=== PATIENT | female | born 1955 | race Caucasian/White ===

== ENCOUNTER 2021-01-22 11:44 | Inpatient (IN) | payer MEDICARE, OTHER ==
[~2021-01-22] VITALS: Ht 167.6 cm; Wt 91.4 kg
[2021-01-22] MEDS ORDERED: LEVO25TA4 PO (12:49)
[2021-01-22] MEDS ORDERED: VENL37.5 PO (12:49)
[2021-01-22] MEDS ORDERED: HYDR25SU18 RC (12:49)
[2021-01-22] MEDS ORDERED: RIVA1PAT22 TD (12:49)
[2021-01-22] MEDS ORDERED: ATOR20TA58 PO (12:49)
[2021-01-22] MEDS ORDERED: AMLO-186 PO (12:49)
[2021-01-22] MEDS ORDERED: MECL-75 PO (12:49)
[2021-01-22] MEDS ORDERED: LIDO700A21 TP (12:49)
[2021-01-22] MEDS ORDERED: DEMECLOCYCLINE HCL PO (12:49)
[2021-01-22] MEDS ORDERED: MESA1.2T PO (12:49)
[2021-01-22] MEDS ORDERED: INSU100V13 SQ (12:49)
[2021-01-22] MEDS ORDERED: QUET50TA5 PO (13:10)
[2021-01-22] MEDS ORDERED: CYAN500T17 PO (13:10)
[2021-01-22] MEDS ORDERED: LIRA0.6P2 SQ (13:10)
[2021-01-22] MEDS ORDERED: RISP2TAB78 PO (13:10)
[2021-01-22] MEDS ORDERED: METO25TA4 PO (13:10)
[2021-01-22] MEDS ORDERED: ZIPR40CA2 PO ×2 (13:10)
[2021-01-22] MEDS ORDERED: LACT1CAP8 PO (13:10)
[2021-01-22] MEDS ORDERED: VALP500V2 PO (13:10)
[2021-01-22] MEDS ORDERED: CHOL10004 PO (13:10)
[2021-01-22] MEDS ORDERED: PSYL3.4P PO (13:10)
[2021-01-22] MEDS ORDERED: ACET500T68 PO (13:10)
[2021-01-22] MEDS ORDERED: INSU100I17 SQ (13:10)
--- NOTE | 2021-01-22 13:30 | NUR ---
Admission Note with Justification for Admission to [facility] Patient admitted to [facility] for protective oversight for emergency stabilization of acute psychiatric crisis. Pt admitted from: [facility] on Mode of arrival: Secure Transport Accompanied By: Secure Transport Precipitating behaviors that initiated intake and admission: delusional- thinks she has kidney failure/heart failure/pneumonia, demanding to go to the hospital, manic, labile mood, yelling, crying, angry, agitated, refusing meds & blood sugar checks, threatening to use pocket knife on staff, believes she owns the alf Description of failure of out patient attempts at stabilization in previous setting list behavior and medication trials: effexor, exelon, seroquel, redirection, labs, DrSánchez appointments, UA Behaviors and assessment findings upon admission: Pt is pleasant, but hyperverbal. She is A&Ox4. Skin is intact. She has 3+ pitting edema in her feet. 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 Box lunch ordered from the kitchen and pt provided with ice water in her room. Will continue to monitor. Plan: Admit for protective oversight for adjustment and stabilization of medications, behaviors and mood. Intense treatment regimen including groups, medication adjustments, therapy, consistent regimen for ADL's, self care, and sleep hygiene. Daily monitoring by Inpatient staff, Psychiatry, and Medical Physician.
[2021-01-22] MEDS ORDERED: METHYL SALICYLATE/MENTHOL TOPICAL OINTMENT 57GM TUBE. TP PRN (14:00)
[2021-01-22] MEDS ORDERED: MAG HYDROX/AL HYDROX/SIMETH 30 ML ORAL.SUSP PO PRN (14:00)
[2021-01-22] MEDS ORDERED: MAGNESIUM HYDROXIDE 2,400 MG/30 ML ORAL.SUSP. PO PRN (14:00)
[2021-01-22] MEDS ORDERED: ACETAMINOPHEN 325 MG TABLET PO PRN (14:00)
[2021-01-22] MEDS ORDERED: VALP250S3 PO (14:08)
[2021-01-22 15:34] VITALS: BP 115/73
[2021-01-22 15:34] LABS: BASO % 0 % (0-3); EOS # 0.1 x10^3/uL (0.0-0.7); EOS % 2 % (0-3); HEMATOCRIT 35.8 % (36.0-47.0); HEMOGLOBIN 11.9 g/dL (12.0-15.5); LYMPH # 1.8 x10^3/uL (1.0-4.8); LYMPH % 34 % (24-48); MEAN CORPUSCULAR HEMOGLOBIN 29 pg (25-35); MEAN CORPUSCULAR HGB CONC 33 g/dL (31-37); MEAN CORPUSCULAR VOLUME 88 fL (79-100); MONO # 0.5 x10^3/uL (0.0-1.1); MONO % 9 % (0-9); NEUT # 2.9 x10^3uL (1.8-7.7); NEUT % 54 % (31-73); PLATELET COUNT 164 x10^3/uL (140-400); RED BLOOD COUNT 4.08 x10^6/uL (3.50-5.40); WHITE BLOOD COUNT 5.4 x10^3/uL (4.0-11.0)
[2021-01-22 15:53] LABS: ALBUMIN 2.7 g/dL (3.4-5.0); ALBUMIN/GLOBULIN RATIO 0.7 (1.0-1.7); CALCIUM 8.7 mg/dL (8.5-10.1); CREATININE 1.3 mg/dL (0.6-1.0); MAGNESIUM 1.8 mg/dL (1.8-2.4); POTASSIUM 3.9 mmol/L (3.5-5.1); TOTAL BILIRUBIN 0.4 mg/dL (0.2-1.0); TOTAL PROTEIN 6.6 g/dL (6.4-8.2)
[2021-01-22 16:08] LABS: VAL ACID 66 mcg/mL (50-100)
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
[2021-01-22] MEDS: VALPROIC ACID 250 MG CAPSULE. PO SCH ×2 (17:39→21:27)
[2021-01-22 18:51] LABS: BILIRUBIN,URINE NEG (NEG); CLARITY,URINE CLEAR; COLOR,URINE YELLOW; GLUCOSE,URINE 100 mg/dL (NEG); NITRITE,URINE NEG (NEG); UROBILINOGEN,URINE 0.2 mg/dL (0.2 mg/dL)
[2021-01-22 18:53] LABS: RBC,URINE 0 /HPF (0-2); WBC,URINE RARE /HPF (0-4)
[2021-01-22 18:54] LABS: BACTERIA,URINE FEW /HPF (0-FEW); SQUAMOUS EPITHELIAL CELL,UR OCC /LPF
[2021-01-22] MEDS ORDERED: HYDROCORTISONE ACETATE 25 MG SUPP.RECT RC PRN (20:00)
[2021-01-22] MEDS ORDERED: ZIPRASIDONE 40 MG CAPSULE. PO SCH (21:00)
[2021-01-22] MEDS: ATORVASTATIN CALCIUM 20 MG TABLET PO SCH (21:00)
[2021-01-22] MEDS ORDERED: DEMECLOCYCLINE HCL 150 MG TABLET. PO SCH (21:00)
[2021-01-22] MEDS: DEMECLOCYCLINE HCL 150 MG TABLET. PO SCH (21:00)
[2021-01-22] MEDS: PSYLLIUM SEED (WITH SUGAR) PACKET. PO SCH (21:26)
[2021-01-22] MEDS: METOPROLOL TART IMMED RELEASE 25 MG TABLET. PO SCH (21:27)
[2021-01-22] MEDS: ZIPRASIDONE 40 MG CAPSULE. PO SCH (21:27)
[2021-01-22] MEDS: ACETAMINOPHEN 500 MG TABLET PO SCH (21:27)
[2021-01-22] MEDS: MECLIZINE 12.5 MG TABLET. PO SCH (21:27)
[2021-01-22] MEDS: risperiDONE 2 MG TABLET. PO SCH (21:27)
[2021-01-22] MEDS: QUEtiapine 50 MG TABLET. PO SCH (21:28)
--- NOTE | 2021-01-22 22:03 | NUR ---
Radha has been social and active on the unit [facility]. Meds were taken whole without difficulty. She has been delusional and hyperverbal. 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 She said she was sent here because people are trying to kill her and many other such things were said in nonstop speech. She was cooperative with exam and staff [facility].
--- NOTE | 2021-01-22 22:07 | PDOC ---
Exam Note: Benedict Note: Please also refer to the separate dictated note~for this date of service dictated separately.~Patient seen individually. Discussed the patient with Nursing staff reviewed the chart.~Reviewed interim history and current functioning. Reviewed vital signs,~Labs/ Radiology~and current medications noted below. Continue current treatment with the changes noted in the dictated addendum note Assessment: Vital Signs/I&O: Vital Signs Date Time Temp Pulse Resp B/P (MAP) Pulse Ox O2 Delivery O2 Flow Rate FiO2 01/22/21 21:27 95 115/73 01/22/21 15:34 97.3 18 95 Labs: Laboratory Tests Test 01/22/21 15:14 01/22/21 18:35 01/22/21 19:28 White Blood Count 5.4 x10^3/uL (4.0-11.0) Red Blood Count 4.08 x10^6/uL (3.50-5.40) Hemoglobin 11.9 g/dL (12.0-15.5) L Hematocrit 35.8 % (36.0-47.0) L Mean Corpuscular Volume 88 fL (79-100) Mean Corpuscular Hemoglobin 29 pg (25-35) Mean Corpuscular Hemoglobin Concent 33 g/dL (31-37) Red Cell Distribution Width 14.0 % (11.5-14.5) Platelet Count 164 x10^3/uL (140-400) Neutrophils (%) (Auto) 54 % (31-73) Lymphocytes (%) (Auto) 34 % (24-48) Monocytes (%) (Auto) 9 % (0-9) Eosinophils (%) (Auto) 2 % (0-3) Basophils (%) (Auto) 0 % (0-3) Neutrophils # (Auto) 2.9 x10^3uL (1.8-7.7) Lymphocytes # (Auto) 1.8 x10^3/uL (1.0-4.8) Monocytes # (Auto) 0.5 x10^3/uL (0.0-1.1) Eosinophils # (Auto) 0.1 x10^3/uL (0.0-0.7) Basophils # (Auto) 0.0 x10^3/uL (0.0-0.2) D-Dimer (Moon) 0.80 mg/L (0.00-0.50) H Sodium Level 138 mmol/L (136-145) Potassium Level 3.9 mmol/L (3.5-5.1) Chloride Level 100 mmol/L (98-107) Carbon Dioxide Level 29 mmol/L (21-32) Anion Gap 9 (6-14) Blood Urea Nitrogen 10 mg/dL (7-20) Creatinine 1.3 mg/dL (0.6-1.0) H Estimated GFR (Cockcroft-Gault) 41.0 BUN/Creatinine Ratio 8 (6-20) Glucose Level 196 mg/dL (70-99) H Calcium Level 8.7 mg/dL (8.5-10.1) Magnesium Level 1.8 mg/dL (1.8-2.4) Total Bilirubin 0.4 mg/dL (0.2-1.0) Aspartate Amino Transferase (AST) 53 U/L (15-37) H Alanine Aminotransferase (ALT) 35 U/L (14-59) Alkaline Phosphatase 161 U/L (46-116) H Total Protein 6.6 g/dL (6.4-8.2) Albumin 2.7 g/dL (3.4-5.0) L Albumin/Globulin Ratio 0.7 (1.0-1.7) L Valproic Acid Level 66 mcg/mL (50-100) Valproic Acid Last Dose Date 01/21/21 Valproic Acid Last Dose Time 1800 Urine Collection Type U cath Urine Color Yellow Urine Clarity Clear Urine pH 5.5 Urine Specific [place] 1.015 Urine Protein Neg (NEG-TRACE) Urine Glucose (UA) 100 mg/dL (NEG) Urine Ketones (Stick) Neg mg/dL (NEG) Urine Blood Neg (NEG) Urine Nitrite Neg (NEG) Urine Bilirubin Neg (NEG) Urine Urobilinogen Dipstick 0.2 mg/dL (0.2 mg/dL) Urine Leukocyte Esterase Trace (NEG) Urine RBC 0 /HPF (0-2) Urine WBC Rare /HPF (0-4) Urine Squamous Epithelial Cells Occ /LPF Urine Bacteria Few /HPF (0-FEW) Glucose (Fingerstick) 231 mg/dL (70-99) H Current Medications: Meds: Current Medications Medications (Trade) Dose Ordered Sig/Latesha Route PRN Reason Start Time Stop Time Status Last Admin Dose Admin Valproic Acid (Depakene) 500 mg QID PO 01/22/21 17:00 01/22/21 21:27 Acetaminophen (Tylenol) 500 mg QID PO 01/22/21 21:00 01/22/21 21:27 Metoprolol Tartrate (Lopressor) 25 mg BID PO 01/22/21 21:00 01/22/21 21:27 Quetiapine Fumarate (SEROquel) 50 mg TID PO 01/22/21 21:00 01/22/21 21:28 Risperidone (RisperDAL) 2 mg TID PO 01/22/21 21:00 01/22/21 21:27 Ziprasidone (Geodon) 40 mg BID PO 01/22/21 21:00 01/22/21 21:27 Meclizine HCl (Antivert) 25 mg BID PO 01/22/21 21:00 01/22/21 21:27 Psyllium Hydrophilic Mucilloid (Metamucil) 1 pkt BID PO 01/22/21 21:00 01/22/21 21:26 I have reviewed the current psychotropics carefully including drug interactions. Risk benefit ratio favors no change other than as noted in my dictated progress note. Diagnosis: Problems: (1) Schizoaffective disorder, bipolar type INOCENCIO PELAEZ MD Jan 22, 2021 22:07
[2021-01-23 03:07] LABS: HEMOGLOBIN A1C 8.9 % (4.8-5.6)
[2021-01-23] MEDS: LEVOTHYROXINE 25 MCG TABLET. PO SCH (05:30)
[2021-01-23 05:58] VITALS: BP 117/73
[2021-01-23 06:09] LABS: THYROXINE 7.4 ug/dL (4.5-12.0)
[2021-01-23] MEDS: ZIPRASIDONE 40 MG CAPSULE. PO SCH ×2 (08:28→21:12)
[2021-01-23] MEDS: DEMECLOCYCLINE HCL 150 MG TABLET. PO SCH ×3 (08:28→21:12)
[2021-01-23] MEDS: MECLIZINE 12.5 MG TABLET. PO SCH ×2 (08:28→21:13)
[2021-01-23] MEDS: METOPROLOL TART IMMED RELEASE 25 MG TABLET. PO SCH ×2 (08:28→21:15)
[2021-01-23] MEDS: VALPROIC ACID 250 MG CAPSULE. PO SCH ×4 (08:28→21:13)
[2021-01-23] MEDS: amLODIPine BESYLATE 5 MG TABLET PO SCH (08:29)
[2021-01-23] MEDS: ACETAMINOPHEN 500 MG TABLET PO SCH ×2 (08:29→13:00)
[2021-01-23] MEDS: LACTOBACILLUS RHAMNOSUS GG 1 CAPSULE. PO SCH ×2 (08:30→21:11)
[2021-01-23] MEDS: PSYLLIUM SEED (WITH SUGAR) PACKET. PO SCH ×2 (08:30→21:11)
[2021-01-23] MEDS: CHOLECALCIFEROL (VITAMIN D3) 1,000 UNIT TABLET PO SCH (08:30)
[2021-01-23] MEDS: QUEtiapine 50 MG TABLET. PO SCH ×3 (08:30→21:13)
[2021-01-23] MEDS: risperiDONE 2 MG TABLET. PO SCH ×3 (08:30→21:12)
[2021-01-23] MEDS: CYANOCOBALAMIN (VITAMIN B-12) 1,000 MCG TABLET. PO SCH (08:30)
[2021-01-23] MEDS: RIVASTIGMINE 4.6MG PATCH. TD SCH (08:35)
[2021-01-23] MEDS: LIDOCAINE (700MG/PATCH) PATCH. TP SCH (08:35)
[2021-01-23] MEDS: INSULIN LISPRO 300 UNITS/3 ML VIAL. SQ SCH ×3 (08:36→17:33)
[2021-01-23] MEDS: NON FORMULARY ITEM (Liraglutide (Victoza 3-Pak) 1.8 MG) SQ SCH (09:00)
[2021-01-23] MEDS ORDERED: VENLAFAXINE XR 37.5 MG CAP.ER.24H. PO SCH (09:00)
[2021-01-23] MEDS: INSULIN GLARGINE SYRINGE. SQ SCH (09:00)
[2021-01-23] MEDS: MESALAMINE 1.2 GM TABLET.DR PO SCH (10:58)
[2021-01-23] MEDS ORDERED: ACETAMINOPHEN/CODEINE 300/30MG TABLET PO PRN (11:45)
--- NOTE | 2021-01-23 12:03 | NUR ---
WEEKLY ACTIVITY THERAPY NOTE Date of Admission: 01/22/21 Date of AT Assessment: TBD Precipitating behaviors that initiated intake and admission:delusional- thinks she has kidney failure/heart failure/pneumonia, demanding to go to the hospital, manic, labile mood, yelling, crying, angry, agitated, refusing meds & blood sugar checks, threatening to use pocket knife on staff, believes she owns the intermediate Goal aimed: TBD Initial Goal: TBD Weekly progress towards goal: NA Group participation level: NA Weekly highlights: arrived on [facility] Behaviors observed: Plan: meet/assess pt Beneficial adaptations:
[2021-01-23] MEDS ORDERED: ACETAMINOPHEN 500 MG TABLET PO PRN (13:15)
[2021-01-23 14:47] LABS: THYROID STIM HORMONE (TSH) 1.948 uIU/mL (0.358-3.740)
--- NOTE | 2021-01-23 14:54 | RAD ---
EXAM: CT head without contrast INDICATION: Establish baseline COMPARISON: None TECHNIQUE: Axial CT imaging through the head without intravenous contrast. One or more of the following individualized dose reduction techniques were utilized for this examinat ion: 1. Automated exposure control 2. Adjustment of the mA and/or kV according to patient size 3. Use of iterative reconstruction technique. FINDINGS: The ventricles and sulci are moderately enlarged. There is a mild periventricular white matter hypoat tenuation.. Barrera-white matter differentiation is maintained. There is no intracranial hemorrhage, ac [place] infarct, or mass lesion. Basal cisterns are clear. The skull and scalp are intact. Small amount o f fluid in the right maxillary sinus and normal mucosal thickening in the left maxillary sinuses and ethmoid air cells. Mastoid air cells are clear. Globes and orbits are intact. IMPRESSION: 1. No acute intracranial abnormality. 2. Moderate volume loss. 3. Mild white matter disease, likely related to chronic microvascular ischemia. 4. Mild right maxillary sinus disease. Electronically signed by: Theresa Kerns MD (01/23/2021 2:52 PM) [id number]
[2021-01-23 15:44] VITALS: BP 144/77
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
--- NOTE | 2021-01-23 18:01 | NUR ---
Patient has been social and active on the unit today. Meds were taken whole without difficulty. She has been delusional and hyperverbal. 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 Patient did seem to calm down towards the end of the shift being not quite so hyperverbal. Patient has eaten well and is independently walking after PT/OT evaluation and recommendation to not use the wheelchair. Patient does own the wheelchair that is here so it is to be kept in the patients room when not in use.
--- NOTE | 2021-01-23 20:28 | CONS ---
DATE OF CONSULTATION: 01/23/2021 ATTENDING PHYSICIAN: Dr. Pelaez. We are asked to see this patient for medical consultation. HISTORY OF PRESENT ILLNESS: The patient is a 65-year-old female who currently resides at [facility] in [place], [place], . ____ is her daughter. She is bipolar. She has schizoaffective disorder. She is delusional, very manic, labile mood, yelling, crying and agitated, be very grandiose. She is admitted for further treatment and evaluation. They have tried her on Effexor, Geodon, Seroquel, and risperidone. PAST MEDICAL HISTORY: Significant for diverticulitis, degenerative arthritis, type 2 diabetes, generalized anxiety, chronic kidney disease, hypertension, hyperlipidemia, hypothyroidism, posttraumatic stress disorder and cognitive impairment. ALLERGIES: SHE HAS SEVERAL ALLERGIES INCLUDING PENICILLIN, LITHIUM, AND OLANZAPINE, EXACT REACTION IS UNCLEAR. CURRENT MEDICATIONS: Reviewed, prior to coming here she was on Tylenol, amlodipine, Lipitor, B12, Anusol, regular insulin and Levemir, lactobacillus, Synthroid, Lidoderm patch along with olanzapine, metoprolol, mesalamine, meclizine, Victoza, risperidone, Exelon patch, Depakote, Effexor, vitamin D and Geodon 40 mg b.i.d. SOCIAL HISTORY: She is a nonsmoker, nondrinker. FAMILY HISTORY: Unobtainable. REVIEW OF SYSTEMS: Significant for grandiose ideation. She has a significant stories to tell. She is quite hyperverbal. She is not agitated. All other systems reviewed and turned to be negative. PHYSICAL EXAMINATION: GENERAL: When I saw her, this is a pleasant, middle-aged female. INITIAL VITAL SIGNS: Showed a blood pressure 117/73, pulse is 77 and regular. She was afebrile, oxygen saturation 97% on room air. HEENT: Head is without trauma. Pupils are reactive. Sclerae is nonicteric. Oropharynx clear. NECK: Supple, no bruits identified. LUNGS: Otherwise clear. CARDIOVASCULAR: Showed regular heart tones. No gallop. ABDOMEN: Soft. EXTREMITIES: Without edema. NEUROLOGIC: Focally intact. SKIN: Warm and dry. LABORATORY DATA: Hemoglobin 11.9 g/dL, white count 5400. Chemistry panel: Creatinine is 1.3 mg/dL. Electrolytes within normal range. Nonfasting blood sugar 196. ASSESSMENT: 1. This 65-year-old female has significant bipolar disorder with hypomania. 2. Type 2 diabetes. 3. Essential hypertension. 4. Degenerative arthritis. 5. Hypothyroidism, on replacement. RECOMMENDATIONS: 1. The patient is stable from a medical standpoint. 2. Home medications were reviewed, she will be continued. 3. She requested p.r.n. Tylenol. 4. I will order this as needed basis. Thank you again for asking us to see the patient for medical consultation. We should gladly follow along during her inpatient course. BROOKLYN/JOHANA DR: BROOKLYN/alice TID: [id number] CC: INOCENCIO PELAEZ MD
[2021-01-23] MEDS: cloZAPine 25 MG TABLET PO SCH (21:12)
[2021-01-23] MEDS: ATORVASTATIN CALCIUM 20 MG TABLET PO SCH (21:12)
--- NOTE | 2021-01-23 21:57 | PDOC ---
Exam Note: Benedict Note: Please also refer to the separate dictated note~for this date of service dictated separately.~Patient seen individually. Discussed the patient with Nursing staff reviewed the chart.~Reviewed interim history and current functioning. Reviewed vital signs,~Labs/ Radiology~and current medications noted below. Continue current treatment with the changes noted in the dictated addendum note Assessment: Vital Signs/I&O: Vital Signs Date Time Temp Pulse Resp B/P (MAP) Pulse Ox O2 Delivery O2 Flow Rate FiO2 01/23/21 21:15 81 144/77 01/23/21 15:44 98.1 20 100 01/23/21 12:53 Room Air I & O 01/22/21 01/22/21 01/23/21 15:00 23:00 07:00 Intake Total 600 ml Balance 600 ml Labs: Laboratory Tests Test 01/23/21 07:40 01/23/21 11:00 01/23/21 12:00 01/23/21 16:26 Glucose (Fingerstick) 201 mg/dL (70-99) H 239 mg/dL (70-99) H 184 mg/dL (70-99) H 169 mg/dL (70-99) H Test 01/23/21 19:43 Glucose (Fingerstick) 175 mg/dL (70-99) H Current Medications: Meds: Laboratory Tests Test 01/23/21 07:40 01/23/21 11:00 01/23/21 12:00 01/23/21 16:26 Glucose (Fingerstick) 201 mg/dL 239 mg/dL 184 mg/dL 169 mg/dL Test 01/23/21 19:43 Glucose (Fingerstick) 175 mg/dL Current Medications Medications (Trade) Dose Ordered Sig/Latesha Route PRN Reason Start Time Stop Time Status Last Admin Dose Admin Acetaminophen (Tylenol) 650 mg PRN Q6HRS PRN PO MILD PAIN / TEMP > 100.3'F 01/22/21 14:00 Cancel Multi-Ingredient Ointment (Analgesic [place]) 1 keri PRN QID PRN TP MUSCLE PAIN 01/22/21 14:00 Al Hydroxide/Mg Hydroxide (Mylanta Plus Xs) 15 ml PRN AFTMEALHC PRN PO DYSPEPSIA 01/22/21 14:00 Magnesium Hydroxide (Milk Of Magnesia) 2,400 mg PRN QHS PRN PO CONSTIPATION 01/22/21 14:00 Valproic Acid (Depakene) 500 mg QID PO 01/22/21 17:00 01/23/21 21:13 Acetaminophen (Tylenol) 500 mg QID PO 01/22/21 21:00 01/23/21 13:04 DC 01/23/21 08:29 Amlodipine Besylate (Norvasc) 5 mg DAILY PO 01/23/21 09:00 01/23/21 08:29 Atorvastatin Calcium (Lipitor) 20 mg QHS PO 01/22/21 21:00 01/23/21 21:12 Vitamin D (Vitamin D3) 1,000 unit DAILY PO 01/23/21 09:00 01/23/21 08:30 Hydrocortisone Acetate (Anucort-Hc) 25 mg PRN Q8HRS PRN RC hemorrhoids 01/22/21 20:00 Levothyroxine Sodium (Synthroid) 25 mcg DAILY06 PO 01/23/21 06:00 01/23/21 05:30 Lidocaine (Lidoderm) 1 patch DAILY TP 01/23/21 09:00 01/23/21 08:35 Mesalamine (Lialda) 1.2 gm DAILY PO 01/23/21 09:00 01/23/21 10:58 Metoprolol Tartrate (Lopressor) 25 mg BID PO 01/22/21 21:00 01/23/21 21:15 Quetiapine Fumarate (SEROquel) 50 mg TID PO 01/22/21 21:00 01/23/21 21:13 Risperidone (RisperDAL) 2 mg TID PO 01/22/21 21:00 01/23/21 21:12 Rivastigmine (Exelon) 1 patch DAILY TD 01/23/21 09:00 01/23/21 08:35 Venlafaxine HCl (Effexor Xr) 37.5 mg DAILY PO 01/23/21 09:00 01/23/21 13:11 DC 01/23/21 08:29 Ziprasidone (Geodon) 40 mg BID PO 01/22/21 21:00 01/23/21 21:12 Ziprasidone (Geodon) 80 mg QHS PO 01/22/21 21:00 01/22/21 20:17 DC Cyanocobalamin (Vitamin B-12) 1,000 mcg DAILY PO 01/23/21 09:00 01/23/21 08:30 Insulin Human Lispro (HumaLOG) 40 units TIDWMEALS SQ 01/23/21 08:00 01/23/21 17:33 Insulin Glargine (Lantus Syringe) 30 unit DAILY SQ 01/23/21 09:00 01/23/21 09:00 Lactobacillus Rhamnosus (Culturelle) 1 cap BID PO 01/23/21 09:00 01/23/21 21:11 Non-Formulary Medication (Liraglutide (Victoza 3-Jas)) 1.8 mg DAILY SQ 01/23/21 09:00 UNV Meclizine HCl (Antivert) 25 mg BID PO 01/22/21 21:00 01/23/21 21:13 Psyllium Hydrophilic Mucilloid (Metamucil) 1 pkt BID PO 01/22/21 21:00 01/23/21 21:11 Demeclocycline HCl (Declomycin) 150 mg TID PO 01/22/21 21:00 01/22/21 20:45 DC Olanzapine (ZyPREXA ZYDIS) 5 mg PRN Q2HR PRN PO PSYCHOSIS 01/22/21 20:30 Demeclocycline HCl (Declomycin) 300 mg TID PO 01/22/21 21:00 01/23/21 21:12 Acetaminophen/ Codeine Phosphate (Tylenol #3) 1 tab PRN QID PRN PO MODERATE PAIN 4-6 01/23/21 11:45 01/23/21 12:23 Acetaminophen (Tylenol) 500 mg PRN Q6HRS PRN PO MILD PAIN / TEMP > 100.3'F 01/23/21 13:15 Clozapine (Clozaril) 25 mg HS PO 01/23/21 21:00 01/23/21 21:12 Current Medications Medications (Trade) Dose Ordered Sig/Latesha Route PRN Reason Start Time Stop Time Status Last Admin Dose Admin Amlodipine Besylate (Norvasc) 5 mg DAILY PO 01/23/21 09:00 01/23/21 08:29 Vitamin D (Vitamin D3) 1,000 unit DAILY PO 01/23/21 09:00 01/23/21 08:30 Levothyroxine Sodium (Synthroid) 25 mcg DAILY06 PO 01/23/21 06:00 01/23/21 05:30 Lidocaine (Lidoderm) 1 patch DAILY TP 01/23/21 09:00 01/23/21 08:35 Mesalamine (Lialda) 1.2 gm DAILY PO 01/23/21 09:00 01/23/21 10:58 Rivastigmine (Exelon) 1 patch DAILY TD 01/23/21 09:00 01/23/21 08:35 Venlafaxine HCl (Effexor Xr) 37.5 mg DAILY PO 01/23/21 09:00 01/23/21 13:11 DC 01/23/21 08:29 Cyanocobalamin (Vitamin B-12) 1,000 mcg DAILY PO 01/23/21 09:00 01/23/21 08:30 Insulin Human Lispro (HumaLOG) 40 units TIDWMEALS SQ 01/23/21 08:00 01/23/21 17:33 Insulin Glargine (Lantus Syringe) 30 unit DAILY SQ 01/23/21 09:00 01/23/21 09:00 Lactobacillus Rhamnosus (Culturelle) 1 cap BID PO 01/23/21 09:00 01/23/21 21:11 Acetaminophen/ Codeine Phosphate (Tylenol #3) 1 tab PRN QID PRN PO MODERATE PAIN 4-6 01/23/21 11:45 01/23/21 12:23 Clozapine (Clozaril) 25 mg HS PO 01/23/21 21:00 01/23/21 21:12 I have reviewed the current psychotropics carefully including drug interactions. Risk benefit ratio favors no change other than as noted in my dictated progress note. Diagnosis: Problems: (1) Schizoaffective disorder, bipolar type INOCENCIO PELAEZ MD Jan 23, 2021 21:56
--- NOTE | 2021-01-23 23:16 | HP ---
ADMIT DATE: 01/22/2021 PSYCHIATRIC ADMISSION HISTORY AND EVALUATION This is a late entry, date of service 01/22/2021, covers elements not covered in my initial note of 01/22/2021. I met with the patient in the evening of 01/22/2021 and previously discussed with Lilibeth Pal, search coordinator and nursing staff, reviewed information from [facility] and from the patient's court appointed guardian. IDENTIFYING DATA: The patient is a 65-year-old female referred to us from [facility] by Dr. Parveen Kemp, her primary care physician on account of an acute exacerbation of her schizoaffective disorder, bipolar type, mixed with psychotic features. Reportedly, patient has been grandiose, delusional, think she has kidney failure, angry, agitated, refusing medications and blood sugar checks. Threatening to use a pocket knife on staff. She believes she owns the [facility]. 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 The patient's behaviors are unmanageable at the facility. She has failed prior inpatient psychiatric stay at [facility] in November of this year. She has been cheeking the medications which further complicates her presentation and is referred and admitted for inpatient psychiatric stabilization. CHIEF COMPLAINT: "I can do anything. 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 You can bring your family for my parties and everyone else. I need to rest." The patient remains hyperverbal, extremely grandiose, paranoid, psychotic, constantly talking fairly loud, abrasive, intrusive, marked mood lability and agitation. She has failed outpatient psychiatric interventions resulting in this referral. PAST PSYCHIATRIC HISTORY: As above and she used to be treated at the [facility] in [place] and continued with other providers after [facility] has moved to [place], [place]. PAST MEDICAL HISTORY: Positive for hypothyroidism, hyponatremia, hyperlipidemia, hypertension, type 2 diabetes mellitus, chronic kidney disease stage III, CHF, diverticulitis, PTSD, mild cognitive impairment, chronic obstructive pyelonephritis. Accu-Cheks before meals and at bedtime. ALLERGIES: LITHIUM, ZYPREXA and PENICILLIN. CODE STATUS: Full code. DIET: Regular. MEDICATIONS: She often tries to cheek HER medications. Ambulates ad rodolfo. Current psychotropics: Effexor XR 37.5 mg a day, Exelon patch 4.6 mg a day, Risperdal 2 mg t.i.d., Seroquel 50 mg t.i.d., Depakene 500 mg 4 times a day, Geodon 40 mg b.i.d. and 80 mg at bedtime. FAMILY HISTORY: Noncontributory. SOCIAL HISTORY: No history of alcohol, drug abuse, physical, sexual or elder abuse. She is not known to be a perpetrator. Reaction to hospitalization, the patient accepting of this. ASSETS: Supportive guardian, living at the nursing facility. REVIEW OF SYSTEMS: No CV, , pulmonary, eye, ENT system symptoms on review. MENTAL STATUS EXAMINATION: The patient is oriented to herself, situation. Speech coherent, rapid, loud at times. Abstraction fair. Computation impaired. Language function intact. Attention span short. Mood and affect remains extremely labile, grandiose, manic. LABORATORY DATA: Reviewed. IMPRESSION: Schizoaffective disorder, bipolar type, manic with psychotic features; anxiety disorder, unspecified; impulse control disorder, unspecified; rest as above. PLAN: Admit to geropsychiatry unit at [facility]. I will see the patient daily individually. Her medical followup with Dr. Carl/Dr. Lee. Continue current psychotropics. Check valproic acid level, adjust to reach therapeutic level. Consider simplifying the 3 atypical antipsychotics. Consider Clozaril, may consider stopping Effexor since this could be exacerbating her rogelio. ESTIMATED LENGTH OF STAY: 10-12 days. DISPOSITION PLANS: [facility] when stable. KRISTEN/EKT DR: KRISTEN/alice TID: [id number]
[2021-01-24] MEDS: LEVOTHYROXINE 25 MCG TABLET. PO SCH (05:36)
[2021-01-24 05:55] VITALS: BP 127/86
--- NOTE | 2021-01-24 07:09 | PDOC ---
Exam Note: Benedict Note: This note is a late entry for 01/23/2021 covers elements not covered in my initial note. Subjective: The patient was reviewed in the morning of 01/23/2021 for a treatment team meeting with Lilibeth Holman, Gloria Rosario and Sherri (social worker psychiatric), Farrah, activity therapy and Miguelina CARRERA, discussed and reviewed the chart. The patient slept 5-3/4 hours previous night. Per nursing report, the patient remains extremely grandiose, psychotic, believes she is an [employer] agent, an [employer] physician, psychiatrist and every other specialty. We are awaiting records from [facility]. 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 We will obtain CT head if not done recently. Reportedly she has had 13 hospitalizations starting in her early 20s, most of them at [facility] and she has been at [facility] and [facility]. We will also try and obtain other psychiatric history of psychotropic medications used and if she has never been on Clozaril, we will initiate that 25 mg h.s. We will have to check her weekly CBC and absolute neutrophil count. Review of Systems: She complains of tiredness. Ambulation impaired in wheelchair. No CV, , pulmonary, eye, ENT system symptoms on review. Mental Status Exam: The patient is reasonably oriented, extremely grandiose, hyperverbal again believes she is a physician, a teacher, physicist amongst other things. Abstraction fair. Computation impaired. Language function intact. Attention span short. Mood and affect remains grandiose. Laboratory Data: Reviewed. Impression: Schizoaffective disorder, bipolar type mixed with psychotic features. Anxiety disorder unspecified. Impulse control disorder unspecified. Plan: In addition to above, if she has never been on Clozaril, then we will do a pharmacy consult and if no drug-drug interactions with the Clozaril, we will start her on 25 mg h.s. Check weekly CBC, absolute neutrophil count and rest unchanged from initial note. Assessment: Vital Signs/I&O: Vital Signs Date Time Temp Pulse Resp B/P (MAP) Pulse Ox O2 Delivery O2 Flow Rate FiO2 01/24/21 05:55 97.1 90 16 127/86 (100) 96 Room Air I & O 01/23/21 01/23/21 01/24/21 15:00 23:00 07:00 Intake Total 1200 ml 360 ml 240 ml Balance 1200 ml 360 ml 240 ml Labs: Laboratory Tests Test 01/23/21 07:40 01/23/21 11:00 01/23/21 12:00 01/23/21 16:26 Glucose (Fingerstick) 201 mg/dL (70-99) H 239 mg/dL (70-99) H 184 mg/dL (70-99) H 169 mg/dL (70-99) H Test 01/23/21 19:43 Glucose (Fingerstick) 175 mg/dL (70-99) H Current Medications: Meds: Current Medications Medications (Trade) Dose Ordered Sig/Latesha Route PRN Reason Start Time Stop Time Status Last Admin Dose Admin Amlodipine Besylate (Norvasc) 5 mg DAILY PO 01/23/21 09:00 01/23/21 08:29 Vitamin D (Vitamin D3) 1,000 unit DAILY PO 01/23/21 09:00 01/23/21 08:30 Lidocaine (Lidoderm) 1 patch DAILY TP 01/23/21 09:00 01/23/21 08:35 Mesalamine (Lialda) 1.2 gm DAILY PO 01/23/21 09:00 01/23/21 10:58 Rivastigmine (Exelon) 1 patch DAILY TD 01/23/21 09:00 01/23/21 08:35 Venlafaxine HCl (Effexor Xr) 37.5 mg DAILY PO 01/23/21 09:00 01/23/21 13:11 DC 01/23/21 08:29 Cyanocobalamin (Vitamin B-12) 1,000 mcg DAILY PO 01/23/21 09:00 01/23/21 08:30 Insulin Human Lispro (HumaLOG) 40 units TIDWMEALS SQ 01/23/21 08:00 01/23/21 17:33 Insulin Glargine (Lantus Syringe) 30 unit DAILY SQ 01/23/21 09:00 01/23/21 09:00 Lactobacillus Rhamnosus (Culturelle) 1 cap BID PO 01/23/21 09:00 01/23/21 21:11 Acetaminophen/ Codeine Phosphate (Tylenol #3) 1 tab PRN QID PRN PO MODERATE PAIN 4-6 01/23/21 11:45 01/23/21 12:23 Clozapine (Clozaril) 25 mg HS PO 01/23/21 21:00 01/23/21 21:12 I have reviewed the current psychotropics carefully including drug interactions. Risk benefit ratio favors no change other than as noted in my dictated progress note. Diagnosis: Problems: (1) Bipolar disorder, current episode manic severe with psychotic features (2) Anxiety disorder, unspecified (3) Impulse control disorder, unspecified (4) Schizoaffective disorder, bipolar type INOCENCIO PELAEZ MD Jan 24, 2021 07:09
[2021-01-24] MEDS: INSULIN LISPRO 300 UNITS/3 ML VIAL. SQ SCH ×3 (08:00→17:59)
[2021-01-24] MEDS: MESALAMINE 1.2 GM TABLET.DR PO SCH (08:52)
[2021-01-24] MEDS: RIVASTIGMINE 4.6MG PATCH. TD SCH (08:53)
[2021-01-24] MEDS: METOPROLOL TART IMMED RELEASE 25 MG TABLET. PO SCH ×2 (08:53→20:13)
[2021-01-24] MEDS: CYANOCOBALAMIN (VITAMIN B-12) 1,000 MCG TABLET. PO SCH (08:53)
[2021-01-24] MEDS: PSYLLIUM SEED (WITH SUGAR) PACKET. PO SCH ×2 (08:53→20:11)
[2021-01-24] MEDS: VALPROIC ACID 250 MG CAPSULE. PO SCH ×4 (08:53→20:14)
[2021-01-24] MEDS: DEMECLOCYCLINE HCL 150 MG TABLET. PO SCH ×3 (08:53→20:13)
[2021-01-24] MEDS: CHOLECALCIFEROL (VITAMIN D3) 1,000 UNIT TABLET PO SCH (08:53)
[2021-01-24] MEDS: amLODIPine BESYLATE 5 MG TABLET PO SCH (08:53)
[2021-01-24] MEDS: ZIPRASIDONE 40 MG CAPSULE. PO SCH ×2 (08:53→20:15)
[2021-01-24] MEDS: risperiDONE 2 MG TABLET. PO SCH ×3 (08:54→20:16)
[2021-01-24] MEDS: MECLIZINE 12.5 MG TABLET. PO SCH ×2 (08:54→20:15)
[2021-01-24] MEDS: QUEtiapine 50 MG TABLET. PO SCH ×3 (08:54→20:15)
[2021-01-24] MEDS: LACTOBACILLUS RHAMNOSUS GG 1 CAPSULE. PO SCH ×2 (08:57→20:12)
[2021-01-24] MEDS: LIDOCAINE (700MG/PATCH) PATCH. TP SCH (08:59)
[2021-01-24] MEDS: NON FORMULARY ITEM (Liraglutide (Victoza 3-Pak) 1.8 MG) SQ SCH (08:59)
[2021-01-24] MEDS: INSULIN GLARGINE SYRINGE. SQ SCH (09:00)
--- NOTE | 2021-01-24 12:15 | NUR ---
ACTIVITY THERAPY ASSESSMENT completed based on notes, observation and interview. Pt was sitting in the dining room eating her lunch. Pt was compliant and calm during time of assessment. AT explained to groups offered on [facility] and pt expressed her interests. AT then asked pt what she likes to do, pt said she likes "basketball, football, baseball, pool, shuffleboard, singing, dancing, exercise, reading and watching TV. Pt is aware and oriented but delusional. AT asked pt what brought her here and she said "they are trying to kill me." Pt was referring to her facility and expressed her dislikes about her placement. AT asked pt about her family and she was able to recall most facts and detail about them. Pt said that she had four children and per notes it says that she has three. 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 AT redirected pt and asked if she feels stressed at this point in time. Pt said that she was not stressed but when she gets back to her facility she will be stressed. Pt said that "right now I'm as calm as a cucumber." AT then asked pt what she does to cope with stress and she that she bites her fingernails and knuckles. Pt said that she was so mad at her facility that she left a salo on her hand after she bit it. AT discussed that while she was here we could find new coping skills and pt agreed. AT asked pt if she would be interested in a magazine and she took a couple magazines from AT. Pt thanked AT and was pleasant. Per notes pt is delusional but compliant and pleasant. Initial goal aimed to increase stress management and relaxation skills. Pt will participate in at least five individual or group Activity Therapy sessions per week. Addendum: 02/06/21 at 1245 by HUMBERTO POE ACT Goal changed 02/06: Pt will participate in at least three individual or group Activity Therapy sessions before discharge.
[2021-01-24 15:31] VITALS: BP 124/79
--- NOTE | 2021-01-24 17:07 | NUR ---
Pt very grandiose as well as euphoric. 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 Patient am lispro was held due to she was sleeping in for breakfast and only ate a snack once she woke up which was not much. Patient ate well for lunch and dinner patient in the dining room with others for lunch and dinner hyperverbal with others, med compliant and cooperative with cares will offer her expertise to what ever the situation is to assist staff in doing their jobs. No aggressive behaviors from patient at this moment will continue to monitor patient.
[2021-01-24] MEDS: ATORVASTATIN CALCIUM 20 MG TABLET PO SCH (20:14)
[2021-01-24] MEDS: cloZAPine 25 MG TABLET PO SCH (20:15)
--- NOTE | 2021-01-24 22:03 | PDOC ---
Exam Note: Benedict Note: Please also refer to the separate dictated note~for this date of service dictated separately.~Patient seen individually. Discussed the patient with Nursing staff reviewed the chart.~Reviewed interim history and current functioning. Reviewed vital signs,~Labs/ Radiology~and current medications noted below. Continue current treatment with the changes noted in the dictated addendum note Assessment: Vital Signs/I&O: Vital Signs Date Time Temp Pulse Resp B/P (MAP) Pulse Ox O2 Delivery O2 Flow Rate FiO2 01/24/21 20:13 78 124/79 01/24/21 15:31 97.9 20 96 Room Air I & O 01/23/21 01/23/21 01/24/21 15:00 23:00 07:00 Intake Total 1200 ml 360 ml 240 ml Balance 1200 ml 360 ml 240 ml Labs: Laboratory Tests Test 01/24/21 11:40 01/24/21 17:13 01/24/21 19:17 Glucose (Fingerstick) 203 mg/dL (70-99) H 234 mg/dL (70-99) H 319 mg/dL (70-99) H Current Medications: Meds: Laboratory Tests Test 01/24/21 11:40 01/24/21 17:13 01/24/21 19:17 Glucose (Fingerstick) 203 mg/dL 234 mg/dL 319 mg/dL Current Medications Medications (Trade) Dose Ordered Sig/Latesha Route PRN Reason Start Time Stop Time Status Last Admin Dose Admin Acetaminophen (Tylenol) 650 mg PRN Q6HRS PRN PO MILD PAIN / TEMP > 100.3'F 01/22/21 14:00 Cancel Multi-Ingredient Ointment (Analgesic [place]) 1 keri PRN QID PRN TP MUSCLE PAIN 01/22/21 14:00 Al Hydroxide/Mg Hydroxide (Mylanta Plus Xs) 15 ml PRN AFTMEALHC PRN PO DYSPEPSIA 01/22/21 14:00 Magnesium Hydroxide (Milk Of Magnesia) 2,400 mg PRN QHS PRN PO CONSTIPATION 01/22/21 14:00 Valproic Acid (Depakene) 500 mg QID PO 01/22/21 17:00 01/24/21 20:14 Acetaminophen (Tylenol) 500 mg QID PO 01/22/21 21:00 01/23/21 13:04 DC 01/23/21 08:29 Amlodipine Besylate (Norvasc) 5 mg DAILY PO 01/23/21 09:00 01/24/21 08:53 Atorvastatin Calcium (Lipitor) 20 mg QHS PO 01/22/21 21:00 01/24/21 20:14 Vitamin D (Vitamin D3) 1,000 unit DAILY PO 01/23/21 09:00 01/24/21 08:53 Hydrocortisone Acetate (Anucort-Hc) 25 mg PRN Q8HRS PRN RC hemorrhoids 01/22/21 20:00 Levothyroxine Sodium (Synthroid) 25 mcg DAILY06 PO 01/23/21 06:00 01/24/21 05:36 Lidocaine (Lidoderm) 1 patch DAILY TP 01/23/21 09:00 01/24/21 08:59 Mesalamine (Lialda) 1.2 gm DAILY PO 01/23/21 09:00 01/24/21 08:52 Metoprolol Tartrate (Lopressor) 25 mg BID PO 01/22/21 21:00 01/24/21 20:13 Quetiapine Fumarate (SEROquel) 50 mg TID PO 01/22/21 21:00 01/24/21 20:15 Risperidone (RisperDAL) 2 mg TID PO 01/22/21 21:00 01/24/21 20:16 Rivastigmine (Exelon) 1 patch DAILY TD 01/23/21 09:00 01/24/21 08:53 Venlafaxine HCl (Effexor Xr) 37.5 mg DAILY PO 01/23/21 09:00 01/23/21 13:11 DC 01/23/21 08:29 Ziprasidone (Geodon) 40 mg BID PO 01/22/21 21:00 01/24/21 20:15 Ziprasidone (Geodon) 80 mg QHS PO 01/22/21 21:00 01/22/21 20:17 DC Cyanocobalamin (Vitamin B-12) 1,000 mcg DAILY PO 01/23/21 09:00 01/24/21 08:53 Insulin Human Lispro (HumaLOG) 40 units TIDWMEALS SQ 01/23/21 08:00 01/24/21 17:59 Insulin Glargine (Lantus Syringe) 30 unit DAILY SQ 01/23/21 09:00 01/24/21 09:00 Lactobacillus Rhamnosus (Culturelle) 1 cap BID PO 01/23/21 09:00 01/24/21 20:12 Non-Formulary Medication (Liraglutide (Victoza 3-Jas)) 1.8 mg DAILY SQ 01/23/21 09:00 UNV Meclizine HCl (Antivert) 25 mg BID PO 01/22/21 21:00 01/24/21 20:15 Psyllium Hydrophilic Mucilloid (Metamucil) 1 pkt BID PO 01/22/21 21:00 01/24/21 20:11 Demeclocycline HCl (Declomycin) 150 mg TID PO 01/22/21 21:00 01/22/21 20:45 DC Olanzapine (ZyPREXA ZYDIS) 5 mg PRN Q2HR PRN PO PSYCHOSIS 01/22/21 20:30 Demeclocycline HCl (Declomycin) 300 mg TID PO 01/22/21 21:00 01/24/21 20:13 Acetaminophen/ Codeine Phosphate (Tylenol #3) 1 tab PRN QID PRN PO MODERATE PAIN 4-6 01/23/21 11:45 01/23/21 12:23 Acetaminophen (Tylenol) 500 mg PRN Q6HRS PRN PO MILD PAIN / TEMP > 100.3'F 01/23/21 13:15 Clozapine (Clozaril) 25 mg HS PO 01/23/21 21:00 01/24/21 20:15 I have reviewed the current psychotropics carefully including drug interactions. Risk benefit ratio favors no change other than as noted in my dictated progress note. Diagnosis: Problems: (1) Schizoaffective disorder, bipolar type (2) Impulse control disorder, unspecified (3) Anxiety disorder, unspecified (4) Bipolar disorder, current episode manic severe with psychotic features INOCENCIO PELAEZ MD Jan 24, 2021 22:03
--- NOTE | 2021-01-24 23:19 | NUR ---
Patient is located in the day room on assumption of care, watching a movie with her peers. Social and interacting appropriately with peers and staff. She is compliant with assessments and medications taken whole. She is delusional, hyperverbal. States "Did you know I received a $400k reward from the [employer] for solving a murder? Thank God, because I didn't want to have to move in with my family and be a burden." Also stated "I had to go to [place] to get leg surgery, they have the best orthopedic surgeon there. I had to have muscles from my calf attached to my thigh." No agitation. Patient denies any pain or discomfort. She appears to be sleeping comfortably at present time.
[2021-01-25] MEDS: LEVOTHYROXINE 25 MCG TABLET. PO SCH (05:57)
[2021-01-25 06:10] VITALS: BP 125/76
--- NOTE | 2021-01-25 06:34 | EKG ---
[address] [address] Test Date: 2021-01-22 Test Time: 22:28:01 Pat Name: DEDRA SLADE Department: Room: [address] [place] [address] Gender: F Manhole Stripper: : [id number] Requested By: INOCENCIO PELAEZ Order Number: [id number] Reading MD: Measurements Intervals [place] Rate: P: TN: QRS: QRSD: T: QT: QTc: Interpretive Statements
--- NOTE | 2021-01-25 07:03 | PDOC ---
Exam Note: Benedict Note: This note is a late entry for 01/24/2021 covers elements not covered in my initial note. Subjective: The patient was seen individually in the evening of 01/24/2021 with Daniel CARRERA, discussed and reviewed the chart. The patient slept 8-1/2 hours previous night. I met with her in her room. She remains grandiose, hyperverbal but otherwise pleasant, interactive as I met with her. Review of Systems: Positive for some tiredness. No CV, , pulmonary, eye, ENT system symptoms on review. Mental Status Exam: The patient is reasonably oriented. Speech coherent, rapid at times. Abstraction fair. Computation impaired. Language function intact. Mood and affect remains grandiose. Laboratory Data: Reviewed. Impression: Schizoaffective disorder, bipolar type mixed with psychotic features. Anxiety disorder unspecified. Impulse control disorder unspecified. Plan: Continue Clozaril 25 mg h.s. Monitor CBC, absolute neutrophil count we ekly. Rest unchanged for now. Assessment: Vital Signs/I&O: Vital Signs Date Time Temp Pulse Resp B/P (MAP) Pulse Ox O2 Delivery O2 Flow Rate FiO2 01/25/21 06:10 97.6 84 18 125/76 (92) 99 Room Air I & O 01/24/21 01/24/21 01/25/21 15:00 23:00 07:00 Intake Total 480 ml 1080 ml Balance 480 ml 1080 ml Labs: Laboratory Tests Test 01/24/21 11:40 01/24/21 17:13 01/24/21 19:17 Glucose (Fingerstick) 203 mg/dL (70-99) H 234 mg/dL (70-99) H 319 mg/dL (70-99) H Current Medications: Meds: Laboratory Tests Test 01/24/21 11:40 01/24/21 17:13 01/24/21 19:17 Glucose (Fingerstick) 203 mg/dL 234 mg/dL 319 mg/dL Current Medications Medications (Trade) Dose Ordered Sig/Latesha Route PRN Reason Start Time Stop Time Status Last Admin Dose Admin Acetaminophen (Tylenol) 650 mg PRN Q6HRS PRN PO MILD PAIN / TEMP > 100.3'F 01/22/21 14:00 Cancel Multi-Ingredient Ointment (Analgesic [place]) 1 keri PRN QID PRN TP MUSCLE PAIN 01/22/21 14:00 Al Hydroxide/Mg Hydroxide (Mylanta Plus Xs) 15 ml PRN AFTMEALHC PRN PO DYSPEPSIA 01/22/21 14:00 Magnesium Hydroxide (Milk Of Magnesia) 2,400 mg PRN QHS PRN PO CONSTIPATION 01/22/21 14:00 Valproic Acid (Depakene) 500 mg QID PO 01/22/21 17:00 01/24/21 20:14 Acetaminophen (Tylenol) 500 mg QID PO 01/22/21 21:00 01/23/21 13:04 DC 01/23/21 08:29 Amlodipine Besylate (Norvasc) 5 mg DAILY PO 01/23/21 09:00 01/24/21 08:53 Atorvastatin Calcium (Lipitor) 20 mg QHS PO 01/22/21 21:00 01/24/21 20:14 Vitamin D (Vitamin D3) 1,000 unit DAILY PO 01/23/21 09:00 01/24/21 08:53 Hydrocortisone Acetate (Anucort-Hc) 25 mg PRN Q8HRS PRN RC hemorrhoids 01/22/21 20:00 Levothyroxine Sodium (Synthroid) 25 mcg DAILY06 PO 01/23/21 06:00 01/25/21 05:57 Lidocaine (Lidoderm) 1 patch DAILY TP 01/23/21 09:00 01/24/21 08:59 Mesalamine (Lialda) 1.2 gm DAILY PO 01/23/21 09:00 01/24/21 08:52 Metoprolol Tartrate (Lopressor) 25 mg BID PO 01/22/21 21:00 01/24/21 20:13 Quetiapine Fumarate (SEROquel) 50 mg TID PO 01/22/21 21:00 01/24/21 20:15 Risperidone (RisperDAL) 2 mg TID PO 01/22/21 21:00 01/24/21 20:16 Rivastigmine (Exelon) 1 patch DAILY TD 01/23/21 09:00 01/24/21 08:53 Venlafaxine HCl (Effexor Xr) 37.5 mg DAILY PO 01/23/21 09:00 01/23/21 13:11 DC 01/23/21 08:29 Ziprasidone (Geodon) 40 mg BID PO 01/22/21 21:00 01/24/21 20:15 Ziprasidone (Geodon) 80 mg QHS PO 01/22/21 21:00 01/22/21 20:17 DC Cyanocobalamin (Vitamin B-12) 1,000 mcg DAILY PO 01/23/21 09:00 01/24/21 08:53 Insulin Human Lispro (HumaLOG) 40 units TIDWMEALS SQ 01/23/21 08:00 01/24/21 17:59 Insulin Glargine (Lantus Syringe) 30 unit DAILY SQ 01/23/21 09:00 01/24/21 09:00 Lactobacillus Rhamnosus (Culturelle) 1 cap BID PO 01/23/21 09:00 01/24/21 20:12 Non-Formulary Medication (Liraglutide (Victoza 3-Jas)) 1.8 mg DAILY SQ 01/23/21 09:00 UNV Meclizine HCl (Antivert) 25 mg BID PO 01/22/21 21:00 01/24/21 20:15 Psyllium Hydrophilic Mucilloid (Metamucil) 1 pkt BID PO 01/22/21 21:00 01/24/21 20:11 Demeclocycline HCl (Declomycin) 150 mg TID PO 01/22/21 21:00 01/22/21 20:45 DC Olanzapine (ZyPREXA ZYDIS) 5 mg PRN Q2HR PRN PO PSYCHOSIS 01/22/21 20:30 Demeclocycline HCl (Declomycin) 300 mg TID PO 01/22/21 21:00 01/24/21 20:13 Acetaminophen/ Codeine Phosphate (Tylenol #3) 1 tab PRN QID PRN PO MODERATE PAIN 4-6 01/23/21 11:45 01/23/21 12:23 Acetaminophen (Tylenol) 500 mg PRN Q6HRS PRN PO MILD PAIN / TEMP > 100.3'F 01/23/21 13:15 Clozapine (Clozaril) 25 mg HS PO 01/23/21 21:00 01/24/21 20:15 I have reviewed the current psychotropics carefully including drug interactions. Risk benefit ratio favors no change other than as noted in my dictated progress note. Diagnosis: Problems: (1) Schizoaffective disorder, bipolar type (2) Impulse control disorder, unspecified (3) Anxiety disorder, unspecified (4) Bipolar disorder, current episode manic severe with psychotic features INOCENCIO PELAEZ MD Jan 25, 2021 07:03
[2021-01-25] MEDS: INSULIN LISPRO 300 UNITS/3 ML VIAL. SQ SCH ×3 (08:00→17:01)
[2021-01-25] MEDS: PSYLLIUM SEED (WITH SUGAR) PACKET. PO SCH ×2 (08:29→20:32)
[2021-01-25] MEDS: MESALAMINE 1.2 GM TABLET.DR PO SCH (08:29)
[2021-01-25] MEDS: LACTOBACILLUS RHAMNOSUS GG 1 CAPSULE. PO SCH ×2 (08:29→20:32)
[2021-01-25] MEDS: DEMECLOCYCLINE HCL 150 MG TABLET. PO SCH ×3 (08:29→20:33)
[2021-01-25] MEDS: VALPROIC ACID 250 MG CAPSULE. PO SCH ×4 (08:30→20:35)
[2021-01-25] MEDS: CYANOCOBALAMIN (VITAMIN B-12) 1,000 MCG TABLET. PO SCH (08:30)
[2021-01-25] MEDS: ZIPRASIDONE 40 MG CAPSULE. PO SCH ×2 (08:30→20:35)
[2021-01-25] MEDS: QUEtiapine 50 MG TABLET. PO SCH ×3 (08:31→20:35)
[2021-01-25] MEDS: LIDOCAINE (700MG/PATCH) PATCH. TP SCH (08:31)
[2021-01-25] MEDS: NON FORMULARY ITEM (Liraglutide (Victoza 3-Pak) 1.8 MG) SQ SCH (08:31)
[2021-01-25] MEDS: MECLIZINE 12.5 MG TABLET. PO SCH ×2 (08:31→20:34)
[2021-01-25] MEDS: CHOLECALCIFEROL (VITAMIN D3) 1,000 UNIT TABLET PO SCH (08:31)
[2021-01-25] MEDS: RIVASTIGMINE 4.6MG PATCH. TD SCH (08:31)
[2021-01-25] MEDS: amLODIPine BESYLATE 5 MG TABLET PO SCH (08:32)
[2021-01-25] MEDS: risperiDONE 2 MG TABLET. PO SCH ×3 (08:32→20:34)
[2021-01-25] MEDS: METOPROLOL TART IMMED RELEASE 25 MG TABLET. PO SCH ×2 (08:32→20:35)
[2021-01-25] MEDS: INSULIN GLARGINE SYRINGE. SQ SCH (09:00)
[2021-01-25 15:24] VITALS: BP 146/84
--- NOTE | 2021-01-25 18:37 | NUR ---
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 Patient has good appetite in the dining room for all meals despite 40 unit of lispro with meals and 30 units of lantus every morning patient blood sugar manages to climb above 200 steadily. Patient is asymptomatic of hyperglycemia her vitals are wnl of baseline and stable no new orders from Dr Lee or Dr Land patient denies pain or discomfort will continue to monitor patient. Addendum: 01/25/21 at 1840 by FLORESITA TELLEZ RN Patient is med compliant and cooperative with cares, very resistive when being redirected when speaking about grandiose and delusional things.
[2021-01-25] MEDS: cloZAPine 25 MG TABLET PO SCH (20:33)
[2021-01-25] MEDS: ATORVASTATIN CALCIUM 20 MG TABLET PO SCH (20:34)
--- NOTE | 2021-01-25 21:27 | NUR ---
Patient is located in her room on assumption of care, awake in bed. She is compliant with assessments and medications taken whole. She is delusional, grandiose, hyperverbal. 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 No agitation. Patient denies any pain or discomfort. She appears to be sleeping comfortably at present time.
--- NOTE | 2021-01-25 22:02 | PDOC ---
Exam Note: Benedict Note: Please also refer to the separate dictated note~for this date of service dictated separately.~Patient seen individually. Discussed the patient with Nursing staff reviewed the chart.~Reviewed interim history and current functioning. Reviewed vital signs,~Labs/ Radiology~and current medications noted below. Continue current treatment with the changes noted in the dictated addendum note Assessment: Vital Signs/I&O: Vital Signs Date Time Temp Pulse Resp B/P (MAP) Pulse Ox O2 Delivery O2 Flow Rate FiO2 01/25/21 20:35 91 146/84 01/25/21 15:24 97.0 20 98 01/25/21 06:10 Room Air I & O 01/24/21 01/24/21 01/25/21 15:00 23:00 07:00 Intake Total 480 ml 1080 ml Balance 480 ml 1080 ml Labs: Laboratory Tests Test 01/25/21 07:27 01/25/21 11:10 01/25/21 16:44 01/25/21 19:39 Glucose (Fingerstick) 132 mg/dL (70-99) H 260 mg/dL (70-99) H 299 mg/dL (70-99) H 305 mg/dL (70-99) H Current Medications: Meds: Laboratory Tests Test 01/25/21 07:27 01/25/21 11:10 01/25/21 16:44 01/25/21 19:39 Glucose (Fingerstick) 132 mg/dL 260 mg/dL 299 mg/dL 305 mg/dL Current Medications Medications (Trade) Dose Ordered Sig/Latesha Route PRN Reason Start Time Stop Time Status Last Admin Dose Admin Acetaminophen (Tylenol) 650 mg PRN Q6HRS PRN PO MILD PAIN / TEMP > 100.3'F 01/22/21 14:00 Cancel Multi-Ingredient Ointment (Analgesic [place]) 1 keri PRN QID PRN TP MUSCLE PAIN 01/22/21 14:00 Al Hydroxide/Mg Hydroxide (Mylanta Plus Xs) 15 ml PRN AFTMEALHC PRN PO DYSPEPSIA 01/22/21 14:00 Magnesium Hydroxide (Milk Of Magnesia) 2,400 mg PRN QHS PRN PO CONSTIPATION 01/22/21 14:00 Valproic Acid (Depakene) 500 mg QID PO 01/22/21 17:00 01/25/21 20:35 Acetaminophen (Tylenol) 500 mg QID PO 01/22/21 21:00 01/23/21 13:04 DC 01/23/21 08:29 Amlodipine Besylate (Norvasc) 5 mg DAILY PO 01/23/21 09:00 01/25/21 08:32 Atorvastatin Calcium (Lipitor) 20 mg QHS PO 01/22/21 21:00 01/25/21 20:34 Vitamin D (Vitamin D3) 1,000 unit DAILY PO 01/23/21 09:00 01/25/21 08:31 Hydrocortisone Acetate (Anucort-Hc) 25 mg PRN Q8HRS PRN RC hemorrhoids 01/22/21 20:00 Levothyroxine Sodium (Synthroid) 25 mcg DAILY06 PO 01/23/21 06:00 01/25/21 05:57 Lidocaine (Lidoderm) 1 patch DAILY TP 01/23/21 09:00 01/25/21 08:31 Mesalamine (Lialda) 1.2 gm DAILY PO 01/23/21 09:00 01/25/21 08:29 Metoprolol Tartrate (Lopressor) 25 mg BID PO 01/22/21 21:00 01/25/21 20:35 Quetiapine Fumarate (SEROquel) 50 mg TID PO 01/22/21 21:00 01/25/21 20:35 Risperidone (RisperDAL) 2 mg TID PO 01/22/21 21:00 01/25/21 20:34 Rivastigmine (Exelon) 1 patch DAILY TD 01/23/21 09:00 01/25/21 08:31 Venlafaxine HCl (Effexor Xr) 37.5 mg DAILY PO 01/23/21 09:00 01/23/21 13:11 DC 01/23/21 08:29 Ziprasidone (Geodon) 40 mg BID PO 01/22/21 21:00 01/25/21 20:35 Ziprasidone (Geodon) 80 mg QHS PO 01/22/21 21:00 01/22/21 20:17 DC Cyanocobalamin (Vitamin B-12) 1,000 mcg DAILY PO 01/23/21 09:00 01/25/21 08:30 Insulin Human Lispro (HumaLOG) 40 units TIDWMEALS SQ 01/23/21 08:00 01/25/21 17:01 Insulin Glargine (Lantus Syringe) 30 unit DAILY SQ 01/23/21 09:00 01/25/21 09:00 Lactobacillus Rhamnosus (Culturelle) 1 cap BID PO 01/23/21 09:00 01/25/21 20:32 Non-Formulary Medication (Liraglutide (Victoza 3-Jas)) 1.8 mg DAILY SQ 01/23/21 09:00 UNV Meclizine HCl (Antivert) 25 mg BID PO 01/22/21 21:00 01/25/21 20:34 Psyllium Hydrophilic Mucilloid (Metamucil) 1 pkt BID PO 01/22/21 21:00 01/25/21 20:32 Demeclocycline HCl (Declomycin) 150 mg TID PO 01/22/21 21:00 01/22/21 20:45 DC Olanzapine (ZyPREXA ZYDIS) 5 mg PRN Q2HR PRN PO PSYCHOSIS 01/22/21 20:30 Demeclocycline HCl (Declomycin) 300 mg TID PO 01/22/21 21:00 01/25/21 20:33 Acetaminophen/ Codeine Phosphate (Tylenol #3) 1 tab PRN QID PRN PO MODERATE PAIN 4-6 01/23/21 11:45 01/23/21 12:23 Acetaminophen (Tylenol) 500 mg PRN Q6HRS PRN PO MILD PAIN / TEMP > 100.3'F 01/23/21 13:15 Clozapine (Clozaril) 25 mg HS PO 01/23/21 21:00 01/25/21 20:33 I have reviewed the current psychotropics carefully including drug interactions. Risk benefit ratio favors no change other than as noted in my dictated progress note. Diagnosis: Problems: (1) Schizoaffective disorder, bipolar type (2) Impulse control disorder, unspecified (3) Anxiety disorder, unspecified (4) Bipolar disorder, current episode manic severe with psychotic features INOCENCIO PELAEZ MD Jan 25, 2021 22:02
[2021-01-26] MEDS: LEVOTHYROXINE 25 MCG TABLET. PO SCH (05:40)
[2021-01-26 06:10] VITALS: BP 121/77
[2021-01-26] MEDS: PSYLLIUM SEED (WITH SUGAR) PACKET. PO SCH ×2 (08:31→21:03)
[2021-01-26] MEDS: INSULIN LISPRO 300 UNITS/3 ML VIAL. SQ SCH ×3 (08:37→17:28)
[2021-01-26] MEDS: INSULIN GLARGINE SYRINGE. SQ SCH (08:39)
[2021-01-26] MEDS: LACTOBACILLUS RHAMNOSUS GG 1 CAPSULE. PO SCH ×2 (08:45→21:03)
[2021-01-26] MEDS: CYANOCOBALAMIN (VITAMIN B-12) 1,000 MCG TABLET. PO SCH (08:45)
[2021-01-26] MEDS: ZIPRASIDONE 40 MG CAPSULE. PO SCH ×2 (08:45→21:03)
[2021-01-26] MEDS: risperiDONE 2 MG TABLET. PO SCH ×3 (08:45→21:04)
[2021-01-26] MEDS: DEMECLOCYCLINE HCL 150 MG TABLET. PO SCH ×3 (08:45→21:03)
[2021-01-26] MEDS: RIVASTIGMINE 4.6MG PATCH. TD SCH (08:46)
[2021-01-26] MEDS: QUEtiapine 50 MG TABLET. PO SCH ×3 (08:47→21:03)
[2021-01-26] MEDS: MESALAMINE 1.2 GM TABLET.DR PO SCH (08:47)
[2021-01-26] MEDS: amLODIPine BESYLATE 5 MG TABLET PO SCH (08:47)
[2021-01-26] MEDS: METOPROLOL TART IMMED RELEASE 25 MG TABLET. PO SCH ×2 (08:47→21:04)
[2021-01-26] MEDS: CHOLECALCIFEROL (VITAMIN D3) 1,000 UNIT TABLET PO SCH (08:47)
[2021-01-26] MEDS: NON FORMULARY ITEM (Liraglutide (Victoza 3-Pak) 1.8 MG) SQ SCH (08:48)
[2021-01-26] MEDS: MECLIZINE 12.5 MG TABLET. PO SCH ×2 (08:48→21:04)
[2021-01-26] MEDS: VALPROIC ACID 250 MG CAPSULE. PO SCH ×4 (08:48→21:03)
[2021-01-26] MEDS: LIDOCAINE (700MG/PATCH) PATCH. TP SCH (08:51)
--- NOTE | 2021-01-26 14:27 | NUR ---
Nursing note: Client in dinning room for assessment & am medications, taken whole.She is alert and oriented with delusions of grandiose. Patient has good appetite in the dining room for all meals despite 40 unit of lispro with meals and 30 units of lantus every morning patient blood sugar manages to climb above 200 steadily. Patient is asymptomatic of hyperglycemia. Will continue to monitor patient.
[2021-01-26 15:44] VITALS: BP 101/62
[2021-01-26] MEDS: ATORVASTATIN CALCIUM 20 MG TABLET PO SCH (21:03)
[2021-01-26] MEDS: cloZAPine 25 MG TABLET PO SCH (21:04)
--- NOTE | 2021-01-26 22:06 | PDOC ---
Exam Note: Benedict Note: Please also refer to the separate dictated note~for this date of service dictated separately.~Patient seen individually. Discussed the patient with Nursing staff reviewed the chart.~Reviewed interim history and current functioning. Reviewed vital signs,~Labs/ Radiology~and current medications noted below. Continue current treatment with the changes noted in the dictated addendum note Assessment: Vital Signs/I&O: Vital Signs Date Time Temp Pulse Resp B/P (MAP) Pulse Ox O2 Delivery O2 Flow Rate FiO2 01/26/21 21:04 87 101/62 01/26/21 15:44 97.2 20 97 01/26/21 06:10 Room Air I & O 01/25/21 01/25/21 01/26/21 15:00 23:00 07:00 Intake Total 960 ml 960 ml Balance 960 ml 960 ml Labs: Laboratory Tests Test 01/26/21 07:43 01/26/21 11:19 01/26/21 16:11 01/26/21 19:07 Glucose (Fingerstick) 191 mg/dL (70-99) H 331 mg/dL (70-99) H 213 mg/dL (70-99) H 239 mg/dL (70-99) H Current Medications: Meds: Laboratory Tests Test 01/26/21 07:43 01/26/21 11:19 01/26/21 16:11 01/26/21 19:07 Glucose (Fingerstick) 191 mg/dL 331 mg/dL 213 mg/dL 239 mg/dL Current Medications Medications (Trade) Dose Ordered Sig/Latesha Route PRN Reason Start Time Stop Time Status Last Admin Dose Admin Acetaminophen (Tylenol) 650 mg PRN Q6HRS PRN PO MILD PAIN / TEMP > 100.3'F 01/22/21 14:00 Cancel Multi-Ingredient Ointment (Analgesic [place]) 1 keri PRN QID PRN TP MUSCLE PAIN 01/22/21 14:00 Al Hydroxide/Mg Hydroxide (Mylanta Plus Xs) 15 ml PRN AFTMEALHC PRN PO DYSPEPSIA 01/22/21 14:00 Magnesium Hydroxide (Milk Of Magnesia) 2,400 mg PRN QHS PRN PO CONSTIPATION 01/22/21 14:00 Valproic Acid (Depakene) 500 mg QID PO 01/22/21 17:00 01/26/21 21:03 Acetaminophen (Tylenol) 500 mg QID PO 01/22/21 21:00 01/23/21 13:04 DC 01/23/21 08:29 Amlodipine Besylate (Norvasc) 5 mg DAILY PO 01/23/21 09:00 01/26/21 08:47 Atorvastatin Calcium (Lipitor) 20 mg QHS PO 01/22/21 21:00 01/26/21 21:03 Vitamin D (Vitamin D3) 1,000 unit DAILY PO 01/23/21 09:00 01/26/21 08:47 Hydrocortisone Acetate (Anucort-Hc) 25 mg PRN Q8HRS PRN RC hemorrhoids 01/22/21 20:00 Levothyroxine Sodium (Synthroid) 25 mcg DAILY06 PO 01/23/21 06:00 01/26/21 05:40 Lidocaine (Lidoderm) 1 patch DAILY TP 01/23/21 09:00 01/26/21 08:51 Mesalamine (Lialda) 1.2 gm DAILY PO 01/23/21 09:00 01/26/21 08:47 Metoprolol Tartrate (Lopressor) 25 mg BID PO 01/22/21 21:00 01/26/21 21:04 Quetiapine Fumarate (SEROquel) 50 mg TID PO 01/22/21 21:00 01/26/21 21:03 Risperidone (RisperDAL) 2 mg TID PO 01/22/21 21:00 01/26/21 21:04 Rivastigmine (Exelon) 1 patch DAILY TD 01/23/21 09:00 01/26/21 08:46 Venlafaxine HCl (Effexor Xr) 37.5 mg DAILY PO 01/23/21 09:00 01/23/21 13:11 DC 01/23/21 08:29 Ziprasidone (Geodon) 40 mg BID PO 01/22/21 21:00 01/26/21 21:03 Ziprasidone (Geodon) 80 mg QHS PO 01/22/21 21:00 01/22/21 20:17 DC Cyanocobalamin (Vitamin B-12) 1,000 mcg DAILY PO 01/23/21 09:00 01/26/21 08:45 Insulin Human Lispro (HumaLOG) 40 units TIDWMEALS SQ 6/10/21 08:00 01/26/21 17:28 Insulin Glargine (Lantus Syringe) 30 unit DAILY SQ 01/23/21 09:00 01/26/21 08:39 Lactobacillus Rhamnosus (Culturelle) 1 cap BID PO 01/23/21 09:00 01/26/21 21:03 Non-Formulary Medication (Liraglutide (Victoza 3-Jas)) 1.8 mg DAILY SQ 01/23/21 09:00 UNV Meclizine HCl (Antivert) 25 mg BID PO 01/22/21 21:00 01/26/21 21:04 Psyllium Hydrophilic Mucilloid (Metamucil) 1 pkt BID PO 01/22/21 21:00 01/26/21 21:03 Demeclocycline HCl (Declomycin) 150 mg TID PO 01/22/21 21:00 01/22/21 20:45 DC Olanzapine (ZyPREXA ZYDIS) 5 mg PRN Q2HR PRN PO PSYCHOSIS 01/22/21 20:30 Demeclocycline HCl (Declomycin) 300 mg TID PO 01/22/21 21:00 01/26/21 21:03 Acetaminophen/ Codeine Phosphate (Tylenol #3) 1 tab PRN QID PRN PO MODERATE PAIN 4-6 01/23/21 11:45 01/23/21 12:23 Acetaminophen (Tylenol) 500 mg PRN Q6HRS PRN PO MILD PAIN / TEMP > 100.3'F 01/23/21 13:15 Clozapine (Clozaril) 25 mg HS PO 01/23/21 21:00 01/26/21 21:04 I have reviewed the current psychotropics carefully including drug interactions. Risk benefit ratio favors no change other than as noted in my dictated progress note. Diagnosis: Problems: (1) Schizoaffective disorder, bipolar type (2) Impulse control disorder, unspecified (3) Anxiety disorder, unspecified (4) Bipolar disorder, current episode manic severe with psychotic features INOCENCIO PELAEZ MD Jan 26, 2021 22:06
--- NOTE | 2021-01-26 22:18 | NUR ---
Patient is delusional. 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 She states she is at [facility] for her Chronic Pneumonia and is undercover and in hiding because people are looking for her. Patient demanded one of each type of snack and three kinds of juices. When nurse stated she could have one snack and one drink she became irate and said that the blood sugar machine is wrong and the nurse is lying. Patients HS blood sugar was 239. Patient was then demanding juice, gatorade and diet soda from staff. Patient was offered water but refused to drink the "filtered water" that was offered to her and stated that she only drinks bottled water. She then said we could get her a glass of ice because it would kill the "filter" in the water. Patient later got out of bed and came to the nurses station stating that Dr Land "guaranteed that she could have two high protein snacks or drinks in the middle of the night". Patient is angry with nurse and states she will "have nurse fired" because nurse will not give her anymore snacks. Patient eventually returned to her room and is now in bed but states she will not sleep and will sit up all night. Patient is medication compliant and has not threatened to harm anyone.
[2021-01-27] MEDS: LEVOTHYROXINE 25 MCG TABLET. PO SCH (05:28)
[2021-01-27 05:58] VITALS: BP 124/67
[2021-01-27 08:06] LABS: BASO % 0 % (0-3); EOS # 0.1 x10^3/uL (0.0-0.7); EOS % 2 % (0-3); HEMATOCRIT 33.4 % (36.0-47.0); HEMOGLOBIN 11.1 g/dL (12.0-15.5); LYMPH % 34 % (24-48); MEAN CORPUSCULAR HEMOGLOBIN 29 pg (25-35); MEAN CORPUSCULAR HGB CONC 33 g/dL (31-37); MEAN CORPUSCULAR VOLUME 87 fL (79-100); MONO # 0.6 x10^3/uL (0.0-1.1); MONO % 10 % (0-9); NEUT # 3.2 x10^3uL (1.8-7.7); NEUT % 54 % (31-73); PLATELET COUNT 154 x10^3/uL (140-400); RED BLOOD COUNT 3.85 x10^6/uL (3.50-5.40); RED CELL DISTRIBUTION WIDTH 14.6 % (11.5-14.5); WHITE BLOOD COUNT 5.9 x10^3/uL (4.0-11.0)
[2021-01-27] MEDS: LIDOCAINE (700MG/PATCH) PATCH. TP SCH (08:12)
[2021-01-27] MEDS: VALPROIC ACID 250 MG CAPSULE. PO SCH ×4 (08:13→20:55)
[2021-01-27] MEDS: RIVASTIGMINE 4.6MG PATCH. TD SCH (08:13)
[2021-01-27] MEDS: CYANOCOBALAMIN (VITAMIN B-12) 1,000 MCG TABLET. PO SCH (08:13)
[2021-01-27] MEDS: ZIPRASIDONE 40 MG CAPSULE. PO SCH ×2 (08:13→20:56)
[2021-01-27] MEDS: LACTOBACILLUS RHAMNOSUS GG 1 CAPSULE. PO SCH ×2 (08:13→20:56)
[2021-01-27] MEDS: PSYLLIUM SEED (WITH SUGAR) PACKET. PO SCH ×2 (08:13→20:55)
[2021-01-27] MEDS: CHOLECALCIFEROL (VITAMIN D3) 1,000 UNIT TABLET PO SCH (08:14)
[2021-01-27] MEDS: risperiDONE 2 MG TABLET. PO SCH ×3 (08:14→20:56)
[2021-01-27] MEDS: DEMECLOCYCLINE HCL 150 MG TABLET. PO SCH ×3 (08:14→20:55)
[2021-01-27] MEDS: QUEtiapine 50 MG TABLET. PO SCH ×3 (08:14→20:56)
[2021-01-27] MEDS: MECLIZINE 12.5 MG TABLET. PO SCH ×2 (08:15→20:56)
[2021-01-27] MEDS: amLODIPine BESYLATE 5 MG TABLET PO SCH (08:15)
[2021-01-27] MEDS: METOPROLOL TART IMMED RELEASE 25 MG TABLET. PO SCH ×2 (08:15→20:56)
[2021-01-27] MEDS: MESALAMINE 1.2 GM TABLET.DR PO SCH (08:15)
[2021-01-27] MEDS: INSULIN LISPRO 300 UNITS/3 ML VIAL. SQ SCH ×3 (08:17→17:36)
[2021-01-27 08:50] LABS: % BANDS 3 % (0-9); % EOS 3 % (0-5); % LYMPHS 38 % (24-48); % METAS 1 % (0-0); % MONOS 9 % (0-10); % MYELOS 2 % (0-0); % SEGS 44 % (35-66)
[2021-01-27 08:51] LABS: PLT ESTIMATE ADEQUATE (ADEQUATE)
--- NOTE | 2021-01-27 08:54 | PDOC ---
Exam Note: Benedict Note: This note is a late entry for 01/25/2021 covers elements not covered in my initial note. Subjective: The patient was seen individually in the evening of 01/25/2021 with Daniel CARRERA, discussed and reviewed the chart. The patient slept 7-1/4 hours previous night. She remains somewhat hyperverbal, grandiose, redirectable. Review of Systems: Positive for some tiredness. No CV, , pulmonary, eye, ENT system symptoms on review. Mental Status Exam: The patient is reasonably oriented, clearly remembered my name. Speech coherent, still pressured. Abstraction fair. Computation impaired. Language function intact. Attention span short. Mood and affect remains somewhat grandiose. Laboratory Data: Reviewed. Impression: Schizoaffective disorder, bipolar type mixed with psychotic features. Anxiety disorder unspecified. Impulse control disorder unspecified. Plan: Start Clozaril 25 mg p.o. h.s. Follow weekly CBC, absolute neutrophil count. Rest unchanged. Assessment: Vital Signs/I&O: Vital Signs Date Time Temp Pulse Resp B/P (MAP) Pulse Ox O2 Delivery O2 Flow Rate FiO2 01/27/21 08:15 93 124/67 01/27/21 05:58 97.5 18 95 Room Air I & O 01/26/21 01/26/21 01/27/21 15:00 23:00 07:00 Intake Total 1200 ml 600 ml Balance 1200 ml 600 ml Labs: Laboratory Tests Test 01/26/21 11:19 01/26/21 16:11 01/26/21 19:07 01/27/21 07:32 Glucose (Fingerstick) 331 mg/dL (70-99) H 213 mg/dL (70-99) H 239 mg/dL (70-99) H White Blood Count 5.9 x10^3/uL (4.0-11.0) Red Blood Count 3.85 x10^6/uL (3.50-5.40) Hemoglobin 11.1 g/dL (12.0-15.5) L Hematocrit 33.4 % (36.0-47.0) L Mean Corpuscular Volume 87 fL (79-100) Mean Corpuscular Hemoglobin 29 pg (25-35) Mean Corpuscular Hemoglobin Concent 33 g/dL (31-37) Red Cell Distribution Width 14.6 % (11.5-14.5) H Platelet Count 154 x10^3/uL (140-400) Neutrophils (%) (Auto) 54 % (31-73) Lymphocytes (%) (Auto) 34 % (24-48) Monocytes (%) (Auto) 10 % (0-9) H Eosinophils (%) (Auto) 2 % (0-3) Basophils (%) (Auto) 0 % (0-3) Neutrophils # (Auto) 3.2 x10^3uL (1.8-7.7) Lymphocytes # (Auto) 2.0 x10^3/uL (1.0-4.8) Monocytes # (Auto) 0.6 x10^3/uL (0.0-1.1) Eosinophils # (Auto) 0.1 x10^3/uL (0.0-0.7) Basophils # (Auto) 0.0 x10^3/uL (0.0-0.2) Segmented Neutrophils % 44 % (35-66) Band Neutrophils % 3 % (0-9) Lymphocytes % 38 % (24-48) Monocytes % 9 % (0-10) Eosinophils % 3 % (0-5) Metamyelocytes % 1 % (0-0) H Myelocytes % 2 % (0-0) H Platelet Estimate Adequate (ADEQUATE) Test 01/27/21 07:37 Glucose (Fingerstick) 158 mg/dL (70-99) H Current Medications: Meds: Laboratory Tests Test 01/26/21 11:19 01/26/21 16:11 01/26/21 19:07 01/27/21 07:32 Glucose (Fingerstick) 331 mg/dL 213 mg/dL 239 mg/dL White Blood Count 5.9 x10^3/uL Red Blood Count 3.85 x10^6/uL Hemoglobin 11.1 g/dL Hematocrit 33.4 % Mean Corpuscular Volume 87 fL Mean Corpuscular Hemoglobin 29 pg Mean Corpuscular Hemoglobin Concent 33 g/dL Red Cell Distribution Width 14.6 % Platelet Count 154 x10^3/uL Neutrophils (%) (Auto) 54 % Lymphocytes (%) (Auto) 34 % Monocytes (%) (Auto) 10 % Eosinophils (%) (Auto) 2 % Basophils (%) (Auto) 0 % Neutrophils # (Auto) 3.2 x10^3uL Lymphocytes # (Auto) 2.0 x10^3/uL Monocytes # (Auto) 0.6 x10^3/uL Eosinophils # (Auto) 0.1 x10^3/uL Basophils # (Auto) 0.0 x10^3/uL Segmented Neutrophils % 44 % Band Neutrophils % 3 % Lymphocytes % 38 % Monocytes % 9 % Eosinophils % 3 % Metamyelocytes % 1 % Myelocytes % 2 % Platelet Estimate Adequate Test 01/27/21 07:37 Glucose (Fingerstick) 158 mg/dL Current Medications Medications (Trade) Dose Ordered Sig/Latesha Route PRN Reason Start Time Stop Time Status Last Admin Dose Admin Acetaminophen (Tylenol) 650 mg PRN Q6HRS PRN PO MILD PAIN / TEMP > 100.3'F 01/22/21 14:00 Cancel Multi-Ingredient Ointment (Analgesic [place]) 1 keri PRN QID PRN TP MUSCLE PAIN 01/22/21 14:00 Al Hydroxide/Mg Hydroxide (Mylanta Plus Xs) 15 ml PRN AFTMEALHC PRN PO DYSPEPSIA 01/22/21 14:00 Magnesium Hydroxide (Milk Of Magnesia) 2,400 mg PRN QHS PRN PO CONSTIPATION 01/22/21 14:00 Valproic Acid (Depakene) 500 mg QID PO 01/22/21 17:00 01/27/21 08:13 Acetaminophen (Tylenol) 500 mg QID PO 01/22/21 21:00 01/23/21 13:04 DC 01/23/21 08:29 Amlodipine Besylate (Norvasc) 5 mg DAILY PO 01/23/21 09:00 01/27/21 08:15 Atorvastatin Calcium (Lipitor) 20 mg QHS PO 01/22/21 21:00 01/26/21 21:03 Vitamin D (Vitamin D3) 1,000 unit DAILY PO 01/23/21 09:00 01/27/21 08:14 Hydrocortisone Acetate (Anucort-Hc) 25 mg PRN Q8HRS PRN RC hemorrhoids 01/22/21 20:00 Levothyroxine Sodium (Synthroid) 25 mcg DAILY06 PO 01/23/21 06:00 01/27/21 05:28 Lidocaine (Lidoderm) 1 patch DAILY TP 01/23/21 09:00 01/27/21 08:12 Mesalamine (Lialda) 1.2 gm DAILY PO 01/23/21 09:00 01/27/21 08:15 Metoprolol Tartrate (Lopressor) 25 mg BID PO 01/22/21 21:00 01/27/21 08:15 Quetiapine Fumarate (SEROquel) 50 mg TID PO 01/22/21 21:00 01/27/21 08:14 Risperidone (RisperDAL) 2 mg TID PO 01/22/21 21:00 01/27/21 08:14 Rivastigmine (Exelon) 1 patch DAILY TD 01/23/21 09:00 01/27/21 08:13 Venlafaxine HCl (Effexor Xr) 37.5 mg DAILY PO 01/23/21 09:00 01/23/21 13:11 DC 01/23/21 08:29 Ziprasidone (Geodon) 40 mg BID PO 01/22/21 21:00 01/27/21 08:13 Ziprasidone (Geodon) 80 mg QHS PO 01/22/21 21:00 01/22/21 20:17 DC Cyanocobalamin (Vitamin B-12) 1,000 mcg DAILY PO 01/23/21 09:00 01/27/21 08:13 Insulin Human Lispro (HumaLOG) 40 units TIDWMEALS SQ 01/23/21 08:00 01/27/21 08:17 Insulin Glargine (Lantus Syringe) 30 unit DAILY SQ 01/23/21 09:00 01/26/21 08:39 Lactobacillus Rhamnosus (Culturelle) 1 cap BID PO 01/23/21 09:00 01/27/21 08:13 Non-Formulary Medication (Liraglutide (Victoza 3-Jas)) 1.8 mg DAILY SQ 01/23/21 09:00 UNV Meclizine HCl (Antivert) 25 mg BID PO 01/22/21 21:00 01/27/21 08:15 Psyllium Hydrophilic Mucilloid (Metamucil) 1 pkt BID PO 01/22/21 21:00 01/27/21 08:13 Demeclocycline HCl (Declomycin) 150 mg TID PO 01/22/21 21:00 01/22/21 20:45 DC Olanzapine (ZyPREXA ZYDIS) 5 mg PRN Q2HR PRN PO PSYCHOSIS 01/22/21 20:30 Demeclocycline HCl (Declomycin) 300 mg TID PO 01/22/21 21:00 01/27/21 08:14 Acetaminophen/ Codeine Phosphate (Tylenol #3) 1 tab PRN QID PRN PO MODERATE PAIN 4-6 01/23/21 11:45 01/23/21 12:23 Acetaminophen (Tylenol) 500 mg PRN Q6HRS PRN PO MILD PAIN / TEMP > 100.3'F 01/23/21 13:15 Clozapine (Clozaril) 25 mg HS PO 01/23/21 21:00 01/26/21 21:04 I have reviewed the current psychotropics carefully including drug interactions. Risk benefit ratio favors no change other than as noted in my dictated progress note. Diagnosis: Problems: (1) Schizoaffective disorder, bipolar type (2) Impulse control disorder, unspecified (3) Anxiety disorder, unspecified (4) Bipolar disorder, current episode manic severe with psychotic features INOCENCIO PELAEZ MD Jan 27, 2021 08:54
[2021-01-27] MEDS: INSULIN GLARGINE SYRINGE. SQ SCH (09:00)
[2021-01-27] MEDS: NON FORMULARY ITEM (Liraglutide (Victoza 3-Pak) 1.8 MG) SQ SCH (09:00)
--- NOTE | 2021-01-27 09:19 | PDOC ---
Exam Note: Benedict Note: This note is a late entry for 01/26/2021 covers elements not covered in my initial note. Subjective: The patient was seen individually in the evening of 01/26/2021 with Jasmin CARRERA, discussed and reviewed the chart. The patient slept 4-1/4 hours previous night. Average 6-1/2 hours. Appetite is 90%. Review of Systems: Ambulation impaired in wheelchair. No CV, , pulmonary, eye, ENT system symptoms on review. Mental Status Exam: The patient is reasonably oriented. Speech coherent, somewhat pressured. Abstraction fair. Computation impaired. Language function intact. Attention span fair. Mood and affect remains grandiose. Laboratory Data: Reviewed. Impression: Schizoaffective disorder, bipolar type mixed with psychotic features. Anxiety disorder unspecified. Impulse control disorder unspecified. Plan: No change from initial note. Assessment: Vital Signs/I&O: Vital Signs Date Time Temp Pulse Resp B/P (MAP) Pulse Ox O2 Delivery O2 Flow Rate FiO2 01/27/21 08:15 93 124/67 01/27/21 05:58 97.5 18 95 Room Air I & O 01/26/21 01/26/21 01/27/21 14:59 22:59 06:59 Intake Total 1200 ml 600 ml Balance 1200 ml 600 ml Labs: Laboratory Tests Test 01/26/21 11:19 01/26/21 16:11 01/26/21 19:07 01/27/21 07:32 Glucose (Fingerstick) 331 mg/dL (70-99) H 213 mg/dL (70-99) H 239 mg/dL (70-99) H White Blood Count 5.9 x10^3/uL (4.0-11.0) Red Blood Count 3.85 x10^6/uL (3.50-5.40) Hemoglobin 11.1 g/dL (12.0-15.5) L Hematocrit 33.4 % (36.0-47.0) L Mean Corpuscular Volume 87 fL (79-100) Mean Corpuscular Hemoglobin 29 pg (25-35) Mean Corpuscular Hemoglobin Concent 33 g/dL (31-37) Red Cell Distribution Width 14.6 % (11.5-14.5) H Platelet Count 154 x10^3/uL (140-400) Neutrophils (%) (Auto) 54 % (31-73) Lymphocytes (%) (Auto) 34 % (24-48) Monocytes (%) (Auto) 10 % (0-9) H Eosinophils (%) (Auto) 2 % (0-3) Basophils (%) (Auto) 0 % (0-3) Neutrophils # (Auto) 3.2 x10^3uL (1.8-7.7) Lymphocytes # (Auto) 2.0 x10^3/uL (1.0-4.8) Monocytes # (Auto) 0.6 x10^3/uL (0.0-1.1) Eosinophils # (Auto) 0.1 x10^3/uL (0.0-0.7) Basophils # (Auto) 0.0 x10^3/uL (0.0-0.2) Segmented Neutrophils % 44 % (35-66) Band Neutrophils % 3 % (0-9) Lymphocytes % 38 % (24-48) Monocytes % 9 % (0-10) Eosinophils % 3 % (0-5) Metamyelocytes % 1 % (0-0) H Myelocytes % 2 % (0-0) H Platelet Estimate Adequate (ADEQUATE) Test 01/27/21 07:37 Glucose (Fingerstick) 158 mg/dL (70-99) H Current Medications: Meds: Laboratory Tests Test 01/26/21 11:19 01/26/21 16:11 01/26/21 19:07 01/27/21 07:32 Glucose (Fingerstick) 331 mg/dL 213 mg/dL 239 mg/dL White Blood Count 5.9 x10^3/uL Red Blood Count 3.85 x10^6/uL Hemoglobin 11.1 g/dL Hematocrit 33.4 % Mean Corpuscular Volume 87 fL Mean Corpuscular Hemoglobin 29 pg Mean Corpuscular Hemoglobin Concent 33 g/dL Red Cell Distribution Width 14.6 % Platelet Count 154 x10^3/uL Neutrophils (%) (Auto) 54 % Lymphocytes (%) (Auto) 34 % Monocytes (%) (Auto) 10 % Eosinophils (%) (Auto) 2 % Basophils (%) (Auto) 0 % Neutrophils # (Auto) 3.2 x10^3uL Lymphocytes # (Auto) 2.0 x10^3/uL Monocytes # (Auto) 0.6 x10^3/uL Eosinophils # (Auto) 0.1 x10^3/uL Basophils # (Auto) 0.0 x10^3/uL Segmented Neutrophils % 44 % Band Neutrophils % 3 % Lymphocytes % 38 % Monocytes % 9 % Eosinophils % 3 % Metamyelocytes % 1 % Myelocytes % 2 % Platelet Estimate Adequate Test 01/27/21 07:37 Glucose (Fingerstick) 158 mg/dL Current Medications Medications (Trade) Dose Ordered Sig/Latesha Route PRN Reason Start Time Stop Time Status Last Admin Dose Admin Acetaminophen (Tylenol) 650 mg PRN Q6HRS PRN PO MILD PAIN / TEMP > 100.3'F 01/22/21 14:00 Cancel Multi-Ingredient Ointment (Analgesic [place]) 1 keri PRN QID PRN TP MUSCLE PAIN 01/22/21 14:00 Al Hydroxide/Mg Hydroxide (Mylanta Plus Xs) 15 ml PRN AFTMEALHC PRN PO DYSPEPSIA 01/22/21 14:00 Magnesium Hydroxide (Milk Of Magnesia) 2,400 mg PRN QHS PRN PO CONSTIPATION 01/22/21 14:00 Valproic Acid (Depakene) 500 mg QID PO 01/22/21 17:00 01/27/21 08:13 Acetaminophen (Tylenol) 500 mg QID PO 01/22/21 21:00 01/23/21 13:04 DC 01/23/21 08:29 Amlodipine Besylate (Norvasc) 5 mg DAILY PO 01/23/21 09:00 01/27/21 08:15 Atorvastatin Calcium (Lipitor) 20 mg QHS PO 01/22/21 21:00 01/26/21 21:03 Vitamin D (Vitamin D3) 1,000 unit DAILY PO 01/23/21 09:00 01/27/21 08:14 Hydrocortisone Acetate (Anucort-Hc) 25 mg PRN Q8HRS PRN RC hemorrhoids 01/22/21 20:00 Levothyroxine Sodium (Synthroid) 25 mcg DAILY06 PO 01/23/21 06:00 01/27/21 05:28 Lidocaine (Lidoderm) 1 patch DAILY TP 01/23/21 09:00 01/27/21 08:12 Mesalamine (Lialda) 1.2 gm DAILY PO 01/23/21 09:00 01/27/21 08:15 Metoprolol Tartrate (Lopressor) 25 mg BID PO 01/22/21 21:00 01/27/21 08:15 Quetiapine Fumarate (SEROquel) 50 mg TID PO 01/22/21 21:00 01/27/21 08:14 Risperidone (RisperDAL) 2 mg TID PO 01/22/21 21:00 01/27/21 08:14 Rivastigmine (Exelon) 1 patch DAILY TD 01/23/21 09:00 01/27/21 08:13 Venlafaxine HCl (Effexor Xr) 37.5 mg DAILY PO 01/23/21 09:00 01/23/21 13:11 DC 01/23/21 08:29 Ziprasidone (Geodon) 40 mg BID PO 01/22/21 21:00 01/27/21 08:13 Ziprasidone (Geodon) 80 mg QHS PO 01/22/21 21:00 01/22/21 20:17 DC Cyanocobalamin (Vitamin B-12) 1,000 mcg DAILY PO 01/23/21 09:00 01/27/21 08:13 Insulin Human Lispro (HumaLOG) 40 units TIDWMEALS SQ 01/23/21 08:00 01/27/21 08:17 Insulin Glargine (Lantus Syringe) 30 unit DAILY SQ 01/23/21 09:00 01/27/21 09:00 Lactobacillus Rhamnosus (Culturelle) 1 cap BID PO 01/23/21 09:00 01/27/21 08:13 Non-Formulary Medication (Liraglutide (Victoza 3-Jas)) 1.8 mg DAILY SQ 01/23/21 09:00 UNV Meclizine HCl (Antivert) 25 mg BID PO 01/22/21 21:00 01/27/21 08:15 Psyllium Hydrophilic Mucilloid (Metamucil) 1 pkt BID PO 01/22/21 21:00 01/27/21 08:13 Demeclocycline HCl (Declomycin) 150 mg TID PO 01/22/21 21:00 01/22/21 20:45 DC Olanzapine (ZyPREXA ZYDIS) 5 mg PRN Q2HR PRN PO PSYCHOSIS 01/22/21 20:30 Demeclocycline HCl (Declomycin) 300 mg TID PO 01/22/21 21:00 01/27/21 08:14 Acetaminophen/ Codeine Phosphate (Tylenol #3) 1 tab PRN QID PRN PO MODERATE PAIN 4-6 01/23/21 11:45 01/23/21 12:23 Acetaminophen (Tylenol) 500 mg PRN Q6HRS PRN PO MILD PAIN / TEMP > 100.3'F 01/23/21 13:15 Clozapine (Clozaril) 25 mg HS PO 01/23/21 21:00 01/26/21 21:04 I have reviewed the current psychotropics carefully including drug interactions. Risk benefit ratio favors no change other than as noted in my dictated progress note. Diagnosis: Problems: (1) Schizoaffective disorder, bipolar type (2) Impulse control disorder, unspecified (3) Anxiety disorder, unspecified (4) Bipolar disorder, current episode manic severe with psychotic features INOCENCIO PELAEZ MD Jan 27, 2021 09:19
[2021-01-27 16:01] VITALS: BP 149/89
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
--- NOTE | 2021-01-27 18:26 | NUR ---
Pt has been asking to call her Son Franko who lives in [place] all day I did not see anything in the patient chart of any restrictions of who she can and cannot call and SW did not advise of any restrictions as well so I called the DPOA which is her youngest son Myron left two voicemails so that I can get clarification if there are any restrictions of who she can and cannot call when I spoke with him wednesday he did not advise of any restrictions. I called patient eldest son in [place] who advised to his knowledge there are no restrictions on who she can and cannot call and he and brother Myron both are contacts for patient and she can also call her son Franko who lives in [place]. Antonio's phone number is [phone] and Myron's phone number is in her chart.
[2021-01-27] MEDS: cloZAPine 25 MG TABLET PO SCH (20:56)
[2021-01-27] MEDS: ATORVASTATIN CALCIUM 20 MG TABLET PO SCH (20:56)
--- NOTE | 2021-01-27 22:06 | PDOC ---
Exam Note: Benedict Note: Please also refer to the separate dictated note~for this date of service dictated separately.~Patient seen individually. Discussed the patient with Nursing staff reviewed the chart.~Reviewed interim history and current functioning. Reviewed vital signs,~Labs/ Radiology~and current medications noted below. Continue current treatment with the changes noted in the dictated addendum note Assessment: Vital Signs/I&O: Vital Signs Date Time Temp Pulse Resp B/P (MAP) Pulse Ox O2 Delivery O2 Flow Rate FiO2 01/27/21 20:56 100 149/89 01/27/21 16:01 97.8 20 93 01/27/21 05:58 Room Air I & O 01/26/21 01/26/21 01/27/21 15:00 23:00 07:00 Intake Total 1200 ml 600 ml Balance 1200 ml 600 ml Labs: Laboratory Tests Test 01/27/21 07:32 01/27/21 07:37 01/27/21 11:12 01/27/21 16:33 White Blood Count 5.9 x10^3/uL (4.0-11.0) Red Blood Count 3.85 x10^6/uL (3.50-5.40) Hemoglobin 11.1 g/dL (12.0-15.5) L Hematocrit 33.4 % (36.0-47.0) L Mean Corpuscular Volume 87 fL (79-100) Mean Corpuscular Hemoglobin 29 pg (25-35) Mean Corpuscular Hemoglobin Concent 33 g/dL (31-37) Red Cell Distribution Width 14.6 % (11.5-14.5) H Platelet Count 154 x10^3/uL (140-400) Neutrophils (%) (Auto) 54 % (31-73) Lymphocytes (%) (Auto) 34 % (24-48) Monocytes (%) (Auto) 10 % (0-9) H Eosinophils (%) (Auto) 2 % (0-3) Basophils (%) (Auto) 0 % (0-3) Neutrophils # (Auto) 3.2 x10^3uL (1.8-7.7) Lymphocytes # (Auto) 2.0 x10^3/uL (1.0-4.8) Monocytes # (Auto) 0.6 x10^3/uL (0.0-1.1) Eosinophils # (Auto) 0.1 x10^3/uL (0.0-0.7) Basophils # (Auto) 0.0 x10^3/uL (0.0-0.2) Segmented Neutrophils % 44 % (35-66) Band Neutrophils % 3 % (0-9) Lymphocytes % 38 % (24-48) Monocytes % 9 % (0-10) Eosinophils % 3 % (0-5) Metamyelocytes % 1 % (0-0) H Myelocytes % 2 % (0-0) H Platelet Estimate Adequate (ADEQUATE) Glucose (Fingerstick) 158 mg/dL (70-99) H 306 mg/dL (70-99) H 248 mg/dL (70-99) H Test 01/27/21 19:23 Glucose (Fingerstick) 311 mg/dL (70-99) H Current Medications: Meds: Laboratory Tests Test 01/27/21 07:32 01/27/21 07:37 01/27/21 11:12 01/27/21 16:33 White Blood Count 5.9 x10^3/uL Red Blood Count 3.85 x10^6/uL Hemoglobin 11.1 g/dL Hematocrit 33.4 % Mean Corpuscular Volume 87 fL Mean Corpuscular Hemoglobin 29 pg Mean Corpuscular Hemoglobin Concent 33 g/dL Red Cell Distribution Width 14.6 % Platelet Count 154 x10^3/uL Neutrophils (%) (Auto) 54 % Lymphocytes (%) (Auto) 34 % Monocytes (%) (Auto) 10 % Eosinophils (%) (Auto) 2 % Basophils (%) (Auto) 0 % Neutrophils # (Auto) 3.2 x10^3uL Lymphocytes # (Auto) 2.0 x10^3/uL Monocytes # (Auto) 0.6 x10^3/uL Eosinophils # (Auto) 0.1 x10^3/uL Basophils # (Auto) 0.0 x10^3/uL Segmented Neutrophils % 44 % Band Neutrophils % 3 % Lymphocytes % 38 % Monocytes % 9 % Eosinophils % 3 % Metamyelocytes % 1 % Myelocytes % 2 % Platelet Estimate Adequate Glucose (Fingerstick) 158 mg/dL 306 mg/dL 248 mg/dL Test 01/27/21 19:23 Glucose (Fingerstick) 311 mg/dL Current Medications Medications (Trade) Dose Ordered Sig/Latesha Route PRN Reason Start Time Stop Time Status Last Admin Dose Admin Acetaminophen (Tylenol) 650 mg PRN Q6HRS PRN PO MILD PAIN / TEMP > 100.3'F 01/22/21 14:00 Cancel Multi-Ingredient Ointment (Analgesic [place]) 1 keri PRN QID PRN TP MUSCLE PAIN 01/22/21 14:00 Al Hydroxide/Mg Hydroxide (Mylanta Plus Xs) 15 ml PRN AFTMEALHC PRN PO DYSPEPSIA 01/22/21 14:00 Magnesium Hydroxide (Milk Of Magnesia) 2,400 mg PRN QHS PRN PO CONSTIPATION 01/22/21 14:00 Valproic Acid (Depakene) 500 mg QID PO 01/22/21 17:00 01/27/21 20:55 Acetaminophen (Tylenol) 500 mg QID PO 01/22/21 21:00 01/23/21 13:04 DC 01/23/21 08:29 Amlodipine Besylate (Norvasc) 5 mg DAILY PO 01/23/21 09:00 01/27/21 08:15 Atorvastatin Calcium (Lipitor) 20 mg QHS PO 01/22/21 21:00 01/27/21 20:56 Vitamin D (Vitamin D3) 1,000 unit DAILY PO 01/23/21 09:00 01/27/21 08:14 Hydrocortisone Acetate (Anucort-Hc) 25 mg PRN Q8HRS PRN RC hemorrhoids 01/22/21 20:00 Levothyroxine Sodium (Synthroid) 25 mcg DAILY06 PO 01/23/21 06:00 01/27/21 05:28 Lidocaine (Lidoderm) 1 patch DAILY TP 01/23/21 09:00 01/27/21 08:12 Mesalamine (Lialda) 1.2 gm DAILY PO 01/23/21 09:00 01/27/21 08:15 Metoprolol Tartrate (Lopressor) 25 mg BID PO 01/22/21 21:00 01/27/21 20:56 Quetiapine Fumarate (SEROquel) 50 mg TID PO 01/22/21 21:00 01/27/21 20:56 Risperidone (RisperDAL) 2 mg TID PO 01/22/21 21:00 01/27/21 20:56 Rivastigmine (Exelon) 1 patch DAILY TD 01/23/21 09:00 01/27/21 08:13 Venlafaxine HCl (Effexor Xr) 37.5 mg DAILY PO 01/23/21 09:00 01/23/21 13:11 DC 01/23/21 08:29 Ziprasidone (Geodon) 40 mg BID PO 01/22/21 21:00 01/27/21 20:56 Ziprasidone (Geodon) 80 mg QHS PO 01/22/21 21:00 01/22/21 20:17 DC Cyanocobalamin (Vitamin B-12) 1,000 mcg DAILY PO 01/23/21 09:00 01/27/21 08:13 Insulin Human Lispro (HumaLOG) 40 units TIDWMEALS SQ 01/23/21 08:00 01/27/21 17:36 Insulin Glargine (Lantus Syringe) 30 unit DAILY SQ 01/23/21 09:00 01/27/21 09:00 Lactobacillus Rhamnosus (Culturelle) 1 cap BID PO 01/23/21 09:00 01/27/21 20:56 Non-Formulary Medication (Liraglutide (Victoza 3-Jas)) 1.8 mg DAILY SQ 01/23/21 09:00 UNV Meclizine HCl (Antivert) 25 mg BID PO 01/22/21 21:00 01/27/21 20:56 Psyllium Hydrophilic Mucilloid (Metamucil) 1 pkt BID PO 01/22/21 21:00 01/27/21 20:55 Demeclocycline HCl (Declomycin) 150 mg TID PO 01/22/21 21:00 01/22/21 20:45 DC Olanzapine (ZyPREXA ZYDIS) 5 mg PRN Q2HR PRN PO PSYCHOSIS 01/22/21 20:30 Demeclocycline HCl (Declomycin) 300 mg TID PO 01/22/21 21:00 01/27/21 20:55 Acetaminophen/ Codeine Phosphate (Tylenol #3) 1 tab PRN QID PRN PO MODERATE PAIN 4-6 01/23/21 11:45 01/23/21 12:23 Acetaminophen (Tylenol) 500 mg PRN Q6HRS PRN PO MILD PAIN / TEMP > 100.3'F 01/23/21 13:15 Clozapine (Clozaril) 25 mg HS PO 01/23/21 21:00 01/27/21 20:56 I have reviewed the current psychotropics carefully including drug interactions. Risk benefit ratio favors no change other than as noted in my dictated progress note. Diagnosis: Problems: (1) Schizoaffective disorder, bipolar type (2) Impulse control disorder, unspecified (3) Anxiety disorder, unspecified (4) Bipolar disorder, current episode manic severe with psychotic features INOCENCIO PELAEZ MD Jan 27, 2021 22:06
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
[2021-01-28] MEDS: LEVOTHYROXINE 25 MCG TABLET. PO SCH (05:06)
[2021-01-28 05:55] VITALS: BP 113/74
--- NOTE | 2021-01-28 07:55 | PDOC ---
Exam Note: Benedict Note: This note is a late entry for 01/27/2021 covers elements not covered in my initial note. Subjective: The patient was seen individually in the evening of 01/27/2021 with Daniel CARRERA, discussed and reviewed the chart. The patient slept 4-3/4 hours previous night. The patient has been sleeping in and states she is feeling much better because for several months she had slept very minimally. She is compliant with her medications. Review of Systems: She was seated in a wheelchair but ambulates on her own. No CV, , pulmonary, eye, ENT system symptoms on review though she complains of some dry skin. Mental Status Exam: The patient is reasonably oriented. Speech coherent, less pressured. Abstraction fair. Computation impaired. Language function intact. Attention span fair. Mood and affect is improved. Laboratory Data: Reviewed. Impression: Schizoaffective disorder, bipolar type mixed with psychotic features. Anxiety disorder unspecified. Impulse control disorder unspecified. Plan: No change from initial note. Valproic acid level is therapeutic. She is on Risperdal, Seroquel and Geodon, three atypical antipsychotics and next we will try and simplify this regimen. Assessment: Vital Signs/I&O: Vital Signs Date Time Temp Pulse Resp B/P (MAP) Pulse Ox O2 Delivery O2 Flow Rate FiO2 01/28/21 05:55 98.2 82 18 113/74 (87) 93 Room Air I & O 01/27/21 01/27/21 01/28/21 15:00 23:00 07:00 Intake Total 720 ml 360 ml 120 ml Balance 720 ml 360 ml 120 ml Labs: Laboratory Tests Test 01/27/21 11:12 01/27/21 16:33 01/27/21 19:23 01/28/21 07:42 Glucose (Fingerstick) 306 mg/dL (70-99) H 248 mg/dL (70-99) H 311 mg/dL (70-99) H 161 mg/dL (70-99) H Current Medications: Meds: Laboratory Tests Test 01/27/21 11:12 01/27/21 16:33 01/27/21 19:23 01/28/21 07:42 Glucose (Fingerstick) 306 mg/dL 248 mg/dL 311 mg/dL 161 mg/dL Current Medications Medications (Trade) Dose Ordered Sig/Latesha Route PRN Reason Start Time Stop Time Status Last Admin Dose Admin Acetaminophen (Tylenol) 650 mg PRN Q6HRS PRN PO MILD PAIN / TEMP > 100.3'F 01/22/21 14:00 Cancel Multi-Ingredient Ointment (Analgesic [place]) 1 keri PRN QID PRN TP MUSCLE PAIN 01/22/21 14:00 Al Hydroxide/Mg Hydroxide (Mylanta Plus Xs) 15 ml PRN AFTMEALHC PRN PO DYSPEPSIA 01/22/21 14:00 Magnesium Hydroxide (Milk Of Magnesia) 2,400 mg PRN QHS PRN PO CONSTIPATION 01/22/21 14:00 Valproic Acid (Depakene) 500 mg QID PO 01/22/21 17:00 01/27/21 20:55 Acetaminophen (Tylenol) 500 mg QID PO 01/22/21 21:00 01/23/21 13:04 DC 01/23/21 08:29 Amlodipine Besylate (Norvasc) 5 mg DAILY PO 01/23/21 09:00 01/27/21 08:15 Atorvastatin Calcium (Lipitor) 20 mg QHS PO 01/22/21 21:00 01/27/21 20:56 Vitamin D (Vitamin D3) 1,000 unit DAILY PO 01/23/21 09:00 01/27/21 08:14 Hydrocortisone Acetate (Anucort-Hc) 25 mg PRN Q8HRS PRN RC hemorrhoids 01/22/21 20:00 Levothyroxine Sodium (Synthroid) 25 mcg DAILY06 PO 01/23/21 06:00 01/28/21 05:06 Lidocaine (Lidoderm) 1 patch DAILY TP 01/23/21 09:00 01/27/21 08:12 Mesalamine (Lialda) 1.2 gm DAILY PO 01/23/21 09:00 01/27/21 08:15 Metoprolol Tartrate (Lopressor) 25 mg BID PO 01/22/21 21:00 01/27/21 20:56 Quetiapine Fumarate (SEROquel) 50 mg TID PO 01/22/21 21:00 01/27/21 20:56 Risperidone (RisperDAL) 2 mg TID PO 01/22/21 21:00 01/27/21 20:56 Rivastigmine (Exelon) 1 patch DAILY TD 01/23/21 09:00 01/27/21 08:13 Venlafaxine HCl (Effexor Xr) 37.5 mg DAILY PO 01/23/21 09:00 01/23/21 13:11 DC 01/23/21 08:29 Ziprasidone (Geodon) 40 mg BID PO 01/22/21 21:00 01/27/21 20:56 Ziprasidone (Geodon) 80 mg QHS PO 01/22/21 21:00 01/22/21 20:17 DC Cyanocobalamin (Vitamin B-12) 1,000 mcg DAILY PO 01/23/21 09:00 01/27/21 08:13 Insulin Human Lispro (HumaLOG) 40 units TIDWMEALS SQ 01/23/21 08:00 01/27/21 17:36 Insulin Glargine (Lantus Syringe) 30 unit DAILY SQ 01/23/21 09:00 01/27/21 09:00 Lactobacillus Rhamnosus (Culturelle) 1 cap BID PO 01/23/21 09:00 01/27/21 20:56 Non-Formulary Medication (Liraglutide (Victoza 3-Jas)) 1.8 mg DAILY SQ 01/23/21 09:00 UNV Meclizine HCl (Antivert) 25 mg BID PO 01/22/21 21:00 01/27/21 20:56 Psyllium Hydrophilic Mucilloid (Metamucil) 1 pkt BID PO 01/22/21 21:00 01/27/21 20:55 Demeclocycline HCl (Declomycin) 150 mg TID PO 01/22/21 21:00 01/22/21 20:45 DC Olanzapine (ZyPREXA ZYDIS) 5 mg PRN Q2HR PRN PO PSYCHOSIS 01/22/21 20:30 Demeclocycline HCl (Declomycin) 300 mg TID PO 01/22/21 21:00 01/27/21 20:55 Acetaminophen/ Codeine Phosphate (Tylenol #3) 1 tab PRN QID PRN PO MODERATE PAIN 4-6 01/23/21 11:45 01/23/21 12:23 Acetaminophen (Tylenol) 500 mg PRN Q6HRS PRN PO MILD PAIN / TEMP > 100.3'F 01/23/21 13:15 Clozapine (Clozaril) 25 mg HS PO 01/23/21 21:00 01/27/21 20:56 I have reviewed the current psychotropics carefully including drug interactions. Risk benefit ratio favors no change other than as noted in my dictated progress note. Diagnosis: Problems: (1) Schizoaffective disorder, bipolar type (2) Impulse control disorder, unspecified (3) Anxiety disorder, unspecified (4) Bipolar disorder, current episode manic severe with psychotic features INOCENCIO PELAEZ MD Jan 28, 2021 07:55
[2021-01-28] MEDS: PSYLLIUM SEED (WITH SUGAR) PACKET. PO SCH ×2 (08:52→20:53)
[2021-01-28] MEDS: CYANOCOBALAMIN (VITAMIN B-12) 1,000 MCG TABLET. PO SCH (08:52)
[2021-01-28] MEDS: risperiDONE 2 MG TABLET. PO SCH ×3 (08:52→20:54)
[2021-01-28] MEDS: DEMECLOCYCLINE HCL 150 MG TABLET. PO SCH ×3 (08:52→20:54)
[2021-01-28] MEDS: RIVASTIGMINE 4.6MG PATCH. TD SCH (08:52)
[2021-01-28] MEDS: LACTOBACILLUS RHAMNOSUS GG 1 CAPSULE. PO SCH ×2 (08:52→20:54)
[2021-01-28] MEDS: ZIPRASIDONE 40 MG CAPSULE. PO SCH (08:52)
[2021-01-28] MEDS: QUEtiapine 50 MG TABLET. PO SCH ×3 (08:52→20:55)
[2021-01-28] MEDS: MESALAMINE 1.2 GM TABLET.DR PO SCH (08:52)
[2021-01-28] MEDS: amLODIPine BESYLATE 5 MG TABLET PO SCH (08:52)
[2021-01-28] MEDS: METOPROLOL TART IMMED RELEASE 25 MG TABLET. PO SCH ×2 (08:53→20:53)
[2021-01-28] MEDS: VALPROIC ACID 250 MG CAPSULE. PO SCH ×4 (08:53→20:54)
[2021-01-28] MEDS: CHOLECALCIFEROL (VITAMIN D3) 1,000 UNIT TABLET PO SCH (08:53)
[2021-01-28] MEDS: NON FORMULARY ITEM (Liraglutide (Victoza 3-Pak) 1.8 MG) SQ SCH (09:00)
[2021-01-28] MEDS: LIDOCAINE (700MG/PATCH) PATCH. TP SCH (09:00)
[2021-01-28] MEDS: MECLIZINE 12.5 MG TABLET. PO SCH ×2 (09:00→20:54)
[2021-01-28] MEDS: INSULIN GLARGINE SYRINGE. SQ SCH (09:00)
[2021-01-28] MEDS: INSULIN LISPRO 300 UNITS/3 ML VIAL. SQ SCH ×3 (09:01→17:00)
--- NOTE | 2021-01-28 12:05 | NUR ---
HUMBERTO contacted Blanca from pt facility, [facility] on , to give update and notify that this SW will be leaving on vacation of this week and will return on the following . This HUMBERTO explained to Blanca that if she needed to talk to one of the other SW in my absence, she was more than welcome to call the main unit number. Blanca appreciative of call. HUMBERTO then called pt son/DPOA and lvm of same info.
[2021-01-28 15:43] VITALS: BP 123/66
--- NOTE | 2021-01-28 17:56 | NUR ---
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 Patient has a good appetite in the dining room for all meals she does have some swelling and redness ble which I placed her on Dr Amos hayes to see tomorrow. Patient does have chronic back pain which she gets lidocaine patch for and it is effective. Patient vitals wnl of baseline and stable except her blood sugar which is poorly controlled despite the amount of insulin she gets during the day. Patient spoke with son Myron today which went well and I spoke with Myron as well he confirmed that patient can use the phone without any restrictions and can call who ever she would like to. Will continue to monitor patient. Addendum: 01/28/21 at 1800 by FLORESITA TELLEZ RN Dr Land D/Robert 'santana the Ziprasidone
[2021-01-28] MEDS: ATORVASTATIN CALCIUM 20 MG TABLET PO SCH (20:54)
[2021-01-28] MEDS: cloZAPine 25 MG TABLET PO SCH (20:55)
--- NOTE | 2021-01-28 22:14 | PDOC ---
Exam Note: Benedict Note: Please also refer to the separate dictated note~for this date of service dictated separately.~Patient seen individually. Discussed the patient with Nursing staff reviewed the chart.~Reviewed interim history and current functioning. Reviewed vital signs,~Labs/ Radiology~and current medications noted below. Continue current treatment with the changes noted in the dictated addendum note Assessment: Vital Signs/I&O: Vital Signs Date Time Temp Pulse Resp B/P (MAP) Pulse Ox O2 Delivery O2 Flow Rate FiO2 01/28/21 20:53 55 123/66 01/28/21 15:43 97.0 20 99 01/28/21 05:55 Room Air I & O 01/27/21 01/27/21 01/28/21 15:00 23:00 07:00 Intake Total 720 ml 360 ml 120 ml Balance 720 ml 360 ml 120 ml Labs: Laboratory Tests Test 01/28/21 07:42 01/28/21 11:37 01/28/21 16:13 01/28/21 19:30 Glucose (Fingerstick) 161 mg/dL (70-99) H 293 mg/dL (70-99) H 357 mg/dL (70-99) H 404 mg/dL (70-99) H Current Medications: Meds: Laboratory Tests Test 01/28/21 07:42 01/28/21 11:37 01/28/21 16:13 01/28/21 19:30 Glucose (Fingerstick) 161 mg/dL 293 mg/dL 357 mg/dL 404 mg/dL Current Medications Medications (Trade) Dose Ordered Sig/Latesha Route PRN Reason Start Time Stop Time Status Last Admin Dose Admin Acetaminophen (Tylenol) 650 mg PRN Q6HRS PRN PO MILD PAIN / TEMP > 100.3'F 01/22/21 14:00 Cancel Multi-Ingredient Ointment (Analgesic [place]) 1 keri PRN QID PRN TP MUSCLE PAIN 01/22/21 14:00 Al Hydroxide/Mg Hydroxide (Mylanta Plus Xs) 15 ml PRN AFTMEALHC PRN PO DYSPEPSIA 01/22/21 14:00 Magnesium Hydroxide (Milk Of Magnesia) 2,400 mg PRN QHS PRN PO CONSTIPATION 01/22/21 14:00 Valproic Acid (Depakene) 500 mg QID PO 01/22/21 17:00 01/28/21 20:54 Acetaminophen (Tylenol) 500 mg QID PO 01/22/21 21:00 01/23/21 13:04 DC 01/23/21 08:29 Amlodipine Besylate (Norvasc) 5 mg DAILY PO 01/23/21 09:00 01/28/21 08:52 Atorvastatin Calcium (Lipitor) 20 mg QHS PO 01/22/21 21:00 01/28/21 20:54 Vitamin D (Vitamin D3) 1,000 unit DAILY PO 01/23/21 09:00 01/28/21 08:53 Hydrocortisone Acetate (Anucort-Hc) 25 mg PRN Q8HRS PRN RC hemorrhoids 01/22/21 20:00 Levothyroxine Sodium (Synthroid) 25 mcg DAILY06 PO 01/23/21 06:00 01/28/21 05:06 Lidocaine (Lidoderm) 1 patch DAILY TP 01/23/21 09:00 01/28/21 09:00 Mesalamine (Lialda) 1.2 gm DAILY PO 01/23/21 09:00 01/28/21 08:52 Metoprolol Tartrate (Lopressor) 25 mg BID PO 01/22/21 21:00 01/28/21 20:53 Quetiapine Fumarate (SEROquel) 50 mg TID PO 01/22/21 21:00 01/28/21 20:55 Risperidone (RisperDAL) 2 mg TID PO 01/22/21 21:00 01/28/21 20:54 Rivastigmine (Exelon) 1 patch DAILY TD 01/23/21 09:00 01/28/21 08:52 Venlafaxine HCl (Effexor Xr) 37.5 mg DAILY PO 01/23/21 09:00 01/23/21 13:11 DC 01/23/21 08:29 Ziprasidone (Geodon) 40 mg BID PO 01/22/21 21:00 01/28/21 17:15 DC 01/28/21 08:52 Ziprasidone (Geodon) 80 mg QHS PO 01/22/21 21:00 01/22/21 20:17 DC Cyanocobalamin (Vitamin B-12) 1,000 mcg DAILY PO 01/23/21 09:00 01/28/21 08:52 Insulin Human Lispro (HumaLOG) 40 units TIDWMEALS SQ 01/23/21 08:00 01/28/21 17:00 Insulin Glargine (Lantus Syringe) 30 unit DAILY SQ 01/23/21 09:00 01/28/21 09:00 Lactobacillus Rhamnosus (Culturelle) 1 cap BID PO 01/23/21 09:00 01/28/21 20:54 Non-Formulary Medication (Liraglutide (Victoza 3-Jas)) 1.8 mg DAILY SQ 01/23/21 09:00 UNV Meclizine HCl (Antivert) 25 mg BID PO 01/22/21 21:00 01/28/21 20:54 Psyllium Hydrophilic Mucilloid (Metamucil) 1 pkt BID PO 01/22/21 21:00 01/28/21 20:53 Demeclocycline HCl (Declomycin) 150 mg TID PO 01/22/21 21:00 01/22/21 20:45 DC Olanzapine (ZyPREXA ZYDIS) 5 mg PRN Q2HR PRN PO PSYCHOSIS 01/22/21 20:30 Demeclocycline HCl (Declomycin) 300 mg TID PO 01/22/21 21:00 01/28/21 20:54 Acetaminophen/ Codeine Phosphate (Tylenol #3) 1 tab PRN QID PRN PO MODERATE PAIN 4-6 01/23/21 11:45 01/23/21 12:23 Acetaminophen (Tylenol) 500 mg PRN Q6HRS PRN PO MILD PAIN / TEMP > 100.3'F 01/23/21 13:15 Clozapine (Clozaril) 25 mg HS PO 01/23/21 21:00 01/28/21 20:55 I have reviewed the current psychotropics carefully including drug interactions. Risk benefit ratio favors no change other than as noted in my dictated progress note. Diagnosis: Problems: (1) Schizoaffective disorder, bipolar type (2) Impulse control disorder, unspecified (3) Anxiety disorder, unspecified (4) Bipolar disorder, current episode manic severe with psychotic features INOCENCIO PELAEZ MD Jan 28, 2021 22:14
--- NOTE | 2021-01-28 23:31 | PDOC ---
Exam Note: Benedict Note: This note covers elements not covered in my initial note. Subjective: The patient was seen individually in the evening of 01/28/2021 with Daniel CARRERA, discussed and reviewed the chart. The patient slept 5-1/4 hours previous night. 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 She has gone to [facility] and can do anything. She remains somewhat grandiose but improved and she is certainly catching up on her sleep. In fact she was asleep before I entered her room this evening but she readily woke up. She was very verbal, interactive during the visit. Review of Systems: She was preferring to use wheelchair this evening even though she can ambulate on her own. No CV, , pulmonary, eye, ENT system symptoms on review. Mental Status Exam: The patient is reasonably oriented. Speech coherent, somewhat pressured at times. Abstraction fair. Computation impaired. Language function intact. Attention span short. Mood and affect remains somewhat grandiose, labile but improved. Laboratory Data: Reviewed. Impression: Schizoaffective disorder, bipolar type mixed with psychotic features. Anxiety disorder unspecified. Impulse control disorder unspecified. Plan: No change from initial note. The patient is on multiple atypical antipsychotics including Risperdal, Seroquel, and Geodon and now we have started her on Clozaril 25 mg h.s. We will go ahead and stop the Geodon. Maintain rest unchanged. Valproic acid level therapeutic at 66. Adjust further as clinically indicated. Assessment: Vital Signs/I&O: Vital Signs Date Time Temp Pulse Resp B/P (MAP) Pulse Ox O2 Delivery O2 Flow Rate FiO2 01/28/21 20:53 55 123/66 01/28/21 15:43 97.0 20 99 01/28/21 05:55 Room Air I & O 01/27/21 01/27/21 01/28/21 15:00 23:00 07:00 Intake Total 720 ml 360 ml 120 ml Balance 720 ml 360 ml 120 ml Labs: Laboratory Tests Test 01/28/21 07:42 01/28/21 11:37 01/28/21 16:13 01/28/21 19:30 Glucose (Fingerstick) 161 mg/dL (70-99) H 293 mg/dL (70-99) H 357 mg/dL (70-99) H 404 mg/dL (70-99) H Current Medications: Meds: Laboratory Tests Test 01/28/21 07:42 01/28/21 11:37 01/28/21 16:13 01/28/21 19:30 Glucose (Fingerstick) 161 mg/dL 293 mg/dL 357 mg/dL 404 mg/dL Current Medications Medications (Trade) Dose Ordered Sig/Latesha Route PRN Reason Start Time Stop Time Status Last Admin Dose Admin Acetaminophen (Tylenol) 650 mg PRN Q6HRS PRN PO MILD PAIN / TEMP > 100.3'F 01/22/21 14:00 Cancel Multi-Ingredient Ointment (Analgesic [place]) 1 keri PRN QID PRN TP MUSCLE PAIN 01/22/21 14:00 Al Hydroxide/Mg Hydroxide (Mylanta Plus Xs) 15 ml PRN AFTMEALHC PRN PO DYSPEPSIA 01/22/21 14:00 Magnesium Hydroxide (Milk Of Magnesia) 2,400 mg PRN QHS PRN PO CONSTIPATION 01/22/21 14:00 Valproic Acid (Depakene) 500 mg QID PO 01/22/21 17:00 01/28/21 20:54 Acetaminophen (Tylenol) 500 mg QID PO 01/22/21 21:00 01/23/21 13:04 DC 01/23/21 08:29 Amlodipine Besylate (Norvasc) 5 mg DAILY PO 01/23/21 09:00 01/28/21 08:52 Atorvastatin Calcium (Lipitor) 20 mg QHS PO 01/22/21 21:00 01/28/21 20:54 Vitamin D (Vitamin D3) 1,000 unit DAILY PO 01/23/21 09:00 01/28/21 08:53 Hydrocortisone Acetate (Anucort-Hc) 25 mg PRN Q8HRS PRN RC hemorrhoids 01/22/21 20:00 Levothyroxine Sodium (Synthroid) 25 mcg DAILY06 PO 01/23/21 06:00 01/28/21 05:06 Lidocaine (Lidoderm) 1 patch DAILY TP 01/23/21 09:00 01/28/21 09:00 Mesalamine (Lialda) 1.2 gm DAILY PO 01/23/21 09:00 01/28/21 08:52 Metoprolol Tartrate (Lopressor) 25 mg BID PO 01/22/21 21:00 01/28/21 20:53 Quetiapine Fumarate (SEROquel) 50 mg TID PO 01/22/21 21:00 01/28/21 20:55 Risperidone (RisperDAL) 2 mg TID PO 01/22/21 21:00 01/28/21 20:54 Rivastigmine (Exelon) 1 patch DAILY TD 01/23/21 09:00 01/28/21 08:52 Venlafaxine HCl (Effexor Xr) 37.5 mg DAILY PO 01/23/21 09:00 01/23/21 13:11 DC 01/23/21 08:29 Ziprasidone (Geodon) 40 mg BID PO 01/22/21 21:00 01/28/21 17:15 DC 01/28/21 08:52 Ziprasidone (Geodon) 80 mg QHS PO 01/22/21 21:00 01/22/21 20:17 DC Cyanocobalamin (Vitamin B-12) 1,000 mcg DAILY PO 01/23/21 09:00 01/28/21 08:52 Insulin Human Lispro (HumaLOG) 40 units TIDWMEALS SQ 01/23/21 08:00 01/28/21 17:00 Insulin Glargine (Lantus Syringe) 30 unit DAILY SQ 01/23/21 09:00 01/28/21 09:00 Lactobacillus Rhamnosus (Culturelle) 1 cap BID PO 01/23/21 09:00 01/28/21 20:54 Non-Formulary Medication (Liraglutide (Victoza 3-Jas)) 1.8 mg DAILY SQ 01/23/21 09:00 UNV Meclizine HCl (Antivert) 25 mg BID PO 01/22/21 21:00 01/28/21 20:54 Psyllium Hydrophilic Mucilloid (Metamucil) 1 pkt BID PO 01/22/21 21:00 01/28/21 20:53 Demeclocycline HCl (Declomycin) 150 mg TID PO 01/22/21 21:00 01/22/21 20:45 DC Olanzapine (ZyPREXA ZYDIS) 5 mg PRN Q2HR PRN PO PSYCHOSIS 01/22/21 20:30 Demeclocycline HCl (Declomycin) 300 mg TID PO 01/22/21 21:00 01/28/21 20:54 Acetaminophen/ Codeine Phosphate (Tylenol #3) 1 tab PRN QID PRN PO MODERATE PAIN 4-6 01/23/21 11:45 01/23/21 12:23 Acetaminophen (Tylenol) 500 mg PRN Q6HRS PRN PO MILD PAIN / TEMP > 100.3'F 01/23/21 13:15 Clozapine (Clozaril) 25 mg HS PO 01/23/21 21:00 01/28/21 20:55 I have reviewed the current psychotropics carefully including drug interactions. Risk benefit ratio favors no change other than as noted in my dictated progress note. Diagnosis: Problems: (1) Schizoaffective disorder, bipolar type (2) Impulse control disorder, unspecified (3) Anxiety disorder, unspecified (4) Bipolar disorder, current episode manic severe with psychotic features INOCENCIO PELAEZ MD Jan 28, 2021 23:31
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
--- NOTE | 2021-01-29 02:03 | NUR ---
Patient becomes verbally abusive when she does not get her own way. This has been evidenced several times this night and on previous nights. Patient has had three 320 cc glasses of water since midnight and is demanding more. Nurse advised patient that she could not have more water at this time. Education provided regarding fluid overload and CHF. (patient has CHF diagnosis) Patient is currently slamming doors and cursing at nurse "you fucking bitch I am going to pa you for Millions, no make that Billions, and you will be a street walker when I am finished with you". Patient has also cursed at both ENGINEERING COORDINATOR's tonight regarding the snacks (3 high protein and iced milk) that she is demanding. Patient states she has "not eaten in 15 hours and is she cannot drink tap water". Will continue to monitor.
[2021-01-29] MEDS: LEVOTHYROXINE 25 MCG TABLET. PO SCH (05:09)
[2021-01-29 05:57] VITALS: BP 121/75
[2021-01-29] MEDS: INSULIN GLARGINE SYRINGE. SQ SCH ×2 (09:00→21:00)
[2021-01-29] MEDS: MECLIZINE 12.5 MG TABLET. PO SCH ×2 (09:00→20:50)
[2021-01-29] MEDS: NON FORMULARY ITEM (Liraglutide (Victoza 3-Pak) 1.8 MG) SQ SCH (09:00)
[2021-01-29] MEDS: LACTOBACILLUS RHAMNOSUS GG 1 CAPSULE. PO SCH ×2 (09:16→20:36)
[2021-01-29] MEDS: DEMECLOCYCLINE HCL 150 MG TABLET. PO SCH ×3 (09:16→20:37)
[2021-01-29] MEDS: MESALAMINE 1.2 GM TABLET.DR PO SCH (09:16)
[2021-01-29] MEDS: LIDOCAINE (700MG/PATCH) PATCH. TP SCH (09:16)
[2021-01-29] MEDS: VALPROIC ACID 250 MG CAPSULE. PO SCH ×4 (09:16→20:37)
[2021-01-29] MEDS: CYANOCOBALAMIN (VITAMIN B-12) 1,000 MCG TABLET. PO SCH (09:16)
[2021-01-29] MEDS: CHOLECALCIFEROL (VITAMIN D3) 1,000 UNIT TABLET PO SCH (09:16)
[2021-01-29] MEDS: RIVASTIGMINE 4.6MG PATCH. TD SCH (09:16)
[2021-01-29] MEDS: amLODIPine BESYLATE 5 MG TABLET PO SCH (09:17)
[2021-01-29] MEDS: QUEtiapine 50 MG TABLET. PO SCH ×3 (09:17→20:37)
[2021-01-29] MEDS: METOPROLOL TART IMMED RELEASE 25 MG TABLET. PO SCH ×2 (09:17→20:49)
[2021-01-29] MEDS: risperiDONE 2 MG TABLET. PO SCH ×3 (09:17→20:37)
[2021-01-29] MEDS: PSYLLIUM SEED (WITH SUGAR) PACKET. PO SCH ×2 (09:17→20:50)
[2021-01-29] MEDS: INSULIN LISPRO 300 UNITS/3 ML VIAL. SQ SCH ×3 (09:25→17:15)
[2021-01-29 15:44] VITALS: BP 118/72
--- NOTE | 2021-01-29 16:47 | NUR ---
Pt alert she continues to have grandiose and euphoric delusions regarding how much money she has and about suing this place because we are withholding snacks from her and she is a diabetic. Patient has a good appetite she eats all meals at the dining room with other patients, she is hyperverbal and very social with staff and other patients. Patient med compliant and cooperative with cares, patient seen by Dr Trinidad for ble redness and edema pitting, as well as uncontrolled blood sugars. New orders were put in for lantus 40units bid and a ultra sound of ble which I took patient downstairs for the ultrasound results are pending. Patient has no complaints of pain just slight discomfort while ambulating which is the reason she has been using the wheel chair and elevating her feet while in bed. Vitals stable and wnl of baseline besides blood sugars which patient is asymptomatic of hyperglycemia at the moment. Will continue to monitor patient. Addendum: 01/29/21 at 1810 by FLORESITA TELLEZ RN Ultrasound complete negative for dvt will print out and put for Dr Trinidad to review tomorrow, Dr Land ordered cbc for tomorrow 01/30 to calculate the ANC orders put in already.
--- NOTE | 2021-01-29 17:01 | RAD ---
Bilateral lower extremity venous duplex study 01/29/2021 Clinical History: Bilateral leg pain and swelling.. Technique: Using a combination of real time ultrasound imaging and color-flow and pulse Doppler imagi ng techniques along with graded compression and augmentation, duplex evaluation of the deep venous sy stem of the both lower extremities was performed. Multiple images were obtained. Findings: There is no sonographic evidence of deep venous thrombosis involving the visualized deep ve nous structures of either lower extremity. Impression: Negative study. Electronically signed by: Frank Varela MD (01/29/2021 4:59 PM) [id number]
[2021-01-29 20:29] LABS: ALBUMIN 2.7 g/dL (3.4-5.0); ALBUMIN/GLOBULIN RATIO 0.7 (1.0-1.7); CALCIUM 8.9 mg/dL (8.5-10.1); CREATININE 1.2 mg/dL (0.6-1.0); GFR 44.9; POTASSIUM 4.3 mmol/L (3.5-5.1); TOTAL BILIRUBIN 0.5 mg/dL (0.2-1.0); TOTAL PROTEIN 6.6 g/dL (6.4-8.2)
[2021-01-29] MEDS: cloZAPine 25 MG TABLET PO SCH (20:37)
[2021-01-29] MEDS: ATORVASTATIN CALCIUM 20 MG TABLET PO SCH (20:49)
--- NOTE | 2021-01-29 21:46 | PN ---
DATE: 01/29/2021 SUBJECTIVE: The patient was seen today at the request of nursing staff as they observed that bilateral lower extremities are markedly swollen with mild erythema on both sides; however, the patient denied any chills, rigors or fever. Denied any cough, phlegm or hemoptysis. Denied any chills, rigors or fever. The patient is mostly bedbound, wheelchair bound, although she is able to walk pushing her wheelchair in front of her. PHYSICAL EXAMINATION: GENERAL: When I examined her this afternoon, she looked well and was clearly in no apparent respiratory distress, slightly pale, not jaundice, cyanosed or thyromegaly. No jugular venous distention. No limb edema. VITAL SIGNS: Her heart rate was 89, blood pressure is 121/75, temperature was 98.1, respiratory rate 20, and oxygen saturation was 98% on room air. HEAD, EYES, EARS, NOSE AND THROAT: Normocephalic, atraumatic. NECK: Supple. HEART: Showed normal first and second heart sounds, no gallop, murmur. CHEST: Clear to auscultation. No crepitation or rhonchi. ABDOMEN: Distended, soft, nontender. NEUROLOGIC: She is awake, alert, responding appropriately, although she is very paranoid with grandiose delusion. All her cranial nerves intact. She moves without difficulty. Both lower extremities are definitely swollen with bilateral pitting edema and has mild erythema on both sides. ASSESSMENT: Bilateral lower extremity swelling as well as mild erythema. PLAN: My plan is to repeat all her lab work including a CBC, CMP, sed rate and CRP and I will also arrange for her to have bilateral lower extremity venous Doppler ultrasound to rule out the possibility of deep vein thrombosis. PEDRITO DR: Kt TID: [id number]
--- NOTE | 2021-01-29 22:05 | PDOC ---
Exam Note: Benedict Note: Please also refer to the separate dictated note~for this date of service dictated separately.~Patient seen individually. Discussed the patient with Nursing staff reviewed the chart.~Reviewed interim history and current functioning. Reviewed vital signs,~Labs/ Radiology~and current medications noted below. Continue current treatment with the changes noted in the dictated addendum note Assessment: Vital Signs/I&O: Vital Signs Date Time Temp Pulse Resp B/P (MAP) Pulse Ox O2 Delivery O2 Flow Rate FiO2 01/29/21 20:49 98 121/76 01/29/21 15:44 97.8 16 100 01/28/21 05:55 Room Air I & O 01/28/21 01/28/21 01/29/21 15:00 23:00 07:00 Intake Total 1040 ml 720 ml Balance 1040 ml 720 ml Labs: Laboratory Tests Test 01/29/21 07:44 01/29/21 11:31 01/29/21 16:39 01/29/21 19:14 Glucose (Fingerstick) 177 mg/dL (70-99) H 358 mg/dL (70-99) H 313 mg/dL (70-99) H 315 mg/dL (70-99) H Test 01/29/21 20:05 Erythrocyte Sedimentation Rate 39 (0-25) H Sodium Level 133 mmol/L (136-145) L Potassium Level 4.3 mmol/L (3.5-5.1) Chloride Level 97 mmol/L (98-107) L Carbon Dioxide Level 27 mmol/L (21-32) Anion Gap 9 (6-14) Blood Urea Nitrogen 13 mg/dL (7-20) Creatinine 1.2 mg/dL (0.6-1.0) H Estimated GFR (Cockcroft-Gault) 44.9 BUN/Creatinine Ratio 11 (6-20) Glucose Level 292 mg/dL (70-99) H Calcium Level 8.9 mg/dL (8.5-10.1) Total Bilirubin 0.5 mg/dL (0.2-1.0) Aspartate Amino Transferase (AST) 37 U/L (15-37) Alanine Aminotransferase (ALT) 26 U/L (14-59) Alkaline Phosphatase 160 U/L (46-116) H Total Protein 6.6 g/dL (6.4-8.2) Albumin 2.7 g/dL (3.4-5.0) L Albumin/Globulin Ratio 0.7 (1.0-1.7) L Current Medications: Meds: Laboratory Tests Test 01/29/21 07:44 01/29/21 11:31 01/29/21 16:39 01/29/21 19:14 Glucose (Fingerstick) 177 mg/dL 358 mg/dL 313 mg/dL 315 mg/dL Test 01/29/21 20:05 Erythrocyte Sedimentation Rate 39 Sodium Level 133 mmol/L Potassium Level 4.3 mmol/L Chloride Level 97 mmol/L Carbon Dioxide Level 27 mmol/L Anion Gap 9 Blood Urea Nitrogen 13 mg/dL Creatinine 1.2 mg/dL Estimated GFR (Cockcroft-Gault) 44.9 BUN/Creatinine Ratio 11 Glucose Level 292 mg/dL Calcium Level 8.9 mg/dL Total Bilirubin 0.5 mg/dL Aspartate Amino Transf (AST/SGOT) 37 U/L Alanine Aminotransferase (ALT/SGPT) 26 U/L Alkaline Phosphatase 160 U/L Total Protein 6.6 g/dL Albumin 2.7 g/dL Albumin/Globulin Ratio 0.7 Current Medications Medications (Trade) Dose Ordered Sig/Latesha Route PRN Reason Start Time Stop Time Status Last Admin Dose Admin Acetaminophen (Tylenol) 650 mg PRN Q6HRS PRN PO MILD PAIN / TEMP > 100.3'F 01/22/21 14:00 Cancel Multi-Ingredient Ointment (Analgesic [place]) 1 keri PRN QID PRN TP MUSCLE PAIN 01/22/21 14:00 Al Hydroxide/Mg Hydroxide (Mylanta Plus Xs) 15 ml PRN AFTMEALHC PRN PO DYSPEPSIA 01/22/21 14:00 Magnesium Hydroxide (Milk Of Magnesia) 2,400 mg PRN QHS PRN PO CONSTIPATION 01/22/21 14:00 Valproic Acid (Depakene) 500 mg QID PO 01/22/21 17:00 01/29/21 20:37 Acetaminophen (Tylenol) 500 mg QID PO 01/22/21 21:00 01/23/21 13:04 DC 01/23/21 08:29 Amlodipine Besylate (Norvasc) 5 mg DAILY PO 01/23/21 09:00 01/29/21 09:17 Atorvastatin Calcium (Lipitor) 20 mg QHS PO 01/22/21 21:00 01/29/21 20:49 Vitamin D (Vitamin D3) 1,000 unit DAILY PO 01/23/21 09:00 01/29/21 09:16 Hydrocortisone Acetate (Anucort-Hc) 25 mg PRN Q8HRS PRN RC hemorrhoids 01/22/21 20:00 Levothyroxine Sodium (Synthroid) 25 mcg DAILY06 PO 01/23/21 06:00 01/29/21 05:09 Lidocaine (Lidoderm) 1 patch DAILY TP 01/23/21 09:00 01/29/21 09:16 Mesalamine (Lialda) 1.2 gm DAILY PO 01/23/21 09:00 01/29/21 09:16 Metoprolol Tartrate (Lopressor) 25 mg BID PO 01/22/21 21:00 01/29/21 20:49 Quetiapine Fumarate (SEROquel) 50 mg TID PO 01/22/21 21:00 01/29/21 20:37 Risperidone (RisperDAL) 2 mg TID PO 01/22/21 21:00 01/29/21 20:37 Rivastigmine (Exelon) 1 patch DAILY TD 01/23/21 09:00 01/29/21 09:16 Venlafaxine HCl (Effexor Xr) 37.5 mg DAILY PO 01/23/21 09:00 01/23/21 13:11 DC 01/23/21 08:29 Ziprasidone (Geodon) 40 mg BID PO 01/22/21 21:00 01/28/21 17:15 DC 01/28/21 08:52 Ziprasidone (Geodon) 80 mg QHS PO 01/22/21 21:00 01/22/21 20:17 DC Cyanocobalamin (Vitamin B-12) 1,000 mcg DAILY PO 01/23/21 09:00 01/29/21 09:16 Insulin Human Lispro (HumaLOG) 40 units TIDWMEALS SQ 01/23/21 08:00 01/29/21 17:15 Insulin Glargine (Lantus Syringe) 30 unit DAILY SQ 01/23/21 09:00 01/29/21 14:19 DC 01/29/21 09:00 Lactobacillus Rhamnosus (Culturelle) 1 cap BID PO 01/23/21 09:00 01/29/21 20:36 Non-Formulary Medication (Liraglutide (Victoza 3-Jas)) 1.8 mg DAILY SQ 01/23/21 09:00 UNV Meclizine HCl (Antivert) 25 mg BID PO 01/22/21 21:00 01/29/21 20:50 Psyllium Hydrophilic Mucilloid (Metamucil) 1 pkt BID PO 01/22/21 21:00 01/29/21 20:50 Demeclocycline HCl (Declomycin) 150 mg TID PO 01/22/21 21:00 01/22/21 20:45 DC Olanzapine (ZyPREXA ZYDIS) 5 mg PRN Q2HR PRN PO PSYCHOSIS 01/22/21 20:30 Demeclocycline HCl (Declomycin) 300 mg TID PO 01/22/21 21:00 01/29/21 20:37 Acetaminophen/ Codeine Phosphate (Tylenol #3) 1 tab PRN QID PRN PO MODERATE PAIN 4-6 01/23/21 11:45 01/23/21 12:23 Acetaminophen (Tylenol) 500 mg PRN Q6HRS PRN PO MILD PAIN / TEMP > 100.3'F 01/23/21 13:15 Clozapine (Clozaril) 25 mg HS PO 01/23/21 21:00 01/29/21 20:37 Insulin Glargine (Lantus Syringe) 40 unit BID SQ 01/29/21 21:00 01/29/21 21:00 Current Medications Medications (Trade) Dose Ordered Sig/Latesha Route PRN Reason Start Time Stop Time Status Last Admin Dose Admin Insulin Glargine (Lantus Syringe) 40 unit BID SQ 01/29/21 21:00 01/29/21 21:00 I have reviewed the current psychotropics carefully including drug interactions. Risk benefit ratio favors no change other than as noted in my dictated progress note. Diagnosis: Problems: (1) Schizoaffective disorder, bipolar type (2) Impulse control disorder, unspecified (3) Anxiety disorder, unspecified (4) Bipolar disorder, current episode manic severe with psychotic features INOCENCIO PELAEZ MD Jan 29, 2021 22:05
--- NOTE | 2021-01-30 05:31 | NUR ---
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 She was intermittent in coherence while discussing with nurse, but able to follow simple instructions/commands correctly. Patient was alert and oriented x2 with stable vitals within regular limits. Patient stayed in the day madsen for about 3 hours watching TV and interacting with peers and staff before returning to her room where she remained in bed, resting with eyes closed, breathing normally and showing no signs of distress.
[2021-01-30 06:31] VITALS: BP 133/79
[2021-01-30] MEDS: LEVOTHYROXINE 25 MCG TABLET. PO SCH (06:43)
[2021-01-30 08:24] LABS: HEMATOCRIT 33.3 % (36.0-47.0); HEMOGLOBIN 11.2 g/dL (12.0-15.5); RED BLOOD COUNT 3.84 x10^6/uL (3.50-5.40); RED CELL DISTRIBUTION WIDTH 14.2 % (11.5-14.5)
[2021-01-30] MEDS: PSYLLIUM SEED (WITH SUGAR) PACKET. PO SCH ×2 (08:45→20:27)
[2021-01-30] MEDS: LIDOCAINE (700MG/PATCH) PATCH. TP SCH (08:46)
[2021-01-30] MEDS: VALPROIC ACID 250 MG CAPSULE. PO SCH ×4 (08:46→20:28)
[2021-01-30] MEDS: RIVASTIGMINE 4.6MG PATCH. TD SCH (08:46)
[2021-01-30] MEDS: risperiDONE 2 MG TABLET. PO SCH ×3 (08:47→20:28)
[2021-01-30] MEDS: CYANOCOBALAMIN (VITAMIN B-12) 1,000 MCG TABLET. PO SCH (08:47)
[2021-01-30] MEDS: CHOLECALCIFEROL (VITAMIN D3) 1,000 UNIT TABLET PO SCH (08:47)
[2021-01-30] MEDS: LACTOBACILLUS RHAMNOSUS GG 1 CAPSULE. PO SCH ×2 (08:47→20:27)
[2021-01-30] MEDS: DEMECLOCYCLINE HCL 150 MG TABLET. PO SCH ×3 (08:47→20:27)
[2021-01-30] MEDS: QUEtiapine 50 MG TABLET. PO SCH ×3 (08:47→20:27)
[2021-01-30] MEDS: METOPROLOL TART IMMED RELEASE 25 MG TABLET. PO SCH ×2 (08:47→20:27)
[2021-01-30] MEDS: amLODIPine BESYLATE 5 MG TABLET PO SCH (08:47)
[2021-01-30] MEDS: MESALAMINE 1.2 GM TABLET.DR PO SCH (08:47)
[2021-01-30] MEDS: MECLIZINE 12.5 MG TABLET. PO SCH ×2 (08:49→20:27)
[2021-01-30] MEDS: INSULIN LISPRO 300 UNITS/3 ML VIAL. SQ SCH ×3 (08:51→17:51)
[2021-01-30] MEDS: INSULIN GLARGINE SYRINGE. SQ SCH ×2 (08:53→21:00)
[2021-01-30] MEDS: NON FORMULARY ITEM (Liraglutide (Victoza 3-Pak) 1.8 MG) SQ SCH (09:00)
--- NOTE | 2021-01-30 10:48 | NUR ---
WEEKLY ACTIVITY THERAPY NOTE Date of Admission: 01/22/21 Date of AT Assessment: 01/24 Precipitating behaviors that initiated intake and admission:delusional- thinks she has kidney failure/heart failure/pneumonia, demanding to go to the hospital, manic, labile mood, yelling, crying, angry, agitated, refusing meds & blood sugar checks, threatening to use pocket knife on staff, believes she owns the care home Goal aimed: increase stress management and relaxation skills Initial Goal: Pt will participate in at least five individual or group Activity Therapy sessions per week Weekly progress towards goal: did not achieve, 08/20 Group participation level: 1 min Weekly highlights: joined group yesterday afternoon and enjoyed Authernative songs/ sermon Behaviors observed: usually in her room, when in group- shared her thoughts openly and was talkative, jumped from topic to topic, made a reference to never giving up her "badge" Plan: no change to goal at this time, potentially change goal to reflect a number of groups before discharge Beneficial adaptations:
[2021-01-30 11:00] LABS: BASO % 0 % (0-3); EOS # 0.1 x10^3/uL (0.0-0.7); EOS % 2 % (0-3); HEMATOCRIT 33.8 % (36.0-47.0); HEMOGLOBIN 11.2 g/dL (12.0-15.5); LYMPH # 1.8 x10^3/uL (1.0-4.8); LYMPH % 30 % (24-48); MEAN CORPUSCULAR HEMOGLOBIN 29 pg (25-35); MEAN CORPUSCULAR HGB CONC 33 g/dL (31-37); MEAN CORPUSCULAR VOLUME 87 fL (79-100); MONO # 0.5 x10^3/uL (0.0-1.1); MONO % 9 % (0-9); NEUT # 3.6 x10^3uL (1.8-7.7); NEUT % 59 % (31-73); PLATELET COUNT 157 x10^3/uL (140-400); RED BLOOD COUNT 3.88 x10^6/uL (3.50-5.40); RED CELL DISTRIBUTION WIDTH 14.4 % (11.5-14.5); WHITE BLOOD COUNT 6.1 x10^3/uL (4.0-11.0)
--- NOTE | 2021-01-30 11:11 | TX PLAN ---
Interdisciplinary Tx Plan Admission Information Jan 22, 2021 at 13:21 Legal Status (on Admission): Voluntary DPOA/Guardian Name: Myron Murdock Contact Other Contact Name: Blanca Other Contact Verified Code Status: Full Code Allergies: Coded Allergies: Penicillins (Verified Allergy, Unknown, 01/22/21) lithium (Verified Allergy, Unknown, 01/22/21) olanzapine (Verified Allergy, Unknown, 01/22/21) Diagnoses Primary Diagnosis: (1) Schizoaffective disorder, bipolar type Reasons for Admission: Delusions, Agitated, Angry, Suspicious/paranoid, Other Problem in Patient's Words: When SW approached pt for assessment, 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 She was very manic and reporting that she was struggling with symptoms of pneumonia. Per son/guardian, Myron, pt has been struggling with delusional thinking for a long time. She was recently at [facility] for about a month in November of this year. She was discharged because she was not presenting with threatening behaviors, but Myron believed she was still delusional at time of discharge. Myron states that she continued to be delusional after that hospitalization after she returned to her facility. Additional Admission Comments: Per intake record, pt is delusional thinking she has kidney failure, heart failure, and pneumonia. She was demanding to go to the hospital. She presents with rogelio, labile mood, yelling, crying, angry, agitated, refusing medications and blood sugar checks, and threatening to use pocket knife on staff. She believes she owns the half-way. Problems Active Problems: Delusional, paranoid, anger, agitation Inactive Problems: None noted at this time Pt Strengths/Limitations Ability for Henderson: Poor Cognitive Functioning/Ability: Fair Communication Skills/Ability: Good Financial Resources: Fair Insight/Judgement: Poor Intellectual Ability: Fair Physical Health: Poor Social Skills: Fair Stability in Family: Good Stability in School/Work: Fair Verbal Skills: Good Discharge Criteria Discharge Criteria: Adequate arrangements @DC, Adequate self-care, Verbal commit med comply, Improved behavior, Improved mood/thought Other Discharge Comments: None noted at this time. Preliminary Discharge Plan Preliminary DC Plan: Current Living Arrange. Special Precautions Special Precautions: Agitation/Assault Fall Risk: Moderate Initial D/C Plan Pt plans to return to [facility] on [address]. Identified Discharge Needs: None noted at this time. Currently Utilized Resources Currently Utilized Resources/P: PCP-Dr. Estevez [facility] on [address] Son/Guardian-Myron Murdock Referrals Community Resources: None noted at this time. Identified Problems/Hx/Goals Objectives/Short-Term Goals Short Term Goals: Control abnormal behavior, Dec. Aggression, Dec. Hallucination/Delus, Dec. Outbursts, Medication Stabilization, Monitor Med Effects, Prevent Deterioration, Promote Coping Skill Short Term Goals in Patient's: To help stabilize mood, find effective coping stratigies to reduce delusional beliefs, Find a medication regimen that will help control symptoms of Schizoeffective DO. Interventions/Frequency Staff Interventions/Frequency&: Psychiatry to assess pt three times per week for medication management. Nursing to assess behaviors, monitor medications, and complete 15 minute checks daily. Social work to see pt at least two times weekly to aid in return to placement. Activities to encourage pt to participate in group activities daily. 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 Education: Pt completed high school in [place] and gained her associates RN degree. Community Follow-up PCP Community Provider/Family Inpu: Pt son/guardian, Myron, aware of pt hospitalization and is available for further information as needed. Treatment Plan Explained Patient/Rig Builder had this treatment plan explained to him/her as indicated by the signature below and has been given the opportunity to ask questions and make suggestions: Date: Patient/Rig Builder Signature: Status Update Update WEEKLY NOTE/UPDATE: Gabriela is averaging 90% of meal intakes and 6.5 hours of sleep at night. Gabriela continues to be delusional, grandiose, and hyper-verbal. 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 While pleasant and social in nature, she has a flight of ideas. Tentative d/c early part of the week after next. SW will update guardian and [facility] on [address]. NIXON DEL CASTILLO Jan 30, 2021 11:11
--- NOTE | 2021-01-30 11:18 | NUR ---
Faxed current notes, labs, and medication list to HUMBERTO Rios at [facility] on [facility], for review. HUMBERTO left update for Myron, guardian/son, on his voice mail.
[2021-01-30 11:50] LABS: % ATYL 3 % (0-0); % BANDS 12 % (0-9); % BASOS 1 % (0-3); % EOS 3 % (0-5); % LYMPHS 32 % (24-48); % MONOS 10 % (0-10); % SEGS 39 % (35-66)
[2021-01-30 11:51] LABS: PLT ESTIMATE DECREASED (ADEQUATE)
[2021-01-30 16:08] VITALS: BP 116/60
--- NOTE | 2021-01-30 18:30 | NUR ---
Patient has been grandiose, delusional, and attention seeking throughout this shift. 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 She spent most time between meals withdrawn to her room. She varies between using a wheelchair or pushing it like a walker. Patient refused 17:00 depakote, stating she is allergic to it. Will continue to monitor and report to MD during rounds.
[2021-01-30 19:54] VITALS: BP 136/79
[2021-01-30] MEDS: ATORVASTATIN CALCIUM 20 MG TABLET PO SCH (20:28)
[2021-01-30] MEDS: cloZAPine 25 MG TABLET PO SCH (20:28)
--- NOTE | 2021-01-30 22:06 | PDOC ---
Exam Note: Benedict Note: Please also refer to the separate dictated note~for this date of service dictated separately.~Patient seen individually. Discussed the patient with Nursing staff reviewed the chart.~Reviewed interim history and current functioning. Reviewed vital signs,~Labs/ Radiology~and current medications noted below. Continue current treatment with the changes noted in the dictated addendum note Assessment: Vital Signs/I&O: Vital Signs Date Time Temp Pulse Resp B/P (MAP) Pulse Ox O2 Delivery O2 Flow Rate FiO2 01/30/21 20:27 104 136/79 01/30/21 16:08 98.2 18 96 Room Air I & O 01/29/21 01/29/21 01/30/21 15:00 23:00 07:00 Intake Total 840 ml 600 ml Balance 840 ml 600 ml Labs: Laboratory Tests Test 01/30/21 06:09 01/30/21 07:09 01/30/21 10:40 01/30/21 11:53 White Blood Count 6.0 x10^3/uL (4.0-11.0) 6.1 x10^3/uL (4.0-11.0) Red Blood Count 3.84 x10^6/uL (3.50-5.40) 3.88 x10^6/uL (3.50-5.40) Hemoglobin 11.2 g/dL (12.0-15.5) L 11.2 g/dL (12.0-15.5) L Hematocrit 33.3 % (36.0-47.0) L 33.8 % (36.0-47.0) L Mean Corpuscular Volume 87 fL (79-100) 87 fL (79-100) Mean Corpuscular Hemoglobin 29 pg (25-35) 29 pg (25-35) Mean Corpuscular Hemoglobin Concent 34 g/dL (31-37) 33 g/dL (31-37) Red Cell Distribution Width 14.2 % (11.5-14.5) 14.4 % (11.5-14.5) Platelet Count 155 x10^3/uL (140-400) 157 x10^3/uL (140-400) C-Reactive Protein 9.2 mg/L (0-3.3) H Glucose (Fingerstick) 188 mg/dL (70-99) H 378 mg/dL (70-99) H Neutrophils (%) (Auto) 59 % (31-73) Lymphocytes (%) (Auto) 30 % (24-48) Monocytes (%) (Auto) 9 % (0-9) Eosinophils (%) (Auto) 2 % (0-3) Basophils (%) (Auto) 0 % (0-3) Neutrophils # (Auto) 3.6 x10^3uL (1.8-7.7) Lymphocytes # (Auto) 1.8 x10^3/uL (1.0-4.8) Monocytes # (Auto) 0.5 x10^3/uL (0.0-1.1) Eosinophils # (Auto) 0.1 x10^3/uL (0.0-0.7) Basophils # (Auto) 0.0 x10^3/uL (0.0-0.2) Segmented Neutrophils % 39 % (35-66) Band Neutrophils % 12 % (0-9) H Lymphocytes % 32 % (24-48) Atypical Lymphocytes % (Manual) 3 % (0-0) H Monocytes % 10 % (0-10) Eosinophils % 3 % (0-5) Basophils % 1 % (0-3) Platelet Estimate Decreased (ADEQUATE) Test 01/30/21 17:30 01/30/21 19:16 Glucose (Fingerstick) 293 mg/dL (70-99) H 301 mg/dL (70-99) H Current Medications: Meds: Laboratory Tests Test 01/30/21 06:09 01/30/21 07:09 01/30/21 10:40 01/30/21 11:53 White Blood Count 6.0 x10^3/uL 6.1 x10^3/uL Red Blood Count 3.84 x10^6/uL 3.88 x10^6/uL Hemoglobin 11.2 g/dL 11.2 g/dL Hematocrit 33.3 % 33.8 % Mean Corpuscular Volume 87 fL 87 fL Mean Corpuscular Hemoglobin 29 pg 29 pg Mean Corpuscular Hemoglobin Concent 34 g/dL 33 g/dL Red Cell Distribution Width 14.2 % 14.4 % Platelet Count 155 x10^3/uL 157 x10^3/uL C-Reactive Protein 9.2 mg/L Glucose (Fingerstick) 188 mg/dL 378 mg/dL Neutrophils (%) (Auto) 59 % Lymphocytes (%) (Auto) 30 % Monocytes (%) (Auto) 9 % Eosinophils (%) (Auto) 2 % Basophils (%) (Auto) 0 % Neutrophils # (Auto) 3.6 x10^3uL Lymphocytes # (Auto) 1.8 x10^3/uL Monocytes # (Auto) 0.5 x10^3/uL Eosinophils # (Auto) 0.1 x10^3/uL Basophils # (Auto) 0.0 x10^3/uL Segmented Neutrophils % 39 % Band Neutrophils % 12 % Lymphocytes % 32 % Atypical Lymphocytes % (Manual) 3 % Monocytes % 10 % Eosinophils % 3 % Basophils % 1 % Platelet Estimate Decreased Test 01/30/21 17:30 01/30/21 19:16 Glucose (Fingerstick) 293 mg/dL 301 mg/dL Current Medications Medications (Trade) Dose Ordered Sig/Latesha Route PRN Reason Start Time Stop Time Status Last Admin Dose Admin Acetaminophen (Tylenol) 650 mg PRN Q6HRS PRN PO MILD PAIN / TEMP > 100.3'F 01/22/21 14:00 Cancel Multi-Ingredient Ointment (Analgesic [place]) 1 keri PRN QID PRN TP MUSCLE PAIN 01/22/21 14:00 Al Hydroxide/Mg Hydroxide (Mylanta Plus Xs) 15 ml PRN AFTMEALHC PRN PO DYSPEPSIA 01/22/21 14:00 Magnesium Hydroxide (Milk Of Magnesia) 2,400 mg PRN QHS PRN PO CONSTIPATION 01/22/21 14:00 Valproic Acid (Depakene) 500 mg QID PO 01/22/21 17:00 01/30/21 20:28 Acetaminophen (Tylenol) 500 mg QID PO 01/22/21 21:00 01/23/21 13:04 DC 01/23/21 08:29 Amlodipine Besylate (Norvasc) 5 mg DAILY PO 01/23/21 09:00 01/30/21 08:47 Atorvastatin Calcium (Lipitor) 20 mg QHS PO 01/22/21 21:00 01/30/21 20:28 Vitamin D (Vitamin D3) 1,000 unit DAILY PO 01/23/21 09:00 01/30/21 08:47 Hydrocortisone Acetate (Anucort-Hc) 25 mg PRN Q8HRS PRN RC hemorrhoids 01/22/21 20:00 Levothyroxine Sodium (Synthroid) 25 mcg DAILY06 PO 01/23/21 06:00 01/30/21 06:43 Lidocaine (Lidoderm) 1 patch DAILY TP 01/23/21 09:00 01/30/21 08:46 Mesalamine (Lialda) 1.2 gm DAILY PO 01/23/21 09:00 01/30/21 08:47 Metoprolol Tartrate (Lopressor) 25 mg BID PO 01/22/21 21:00 01/30/21 20:27 Quetiapine Fumarate (SEROquel) 50 mg TID PO 01/22/21 21:00 01/30/21 20:27 Risperidone (RisperDAL) 2 mg TID PO 01/22/21 21:00 01/30/21 20:28 Rivastigmine (Exelon) 1 patch DAILY TD 01/23/21 09:00 01/30/21 08:46 Venlafaxine HCl (Effexor Xr) 37.5 mg DAILY PO 01/23/21 09:00 01/23/21 13:11 DC 01/23/21 08:29 Ziprasidone (Geodon) 40 mg BID PO 01/22/21 21:00 01/28/21 17:15 DC 01/28/21 08:52 Ziprasidone (Geodon) 80 mg QHS PO 01/22/21 21:00 01/22/21 20:17 DC Cyanocobalamin (Vitamin B-12) 1,000 mcg DAILY PO 01/23/21 09:00 01/30/21 08:47 Insulin Human Lispro (HumaLOG) 40 units TIDWMEALS SQ 01/23/21 08:00 01/30/21 17:51 Insulin Glargine (Lantus Syringe) 30 unit DAILY SQ 01/23/21 09:00 01/29/21 14:19 DC 01/29/21 09:00 Lactobacillus Rhamnosus (Culturelle) 1 cap BID PO 01/23/21 09:00 01/30/21 20:27 Non-Formulary Medication (Liraglutide (Victoza 3-Jas)) 1.8 mg DAILY SQ 01/23/21 09:00 UNV Meclizine HCl (Antivert) 25 mg BID PO 01/22/21 21:00 01/30/21 20:27 Psyllium Hydrophilic Mucilloid (Metamucil) 1 pkt BID PO 01/22/21 21:00 01/30/21 20:27 Demeclocycline HCl (Declomycin) 150 mg TID PO 01/22/21 21:00 01/22/21 20:45 DC Olanzapine (ZyPREXA ZYDIS) 5 mg PRN Q2HR PRN PO PSYCHOSIS 01/22/21 20:30 Demeclocycline HCl (Declomycin) 300 mg TID PO 01/22/21 21:00 01/30/21 20:27 Acetaminophen/ Codeine Phosphate (Tylenol #3) 1 tab PRN QID PRN PO MODERATE PAIN 4-6 01/23/21 11:45 01/23/21 12:23 Acetaminophen (Tylenol) 500 mg PRN Q6HRS PRN PO MILD PAIN / TEMP > 100.3'F 01/23/21 13:15 Clozapine (Clozaril) 25 mg HS PO 01/23/21 21:00 01/30/21 18:59 DC 01/29/21 20:37 Insulin Glargine (Lantus Syringe) 40 unit BID SQ 01/29/21 21:00 01/30/21 21:00 Clozapine (Clozaril) 50 mg HS PO 01/30/21 21:00 01/30/21 20:28 Current Medications Medications (Trade) Dose Ordered Sig/Latesha Route PRN Reason Start Time Stop Time Status Last Admin Dose Admin Clozapine (Clozaril) 50 mg HS PO 01/30/21 21:00 01/30/21 20:28 I have reviewed the current psychotropics carefully including drug interactions. Risk benefit ratio favors no change other than as noted in my dictated progress note. Diagnosis: Problems: (1) Schizoaffective disorder, bipolar type (2) Impulse control disorder, unspecified (3) Anxiety disorder, unspecified (4) Bipolar disorder, current episode manic severe with psychotic features INCOENCIO PELAEZ MD Jan 30, 2021 22:06
--- NOTE | 2021-01-31 00:44 | NUR ---
Pt sitting in day room when approached. Pt calm, grandiose, and delusional. 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 Pt cooperative with assessment and compliant with medications administered whole.
[2021-01-31] MEDS: LEVOTHYROXINE 25 MCG TABLET. PO SCH (05:50)
[2021-01-31 06:04] VITALS: BP 113/72
--- NOTE | 2021-01-31 08:32 | PDOC ---
Exam Note: Benedict Note: This note is a late entry for 01/29/2021 covers elements not covered in my initial note. Subjective: The patient was seen individually in the evening of 01/29/2021 with Daniel CARRERA, discussed and reviewed the chart. The patient slept 1-1/4 hours previous night. The patient remains grandiose, talking about being the head of the [employer], a doctor, a physicist etc. She is compliant with her medications. Review of Systems: No CV, , pulmonary, eye, ENT system symptoms on review. Mental Status Exam: The patient is awake, alert, oriented. Speech coherent, somewhat pressured. Abstraction fair. Computation impaired. Language function intact. Attention span short. Mood and affect remains somewhat grandiose. Laboratory Data: Reviewed. Impression: Schizoaffective disorder, bipolar type mixed with psychotic f eatures. Anxiety disorder unspecified. Impulse control disorder unspecified. Plan: No change from initial note. Check CBC, absolute neutrophil count in the morning and then adjust the Clozaril. Maintain rest of the psychotropics unchanged. Assessment: Vital Signs/I&O: Vital Signs Date Time Temp Pulse Resp B/P (MAP) Pulse Ox O2 Delivery O2 Flow Rate FiO2 01/31/21 06:04 97.4 90 16 113/72 (86) 95 Room Air I & O 01/30/21 01/30/21 01/31/21 15:00 23:00 07:00 Intake Total 120 ml 1080 ml Balance 120 ml 1080 ml Labs: Laboratory Tests Test 01/30/21 10:40 01/30/21 11:53 01/30/21 17:30 01/30/21 19:16 White Blood Count 6.1 x10^3/uL (4.0-11.0) Red Blood Count 3.88 x10^6/uL (3.50-5.40) Hemoglobin 11.2 g/dL (12.0-15.5) L Hematocrit 33.8 % (36.0-47.0) L Mean Corpuscular Volume 87 fL (79-100) Mean Corpuscular Hemoglobin 29 pg (25-35) Mean Corpuscular Hemoglobin Concent 33 g/dL (31-37) Red Cell Distribution Width 14.4 % (11.5-14.5) Platelet Count 157 x10^3/uL (140-400) Neutrophils (%) (Auto) 59 % (31-73) Lymphocytes (%) (Auto) 30 % (24-48) Monocytes (%) (Auto) 9 % (0-9) Eosinophils (%) (Auto) 2 % (0-3) Basophils (%) (Auto) 0 % (0-3) Neutrophils # (Auto) 3.6 x10^3uL (1.8-7.7) Lymphocytes # (Auto) 1.8 x10^3/uL (1.0-4.8) Monocytes # (Auto) 0.5 x10^3/uL (0.0-1.1) Eosinophils # (Auto) 0.1 x10^3/uL (0.0-0.7) Basophils # (Auto) 0.0 x10^3/uL (0.0-0.2) Segmented Neutrophils % 39 % (35-66) Band Neutrophils % 12 % (0-9) H Lymphocytes % 32 % (24-48) Atypical Lymphocytes % (Manual) 3 % (0-0) H Monocytes % 10 % (0-10) Eosinophils % 3 % (0-5) Basophils % 1 % (0-3) Platelet Estimate Decreased (ADEQUATE) Glucose (Fingerstick) 378 mg/dL (70-99) H 293 mg/dL (70-99) H 301 mg/dL (70-99) H Test 01/31/21 08:03 Glucose (Fingerstick) 166 mg/dL (70-99) H Current Medications: Meds: Laboratory Tests Test 01/30/21 10:40 01/30/21 11:53 01/30/21 17:30 01/30/21 19:16 White Blood Count 6.1 x10^3/uL Red Blood Count 3.88 x10^6/uL Hemoglobin 11.2 g/dL Hematocrit 33.8 % Mean Corpuscular Volume 87 fL Mean Corpuscular Hemoglobin 29 pg Mean Corpuscular Hemoglobin Concent 33 g/dL Red Cell Distribution Width 14.4 % Platelet Count 157 x10^3/uL Neutrophils (%) (Auto) 59 % Lymphocytes (%) (Auto) 30 % Monocytes (%) (Auto) 9 % Eosinophils (%) (Auto) 2 % Basophils (%) (Auto) 0 % Neutrophils # (Auto) 3.6 x10^3uL Lymphocytes # (Auto) 1.8 x10^3/uL Monocytes # (Auto) 0.5 x10^3/uL Eosinophils # (Auto) 0.1 x10^3/uL Basophils # (Auto) 0.0 x10^3/uL Segmented Neutrophils % 39 % Band Neutrophils % 12 % Lymphocytes % 32 % Atypical Lymphocytes % (Manual) 3 % Monocytes % 10 % Eosinophils % 3 % Basophils % 1 % Platelet Estimate Decreased Glucose (Fingerstick) 378 mg/dL 293 mg/dL 301 mg/dL Test 01/31/21 08:03 Glucose (Fingerstick) 166 mg/dL Current Medications Medications (Trade) Dose Ordered Sig/Latesha Route PRN Reason Start Time Stop Time Status Last Admin Dose Admin Acetaminophen (Tylenol) 650 mg PRN Q6HRS PRN PO MILD PAIN / TEMP > 100.3'F 01/22/21 14:00 Cancel Multi-Ingredient Ointment (Analgesic [place]) 1 keri PRN QID PRN TP MUSCLE PAIN 01/22/21 14:00 Al Hydroxide/Mg Hydroxide (Mylanta Plus Xs) 15 ml PRN AFTMEALHC PRN PO DYSPEPSIA 01/22/21 14:00 Magnesium Hydroxide (Milk Of Magnesia) 2,400 mg PRN QHS PRN PO CONSTIPATION 01/22/21 14:00 Valproic Acid (Depakene) 500 mg QID PO 01/22/21 17:00 01/30/21 20:28 Acetaminophen (Tylenol) 500 mg QID PO 01/22/21 21:00 01/23/21 13:04 DC 01/23/21 08:29 Amlodipine Besylate (Norvasc) 5 mg DAILY PO 01/23/21 09:00 01/30/21 08:47 Atorvastatin Calcium (Lipitor) 20 mg QHS PO 01/22/21 21:00 01/30/21 20:28 Vitamin D (Vitamin D3) 1,000 unit DAILY PO 01/23/21 09:00 01/30/21 08:47 Hydrocortisone Acetate (Anucort-Hc) 25 mg PRN Q8HRS PRN RC hemorrhoids 01/22/21 20:00 Levothyroxine Sodium (Synthroid) 25 mcg DAILY06 PO 01/23/21 06:00 01/31/21 05:50 Lidocaine (Lidoderm) 1 patch DAILY TP 01/23/21 09:00 01/30/21 08:46 Mesalamine (Lialda) 1.2 gm DAILY PO 01/23/21 09:00 01/30/21 08:47 Metoprolol Tartrate (Lopressor) 25 mg BID PO 01/22/21 21:00 01/30/21 20:27 Quetiapine Fumarate (SEROquel) 50 mg TID PO 01/22/21 21:00 01/30/21 20:27 Risperidone (RisperDAL) 2 mg TID PO 01/22/21 21:00 01/30/21 20:28 Rivastigmine (Exelon) 1 patch DAILY TD 01/23/21 09:00 01/30/21 08:46 Venlafaxine HCl (Effexor Xr) 37.5 mg DAILY PO 01/23/21 09:00 01/23/21 13:11 DC 01/23/21 08:29 Ziprasidone (Geodon) 40 mg BID PO 01/22/21 21:00 01/28/21 17:15 DC 01/28/21 08:52 Ziprasidone (Geodon) 80 mg QHS PO 01/22/21 21:00 01/22/21 20:17 DC Cyanocobalamin (Vitamin B-12) 1,000 mcg DAILY PO 01/23/21 09:00 01/30/21 08:47 Insulin Human Lispro (HumaLOG) 40 units TIDWMEALS SQ 01/23/21 08:00 01/30/21 17:51 Insulin Glargine (Lantus Syringe) 30 unit DAILY SQ 01/23/21 09:00 01/29/21 14:19 DC 01/29/21 09:00 Lactobacillus Rhamnosus (Culturelle) 1 cap BID PO 01/23/21 09:00 01/30/21 20:27 Non-Formulary Medication (Liraglutide (Victoza 3-Jas)) 1.8 mg DAILY SQ 01/23/21 09:00 UNV Meclizine HCl (Antivert) 25 mg BID PO 01/22/21 21:00 01/30/21 20:27 Psyllium Hydrophilic Mucilloid (Metamucil) 1 pkt BID PO 01/22/21 21:00 01/30/21 20:27 Demeclocycline HCl (Declomycin) 150 mg TID PO 01/22/21 21:00 01/22/21 20:45 DC Olanzapine (ZyPREXA ZYDIS) 5 mg PRN Q2HR PRN PO PSYCHOSIS 01/22/21 20:30 Demeclocycline HCl (Declomycin) 300 mg TID PO 01/22/21 21:00 01/30/21 20:27 Acetaminophen/ Codeine Phosphate (Tylenol #3) 1 tab PRN QID PRN PO MODERATE PAIN 4-6 01/23/21 11:45 01/23/21 12:23 Acetaminophen (Tylenol) 500 mg PRN Q6HRS PRN PO MILD PAIN / TEMP > 100.3'F 01/23/21 13:15 Clozapine (Clozaril) 25 mg HS PO 01/23/21 21:00 01/30/21 18:59 DC 01/29/21 20:37 Insulin Glargine (Lantus Syringe) 40 unit BID SQ 01/29/21 21:00 01/30/21 21:00 Clozapine (Clozaril) 50 mg HS PO 01/30/21 21:00 01/30/21 20:28 Current Medications Medications (Trade) Dose Ordered Sig/Latesha Route PRN Reason Start Time Stop Time Status Last Admin Dose Admin Clozapine (Clozaril) 50 mg HS PO 01/30/21 21:00 01/30/21 20:28 I have reviewed the current psychotropics carefully including drug interactions. Risk benefit ratio favors no change other than as noted in my dictated progress note. Diagnosis: Problems: (1) Schizoaffective disorder, bipolar type (2) Impulse control disorder, unspecified (3) Anxiety disorder, unspecified (4) Bipolar disorder, current episode manic severe with psychotic features INOCENCIO PELAEZ MD Jan 31, 2021 08:31
[2021-01-31] MEDS: CYANOCOBALAMIN (VITAMIN B-12) 1,000 MCG TABLET. PO SCH (08:47)
[2021-01-31] MEDS: MESALAMINE 1.2 GM TABLET.DR PO SCH (08:47)
[2021-01-31] MEDS: VALPROIC ACID 250 MG CAPSULE. PO SCH ×4 (08:48→20:21)
[2021-01-31] MEDS: risperiDONE 2 MG TABLET. PO SCH ×3 (08:48→20:21)
[2021-01-31] MEDS: CHOLECALCIFEROL (VITAMIN D3) 1,000 UNIT TABLET PO SCH (08:48)
[2021-01-31] MEDS: amLODIPine BESYLATE 5 MG TABLET PO SCH (08:48)
[2021-01-31] MEDS: DEMECLOCYCLINE HCL 150 MG TABLET. PO SCH ×3 (08:48→20:21)
[2021-01-31] MEDS: METOPROLOL TART IMMED RELEASE 25 MG TABLET. PO SCH ×2 (08:48→20:21)
[2021-01-31] MEDS: LACTOBACILLUS RHAMNOSUS GG 1 CAPSULE. PO SCH ×2 (08:48→20:21)
[2021-01-31] MEDS: RIVASTIGMINE 4.6MG PATCH. TD SCH (08:49)
[2021-01-31] MEDS: MECLIZINE 12.5 MG TABLET. PO SCH ×2 (08:49→20:22)
[2021-01-31] MEDS: QUEtiapine 50 MG TABLET. PO SCH ×3 (08:49→20:22)
[2021-01-31] MEDS: PSYLLIUM SEED (WITH SUGAR) PACKET. PO SCH ×2 (08:50→20:22)
[2021-01-31] MEDS: NON FORMULARY ITEM (Liraglutide (Victoza 3-Pak) 1.8 MG) SQ SCH (08:50)
[2021-01-31] MEDS: LIDOCAINE (700MG/PATCH) PATCH. TP SCH (08:51)
[2021-01-31] MEDS: INSULIN LISPRO 300 UNITS/3 ML VIAL. SQ SCH ×3 (08:53→17:26)
--- NOTE | 2021-01-31 08:53 | PDOC ---
Exam Note: Benedict Note: This note is a late entry for 01/30/2021 covers elements not covered in my initial note. Subjective: The patient was reviewed in the morning of 01/30/2021 for a treatment team meeting with Lilibeth Holman, Gloria Rosario (social sciences research scientist), Farrah, activity therapy and Zack CARRERA, discussed and reviewed the chart. The patient slept 7-1/4 hours previous night. The patient remains delusional, somewhat grandiose. I met with her in the evening. She remains hyperverbal, complains about the unit. Review of Systems: No CV, , pulmonary, eye, ENT system symptoms on review. Mental Status Exam: The patient is reasonably oriented. Speech coherent, somewhat pressured at times. Abstraction fair. Computation impaired. Language function intact. Attention span short. Mood and affect remains somewhat manic and hyperverbal. Laboratory Data: Reviewed. Impression: Schizoaffective disorder, bipolar type mixed with psychotic features. Anxiety disorder unspecified. Impulse control disorder unspecified. Plan: No change from initial note. The patients absolute neutrophil count is 3599. We will increase Clozaril to 50 mg p.o. h.s. Make further adjustments as clinically indicated. Assessment: Vital Signs/I&O: Vital Signs Date Time Temp Pulse Resp B/P (MAP) Pulse Ox O2 Delivery O2 Flow Rate FiO2 01/31/21 06:04 97.4 90 16 113/72 (86) 95 Room Air I & O 01/30/21 01/30/21 01/31/21 15:00 23:00 07:00 Intake Total 120 ml 1080 ml Balance 120 ml 1080 ml Labs: Laboratory Tests Test 01/30/21 10:40 01/30/21 11:53 01/30/21 17:30 01/30/21 19:16 White Blood Count 6.1 x10^3/uL (4.0-11.0) Red Blood Count 3.88 x10^6/uL (3.50-5.40) Hemoglobin 11.2 g/dL (12.0-15.5) L Hematocrit 33.8 % (36.0-47.0) L Mean Corpuscular Volume 87 fL (79-100) Mean Corpuscular Hemoglobin 29 pg (25-35) Mean Corpuscular Hemoglobin Concent 33 g/dL (31-37) Red Cell Distribution Width 14.4 % (11.5-14.5) Platelet Count 157 x10^3/uL (140-400) Neutrophils (%) (Auto) 59 % (31-73) Lymphocytes (%) (Auto) 30 % (24-48) Monocytes (%) (Auto) 9 % (0-9) Eosinophils (%) (Auto) 2 % (0-3) Basophils (%) (Auto) 0 % (0-3) Neutrophils # (Auto) 3.6 x10^3uL (1.8-7.7) Lymphocytes # (Auto) 1.8 x10^3/uL (1.0-4.8) Monocytes # (Auto) 0.5 x10^3/uL (0.0-1.1) Eosinophils # (Auto) 0.1 x10^3/uL (0.0-0.7) Basophils # (Auto) 0.0 x10^3/uL (0.0-0.2) Segmented Neutrophils % 39 % (35-66) Band Neutrophils % 12 % (0-9) H Lymphocytes % 32 % (24-48) Atypical Lymphocytes % (Manual) 3 % (0-0) H Monocytes % 10 % (0-10) Eosinophils % 3 % (0-5) Basophils % 1 % (0-3) Platelet Estimate Decreased (ADEQUATE) Glucose (Fingerstick) 378 mg/dL (70-99) H 293 mg/dL (70-99) H 301 mg/dL (70-99) H Test 01/31/21 08:03 Glucose (Fingerstick) 166 mg/dL (70-99) H Current Medications: Meds: Laboratory Tests Test 01/30/21 10:40 01/30/21 11:53 01/30/21 17:30 01/30/21 19:16 White Blood Count 6.1 x10^3/uL Red Blood Count 3.88 x10^6/uL Hemoglobin 11.2 g/dL Hematocrit 33.8 % Mean Corpuscular Volume 87 fL Mean Corpuscular Hemoglobin 29 pg Mean Corpuscular Hemoglobin Concent 33 g/dL Red Cell Distribution Width 14.4 % Platelet Count 157 x10^3/uL Neutrophils (%) (Auto) 59 % Lymphocytes (%) (Auto) 30 % Monocytes (%) (Auto) 9 % Eosinophils (%) (Auto) 2 % Basophils (%) (Auto) 0 % Neutrophils # (Auto) 3.6 x10^3uL Lymphocytes # (Auto) 1.8 x10^3/uL Monocytes # (Auto) 0.5 x10^3/uL Eosinophils # (Auto) 0.1 x10^3/uL Basophils # (Auto) 0.0 x10^3/uL Segmented Neutrophils % 39 % Band Neutrophils % 12 % Lymphocytes % 32 % Atypical Lymphocytes % (Manual) 3 % Monocytes % 10 % Eosinophils % 3 % Basophils % 1 % Platelet Estimate Decreased Glucose (Fingerstick) 378 mg/dL 293 mg/dL 301 mg/dL Test 01/31/21 08:03 Glucose (Fingerstick) 166 mg/dL Current Medications Medications (Trade) Dose Ordered Sig/Latesha Route PRN Reason Start Time Stop Time Status Last Admin Dose Admin Acetaminophen (Tylenol) 650 mg PRN Q6HRS PRN PO MILD PAIN / TEMP > 100.3'F 01/22/21 14:00 Cancel Multi-Ingredient Ointment (Analgesic [place]) 1 keri PRN QID PRN TP MUSCLE PAIN 01/22/21 14:00 Al Hydroxide/Mg Hydroxide (Mylanta Plus Xs) 15 ml PRN AFTMEALHC PRN PO DYSPEPSIA 01/22/21 14:00 Magnesium Hydroxide (Milk Of Magnesia) 2,400 mg PRN QHS PRN PO CONSTIPATION 01/22/21 14:00 Valproic Acid (Depakene) 500 mg QID PO 01/22/21 17:00 01/30/21 20:28 Acetaminophen (Tylenol) 500 mg QID PO 01/22/21 21:00 01/23/21 13:04 DC 01/23/21 08:29 Amlodipine Besylate (Norvasc) 5 mg DAILY PO 01/23/21 09:00 01/30/21 08:47 Atorvastatin Calcium (Lipitor) 20 mg QHS PO 01/22/21 21:00 01/30/21 20:28 Vitamin D (Vitamin D3) 1,000 unit DAILY PO 01/23/21 09:00 01/30/21 08:47 Hydrocortisone Acetate (Anucort-Hc) 25 mg PRN Q8HRS PRN RC hemorrhoids 01/22/21 20:00 Levothyroxine Sodium (Synthroid) 25 mcg DAILY06 PO 01/23/21 06:00 01/31/21 05:50 Lidocaine (Lidoderm) 1 patch DAILY TP 01/23/21 09:00 01/30/21 08:46 Mesalamine (Lialda) 1.2 gm DAILY PO 01/23/21 09:00 01/30/21 08:47 Metoprolol Tartrate (Lopressor) 25 mg BID PO 01/22/21 21:00 01/30/21 20:27 Quetiapine Fumarate (SEROquel) 50 mg TID PO 01/22/21 21:00 01/30/21 20:27 Risperidone (RisperDAL) 2 mg TID PO 01/22/21 21:00 01/30/21 20:28 Rivastigmine (Exelon) 1 patch DAILY TD 01/23/21 09:00 01/30/21 08:46 Venlafaxine HCl (Effexor Xr) 37.5 mg DAILY PO 01/23/21 09:00 01/23/21 13:11 DC 01/23/21 08:29 Ziprasidone (Geodon) 40 mg BID PO 01/22/21 21:00 01/28/21 17:15 DC 01/28/21 08:52 Ziprasidone (Geodon) 80 mg QHS PO 01/22/21 21:00 01/22/21 20:17 DC Cyanocobalamin (Vitamin B-12) 1,000 mcg DAILY PO 01/23/21 09:00 01/30/21 08:47 Insulin Human Lispro (HumaLOG) 40 units TIDWMEALS SQ 01/23/21 08:00 01/30/21 17:51 Insulin Glargine (Lantus Syringe) 30 unit DAILY SQ 01/23/21 09:00 01/29/21 14:19 DC 01/29/21 09:00 Lactobacillus Rhamnosus (Culturelle) 1 cap BID PO 01/23/21 09:00 01/30/21 20:27 Non-Formulary Medication (Liraglutide (Victoza 3-Jas)) 1.8 mg DAILY SQ 01/23/21 09:00 UNV Meclizine HCl (Antivert) 25 mg BID PO 01/22/21 21:00 01/30/21 20:27 Psyllium Hydrophilic Mucilloid (Metamucil) 1 pkt BID PO 01/22/21 21:00 01/30/21 20:27 Demeclocycline HCl (Declomycin) 150 mg TID PO 01/22/21 21:00 01/22/21 20:45 DC Olanzapine (ZyPREXA ZYDIS) 5 mg PRN Q2HR PRN PO PSYCHOSIS 01/22/21 20:30 Demeclocycline HCl (Declomycin) 300 mg TID PO 01/22/21 21:00 01/30/21 20:27 Acetaminophen/ Codeine Phosphate (Tylenol #3) 1 tab PRN QID PRN PO MODERATE PAIN 4-6 01/23/21 11:45 01/23/21 12:23 Acetaminophen (Tylenol) 500 mg PRN Q6HRS PRN PO MILD PAIN / TEMP > 100.3'F 01/23/21 13:15 Clozapine (Clozaril) 25 mg HS PO 01/23/21 21:00 01/30/21 18:59 DC 01/29/21 20:37 Insulin Glargine (Lantus Syringe) 40 unit BID SQ 01/29/21 21:00 01/30/21 21:00 Clozapine (Clozaril) 50 mg HS PO 01/30/21 21:00 01/30/21 20:28 Current Medications Medications (Trade) Dose Ordered Sig/Latesha Route PRN Reason Start Time Stop Time Status Last Admin Dose Admin Clozapine (Clozaril) 50 mg HS PO 01/30/21 21:00 01/30/21 20:28 I have reviewed the current psychotropics carefully including drug interactions. Risk benefit ratio favors no change other than as noted in my dictated progress note. Diagnosis: Problems: (1) Schizoaffective disorder, bipolar type (2) Impulse control disorder, unspecified (3) Anxiety disorder, unspecified (4) Bipolar disorder, current episode manic severe with psychotic features INOCENCIO PELAEZ MD Jan 31, 2021 08:53
[2021-01-31] MEDS: INSULIN GLARGINE SYRINGE. SQ SCH ×2 (09:50→21:00)
[2021-01-31 15:40] VITALS: BP 108/60
[2021-01-31] MEDS ORDERED: INSULIN GLARGINE SYRINGE. SQ SCH (17:45)
--- NOTE | 2021-01-31 18:30 | NUR ---
Patient has been withdrawn, grandiose, delusional, and attention seeking throughout this shift. 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 She spent most time between meals withdrawn to her room. She varies between using a wheelchair or pushing it like a walker. Patient continued to state that she could not take Seroquel or Depakote because they damage the kidneys. Will continue to monitor and report to MD during rounds.
[2021-01-31] MEDS: ATORVASTATIN CALCIUM 20 MG TABLET PO SCH (20:21)
[2021-01-31] MEDS: cloZAPine 25 MG TABLET PO SCH (20:22)
--- NOTE | 2021-01-31 22:05 | PDOC ---
Exam Note: Benedict Note: Please also refer to the separate dictated note~for this date of service dictated separately.~Patient seen individually. Discussed the patient with Nursing staff reviewed the chart.~Reviewed interim history and current functioning. Reviewed vital signs,~Labs/ Radiology~and current medications noted below. Continue current treatment with the changes noted in the dictated addendum note Assessment: Vital Signs/I&O: Vital Signs Date Time Temp Pulse Resp B/P (MAP) Pulse Ox O2 Delivery O2 Flow Rate FiO2 01/31/21 20:21 92 108/60 01/31/21 15:40 98.0 17 97 Room Air I & O 01/30/21 01/30/21 01/31/21 15:00 23:00 07:00 Intake Total 120 ml 1080 ml Balance 120 ml 1080 ml Labs: Laboratory Tests Test 01/31/21 08:03 01/31/21 12:25 01/31/21 17:22 01/31/21 19:08 Glucose (Fingerstick) 166 mg/dL (70-99) H 261 mg/dL (70-99) H 211 mg/dL (70-99) H 307 mg/dL (70-99) H Current Medications: Meds: Laboratory Tests Test 01/31/21 08:03 01/31/21 12:25 01/31/21 17:22 01/31/21 19:08 Glucose (Fingerstick) 166 mg/dL 261 mg/dL 211 mg/dL 307 mg/dL Current Medications Medications (Trade) Dose Ordered Sig/Latesha Route PRN Reason Start Time Stop Time Status Last Admin Dose Admin Acetaminophen (Tylenol) 650 mg PRN Q6HRS PRN PO MILD PAIN / TEMP > 100.3'F 01/22/21 14:00 Cancel Multi-Ingredient Ointment (Analgesic [place]) 1 keri PRN QID PRN TP MUSCLE PAIN 01/22/21 14:00 Al Hydroxide/Mg Hydroxide (Mylanta Plus Xs) 15 ml PRN AFTMEALHC PRN PO DYSPEPSIA 01/22/21 14:00 Magnesium Hydroxide (Milk Of Magnesia) 2,400 mg PRN QHS PRN PO CONSTIPATION 01/22/21 14:00 Valproic Acid (Depakene) 500 mg QID PO 01/22/21 17:00 01/31/21 20:21 Acetaminophen (Tylenol) 500 mg QID PO 01/22/21 21:00 01/23/21 13:04 DC 01/23/21 08:29 Amlodipine Besylate (Norvasc) 5 mg DAILY PO 01/23/21 09:00 01/31/21 08:48 Atorvastatin Calcium (Lipitor) 20 mg QHS PO 01/22/21 21:00 01/31/21 20:21 Vitamin D (Vitamin D3) 1,000 unit DAILY PO 01/23/21 09:00 01/31/21 08:48 Hydrocortisone Acetate (Anucort-Hc) 25 mg PRN Q8HRS PRN RC hemorrhoids 01/22/21 20:00 Levothyroxine Sodium (Synthroid) 25 mcg DAILY06 PO 01/23/21 06:00 01/31/21 05:50 Lidocaine (Lidoderm) 1 patch DAILY TP 01/23/21 09:00 01/31/21 08:51 Mesalamine (Lialda) 1.2 gm DAILY PO 01/23/21 09:00 01/31/21 08:47 Metoprolol Tartrate (Lopressor) 25 mg BID PO 01/22/21 21:00 01/31/21 20:21 Quetiapine Fumarate (SEROquel) 50 mg TID PO 01/22/21 21:00 01/31/21 20:22 Risperidone (RisperDAL) 2 mg TID PO 01/22/21 21:00 01/31/21 20:21 Rivastigmine (Exelon) 1 patch DAILY TD 01/23/21 09:00 01/31/21 08:49 Venlafaxine HCl (Effexor Xr) 37.5 mg DAILY PO 01/23/21 09:00 01/23/21 13:11 DC 01/23/21 08:29 Ziprasidone (Geodon) 40 mg BID PO 01/22/21 21:00 01/28/21 17:15 DC 01/28/21 08:52 Ziprasidone (Geodon) 80 mg QHS PO 01/22/21 21:00 01/22/21 20:17 DC Cyanocobalamin (Vitamin B-12) 1,000 mcg DAILY PO 01/23/21 09:00 01/31/21 08:47 Insulin Human Lispro (HumaLOG) 40 units TIDWMEALS SQ 01/23/21 08:00 01/31/21 17:26 Insulin Glargine (Lantus Syringe) 30 unit DAILY SQ 01/23/21 09:00 01/29/21 14:19 DC 01/29/21 09:00 Lactobacillus Rhamnosus (Culturelle) 1 cap BID PO 01/23/21 09:00 01/31/21 20:21 Non-Formulary Medication (Liraglutide (Victoza 3-Jas)) 1.8 mg DAILY SQ 01/23/21 09:00 UNV Meclizine HCl (Antivert) 25 mg BID PO 01/22/21 21:00 01/31/21 20:22 Psyllium Hydrophilic Mucilloid (Metamucil) 1 pkt BID PO 01/22/21 21:00 01/31/21 20:22 Demeclocycline HCl (Declomycin) 150 mg TID PO 01/22/21 21:00 01/22/21 20:45 DC Olanzapine (ZyPREXA ZYDIS) 5 mg PRN Q2HR PRN PO PSYCHOSIS 01/22/21 20:30 Demeclocycline HCl (Declomycin) 300 mg TID PO 01/22/21 21:00 01/31/21 20:21 Acetaminophen/ Codeine Phosphate (Tylenol #3) 1 tab PRN QID PRN PO MODERATE PAIN 4-6 01/23/21 11:45 01/23/21 12:23 Acetaminophen (Tylenol) 500 mg PRN Q6HRS PRN PO MILD PAIN / TEMP > 100.3'F 01/23/21 13:15 Clozapine (Clozaril) 25 mg HS PO 01/23/21 21:00 01/30/21 18:59 DC 01/29/21 20:37 Insulin Glargine (Lantus Syringe) 40 unit BID SQ 01/29/21 21:00 01/31/21 17:42 DC 01/31/21 09:50 Clozapine (Clozaril) 50 mg HS PO 01/30/21 21:00 01/31/21 20:22 Insulin Glargine (Lantus Syringe) 60 unit BID SQ 01/31/21 17:45 01/31/21 18:17 DC Metformin HCl (Glucophage Xr) 500 mg DAILYWBKFT PO 02/01/21 08:00 Insulin Glargine (Lantus Syringe) 60 unit BID SQ 01/31/21 21:00 01/31/21 21:00 Current Medications Medications (Trade) Dose Ordered Sig/Latesha Route PRN Reason Start Time Stop Time Status Last Admin Dose Admin Insulin Glargine (Lantus Syringe) 60 unit BID SQ 01/31/21 21:00 01/31/21 21:00 I have reviewed the current psychotropics carefully including drug interactions. Risk benefit ratio favors no change other than as noted in my dictated progress note. Diagnosis: Problems: (1) Schizoaffective disorder, bipolar type (2) Impulse control disorder, unspecified (3) Anxiety disorder, unspecified (4) Bipolar disorder, current episode manic severe with psychotic features INOCENCIO PELAEZ MD Jan 31, 2021 22:05
--- NOTE | 2021-02-01 01:39 | NUR ---
Pt lying in bed, awake when approached. Pt calm but withdrawn to her room this evening. Pt reports not feeling well, "I'm having allergy symptoms". Pt requesting Zyrtec, Singulair, and Atarax. Pt does not have orders for these medications but she has been put on the list for the hospitalist. Pt cooperative with assessment and compliant with medications administered whole.
[2021-02-01 05:28] VITALS: BP 136/78
[2021-02-01] MEDS: LEVOTHYROXINE 25 MCG TABLET. PO SCH (05:39)
[2021-02-01] MEDS: DEMECLOCYCLINE HCL 150 MG TABLET. PO SCH ×3 (08:40→20:35)
[2021-02-01] MEDS: LACTOBACILLUS RHAMNOSUS GG 1 CAPSULE. PO SCH ×2 (08:40→20:35)
[2021-02-01] MEDS: QUEtiapine 50 MG TABLET. PO SCH ×3 (08:41→20:35)
[2021-02-01] MEDS: VALPROIC ACID 250 MG CAPSULE. PO SCH ×4 (08:41→20:34)
[2021-02-01] MEDS: amLODIPine BESYLATE 5 MG TABLET PO SCH (08:41)
[2021-02-01] MEDS: METOPROLOL TART IMMED RELEASE 25 MG TABLET. PO SCH ×2 (08:41→20:35)
[2021-02-01] MEDS: risperiDONE 2 MG TABLET. PO SCH ×3 (08:41→20:35)
[2021-02-01] MEDS: CHOLECALCIFEROL (VITAMIN D3) 1,000 UNIT TABLET PO SCH (08:41)
[2021-02-01] MEDS: metFORMIN XR 500 MG TAB.ER.24H PO SCH (08:41)
[2021-02-01] MEDS: MESALAMINE 1.2 GM TABLET.DR PO SCH (08:42)
[2021-02-01] MEDS: CYANOCOBALAMIN (VITAMIN B-12) 1,000 MCG TABLET. PO SCH (08:42)
[2021-02-01] MEDS: LIDOCAINE (700MG/PATCH) PATCH. TP SCH (08:42)
[2021-02-01] MEDS: PSYLLIUM SEED (WITH SUGAR) PACKET. PO SCH ×2 (08:42→20:36)
[2021-02-01] MEDS: RIVASTIGMINE 4.6MG PATCH. TD SCH (08:42)
[2021-02-01] MEDS: INSULIN GLARGINE SYRINGE. SQ SCH ×2 (08:44→20:36)
[2021-02-01] MEDS: INSULIN LISPRO 300 UNITS/3 ML VIAL. SQ SCH ×3 (08:46→17:24)
[2021-02-01] MEDS: MECLIZINE 12.5 MG TABLET. PO SCH ×2 (08:46→20:35)
[2021-02-01] MEDS: NON FORMULARY ITEM (Liraglutide (Victoza 3-Pak) 1.8 MG) SQ SCH (09:00)
[2021-02-01 15:59] VITALS: BP 136/84
--- NOTE | 2021-02-01 18:39 | NUR ---
Patient has been withdrawn, delusional, and attention seeking throughout this shift. She did spend a small amount of time in the day room during the afternoon. Patient states that her pneumonia is getting worse. Will continue to monitor and report to MD during rounds.
[2021-02-01] MEDS: ATORVASTATIN CALCIUM 20 MG TABLET PO SCH (20:35)
[2021-02-01] MEDS: cloZAPine 25 MG TABLET PO SCH (20:35)
--- NOTE | 2021-02-01 22:08 | PDOC ---
Exam Note: Benedict Note: Please also refer to the separate dictated note~for this date of service dictated separately.~Patient seen individually. Discussed the patient with Nursing staff reviewed the chart.~Reviewed interim history and current functioning. Reviewed vital signs,~Labs/ Radiology~and current medications noted below. Continue current treatment with the changes noted in the dictated addendum note Assessment: Vital Signs/I&O: Vital Signs Date Time Temp Pulse Resp B/P (MAP) Pulse Ox O2 Delivery O2 Flow Rate FiO2 02/01/21 20:35 96 136/84 02/01/21 15:59 98.1 18 97 Room Air I & O 01/31/21 01/31/21 02/01/21 15:00 23:00 07:00 Intake Total 840 ml 720 ml Balance 840 ml 720 ml Labs: Laboratory Tests Test 02/01/21 08:15 02/01/21 11:32 02/01/21 16:39 02/01/21 19:03 Glucose (Fingerstick) 193 mg/dL (70-99) H 358 mg/dL (70-99) H 460 mg/dL (70-99) H 408 mg/dL (70-99) H Current Medications: Meds: Laboratory Tests Test 02/01/21 08:15 02/01/21 11:32 02/01/21 16:39 02/01/21 19:03 Glucose (Fingerstick) 193 mg/dL 358 mg/dL 460 mg/dL 408 mg/dL Current Medications Medications (Trade) Dose Ordered Sig/Latesha Route PRN Reason Start Time Stop Time Status Last Admin Dose Admin Acetaminophen (Tylenol) 650 mg PRN Q6HRS PRN PO MILD PAIN / TEMP > 100.3'F 01/22/21 14:00 Cancel Multi-Ingredient Ointment (Analgesic [place]) 1 keri PRN QID PRN TP MUSCLE PAIN 01/22/21 14:00 Al Hydroxide/Mg Hydroxide (Mylanta Plus Xs) 15 ml PRN AFTMEALHC PRN PO DYSPEPSIA 01/22/21 14:00 Magnesium Hydroxide (Milk Of Magnesia) 2,400 mg PRN QHS PRN PO CONSTIPATION 01/22/21 14:00 Valproic Acid (Depakene) 500 mg QID PO 01/22/21 17:00 02/01/21 20:34 Acetaminophen (Tylenol) 500 mg QID PO 01/22/21 21:00 01/23/21 13:04 DC 01/23/21 08:29 Amlodipine Besylate (Norvasc) 5 mg DAILY PO 01/23/21 09:00 02/01/21 08:41 Atorvastatin Calcium (Lipitor) 20 mg QHS PO 01/22/21 21:00 02/01/21 20:35 Vitamin D (Vitamin D3) 1,000 unit DAILY PO 01/23/21 09:00 02/01/21 08:41 Hydrocortisone Acetate (Anucort-Hc) 25 mg PRN Q8HRS PRN RC hemorrhoids 01/22/21 20:00 Levothyroxine Sodium (Synthroid) 25 mcg DAILY06 PO 01/23/21 06:00 02/01/21 05:39 Lidocaine (Lidoderm) 1 patch DAILY TP 01/23/21 09:00 02/01/21 08:42 Mesalamine (Lialda) 1.2 gm DAILY PO 01/23/21 09:00 02/01/21 08:42 Metoprolol Tartrate (Lopressor) 25 mg BID PO 01/22/21 21:00 02/01/21 20:35 Quetiapine Fumarate (SEROquel) 50 mg TID PO 01/22/21 21:00 02/01/21 20:35 Risperidone (RisperDAL) 2 mg TID PO 01/22/21 21:00 02/01/21 20:35 Rivastigmine (Exelon) 1 patch DAILY TD 01/23/21 09:00 02/01/21 16:25 DC 02/01/21 08:42 Venlafaxine HCl (Effexor Xr) 37.5 mg DAILY PO 01/23/21 09:00 01/23/21 13:11 DC 01/23/21 08:29 Ziprasidone (Geodon) 40 mg BID PO 01/22/21 21:00 01/28/21 17:15 DC 01/28/21 08:52 Ziprasidone (Geodon) 80 mg QHS PO 01/22/21 21:00 01/22/21 20:17 DC Cyanocobalamin (Vitamin B-12) 1,000 mcg DAILY PO 01/23/21 09:00 02/01/21 08:42 Insulin Human Lispro (HumaLOG) 40 units TIDWMEALS SQ 01/23/21 08:00 02/01/21 17:24 Insulin Glargine (Lantus Syringe) 30 unit DAILY SQ 01/23/21 09:00 01/29/21 14:19 DC 01/29/21 09:00 Lactobacillus Rhamnosus (Culturelle) 1 cap BID PO 01/23/21 09:00 02/01/21 20:35 Non-Formulary Medication (Liraglutide (Victoza 3-Jas)) 1.8 mg DAILY SQ 01/23/21 09:00 UNV Meclizine HCl (Antivert) 25 mg BID PO 01/22/21 21:00 02/01/21 20:35 Psyllium Hydrophilic Mucilloid (Metamucil) 1 pkt BID PO 01/22/21 21:00 02/01/21 08:42 Demeclocycline HCl (Declomycin) 150 mg TID PO 01/22/21 21:00 01/22/21 20:45 DC Olanzapine (ZyPREXA ZYDIS) 5 mg PRN Q2HR PRN PO PSYCHOSIS 01/22/21 20:30 Demeclocycline HCl (Declomycin) 300 mg TID PO 01/22/21 21:00 02/01/21 20:35 Acetaminophen/ Codeine Phosphate (Tylenol #3) 1 tab PRN QID PRN PO MODERATE PAIN 4-6 01/23/21 11:45 01/23/21 12:23 Acetaminophen (Tylenol) 500 mg PRN Q6HRS PRN PO MILD PAIN / TEMP > 100.3'F 01/23/21 13:15 Clozapine (Clozaril) 25 mg HS PO 01/23/21 21:00 01/30/21 18:59 DC 01/29/21 20:37 Insulin Glargine (Lantus Syringe) 40 unit BID SQ 01/29/21 21:00 01/31/21 17:42 DC 01/31/21 09:50 Clozapine (Clozaril) 50 mg HS PO 01/30/21 21:00 02/01/21 20:35 Insulin Glargine (Lantus Syringe) 60 unit BID SQ 01/31/21 17:45 01/31/21 18:17 DC Metformin HCl (Glucophage Xr) 500 mg DAILYWBKFT PO 02/01/21 08:00 02/01/21 08:41 Insulin Glargine (Lantus Syringe) 60 unit BID SQ 01/31/21 21:00 02/01/21 20:36 Current Medications Medications (Trade) Dose Ordered Sig/Latesha Route PRN Reason Start Time Stop Time Status Last Admin Dose Admin Metformin HCl (Glucophage Xr) 500 mg DAILYWBKFT PO 02/01/21 08:00 02/01/21 08:41 I have reviewed the current psychotropics carefully including drug interactions. Risk benefit ratio favors no change other than as noted in my dictated progress note. Diagnosis: Problems: (1) Schizoaffective disorder, bipolar type (2) Impulse control disorder, unspecified (3) Anxiety disorder, unspecified (4) Bipolar disorder, current episode manic severe with psychotic features INOCENCIO PELAEZ MD Feb 01, 2021 22:08
--- NOTE | 2021-02-01 23:48 | NUR ---
Pt sitting in day room, socializing with peer when approached. Pt calm, pleasant, appropriate, and interactive. Pt cooperative with assessment and compliant with medications administered whole.
[2021-02-02 05:50] VITALS: BP 110/67
[2021-02-02] MEDS: LEVOTHYROXINE 25 MCG TABLET. PO SCH (06:03)
[2021-02-02] MEDS: LIDOCAINE (700MG/PATCH) PATCH. TP SCH (08:15)
[2021-02-02] MEDS: risperiDONE 2 MG TABLET. PO SCH ×3 (08:16→20:59)
[2021-02-02] MEDS: QUEtiapine 50 MG TABLET. PO SCH ×3 (08:16→20:59)
[2021-02-02] MEDS: LACTOBACILLUS RHAMNOSUS GG 1 CAPSULE. PO SCH ×2 (08:16→20:58)
[2021-02-02] MEDS: CYANOCOBALAMIN (VITAMIN B-12) 1,000 MCG TABLET. PO SCH (08:16)
[2021-02-02] MEDS: CHOLECALCIFEROL (VITAMIN D3) 1,000 UNIT TABLET PO SCH (08:16)
[2021-02-02] MEDS: metFORMIN XR 500 MG TAB.ER.24H PO SCH (08:16)
[2021-02-02] MEDS: DEMECLOCYCLINE HCL 150 MG TABLET. PO SCH ×3 (08:17→20:58)
[2021-02-02] MEDS: VALPROIC ACID 250 MG CAPSULE. PO SCH ×4 (08:17→20:58)
--- NOTE | 2021-02-02 08:17 | PDOC ---
Exam Note: Benedict Note: This note is a late entry for 01/31/2021 covers elements not covered in my initial note. Subjective: The patient was seen individually in the evening of 01/31/2021 with Zack CARRERA, discussed and reviewed the chart. The patient slept 6-1/4 hours previous night. I met with the patient at length in her room. 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 She refused p.m. Seroquel and Depakote, believes it causes her renal failure but took it during the day on 01/31. Review of Systems: Ambulation somewhat impaired. No CV, , pulmonary, eye, ENT system symptoms on review. Mental Status Exam: The patient is reasonably oriented. Speech coherent, rapid at times. Abstraction fair. Computation impaired. Language function intact. Mood and affect remains grandiose, labile. Laboratory Data: Reviewed. Impression: Schizoaffective disorder, bipolar type mixed with psychotic features. Anxiety disorder unspecified. Impulse control disorder unspecified. Plan: No change from initial note. Clozaril is being gradually increased. Depakote is 500 mg q.i.d. Valproic acid level therapeutic at 66. Adjust further as clinically indicated. Assessment: Vital Signs/I&O: Vital Signs Date Time Temp Pulse Resp B/P (MAP) Pulse Ox O2 Delivery O2 Flow Rate FiO2 02/02/21 05:50 97.7 95 14 110/67 (81) 97 Room Air I & O 02/01/21 02/01/21 02/02/21 15:00 23:00 07:00 Intake Total 600 ml 480 ml Balance 600 ml 480 ml Labs: Laboratory Tests Test 02/01/21 11:32 02/01/21 16:39 02/01/21 19:03 02/02/21 07:14 Glucose (Fingerstick) 358 mg/dL (70-99) H 460 mg/dL (70-99) H 408 mg/dL (70-99) H 146 mg/dL (70-99) H Current Medications: Meds: Laboratory Tests Test 02/01/21 11:32 02/01/21 16:39 02/01/21 19:03 02/02/21 07:14 Glucose (Fingerstick) 358 mg/dL 460 mg/dL 408 mg/dL 146 mg/dL Current Medications Medications (Trade) Dose Ordered Sig/Latesha Route PRN Reason Start Time Stop Time Status Last Admin Dose Admin Acetaminophen (Tylenol) 650 mg PRN Q6HRS PRN PO MILD PAIN / TEMP > 100.3'F 01/22/21 14:00 Cancel Multi-Ingredient Ointment (Analgesic [place]) 1 keri PRN QID PRN TP MUSCLE PAIN 01/22/21 14:00 Al Hydroxide/Mg Hydroxide (Mylanta Plus Xs) 15 ml PRN AFTMEALHC PRN PO DYSPEPSIA 01/22/21 14:00 Magnesium Hydroxide (Milk Of Magnesia) 2,400 mg PRN QHS PRN PO CONSTIPATION 01/22/21 14:00 Valproic Acid (Depakene) 500 mg QID PO 01/22/21 17:00 02/01/21 20:34 Acetaminophen (Tylenol) 500 mg QID PO 01/22/21 21:00 01/23/21 13:04 DC 01/23/21 08:29 Amlodipine Besylate (Norvasc) 5 mg DAILY PO 01/23/21 09:00 02/01/21 08:41 Atorvastatin Calcium (Lipitor) 20 mg QHS PO 01/22/21 21:00 02/01/21 20:35 Vitamin D (Vitamin D3) 1,000 unit DAILY PO 01/23/21 09:00 02/01/21 08:41 Hydrocortisone Acetate (Anucort-Hc) 25 mg PRN Q8HRS PRN RC hemorrhoids 01/22/21 20:00 Levothyroxine Sodium (Synthroid) 25 mcg DAILY06 PO 01/23/21 06:00 02/02/21 06:03 Lidocaine (Lidoderm) 1 patch DAILY TP 01/23/21 09:00 02/01/21 08:42 Mesalamine (Lialda) 1.2 gm DAILY PO 01/23/21 09:00 02/01/21 08:42 Metoprolol Tartrate (Lopressor) 25 mg BID PO 01/22/21 21:00 02/01/21 20:35 Quetiapine Fumarate (SEROquel) 50 mg TID PO 01/22/21 21:00 02/01/21 20:35 Risperidone (RisperDAL) 2 mg TID PO 01/22/21 21:00 02/01/21 20:35 Rivastigmine (Exelon) 1 patch DAILY TD 01/23/21 09:00 02/01/21 16:25 DC 02/01/21 08:42 Venlafaxine HCl (Effexor Xr) 37.5 mg DAILY PO 01/23/21 09:00 01/23/21 13:11 DC 01/23/21 08:29 Ziprasidone (Geodon) 40 mg BID PO 01/22/21 21:00 01/28/21 17:15 DC 01/28/21 08:52 Ziprasidone (Geodon) 80 mg QHS PO 01/22/21 21:00 01/22/21 20:17 DC Cyanocobalamin (Vitamin B-12) 1,000 mcg DAILY PO 01/23/21 09:00 02/01/21 08:42 Insulin Human Lispro (HumaLOG) 40 units TIDWMEALS SQ 01/23/21 08:00 02/01/21 17:24 Insulin Glargine (Lantus Syringe) 30 unit DAILY SQ 01/23/21 09:00 01/29/21 14:19 DC 01/29/21 09:00 Lactobacillus Rhamnosus (Culturelle) 1 cap BID PO 01/23/21 09:00 02/01/21 20:35 Non-Formulary Medication (Liraglutide (Victoza 3-Jas)) 1.8 mg DAILY SQ 01/23/21 09:00 UNV Meclizine HCl (Antivert) 25 mg BID PO 01/22/21 21:00 02/01/21 20:35 Psyllium Hydrophilic Mucilloid (Metamucil) 1 pkt BID PO 01/22/21 21:00 02/01/21 08:42 Demeclocycline HCl (Declomycin) 150 mg TID PO 01/22/21 21:00 01/22/21 20:45 DC Olanzapine (ZyPREXA ZYDIS) 5 mg PRN Q2HR PRN PO PSYCHOSIS 01/22/21 20:30 Demeclocycline HCl (Declomycin) 300 mg TID PO 01/22/21 21:00 02/01/21 20:35 Acetaminophen/ Codeine Phosphate (Tylenol #3) 1 tab PRN QID PRN PO MODERATE PAIN 4-6 01/23/21 11:45 01/23/21 12:23 Acetaminophen (Tylenol) 500 mg PRN Q6HRS PRN PO MILD PAIN / TEMP > 100.3'F 01/23/21 13:15 Clozapine (Clozaril) 25 mg HS PO 01/23/21 21:00 01/30/21 18:59 DC 01/29/21 20:37 Insulin Glargine (Lantus Syringe) 40 unit BID SQ 01/29/21 21:00 01/31/21 17:42 DC 01/31/21 09:50 Clozapine (Clozaril) 50 mg HS PO 01/30/21 21:00 02/01/21 20:35 Insulin Glargine (Lantus Syringe) 60 unit BID SQ 01/31/21 17:45 01/31/21 18:17 DC Metformin HCl (Glucophage Xr) 500 mg DAILYWBKFT PO 02/01/21 08:00 02/01/21 08:41 Insulin Glargine (Lantus Syringe) 60 unit BID SQ 01/31/21 21:00 02/01/21 20:36 I have reviewed the current psychotropics carefully including drug interactions. Risk benefit ratio favors no change other than as noted in my dictated progress note. Diagnosis: Problems: (1) Schizoaffective disorder, bipolar type (2) Impulse control disorder, unspecified (3) Anxiety disorder, unspecified (4) Bipolar disorder, current episode manic severe with psychotic features INOCENCIO PELAEZ MD Feb 02, 2021 08:17
[2021-02-02] MEDS: METOPROLOL TART IMMED RELEASE 25 MG TABLET. PO SCH ×2 (08:18→21:00)
[2021-02-02] MEDS: MESALAMINE 1.2 GM TABLET.DR PO SCH (08:18)
[2021-02-02] MEDS: amLODIPine BESYLATE 5 MG TABLET PO SCH (08:18)
[2021-02-02] MEDS: INSULIN GLARGINE SYRINGE. SQ SCH ×2 (08:20→21:00)
[2021-02-02] MEDS: INSULIN LISPRO 300 UNITS/3 ML VIAL. SQ SCH ×3 (08:23→17:59)
[2021-02-02] MEDS: MECLIZINE 12.5 MG TABLET. PO SCH ×2 (08:23→21:00)
[2021-02-02] MEDS: PSYLLIUM SEED (WITH SUGAR) PACKET. PO SCH (09:00)
[2021-02-02] MEDS: NON FORMULARY ITEM (Liraglutide (Victoza 3-Pak) 1.8 MG) SQ SCH (09:00)
--- NOTE | 2021-02-02 09:10 | PDOC ---
Exam Note: Benedict Note: This note is a late entry for 02/01/2021 covers elements not covered in my initial note. Subjective: The patient was seen individually in the evening of 02/01/2021 with Zack CARRERA, discussed and reviewed the chart. The patient slept 6-3/4 hours previous night. I met with the patient in her room. She has had some coughing previous night. She is insistent on wanting Zyrtec, Singulair, and Atarax. We will defer to Dr. Trinidad. No cough today. She has been out in the dayroom today which is an improvement for her. Review of Systems: Ambulation somewhat impaired. No CV, , pulmonary, eye, ENT system symptoms on review. Mental Status Exam: The patient is reasonably oriented. I met with her in her room in the evening. She stated she was doing much better today. Staff is much better with her. Speech coherent, less pressured. Abstraction fair. Computation impaired. Language function intact. Mood and affect appeared little better. Laboratory Data: Reviewed. Impression: Schizoaffective disorder, bipolar type mixed with psychotic features. Anxiety disorder unspecified. Impulse control disorder unspecified. Plan: No change from initial note. Stop the Exelon patch. Continue Clozaril 50 mg h.s. We will gradually reduce the Risperdal and/or Seroquel once the Clozaril is therapeutic. Maintain Depakote 500 mg q.i.d., level is therapeutic at 66. Assessment: Vital Signs/I&O: Vital Signs Date Time Temp Pulse Resp B/P (MAP) Pulse Ox O2 Delivery O2 Flow Rate FiO2 02/02/21 08:18 95 110/67 02/02/21 05:50 97.7 14 97 Room Air I & O 02/01/21 02/01/21 02/02/21 15:00 23:00 07:00 Intake Total 600 ml 480 ml Balance 600 ml 480 ml Labs: Laboratory Tests Test 02/01/21 11:32 02/01/21 16:39 02/01/21 19:03 02/02/21 07:14 Glucose (Fingerstick) 358 mg/dL (70-99) H 460 mg/dL (70-99) H 408 mg/dL (70-99) H 146 mg/dL (70-99) H Current Medications: Meds: Laboratory Tests Test 02/01/21 11:32 02/01/21 16:39 02/01/21 19:03 02/02/21 07:14 Glucose (Fingerstick) 358 mg/dL 460 mg/dL 408 mg/dL 146 mg/dL Current Medications Medications (Trade) Dose Ordered Sig/Latesha Route PRN Reason Start Time Stop Time Status Last Admin Dose Admin Acetaminophen (Tylenol) 650 mg PRN Q6HRS PRN PO MILD PAIN / TEMP > 100.3'F 01/22/21 14:00 Cancel Multi-Ingredient Ointment (Analgesic [place]) 1 keri PRN QID PRN TP MUSCLE PAIN 01/22/21 14:00 Al Hydroxide/Mg Hydroxide (Mylanta Plus Xs) 15 ml PRN AFTMEALHC PRN PO DYSPEPSIA 01/22/21 14:00 Magnesium Hydroxide (Milk Of Magnesia) 2,400 mg PRN QHS PRN PO CONSTIPATION 01/22/21 14:00 Valproic Acid (Depakene) 500 mg QID PO 01/22/21 17:00 02/02/21 08:17 Acetaminophen (Tylenol) 500 mg QID PO 01/22/21 21:00 01/23/21 13:04 DC 01/23/21 08:29 Amlodipine Besylate (Norvasc) 5 mg DAILY PO 01/23/21 09:00 02/02/21 08:18 Atorvastatin Calcium (Lipitor) 20 mg QHS PO 01/22/21 21:00 02/01/21 20:35 Vitamin D (Vitamin D3) 1,000 unit DAILY PO 01/23/21 09:00 02/02/21 08:16 Hydrocortisone Acetate (Anucort-Hc) 25 mg PRN Q8HRS PRN RC hemorrhoids 01/22/21 20:00 Levothyroxine Sodium (Synthroid) 25 mcg DAILY06 PO 01/23/21 06:00 02/02/21 06:03 Lidocaine (Lidoderm) 1 patch DAILY TP 01/23/21 09:00 02/02/21 08:15 Mesalamine (Lialda) 1.2 gm DAILY PO 01/23/21 09:00 02/02/21 08:18 Metoprolol Tartrate (Lopressor) 25 mg BID PO 01/22/21 21:00 02/02/21 08:18 Quetiapine Fumarate (SEROquel) 50 mg TID PO 01/22/21 21:00 02/02/21 08:16 Risperidone (RisperDAL) 2 mg TID PO 01/22/21 21:00 02/02/21 08:16 Rivastigmine (Exelon) 1 patch DAILY TD 01/23/21 09:00 02/01/21 16:25 DC 02/01/21 08:42 Venlafaxine HCl (Effexor Xr) 37.5 mg DAILY PO 01/23/21 09:00 01/23/21 13:11 DC 01/23/21 08:29 Ziprasidone (Geodon) 40 mg BID PO 01/22/21 21:00 01/28/21 17:15 DC 01/28/21 08:52 Ziprasidone (Geodon) 80 mg QHS PO 01/22/21 21:00 01/22/21 20:17 DC Cyanocobalamin (Vitamin B-12) 1,000 mcg DAILY PO 01/23/21 09:00 02/02/21 08:16 Insulin Human Lispro (HumaLOG) 40 units TIDWMEALS SQ 01/23/21 08:00 02/02/21 08:23 Insulin Glargine (Lantus Syringe) 30 unit DAILY SQ 01/23/21 09:00 01/29/21 14:19 DC 01/29/21 09:00 Lactobacillus Rhamnosus (Culturelle) 1 cap BID PO 01/23/21 09:00 02/02/21 08:16 Non-Formulary Medication (Liraglutide (Victoza 3-Jas)) 1.8 mg DAILY SQ 01/23/21 09:00 UNV Meclizine HCl (Antivert) 25 mg BID PO 01/22/21 21:00 02/02/21 08:23 Psyllium Hydrophilic Mucilloid (Metamucil) 1 pkt BID PO 01/22/21 21:00 02/01/21 08:42 Demeclocycline HCl (Declomycin) 150 mg TID PO 01/22/21 21:00 01/22/21 20:45 DC Olanzapine (ZyPREXA ZYDIS) 5 mg PRN Q2HR PRN PO PSYCHOSIS 01/22/21 20:30 Demeclocycline HCl (Declomycin) 300 mg TID PO 01/22/21 21:00 02/02/21 08:17 Acetaminophen/ Codeine Phosphate (Tylenol #3) 1 tab PRN QID PRN PO MODERATE PAIN 4-6 01/23/21 11:45 01/23/21 12:23 Acetaminophen (Tylenol) 500 mg PRN Q6HRS PRN PO MILD PAIN / TEMP > 100.3'F 01/23/21 13:15 Clozapine (Clozaril) 25 mg HS PO 01/23/21 21:00 01/30/21 18:59 DC 01/29/21 20:37 Insulin Glargine (Lantus Syringe) 40 unit BID SQ 01/29/21 21:00 01/31/21 17:42 DC 01/31/21 09:50 Clozapine (Clozaril) 50 mg HS PO 01/30/21 21:00 02/01/21 20:35 Insulin Glargine (Lantus Syringe) 60 unit BID SQ 01/31/21 17:45 01/31/21 18:17 DC Metformin HCl (Glucophage Xr) 500 mg DAILYWBKFT PO 02/01/21 08:00 02/02/21 08:16 Insulin Glargine (Lantus Syringe) 60 unit BID SQ 01/31/21 21:00 02/02/21 08:20 I have reviewed the current psychotropics carefully including drug interactions. Risk benefit ratio favors no change other than as noted in my dictated progress note. Diagnosis: Problems: (1) Schizoaffective disorder, bipolar type (2) Impulse control disorder, unspecified (3) Anxiety disorder, unspecified (4) Bipolar disorder, current episode manic severe with psychotic features INOCENCIO PELAEZ MD Feb 02, 2021 09:10
--- NOTE | 2021-02-02 15:13 | NUR ---
Patient has been withdrawn, delusional, and attention seeking throughout this shift. She states Seroquel and Depakote are bad for her kidneys and she shouldn't be taking them but has been compliant with medications. Will continue to monitor and report to oncoming shift.
[2021-02-02 15:23] VITALS: BP 125/70
[2021-02-02] MEDS: cloZAPine 25 MG TABLET PO SCH (20:59)
[2021-02-02] MEDS: ATORVASTATIN CALCIUM 20 MG TABLET PO SCH (21:00)
--- NOTE | 2021-02-02 22:08 | PDOC ---
Exam Note: Benedict Note: Please also refer to the separate dictated note~for this date of service dictated separately.~Patient seen individually. Discussed the patient with Nursing staff reviewed the chart.~Reviewed interim history and current functioning. Reviewed vital signs,~Labs/ Radiology~and current medications noted below. Continue current treatment with the changes noted in the dictated addendum note Assessment: Vital Signs/I&O: Vital Signs Date Time Temp Pulse Resp B/P (MAP) Pulse Ox O2 Delivery O2 Flow Rate FiO2 02/02/21 21:00 92 125/70 02/02/21 15:23 98.0 20 97 02/02/21 05:50 Room Air I & O 02/01/21 02/01/21 02/02/21 15:00 23:00 07:00 Intake Total 600 ml 480 ml Balance 600 ml 480 ml Labs: Laboratory Tests Test 02/02/21 07:14 02/02/21 11:12 02/02/21 17:06 02/02/21 19:15 Glucose (Fingerstick) 146 mg/dL (70-99) H 289 mg/dL (70-99) H 235 mg/dL (70-99) H 355 mg/dL (70-99) H Current Medications: Meds: Laboratory Tests Test 02/02/21 07:14 02/02/21 11:12 02/02/21 17:06 02/02/21 19:15 Glucose (Fingerstick) 146 mg/dL 289 mg/dL 235 mg/dL 355 mg/dL Current Medications Medications (Trade) Dose Ordered Sig/Latesha Route PRN Reason Start Time Stop Time Status Last Admin Dose Admin Acetaminophen (Tylenol) 650 mg PRN Q6HRS PRN PO MILD PAIN / TEMP > 100.3'F 01/22/21 14:00 Cancel Multi-Ingredient Ointment (Analgesic [place]) 1 keri PRN QID PRN TP MUSCLE PAIN 01/22/21 14:00 Al Hydroxide/Mg Hydroxide (Mylanta Plus Xs) 15 ml PRN AFTMEALHC PRN PO DYSPEPSIA 01/22/21 14:00 Magnesium Hydroxide (Milk Of Magnesia) 2,400 mg PRN QHS PRN PO CONSTIPATION 01/22/21 14:00 Valproic Acid (Depakene) 500 mg QID PO 01/22/21 17:00 02/02/21 20:58 Acetaminophen (Tylenol) 500 mg QID PO 01/22/21 21:00 01/23/21 13:04 DC 01/23/21 08:29 Amlodipine Besylate (Norvasc) 5 mg DAILY PO 01/23/21 09:00 02/02/21 08:18 Atorvastatin Calcium (Lipitor) 20 mg QHS PO 01/22/21 21:00 02/02/21 21:00 Vitamin D (Vitamin D3) 1,000 unit DAILY PO 01/23/21 09:00 02/02/21 08:16 Hydrocortisone Acetate (Anucort-Hc) 25 mg PRN Q8HRS PRN RC hemorrhoids 01/22/21 20:00 Levothyroxine Sodium (Synthroid) 25 mcg DAILY06 PO 01/23/21 06:00 02/02/21 06:03 Lidocaine (Lidoderm) 1 patch DAILY TP 01/23/21 09:00 02/02/21 08:15 Mesalamine (Lialda) 1.2 gm DAILY PO 01/23/21 09:00 02/02/21 08:18 Metoprolol Tartrate (Lopressor) 25 mg BID PO 01/22/21 21:00 02/02/21 21:00 Quetiapine Fumarate (SEROquel) 50 mg TID PO 01/22/21 21:00 02/02/21 20:59 Risperidone (RisperDAL) 2 mg TID PO 01/22/21 21:00 02/02/21 20:59 Rivastigmine (Exelon) 1 patch DAILY TD 01/23/21 09:00 02/01/21 16:25 DC 02/01/21 08:42 Venlafaxine HCl (Effexor Xr) 37.5 mg DAILY PO 01/23/21 09:00 01/23/21 13:11 DC 01/23/21 08:29 Ziprasidone (Geodon) 40 mg BID PO 01/22/21 21:00 01/28/21 17:15 DC 01/28/21 08:52 Ziprasidone (Geodon) 80 mg QHS PO 01/22/21 21:00 01/22/21 20:17 DC Cyanocobalamin (Vitamin B-12) 1,000 mcg DAILY PO 01/23/21 09:00 02/02/21 08:16 Insulin Human Lispro (HumaLOG) 40 units TIDWMEALS SQ 01/23/21 08:00 02/02/21 17:59 Insulin Glargine (Lantus Syringe) 30 unit DAILY SQ 01/23/21 09:00 01/29/21 14:19 DC 01/29/21 09:00 Lactobacillus Rhamnosus (Culturelle) 1 cap BID PO 01/23/21 09:00 02/02/21 20:58 Non-Formulary Medication (Liraglutide (Victoza 3-Jas)) 1.8 mg DAILY SQ 01/23/21 09:00 UNV Meclizine HCl (Antivert) 25 mg BID PO 01/22/21 21:00 02/02/21 21:00 Psyllium Hydrophilic Mucilloid (Metamucil) 1 pkt BID PO 01/22/21 21:00 02/02/21 13:31 DC 02/01/21 08:42 Demeclocycline HCl (Declomycin) 150 mg TID PO 01/22/21 21:00 01/22/21 20:45 DC Olanzapine (ZyPREXA ZYDIS) 5 mg PRN Q2HR PRN PO PSYCHOSIS 01/22/21 20:30 Demeclocycline HCl (Declomycin) 300 mg TID PO 01/22/21 21:00 02/02/21 20:58 Acetaminophen/ Codeine Phosphate (Tylenol #3) 1 tab PRN QID PRN PO MODERATE PAIN 4-6 01/23/21 11:45 01/23/21 12:23 Acetaminophen (Tylenol) 500 mg PRN Q6HRS PRN PO MILD PAIN / TEMP > 100.3'F 01/23/21 13:15 Clozapine (Clozaril) 25 mg HS PO 01/23/21 21:00 01/30/21 18:59 DC 01/29/21 20:37 Insulin Glargine (Lantus Syringe) 40 unit BID SQ 01/29/21 21:00 01/31/21 17:42 DC 01/31/21 09:50 Clozapine (Clozaril) 50 mg HS PO 01/30/21 21:00 02/02/21 20:59 Insulin Glargine (Lantus Syringe) 60 unit BID SQ 01/31/21 17:45 01/31/21 18:17 DC Metformin HCl (Glucophage Xr) 500 mg DAILYWBKFT PO 02/01/21 08:00 02/02/21 08:16 Insulin Glargine (Lantus Syringe) 60 unit BID SQ 01/31/21 21:00 02/02/21 21:00 I have reviewed the current psychotropics carefully including drug interactions. Risk benefit ratio favors no change other than as noted in my dictated progress note. Diagnosis: Problems: (1) Schizoaffective disorder, bipolar type (2) Impulse control disorder, unspecified (3) Anxiety disorder, unspecified (4) Bipolar disorder, current episode manic severe with psychotic features INOCENCIO PELAEZ MD Feb 02, 2021 22:08
--- NOTE | 2021-02-03 04:49 | NUR ---
Patient spent a couple of hours in the TV room, during which she was interactive and pleasant with peers and staff. Patient was alert and oriented x2 and exhibited some confusion, but was coherent in her conversation with the nurse. She was compliant with all her medications and returned to her room from the TV room, where she remained in bed, resting with eyes closed, breathing normally with no signs of distress.
[2021-02-03 05:55] VITALS: BP 113/67
[2021-02-03] MEDS: LEVOTHYROXINE 25 MCG TABLET. PO SCH (05:55)
[2021-02-03 06:29] LABS: BASO % 0 % (0-3); EOS # 0.1 x10^3/uL (0.0-0.7); EOS % 2 % (0-3); HEMATOCRIT 30.3 % (36.0-47.0); HEMOGLOBIN 10.2 g/dL (12.0-15.5); LYMPH # 1.8 x10^3/uL (1.0-4.8); LYMPH % 31 % (24-48); MEAN CORPUSCULAR HEMOGLOBIN 29 pg (25-35); MEAN CORPUSCULAR HGB CONC 34 g/dL (31-37); MEAN CORPUSCULAR VOLUME 86 fL (79-100); MONO # 0.5 x10^3/uL (0.0-1.1); MONO % 9 % (0-9); NEUT # 3.3 x10^3uL (1.8-7.7); NEUT % 58 % (31-73); PLATELET COUNT 108 x10^3/uL (140-400); RED BLOOD COUNT 3.51 x10^6/uL (3.50-5.40); RED CELL DISTRIBUTION WIDTH 14.3 % (11.5-14.5); WHITE BLOOD COUNT 5.7 x10^3/uL (4.0-11.0)
[2021-02-03 06:56] LABS: ALBUMIN 2.3 g/dL (3.4-5.0); ALBUMIN/GLOBULIN RATIO 0.7 (1.0-1.7); CALCIUM 8.6 mg/dL (8.5-10.1); CREATININE 0.9 mg/dL (0.6-1.0); GFR 62.6; POTASSIUM 4.2 mmol/L (3.5-5.1); TOTAL BILIRUBIN 0.3 mg/dL (0.2-1.0); TOTAL PROTEIN 5.8 g/dL (6.4-8.2)
[2021-02-03] MEDS: QUEtiapine 50 MG TABLET. PO SCH ×3 (08:24→21:42)
[2021-02-03] MEDS: VALPROIC ACID 250 MG CAPSULE. PO SCH ×4 (08:24→21:41)
[2021-02-03] MEDS: METOPROLOL TART IMMED RELEASE 25 MG TABLET. PO SCH ×2 (08:25→21:43)
[2021-02-03] MEDS: CHOLECALCIFEROL (VITAMIN D3) 1,000 UNIT TABLET PO SCH (08:25)
[2021-02-03] MEDS: LIDOCAINE (700MG/PATCH) PATCH. TP SCH (08:25)
[2021-02-03] MEDS: MESALAMINE 1.2 GM TABLET.DR PO SCH (08:26)
[2021-02-03] MEDS: DEMECLOCYCLINE HCL 150 MG TABLET. PO SCH ×3 (08:26→21:00)
[2021-02-03] MEDS: risperiDONE 2 MG TABLET. PO SCH ×3 (08:26→21:42)
[2021-02-03] MEDS: amLODIPine BESYLATE 5 MG TABLET PO SCH (08:26)
[2021-02-03] MEDS: metFORMIN XR 500 MG TAB.ER.24H PO SCH (08:26)
[2021-02-03] MEDS: CYANOCOBALAMIN (VITAMIN B-12) 1,000 MCG TABLET. PO SCH (08:26)
[2021-02-03] MEDS: LACTOBACILLUS RHAMNOSUS GG 1 CAPSULE. PO SCH ×2 (08:26→21:41)
[2021-02-03] MEDS: MECLIZINE 12.5 MG TABLET. PO SCH ×2 (08:28→21:00)
[2021-02-03] MEDS: INSULIN LISPRO 300 UNITS/3 ML VIAL. SQ SCH ×3 (08:30→17:15)
[2021-02-03] MEDS: NON FORMULARY ITEM (Liraglutide (Victoza 3-Pak) 1.8 MG) SQ SCH (08:30)
--- NOTE | 2021-02-03 08:40 | PDOC ---
Exam Note: Benedict Note: This note is a late entry for 02/02/2021 covers elements not covered in my initial note. Subjective: The patient was seen individually in the evening of 02/02/2021 with Zack CARRERA, discussed and reviewed the chart. The patient slept 6-3/4 hours previous night. Overall the patient is less manic, less grandiose, complains of some chest pain. Lungs are clear. She continues to perseverate on feeding Seroquel and Depakote cause renal damage. Review of Systems: Some impairment of ambulation. No CV, , pulmonary, eye, ENT system symptoms on review. Mental Status Exam: The patient is reasonably oriented. I met with her in her room in the evening. Speech coherent. Abstraction fair. Computation impaired. Language function intact. Mood and affect appeared less grandiose. Laboratory Data: Reviewed. Impression: Schizoaffective disorder, bipolar type mixed with psychotic features. Anxiety disorder unspecified. Impulse control disorder unspecified. Plan: No change from initial note. The patients valproic acid level is therapeutic. We will check absolute neutrophil count tomorrow and then increase the Clozaril. Assessment: Vital Signs/I&O: Vital Signs Date Time Temp Pulse Resp B/P (MAP) Pulse Ox O2 Delivery O2 Flow Rate FiO2 02/03/21 08:26 91 113/67 02/03/21 05:55 97.0 16 100 02/02/21 05:50 Room Air I & O 02/02/21 02/02/21 02/03/21 15:00 23:00 07:00 Intake Total 960 ml 600 ml Balance 960 ml 600 ml Labs: Laboratory Tests Test 02/02/21 11:12 02/02/21 17:06 02/02/21 19:15 02/03/21 06:02 Glucose (Fingerstick) 289 mg/dL (70-99) H 235 mg/dL (70-99) H 355 mg/dL (70-99) H White Blood Count 5.7 x10^3/uL (4.0-11.0) Red Blood Count 3.51 x10^6/uL (3.50-5.40) Hemoglobin 10.2 g/dL (12.0-15.5) L Hematocrit 30.3 % (36.0-47.0) L Mean Corpuscular Volume 86 fL (79-100) Mean Corpuscular Hemoglobin 29 pg (25-35) Mean Corpuscular Hemoglobin Concent 34 g/dL (31-37) Red Cell Distribution Width 14.3 % (11.5-14.5) Platelet Count 108 x10^3/uL (140-400) L Neutrophils (%) (Auto) 58 % (31-73) Lymphocytes (%) (Auto) 31 % (24-48) Monocytes (%) (Auto) 9 % (0-9) Eosinophils (%) (Auto) 2 % (0-3) Basophils (%) (Auto) 0 % (0-3) Neutrophils # (Auto) 3.3 x10^3uL (1.8-7.7) Lymphocytes # (Auto) 1.8 x10^3/uL (1.0-4.8) Monocytes # (Auto) 0.5 x10^3/uL (0.0-1.1) Eosinophils # (Auto) 0.1 x10^3/uL (0.0-0.7) Basophils # (Auto) 0.0 x10^3/uL (0.0-0.2) Sodium Level 129 mmol/L (136-145) L Potassium Level 4.2 mmol/L (3.5-5.1) Chloride Level 95 mmol/L (98-107) L Carbon Dioxide Level 26 mmol/L (21-32) Anion Gap 8 (6-14) Blood Urea Nitrogen 12 mg/dL (7-20) Creatinine 0.9 mg/dL (0.6-1.0) Estimated GFR (Cockcroft-Gault) 62.6 BUN/Creatinine Ratio 13 (6-20) Glucose Level 138 mg/dL (70-99) H Calcium Level 8.6 mg/dL (8.5-10.1) Total Bilirubin 0.3 mg/dL (0.2-1.0) Aspartate Amino Transferase (AST) 25 U/L (15-37) Alanine Aminotransferase (ALT) 20 U/L (14-59) Alkaline Phosphatase 128 U/L (46-116) H Total Protein 5.8 g/dL (6.4-8.2) L Albumin 2.3 g/dL (3.4-5.0) L Albumin/Globulin Ratio 0.7 (1.0-1.7) L Test 02/03/21 07:30 Glucose (Fingerstick) 138 mg/dL (70-99) H Current Medications: Meds: Laboratory Tests Test 02/02/21 11:12 02/02/21 17:06 02/02/21 19:15 02/03/21 06:02 Glucose (Fingerstick) 289 mg/dL 235 mg/dL 355 mg/dL White Blood Count 5.7 x10^3/uL Red Blood Count 3.51 x10^6/uL Hemoglobin 10.2 g/dL Hematocrit 30.3 % Mean Corpuscular Volume 86 fL Mean Corpuscular Hemoglobin 29 pg Mean Corpuscular Hemoglobin Concent 34 g/dL Red Cell Distribution Width 14.3 % Platelet Count 108 x10^3/uL Neutrophils (%) (Auto) 58 % Lymphocytes (%) (Auto) 31 % Monocytes (%) (Auto) 9 % Eosinophils (%) (Auto) 2 % Basophils (%) (Auto) 0 % Neutrophils # (Auto) 3.3 x10^3uL Lymphocytes # (Auto) 1.8 x10^3/uL Monocytes # (Auto) 0.5 x10^3/uL Eosinophils # (Auto) 0.1 x10^3/uL Basophils # (Auto) 0.0 x10^3/uL Sodium Level 129 mmol/L Potassium Level 4.2 mmol/L Chloride Level 95 mmol/L Carbon Dioxide Level 26 mmol/L Anion Gap 8 Blood Urea Nitrogen 12 mg/dL Creatinine 0.9 mg/dL Estimated GFR (Cockcroft-Gault) 62.6 BUN/Creatinine Ratio 13 Glucose Level 138 mg/dL Calcium Level 8.6 mg/dL Total Bilirubin 0.3 mg/dL Aspartate Amino Transf (AST/SGOT) 25 U/L Alanine Aminotransferase (ALT/SGPT) 20 U/L Alkaline Phosphatase 128 U/L Total Protein 5.8 g/dL Albumin 2.3 g/dL Albumin/Globulin Ratio 0.7 Test 02/03/21 07:30 Glucose (Fingerstick) 138 mg/dL Current Medications Medications (Trade) Dose Ordered Sig/Latesha Route PRN Reason Start Time Stop Time Status Last Admin Dose Admin Acetaminophen (Tylenol) 650 mg PRN Q6HRS PRN PO MILD PAIN / TEMP > 100.3'F 01/22/21 14:00 Cancel Multi-Ingredient Ointment (Analgesic [place]) 1 keri PRN QID PRN TP MUSCLE PAIN 01/22/21 14:00 Al Hydroxide/Mg Hydroxide (Mylanta Plus Xs) 15 ml PRN AFTMEALHC PRN PO DYSPEPSIA 01/22/21 14:00 Magnesium Hydroxide (Milk Of Magnesia) 2,400 mg PRN QHS PRN PO CONSTIPATION 01/22/21 14:00 Valproic Acid (Depakene) 500 mg QID PO 01/22/21 17:00 02/03/21 08:24 Acetaminophen (Tylenol) 500 mg QID PO 01/22/21 21:00 01/23/21 13:04 DC 01/23/21 08:29 Amlodipine Besylate (Norvasc) 5 mg DAILY PO 01/23/21 09:00 02/03/21 08:26 Atorvastatin Calcium (Lipitor) 20 mg QHS PO 01/22/21 21:00 02/02/21 21:00 Vitamin D (Vitamin D3) 1,000 unit DAILY PO 01/23/21 09:00 02/03/21 08:25 Hydrocortisone Acetate (Anucort-Hc) 25 mg PRN Q8HRS PRN RC hemorrhoids 01/22/21 20:00 Levothyroxine Sodium (Synthroid) 25 mcg DAILY06 PO 01/23/21 06:00 02/03/21 05:55 Lidocaine (Lidoderm) 1 patch DAILY TP 01/23/21 09:00 02/03/21 08:25 Mesalamine (Lialda) 1.2 gm DAILY PO 01/23/21 09:00 02/03/21 08:26 Metoprolol Tartrate (Lopressor) 25 mg BID PO 01/22/21 21:00 02/03/21 08:25 Quetiapine Fumarate (SEROquel) 50 mg TID PO 01/22/21 21:00 02/03/21 08:24 Risperidone (RisperDAL) 2 mg TID PO 01/22/21 21:00 02/03/21 08:26 Rivastigmine (Exelon) 1 patch DAILY TD 01/23/21 09:00 02/01/21 16:25 DC 02/01/21 08:42 Venlafaxine HCl (Effexor Xr) 37.5 mg DAILY PO 01/23/21 09:00 01/23/21 13:11 DC 01/23/21 08:29 Ziprasidone (Geodon) 40 mg BID PO 01/22/21 21:00 01/28/21 17:15 DC 01/28/21 08:52 Ziprasidone (Geodon) 80 mg QHS PO 01/22/21 21:00 01/22/21 20:17 DC Cyanocobalamin (Vitamin B-12) 1,000 mcg DAILY PO 01/23/21 09:00 02/03/21 08:26 Insulin Human Lispro (HumaLOG) 40 units TIDWMEALS SQ 01/23/21 08:00 02/03/21 08:30 Insulin Glargine (Lantus Syringe) 30 unit DAILY SQ 01/23/21 09:00 01/29/21 14:19 DC 01/29/21 09:00 Lactobacillus Rhamnosus (Culturelle) 1 cap BID PO 01/23/21 09:00 02/03/21 08:26 Non-Formulary Medication (Liraglutide (Victoza 3-Jas)) 1.8 mg DAILY SQ 01/23/21 09:00 UNV Meclizine HCl (Antivert) 25 mg BID PO 01/22/21 21:00 02/03/21 08:28 Psyllium Hydrophilic Mucilloid (Metamucil) 1 pkt BID PO 01/22/21 21:00 02/02/21 13:31 DC 02/01/21 08:42 Demeclocycline HCl (Declomycin) 150 mg TID PO 01/22/21 21:00 01/22/21 20:45 DC Olanzapine (ZyPREXA ZYDIS) 5 mg PRN Q2HR PRN PO PSYCHOSIS 01/22/21 20:30 Demeclocycline HCl (Declomycin) 300 mg TID PO 01/22/21 21:00 02/03/21 08:26 Acetaminophen/ Codeine Phosphate (Tylenol #3) 1 tab PRN QID PRN PO MODERATE PAIN 4-6 01/23/21 11:45 01/23/21 12:23 Acetaminophen (Tylenol) 500 mg PRN Q6HRS PRN PO MILD PAIN / TEMP > 100.3'F 01/23/21 13:15 Clozapine (Clozaril) 25 mg HS PO 01/23/21 21:00 01/30/21 18:59 DC 01/29/21 20:37 Insulin Glargine (Lantus Syringe) 40 unit BID SQ 01/29/21 21:00 01/31/21 17:42 DC 01/31/21 09:50 Clozapine (Clozaril) 50 mg HS PO 01/30/21 21:00 02/02/21 20:59 Insulin Glargine (Lantus Syringe) 60 unit BID SQ 01/31/21 17:45 01/31/21 18:17 DC Metformin HCl (Glucophage Xr) 500 mg DAILYWBKFT PO 02/01/21 08:00 02/03/21 08:26 Insulin Glargine (Lantus Syringe) 60 unit BID SQ 01/31/21 21:00 02/02/21 21:00 I have reviewed the current psychotropics carefully including drug interactions. Risk benefit ratio favors no change other than as noted in my dictated progress note. Diagnosis: Problems: (1) Schizoaffective disorder, bipolar type (2) Impulse control disorder, unspecified (3) Anxiety disorder, unspecified (4) Bipolar disorder, current episode manic severe with psychotic features INOCENCIO PELAEZ MD Feb 03, 2021 08:40
[2021-02-03] MEDS: INSULIN GLARGINE SYRINGE. SQ SCH ×2 (09:00→21:00)
--- NOTE | 2021-02-03 14:29 | NUR ---
NURSING NOTE Pt is A&O x 4. Pleasant et compliant with medications et assessment. Report back/leg pain of a chronic nature. 3+ pitting edema present, pt states she takes Lasix at home. Discussed with hospitalist, who declines addition of diuretic 2/2 Na levels. Meal intakes excellent, medications taken whole. Mobile on unit in wheelchair. Interacts with staff, but retreats to room between meals. Did not participate in group activity.
[2021-02-03 15:33] VITALS: BP 116/70
[2021-02-03] MEDS: cloZAPine 25 MG TABLET PO SCH (21:42)
[2021-02-03] MEDS: ATORVASTATIN CALCIUM 20 MG TABLET PO SCH (21:42)
--- NOTE | 2021-02-03 21:55 | PDOC ---
Exam Note: Benedict Note: Please also refer to the separate dictated note~for this date of service dictated separately.~Patient seen individually. Discussed the patient with Nursing staff reviewed the chart.~Reviewed interim history and current functioning. Reviewed vital signs,~Labs/ Radiology~and current medications noted below. Continue current treatment with the changes noted in the dictated addendum note Assessment: Vital Signs/I&O: Vital Signs Date Time Temp Pulse Resp B/P (MAP) Pulse Ox O2 Delivery O2 Flow Rate FiO2 02/03/21 21:43 96 116/70 02/03/21 15:33 97.2 16 98 02/02/21 05:50 Room Air I & O 02/02/21 02/02/21 02/03/21 15:00 23:00 07:00 Intake Total 960 ml 600 ml Balance 960 ml 600 ml Labs: Laboratory Tests Test 02/03/21 06:02 02/03/21 07:30 02/03/21 11:27 02/03/21 16:59 White Blood Count 5.7 x10^3/uL (4.0-11.0) Red Blood Count 3.51 x10^6/uL (3.50-5.40) Hemoglobin 10.2 g/dL (12.0-15.5) L Hematocrit 30.3 % (36.0-47.0) L Mean Corpuscular Volume 86 fL (79-100) Mean Corpuscular Hemoglobin 29 pg (25-35) Mean Corpuscular Hemoglobin Concent 34 g/dL (31-37) Red Cell Distribution Width 14.3 % (11.5-14.5) Platelet Count 108 x10^3/uL (140-400) L Neutrophils (%) (Auto) 58 % (31-73) Lymphocytes (%) (Auto) 31 % (24-48) Monocytes (%) (Auto) 9 % (0-9) Eosinophils (%) (Auto) 2 % (0-3) Basophils (%) (Auto) 0 % (0-3) Neutrophils # (Auto) 3.3 x10^3uL (1.8-7.7) Lymphocytes # (Auto) 1.8 x10^3/uL (1.0-4.8) Monocytes # (Auto) 0.5 x10^3/uL (0.0-1.1) Eosinophils # (Auto) 0.1 x10^3/uL (0.0-0.7) Basophils # (Auto) 0.0 x10^3/uL (0.0-0.2) Sodium Level 129 mmol/L (136-145) L Potassium Level 4.2 mmol/L (3.5-5.1) Chloride Level 95 mmol/L (98-107) L Carbon Dioxide Level 26 mmol/L (21-32) Anion Gap 8 (6-14) Blood Urea Nitrogen 12 mg/dL (7-20) Creatinine 0.9 mg/dL (0.6-1.0) Estimated GFR (Cockcroft-Gault) 62.6 BUN/Creatinine Ratio 13 (6-20) Glucose Level 138 mg/dL (70-99) H Calcium Level 8.6 mg/dL (8.5-10.1) Total Bilirubin 0.3 mg/dL (0.2-1.0) Aspartate Amino Transferase (AST) 25 U/L (15-37) Alanine Aminotransferase (ALT) 20 U/L (14-59) Alkaline Phosphatase 128 U/L (46-116) H Total Protein 5.8 g/dL (6.4-8.2) L Albumin 2.3 g/dL (3.4-5.0) L Albumin/Globulin Ratio 0.7 (1.0-1.7) L Glucose (Fingerstick) 138 mg/dL (70-99) H 230 mg/dL (70-99) H 247 mg/dL (70-99) H Test 02/03/21 19:22 Glucose (Fingerstick) 337 mg/dL (70-99) H Current Medications: Meds: Laboratory Tests Test 02/03/21 06:02 02/03/21 07:30 02/03/21 11:27 02/03/21 16:59 White Blood Count 5.7 x10^3/uL Red Blood Count 3.51 x10^6/uL Hemoglobin 10.2 g/dL Hematocrit 30.3 % Mean Corpuscular Volume 86 fL Mean Corpuscular Hemoglobin 29 pg Mean Corpuscular Hemoglobin Concent 34 g/dL Red Cell Distribution Width 14.3 % Platelet Count 108 x10^3/uL Neutrophils (%) (Auto) 58 % Lymphocytes (%) (Auto) 31 % Monocytes (%) (Auto) 9 % Eosinophils (%) (Auto) 2 % Basophils (%) (Auto) 0 % Neutrophils # (Auto) 3.3 x10^3uL Lymphocytes # (Auto) 1.8 x10^3/uL Monocytes # (Auto) 0.5 x10^3/uL Eosinophils # (Auto) 0.1 x10^3/uL Basophils # (Auto) 0.0 x10^3/uL Sodium Level 129 mmol/L Potassium Level 4.2 mmol/L Chloride Level 95 mmol/L Carbon Dioxide Level 26 mmol/L Anion Gap 8 Blood Urea Nitrogen 12 mg/dL Creatinine 0.9 mg/dL Estimated GFR (Cockcroft-Gault) 62.6 BUN/Creatinine Ratio 13 Glucose Level 138 mg/dL Calcium Level 8.6 mg/dL Total Bilirubin 0.3 mg/dL Aspartate Amino Transf (AST/SGOT) 25 U/L Alanine Aminotransferase (ALT/SGPT) 20 U/L Alkaline Phosphatase 128 U/L Total Protein 5.8 g/dL Albumin 2.3 g/dL Albumin/Globulin Ratio 0.7 Glucose (Fingerstick) 138 mg/dL 230 mg/dL 247 mg/dL Test 02/03/21 19:22 Glucose (Fingerstick) 337 mg/dL Current Medications Medications (Trade) Dose Ordered Sig/Latesha Route PRN Reason Start Time Stop Time Status Last Admin Dose Admin Acetaminophen (Tylenol) 650 mg PRN Q6HRS PRN PO MILD PAIN / TEMP > 100.3'F 01/22/21 14:00 Cancel Multi-Ingredient Ointment (Analgesic [place]) 1 keri PRN QID PRN TP MUSCLE PAIN 01/22/21 14:00 Al Hydroxide/Mg Hydroxide (Mylanta Plus Xs) 15 ml PRN AFTMEALHC PRN PO DYSPEPSIA 01/22/21 14:00 Magnesium Hydroxide (Milk Of Magnesia) 2,400 mg PRN QHS PRN PO CONSTIPATION 01/22/21 14:00 Valproic Acid (Depakene) 500 mg QID PO 01/22/21 17:00 02/03/21 21:41 Acetaminophen (Tylenol) 500 mg QID PO 01/22/21 21:00 01/23/21 13:04 DC 01/23/21 08:29 Amlodipine Besylate (Norvasc) 5 mg DAILY PO 01/23/21 09:00 02/03/21 08:26 Atorvastatin Calcium (Lipitor) 20 mg QHS PO 01/22/21 21:00 02/03/21 21:42 Vitamin D (Vitamin D3) 1,000 unit DAILY PO 01/23/21 09:00 02/03/21 08:25 Hydrocortisone Acetate (Anucort-Hc) 25 mg PRN Q8HRS PRN RC hemorrhoids 01/22/21 20:00 Levothyroxine Sodium (Synthroid) 25 mcg DAILY06 PO 01/23/21 06:00 02/03/21 05:55 Lidocaine (Lidoderm) 1 patch DAILY TP 01/23/21 09:00 02/03/21 08:25 Mesalamine (Lialda) 1.2 gm DAILY PO 01/23/21 09:00 02/03/21 08:26 Metoprolol Tartrate (Lopressor) 25 mg BID PO 01/22/21 21:00 02/03/21 21:43 Quetiapine Fumarate (SEROquel) 50 mg TID PO 01/22/21 21:00 02/03/21 21:42 Risperidone (RisperDAL) 2 mg TID PO 01/22/21 21:00 02/03/21 21:42 Rivastigmine (Exelon) 1 patch DAILY TD 01/23/21 09:00 02/01/21 16:25 DC 02/01/21 08:42 Venlafaxine HCl (Effexor Xr) 37.5 mg DAILY PO 01/23/21 09:00 01/23/21 13:11 DC 01/23/21 08:29 Ziprasidone (Geodon) 40 mg BID PO 01/22/21 21:00 01/28/21 17:15 DC 01/28/21 08:52 Ziprasidone (Geodon) 80 mg QHS PO 01/22/21 21:00 01/22/21 20:17 DC Cyanocobalamin (Vitamin B-12) 1,000 mcg DAILY PO 01/23/21 09:00 02/03/21 08:26 Insulin Human Lispro (HumaLOG) 40 units TIDWMEALS SQ 01/23/21 08:00 02/03/21 17:15 Insulin Glargine (Lantus Syringe) 30 unit DAILY SQ 01/23/21 09:00 01/29/21 14:19 DC 01/29/21 09:00 Lactobacillus Rhamnosus (Culturelle) 1 cap BID PO 01/23/21 09:00 02/03/21 21:41 Non-Formulary Medication (Liraglutide (Victoza 3-Jas)) 1.8 mg DAILY SQ 01/23/21 09:00 UNV Meclizine HCl (Antivert) 25 mg BID PO 01/22/21 21:00 02/03/21 21:00 Psyllium Hydrophilic Mucilloid (Metamucil) 1 pkt BID PO 01/22/21 21:00 02/02/21 13:31 DC 02/01/21 08:42 Demeclocycline HCl (Declomycin) 150 mg TID PO 01/22/21 21:00 01/22/21 20:45 DC Olanzapine (ZyPREXA ZYDIS) 5 mg PRN Q2HR PRN PO PSYCHOSIS 01/22/21 20:30 Demeclocycline HCl (Declomycin) 300 mg TID PO 01/22/21 21:00 02/03/21 14:11 Acetaminophen/ Codeine Phosphate (Tylenol #3) 1 tab PRN QID PRN PO MODERATE PAIN 4-6 01/23/21 11:45 01/23/21 12:23 Acetaminophen (Tylenol) 500 mg PRN Q6HRS PRN PO MILD PAIN / TEMP > 100.3'F 01/23/21 13:15 Clozapine (Clozaril) 25 mg HS PO 01/23/21 21:00 01/30/21 18:59 DC 01/29/21 20:37 Insulin Glargine (Lantus Syringe) 40 unit BID SQ 01/29/21 21:00 01/31/21 17:42 DC 01/31/21 09:50 Clozapine (Clozaril) 50 mg HS PO 01/30/21 21:00 02/03/21 21:42 Insulin Glargine (Lantus Syringe) 60 unit BID SQ 01/31/21 17:45 01/31/21 18:17 DC Metformin HCl (Glucophage Xr) 500 mg DAILYWBKFT PO 02/01/21 08:00 02/03/21 08:26 Insulin Glargine (Lantus Syringe) 60 unit BID SQ 01/31/21 21:00 02/03/21 21:00 I have reviewed the current psychotropics carefully including drug interactions. Risk benefit ratio favors no change other than as noted in my dictated progress note. Diagnosis: Problems: (1) Schizoaffective disorder, bipolar type (2) Impulse control disorder, unspecified (3) Anxiety disorder, unspecified (4) Bipolar disorder, current episode manic severe with psychotic features INOCENCIO PELAEZ MD Feb 03, 2021 21:55
--- NOTE | 2021-02-04 04:10 | NUR ---
Patient has been pleasant in her interactions with staff and peers through this shift. She spent two hours in the TV room watching some TV, eating snacks and interacting with both staff and peers. She was compliant with all her night time medications and did not show any signs of nausea and vomiting. Patient retired to her room at about 9:30pm and went to bed where she remained resting with eyes closed, showing no signs of distress.
[2021-02-04] MEDS: LEVOTHYROXINE 25 MCG TABLET. PO SCH (06:00)
[2021-02-04 06:18] VITALS: BP 123/79
[2021-02-04] MEDS: CYANOCOBALAMIN (VITAMIN B-12) 1,000 MCG TABLET. PO SCH (08:31)
[2021-02-04] MEDS: MECLIZINE 12.5 MG TABLET. PO SCH ×2 (08:31→20:38)
[2021-02-04] MEDS: MESALAMINE 1.2 GM TABLET.DR PO SCH (08:31)
[2021-02-04] MEDS: CHOLECALCIFEROL (VITAMIN D3) 1,000 UNIT TABLET PO SCH (08:31)
[2021-02-04] MEDS: metFORMIN XR 500 MG TAB.ER.24H PO SCH (08:31)
[2021-02-04] MEDS: VALPROIC ACID 250 MG CAPSULE. PO SCH ×4 (08:31→20:38)
[2021-02-04] MEDS: DEMECLOCYCLINE HCL 150 MG TABLET. PO SCH ×3 (08:31→20:39)
[2021-02-04] MEDS: QUEtiapine 50 MG TABLET. PO SCH ×3 (08:31→20:38)
[2021-02-04] MEDS: amLODIPine BESYLATE 5 MG TABLET PO SCH (08:31)
[2021-02-04] MEDS: risperiDONE 2 MG TABLET. PO SCH ×3 (08:31→20:38)
[2021-02-04] MEDS: LACTOBACILLUS RHAMNOSUS GG 1 CAPSULE. PO SCH ×2 (08:32→20:38)
[2021-02-04] MEDS: METOPROLOL TART IMMED RELEASE 25 MG TABLET. PO SCH ×2 (08:32→20:38)
[2021-02-04] MEDS: NON FORMULARY ITEM (Liraglutide (Victoza 3-Pak) 1.8 MG) SQ SCH (08:32)
[2021-02-04] MEDS: LIDOCAINE (700MG/PATCH) PATCH. TP SCH (08:32)
[2021-02-04] MEDS: INSULIN LISPRO 300 UNITS/3 ML VIAL. SQ SCH ×3 (08:35→17:19)
[2021-02-04] MEDS: INSULIN GLARGINE SYRINGE. SQ SCH ×2 (09:00→20:57)
--- NOTE | 2021-02-04 15:24 | NUR ---
Pt has been visible and present on the unit. Her interactions with others have been appropriate. Absent of SI/HI behaviors. Per nursing report from DEANDRE Gillespie, pt remains grandiose and delusional and spoke about serving in the [employer]. Pt is compliant with medications. Plan of care continues, will pass to next shift.
[2021-02-04 15:54] VITALS: BP 130/75
[2021-02-04] MEDS: ATORVASTATIN CALCIUM 20 MG TABLET PO SCH (20:38)
[2021-02-04] MEDS: cloZAPine 25 MG TABLET PO SCH (20:39)
--- NOTE | 2021-02-04 22:02 | PDOC ---
Exam Note: Benedict Note: Please also refer to the separate dictated note~for this date of service dictated separately.~Patient seen individually. Discussed the patient with Nursing staff reviewed the chart.~Reviewed interim history and current functioning. Reviewed vital signs,~Labs/ Radiology~and current medications noted below. Continue current treatment with the changes noted in the dictated addendum note Assessment: Vital Signs/I&O: Vital Signs Date Time Temp Pulse Resp B/P (MAP) Pulse Ox O2 Delivery O2 Flow Rate FiO2 02/04/21 20:38 94 130/75 02/04/21 15:54 97.6 18 96 02/02/21 05:50 Room Air I & O 02/03/21 02/03/21 02/04/21 15:00 23:00 07:00 Intake Total 600 ml 240 ml 240 ml Balance 600 ml 240 ml 240 ml Labs: Laboratory Tests Test 02/04/21 07:19 02/04/21 11:54 02/04/21 16:48 02/04/21 19:41 Glucose (Fingerstick) 147 mg/dL (70-99) H 260 mg/dL (70-99) H 275 mg/dL (70-99) H 277 mg/dL (70-99) H Current Medications: Meds: Laboratory Tests Test 02/04/21 07:19 02/04/21 11:54 02/04/21 16:48 02/04/21 19:41 Glucose (Fingerstick) 147 mg/dL 260 mg/dL 275 mg/dL 277 mg/dL Current Medications Medications (Trade) Dose Ordered Sig/Latesha Route PRN Reason Start Time Stop Time Status Last Admin Dose Admin Acetaminophen (Tylenol) 650 mg PRN Q6HRS PRN PO MILD PAIN / TEMP > 100.3'F 01/22/21 14:00 Cancel Multi-Ingredient Ointment (Analgesic [place]) 1 keri PRN QID PRN TP MUSCLE PAIN 01/22/21 14:00 Al Hydroxide/Mg Hydroxide (Mylanta Plus Xs) 15 ml PRN AFTMEALHC PRN PO DYSPEPSIA 01/22/21 14:00 Magnesium Hydroxide (Milk Of Magnesia) 2,400 mg PRN QHS PRN PO CONSTIPATION 01/22/21 14:00 Valproic Acid (Depakene) 500 mg QID PO 01/22/21 17:00 02/04/21 20:38 Acetaminophen (Tylenol) 500 mg QID PO 01/22/21 21:00 01/23/21 13:04 DC 01/23/21 08:29 Amlodipine Besylate (Norvasc) 5 mg DAILY PO 01/23/21 09:00 02/04/21 08:31 Atorvastatin Calcium (Lipitor) 20 mg QHS PO 01/22/21 21:00 02/04/21 20:38 Vitamin D (Vitamin D3) 1,000 unit DAILY PO 01/23/21 09:00 02/04/21 08:31 Hydrocortisone Acetate (Anucort-Hc) 25 mg PRN Q8HRS PRN RC hemorrhoids 01/22/21 20:00 Levothyroxine Sodium (Synthroid) 25 mcg DAILY06 PO 01/23/21 06:00 02/04/21 06:00 Lidocaine (Lidoderm) 1 patch DAILY TP 01/23/21 09:00 02/04/21 08:32 Mesalamine (Lialda) 1.2 gm DAILY PO 01/23/21 09:00 02/04/21 08:31 Metoprolol Tartrate (Lopressor) 25 mg BID PO 01/22/21 21:00 02/04/21 20:38 Quetiapine Fumarate (SEROquel) 50 mg TID PO 01/22/21 21:00 02/04/21 20:38 Risperidone (RisperDAL) 2 mg TID PO 01/22/21 21:00 02/04/21 20:38 Rivastigmine (Exelon) 1 patch DAILY TD 01/23/21 09:00 02/01/21 16:25 DC 02/01/21 08:42 Venlafaxine HCl (Effexor Xr) 37.5 mg DAILY PO 01/23/21 09:00 01/23/21 13:11 DC 01/23/21 08:29 Ziprasidone (Geodon) 40 mg BID PO 01/22/21 21:00 01/28/21 17:15 DC 01/28/21 08:52 Ziprasidone (Geodon) 80 mg QHS PO 01/22/21 21:00 01/22/21 20:17 DC Cyanocobalamin (Vitamin B-12) 1,000 mcg DAILY PO 01/23/21 09:00 02/04/21 08:31 Insulin Human Lispro (HumaLOG) 40 units TIDWMEALS SQ 01/23/21 08:00 02/04/21 17:19 Insulin Glargine (Lantus Syringe) 30 unit DAILY SQ 01/23/21 09:00 01/29/21 14:19 DC 01/29/21 09:00 Lactobacillus Rhamnosus (Culturelle) 1 cap BID PO 01/23/21 09:00 02/04/21 20:38 Non-Formulary Medication (Liraglutide (Victoza 3-Jas)) 1.8 mg DAILY SQ 01/23/21 09:00 UNV Meclizine HCl (Antivert) 25 mg BID PO 01/22/21 21:00 02/04/21 20:38 Psyllium Hydrophilic Mucilloid (Metamucil) 1 pkt BID PO 01/22/21 21:00 02/02/21 13:31 DC 02/01/21 08:42 Demeclocycline HCl (Declomycin) 150 mg TID PO 01/22/21 21:00 01/22/21 20:45 DC Olanzapine (ZyPREXA ZYDIS) 5 mg PRN Q2HR PRN PO PSYCHOSIS 01/22/21 20:30 Demeclocycline HCl (Declomycin) 300 mg TID PO 01/22/21 21:00 02/04/21 20:39 Acetaminophen/ Codeine Phosphate (Tylenol #3) 1 tab PRN QID PRN PO MODERATE PAIN 4-6 01/23/21 11:45 01/23/21 12:23 Acetaminophen (Tylenol) 500 mg PRN Q6HRS PRN PO MILD PAIN / TEMP > 100.3'F 01/23/21 13:15 02/04/21 08:31 Clozapine (Clozaril) 25 mg HS PO 01/23/21 21:00 01/30/21 18:59 DC 01/29/21 20:37 Insulin Glargine (Lantus Syringe) 40 unit BID SQ 01/29/21 21:00 01/31/21 17:42 DC 01/31/21 09:50 Clozapine (Clozaril) 50 mg HS PO 01/30/21 21:00 02/04/21 20:39 Insulin Glargine (Lantus Syringe) 60 unit BID SQ 01/31/21 17:45 01/31/21 18:17 DC Metformin HCl (Glucophage Xr) 500 mg DAILYWBKFT PO 02/01/21 08:00 02/04/21 08:31 Insulin Glargine (Lantus Syringe) 60 unit BID SQ 01/31/21 21:00 02/04/21 20:57 I have reviewed the current psychotropics carefully including drug interactions. Risk benefit ratio favors no change other than as noted in my dictated progress note. Diagnosis: Problems: (1) Schizoaffective disorder, bipolar type (2) Impulse control disorder, unspecified (3) Anxiety disorder, unspecified (4) Bipolar disorder, current episode manic severe with psychotic features INOCENCIO PELAEZ MD Feb 04, 2021 22:02
--- NOTE | 2021-02-04 22:49 | NUR ---
Pt located in the dayroom this evening. Pt calm and interactive. Compliant with whole medications. Continues to be delusional; states that she is not going back to [facility] . 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
[2021-02-05 05:49] VITALS: BP 115/71
[2021-02-05] MEDS: LEVOTHYROXINE 25 MCG TABLET. PO SCH (06:06)
[2021-02-05 06:38] LABS: ALBUMIN 2.4 g/dL (3.4-5.0); ALBUMIN/GLOBULIN RATIO 0.7 (1.0-1.7); CALCIUM 8.5 mg/dL (8.5-10.1); CREATININE 1.2 mg/dL (0.6-1.0); GFR 44.9; POTASSIUM 4.1 mmol/L (3.5-5.1); TOTAL BILIRUBIN 0.4 mg/dL (0.2-1.0); TOTAL PROTEIN 5.9 g/dL (6.4-8.2)
[2021-02-05] MEDS: INSULIN LISPRO 300 UNITS/3 ML VIAL. SQ SCH ×3 (08:00→17:16)
--- NOTE | 2021-02-05 08:06 | PDOC ---
Exam Note: Benedict Note: This note is a late entry for 02/03/2021 covers elements not covered in my initial note. Subjective: The patient was seen individually in the evening of 02/03/2021 with Ashley CARRERA, discussed and reviewed the chart. The patient slept 5-3/4 hours previous night. She is somewhat withdrawn, spends much time in her room, compliant with medication, does come to dining room for meals. She was in the dayroom in the evening. Sodium is somewhat low, the atypical antipsychotics, Risperdal and Clozaril could contribute to this but we will repeat it in another 2 days and then decide because she really does need her antipsychotics. Review of Systems: Impairment of ambulation. No CV, , pulmonary, eye, ENT system symptoms on review. Mental Status Exam: The patient is reasonably oriented. I met with her in her room in the evening. Speech coherent, rapid at times, still somewhat grandiose. Abstraction fair. Computation impaired. No suicidal or homicidal ideation. She is somewhat distractible. Laboratory Data: Reviewed. Impression: Schizoaffective disorder, bipolar type mixed with psychotic features. Anxiety disorder unspecified. Impulse control disorder unspecified. Plan: No change from initial note. Check electrolytes in 2 days. Maintain rest of the psychotropics. Valproic acid level is therapeutic. Continue current Depakote at current dosage. Assessment: Vital Signs/I&O: Vital Signs Date Time Temp Pulse Resp B/P (MAP) Pulse Ox O2 Delivery O2 Flow Rate FiO2 02/05/21 05:49 98.0 90 20 115/71 (86) 100 02/02/21 05:50 Room Air I & O 02/04/21 02/04/21 02/05/21 14:59 22:59 06:59 Intake Total 840 ml 480 ml 240 ml Balance 840 ml 480 ml 240 ml Labs: Laboratory Tests Test 02/04/21 11:54 02/04/21 16:48 02/04/21 19:41 02/05/21 05:57 Glucose (Fingerstick) 260 mg/dL (70-99) H 275 mg/dL (70-99) H 277 mg/dL (70-99) H Sodium Level 134 mmol/L (136-145) L Potassium Level 4.1 mmol/L (3.5-5.1) Chloride Level 99 mmol/L (98-107) Carbon Dioxide Level 32 mmol/L (21-32) Anion Gap 3 (6-14) L Blood Urea Nitrogen 12 mg/dL (7-20) Creatinine 1.2 mg/dL (0.6-1.0) H Estimated GFR (Cockcroft-Gault) 44.9 BUN/Creatinine Ratio 10 (6-20) Glucose Level 159 mg/dL (70-99) H Calcium Level 8.5 mg/dL (8.5-10.1) Total Bilirubin 0.4 mg/dL (0.2-1.0) Aspartate Amino Transferase (AST) 26 U/L (15-37) Alanine Aminotransferase (ALT) 19 U/L (14-59) Alkaline Phosphatase 130 U/L (46-116) H Total Protein 5.9 g/dL (6.4-8.2) L Albumin 2.4 g/dL (3.4-5.0) L Albumin/Globulin Ratio 0.7 (1.0-1.7) L Test 02/05/21 07:18 Glucose (Fingerstick) 159 mg/dL (70-99) H Current Medications: Meds: Laboratory Tests Test 02/04/21 11:54 02/04/21 16:48 02/04/21 19:41 02/05/21 05:57 Glucose (Fingerstick) 260 mg/dL 275 mg/dL 277 mg/dL Sodium Level 134 mmol/L Potassium Level 4.1 mmol/L Chloride Level 99 mmol/L Carbon Dioxide Level 32 mmol/L Anion Gap 3 Blood Urea Nitrogen 12 mg/dL Creatinine 1.2 mg/dL Estimated GFR (Cockcroft-Gault) 44.9 BUN/Creatinine Ratio 10 Glucose Level 159 mg/dL Calcium Level 8.5 mg/dL Total Bilirubin 0.4 mg/dL Aspartate Amino Transf (AST/SGOT) 26 U/L Alanine Aminotransferase (ALT/SGPT) 19 U/L Alkaline Phosphatase 130 U/L Total Protein 5.9 g/dL Albumin 2.4 g/dL Albumin/Globulin Ratio 0.7 Test 02/05/21 07:18 Glucose (Fingerstick) 159 mg/dL Current Medications Medications (Trade) Dose Ordered Sig/Latesha Route PRN Reason Start Time Stop Time Status Last Admin Dose Admin Acetaminophen (Tylenol) 650 mg PRN Q6HRS PRN PO MILD PAIN / TEMP > 100.3'F 01/22/21 14:00 Cancel Multi-Ingredient Ointment (Analgesic [place]) 1 keri PRN QID PRN TP MUSCLE PAIN 01/22/21 14:00 Al Hydroxide/Mg Hydroxide (Mylanta Plus Xs) 15 ml PRN AFTMEALHC PRN PO DYSPEPSIA 01/22/21 14:00 Magnesium Hydroxide (Milk Of Magnesia) 2,400 mg PRN QHS PRN PO CONSTIPATION 01/22/21 14:00 Valproic Acid (Depakene) 500 mg QID PO 01/22/21 17:00 02/04/21 20:38 Acetaminophen (Tylenol) 500 mg QID PO 01/22/21 21:00 01/23/21 13:04 DC 01/23/21 08:29 Amlodipine Besylate (Norvasc) 5 mg DAILY PO 01/23/21 09:00 02/04/21 08:31 Atorvastatin Calcium (Lipitor) 20 mg QHS PO 01/22/21 21:00 02/04/21 20:38 Vitamin D (Vitamin D3) 1,000 unit DAILY PO 01/23/21 09:00 02/04/21 08:31 Hydrocortisone Acetate (Anucort-Hc) 25 mg PRN Q8HRS PRN RC hemorrhoids 01/22/21 20:00 Levothyroxine Sodium (Synthroid) 25 mcg DAILY06 PO 01/23/21 06:00 02/05/21 06:06 Lidocaine (Lidoderm) 1 patch DAILY TP 01/23/21 09:00 02/04/21 08:32 Mesalamine (Lialda) 1.2 gm DAILY PO 01/23/21 09:00 02/04/21 08:31 Metoprolol Tartrate (Lopressor) 25 mg BID PO 01/22/21 21:00 02/04/21 20:38 Quetiapine Fumarate (SEROquel) 50 mg TID PO 01/22/21 21:00 02/04/21 20:38 Risperidone (RisperDAL) 2 mg TID PO 01/22/21 21:00 02/04/21 20:38 Rivastigmine (Exelon) 1 patch DAILY TD 01/23/21 09:00 02/01/21 16:25 DC 02/01/21 08:42 Venlafaxine HCl (Effexor Xr) 37.5 mg DAILY PO 01/23/21 09:00 01/23/21 13:11 DC 01/23/21 08:29 Ziprasidone (Geodon) 40 mg BID PO 01/22/21 21:00 01/28/21 17:15 DC 01/28/21 08:52 Ziprasidone (Geodon) 80 mg QHS PO 01/22/21 21:00 01/22/21 20:17 DC Cyanocobalamin (Vitamin B-12) 1,000 mcg DAILY PO 01/23/21 09:00 02/04/21 08:31 Insulin Human Lispro (HumaLOG) 40 units TIDWMEALS SQ 01/23/21 08:00 02/04/21 17:19 Insulin Glargine (Lantus Syringe) 30 unit DAILY SQ 01/23/21 09:00 01/29/21 14:19 DC 01/29/21 09:00 Lactobacillus Rhamnosus (Culturelle) 1 cap BID PO 01/23/21 09:00 02/04/21 20:38 Non-Formulary Medication (Liraglutide (Victoza 3-Jas)) 1.8 mg DAILY SQ 01/23/21 09:00 UNV Meclizine HCl (Antivert) 25 mg BID PO 01/22/21 21:00 02/04/21 20:38 Psyllium Hydrophilic Mucilloid (Metamucil) 1 pkt BID PO 01/22/21 21:00 02/02/21 13:31 DC 02/01/21 08:42 Demeclocycline HCl (Declomycin) 150 mg TID PO 01/22/21 21:00 01/22/21 20:45 DC Olanzapine (ZyPREXA ZYDIS) 5 mg PRN Q2HR PRN PO PSYCHOSIS 01/22/21 20:30 Demeclocycline HCl (Declomycin) 300 mg TID PO 01/22/21 21:00 02/04/21 20:39 Acetaminophen/ Codeine Phosphate (Tylenol #3) 1 tab PRN QID PRN PO MODERATE PAIN 4-6 01/23/21 11:45 01/23/21 12:23 Acetaminophen (Tylenol) 500 mg PRN Q6HRS PRN PO MILD PAIN / TEMP > 100.3'F 01/23/21 13:15 02/04/21 08:31 Clozapine (Clozaril) 25 mg HS PO 01/23/21 21:00 01/30/21 18:59 DC 01/29/21 20:37 Insulin Glargine (Lantus Syringe) 40 unit BID SQ 01/29/21 21:00 01/31/21 17:42 DC 01/31/21 09:50 Clozapine (Clozaril) 50 mg HS PO 01/30/21 21:00 02/04/21 20:39 Insulin Glargine (Lantus Syringe) 60 unit BID SQ 01/31/21 17:45 01/31/21 18:17 DC Metformin HCl (Glucophage Xr) 500 mg DAILYWBKFT PO 02/01/21 08:00 02/04/21 08:31 Insulin Glargine (Lantus Syringe) 60 unit BID SQ 01/31/21 21:00 02/04/21 20:57 I have reviewed the current psychotropics carefully including drug interactions. Risk benefit ratio favors no change other than as noted in my dictated progress note. Diagnosis: Problems: (1) Schizoaffective disorder, bipolar type (2) Impulse control disorder, unspecified (3) Anxiety disorder, unspecified (4) Bipolar disorder, current episode manic severe with psychotic features INOCENCIO PELAEZ MD Feb 05, 2021 08:06
--- NOTE | 2021-02-05 08:21 | PDOC ---
Exam Note: Benedict Note: This note is a late entry for 02/04/2021 covers elements not covered in my initial note. Subjective: The patient was seen individually in the evening of 02/04/2021 with Ashley CARRERA, discussed and reviewed the chart. The patient slept 3 hours previous night. She was compliant last evening, more out of the room. She was initially sleepy but sat up, remained somewhat hyperverbal but better. Repeatedly questioning about discharge plans. I addressed with her. Review of Systems: Impairment of ambulation. No CV, , pulmonary, eye, ENT system symptoms on review. Mental Status Exam: The patient is alert, oriented, cooperative. I met with her in her room in the evening. Speech coherent, somewhat pressured. 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 Abstraction fair. Computation impaired. Language function intact. Attention span short. No suicidal or homicidal ideation. Laboratory Data: Reviewed. Impression: Schizoaffective disorder, bipolar type mixed with psychotic features. Anxiety disorder unspecified. Impulse control disorder unspecified. Plan: No change from initial note. Continue to increase gradually increase the Clozaril as tolerated. Rest unchanged. Valproic acid level is 66 therapeutic. Continue Depakote unchanged. Assessment: Vital Signs/I&O: Vital Signs Date Time Temp Pulse Resp B/P (MAP) Pulse Ox O2 Delivery O2 Flow Rate FiO2 02/05/21 05:49 98.0 90 20 115/71 (86) 100 02/02/21 05:50 Room Air I & O 02/04/21 02/04/21 02/05/21 15:00 23:00 07:00 Intake Total 840 ml 480 ml 240 ml Balance 840 ml 480 ml 240 ml Labs: Laboratory Tests Test 02/04/21 11:54 02/04/21 16:48 02/04/21 19:41 02/05/21 05:57 Glucose (Fingerstick) 260 mg/dL (70-99) H 275 mg/dL (70-99) H 277 mg/dL (70-99) H Sodium Level 134 mmol/L (136-145) L Potassium Level 4.1 mmol/L (3.5-5.1) Chloride Level 99 mmol/L (98-107) Carbon Dioxide Level 32 mmol/L (21-32) Anion Gap 3 (6-14) L Blood Urea Nitrogen 12 mg/dL (7-20) Creatinine 1.2 mg/dL (0.6-1.0) H Estimated GFR (Cockcroft-Gault) 44.9 BUN/Creatinine Ratio 10 (6-20) Glucose Level 159 mg/dL (70-99) H Calcium Level 8.5 mg/dL (8.5-10.1) Total Bilirubin 0.4 mg/dL (0.2-1.0) Aspartate Amino Transferase (AST) 26 U/L (15-37) Alanine Aminotransferase (ALT) 19 U/L (14-59) Alkaline Phosphatase 130 U/L (46-116) H Total Protein 5.9 g/dL (6.4-8.2) L Albumin 2.4 g/dL (3.4-5.0) L Albumin/Globulin Ratio 0.7 (1.0-1.7) L Test 02/05/21 07:18 Glucose (Fingerstick) 159 mg/dL (70-99) H Current Medications: Meds: Laboratory Tests Test 02/04/21 11:54 02/04/21 16:48 02/04/21 19:41 02/05/21 05:57 Glucose (Fingerstick) 260 mg/dL 275 mg/dL 277 mg/dL Sodium Level 134 mmol/L Potassium Level 4.1 mmol/L Chloride Level 99 mmol/L Carbon Dioxide Level 32 mmol/L Anion Gap 3 Blood Urea Nitrogen 12 mg/dL Creatinine 1.2 mg/dL Estimated GFR (Cockcroft-Gault) 44.9 BUN/Creatinine Ratio 10 Glucose Level 159 mg/dL Calcium Level 8.5 mg/dL Total Bilirubin 0.4 mg/dL Aspartate Amino Transf (AST/SGOT) 26 U/L Alanine Aminotransferase (ALT/SGPT) 19 U/L Alkaline Phosphatase 130 U/L Total Protein 5.9 g/dL Albumin 2.4 g/dL Albumin/Globulin Ratio 0.7 Test 02/05/21 07:18 Glucose (Fingerstick) 159 mg/dL Current Medications Medications (Trade) Dose Ordered Sig/Latesha Route PRN Reason Start Time Stop Time Status Last Admin Dose Admin Acetaminophen (Tylenol) 650 mg PRN Q6HRS PRN PO MILD PAIN / TEMP > 100.3'F 01/22/21 14:00 Cancel Multi-Ingredient Ointment (Analgesic [place]) 1 keri PRN QID PRN TP MUSCLE PAIN 01/22/21 14:00 Al Hydroxide/Mg Hydroxide (Mylanta Plus Xs) 15 ml PRN AFTMEALHC PRN PO DYSPEPSIA 01/22/21 14:00 Magnesium Hydroxide (Milk Of Magnesia) 2,400 mg PRN QHS PRN PO CONSTIPATION 01/22/21 14:00 Valproic Acid (Depakene) 500 mg QID PO 01/22/21 17:00 02/04/21 20:38 Acetaminophen (Tylenol) 500 mg QID PO 01/22/21 21:00 01/23/21 13:04 DC 01/23/21 08:29 Amlodipine Besylate (Norvasc) 5 mg DAILY PO 01/23/21 09:00 02/04/21 08:31 Atorvastatin Calcium (Lipitor) 20 mg QHS PO 01/22/21 21:00 02/04/21 20:38 Vitamin D (Vitamin D3) 1,000 unit DAILY PO 01/23/21 09:00 02/04/21 08:31 Hydrocortisone Acetate (Anucort-Hc) 25 mg PRN Q8HRS PRN RC hemorrhoids 01/22/21 20:00 Levothyroxine Sodium (Synthroid) 25 mcg DAILY06 PO 01/23/21 06:00 02/05/21 06:06 Lidocaine (Lidoderm) 1 patch DAILY TP 01/23/21 09:00 02/04/21 08:32 Mesalamine (Lialda) 1.2 gm DAILY PO 01/23/21 09:00 02/04/21 08:31 Metoprolol Tartrate (Lopressor) 25 mg BID PO 01/22/21 21:00 02/04/21 20:38 Quetiapine Fumarate (SEROquel) 50 mg TID PO 01/22/21 21:00 02/04/21 20:38 Risperidone (RisperDAL) 2 mg TID PO 01/22/21 21:00 02/04/21 20:38 Rivastigmine (Exelon) 1 patch DAILY TD 01/23/21 09:00 02/01/21 16:25 DC 02/01/21 08:42 Venlafaxine HCl (Effexor Xr) 37.5 mg DAILY PO 01/23/21 09:00 01/23/21 13:11 DC 01/23/21 08:29 Ziprasidone (Geodon) 40 mg BID PO 01/22/21 21:00 01/28/21 17:15 DC 01/28/21 08:52 Ziprasidone (Geodon) 80 mg QHS PO 01/22/21 21:00 01/22/21 20:17 DC Cyanocobalamin (Vitamin B-12) 1,000 mcg DAILY PO 01/23/21 09:00 02/04/21 08:31 Insulin Human Lispro (HumaLOG) 40 units TIDWMEALS SQ 01/23/21 08:00 02/04/21 17:19 Insulin Glargine (Lantus Syringe) 30 unit DAILY SQ 01/23/21 09:00 01/29/21 14:19 DC 01/29/21 09:00 Lactobacillus Rhamnosus (Culturelle) 1 cap BID PO 01/23/21 09:00 02/04/21 20:38 Non-Formulary Medication (Liraglutide (Victoza 3-Jas)) 1.8 mg DAILY SQ 01/23/21 09:00 UNV Meclizine HCl (Antivert) 25 mg BID PO 01/22/21 21:00 02/04/21 20:38 Psyllium Hydrophilic Mucilloid (Metamucil) 1 pkt BID PO 01/22/21 21:00 02/02/21 13:31 DC 02/01/21 08:42 Demeclocycline HCl (Declomycin) 150 mg TID PO 01/22/21 21:00 01/22/21 20:45 DC Olanzapine (ZyPREXA ZYDIS) 5 mg PRN Q2HR PRN PO PSYCHOSIS 01/22/21 20:30 Demeclocycline HCl (Declomycin) 300 mg TID PO 01/22/21 21:00 02/04/21 20:39 Acetaminophen/ Codeine Phosphate (Tylenol #3) 1 tab PRN QID PRN PO MODERATE PAIN 4-6 01/23/21 11:45 01/23/21 12:23 Acetaminophen (Tylenol) 500 mg PRN Q6HRS PRN PO MILD PAIN / TEMP > 100.3'F 01/23/21 13:15 02/04/21 08:31 Clozapine (Clozaril) 25 mg HS PO 01/23/21 21:00 01/30/21 18:59 DC 01/29/21 20:37 Insulin Glargine (Lantus Syringe) 40 unit BID SQ 01/29/21 21:00 01/31/21 17:42 DC 01/31/21 09:50 Clozapine (Clozaril) 50 mg HS PO 01/30/21 21:00 02/04/21 20:39 Insulin Glargine (Lantus Syringe) 60 unit BID SQ 01/31/21 17:45 01/31/21 18:17 DC Metformin HCl (Glucophage Xr) 500 mg DAILYWBKFT PO 02/01/21 08:00 02/04/21 08:31 Insulin Glargine (Lantus Syringe) 60 unit BID SQ 01/31/21 21:00 02/04/21 20:57 I have reviewed the current psychotropics carefully including drug interactions. Risk benefit ratio favors no change other than as noted in my dictated progress note. Diagnosis: Problems: (1) Schizoaffective disorder, bipolar type (2) Impulse control disorder, unspecified (3) Anxiety disorder, unspecified (4) Bipolar disorder, current episode manic severe with psychotic features INOCENCIO PELAEZ MD Feb 05, 2021 08:21
[2021-02-05] MEDS: INSULIN GLARGINE SYRINGE. SQ SCH ×2 (09:00→21:00)
[2021-02-05] MEDS: NON FORMULARY ITEM (Liraglutide (Victoza 3-Pak) 1.8 MG) SQ SCH (09:00)
[2021-02-05] MEDS: DEMECLOCYCLINE HCL 150 MG TABLET. PO SCH ×3 (09:20→21:00)
[2021-02-05] MEDS: risperiDONE 2 MG TABLET. PO SCH ×3 (09:21→21:01)
[2021-02-05] MEDS: metFORMIN XR 500 MG TAB.ER.24H PO SCH (09:21)
[2021-02-05] MEDS: MESALAMINE 1.2 GM TABLET.DR PO SCH (09:21)
[2021-02-05] MEDS: QUEtiapine 50 MG TABLET. PO SCH ×3 (09:21→21:01)
[2021-02-05] MEDS: MECLIZINE 12.5 MG TABLET. PO SCH ×2 (09:21→21:02)
[2021-02-05] MEDS: CHOLECALCIFEROL (VITAMIN D3) 1,000 UNIT TABLET PO SCH (09:21)
[2021-02-05] MEDS: LACTOBACILLUS RHAMNOSUS GG 1 CAPSULE. PO SCH ×2 (09:21→21:01)
[2021-02-05] MEDS: amLODIPine BESYLATE 5 MG TABLET PO SCH (09:21)
[2021-02-05] MEDS: VALPROIC ACID 250 MG CAPSULE. PO SCH ×4 (09:21→21:02)
[2021-02-05] MEDS: CYANOCOBALAMIN (VITAMIN B-12) 1,000 MCG TABLET. PO SCH (09:21)
[2021-02-05] MEDS: METOPROLOL TART IMMED RELEASE 25 MG TABLET. PO SCH ×2 (09:21→21:01)
[2021-02-05] MEDS: LIDOCAINE (700MG/PATCH) PATCH. TP SCH (09:23)
--- NOTE | 2021-02-05 15:49 | NUR ---
Nursing note: Client was in dinning room for morning medications & assessment, took medication whole. She is pleasant & compliant with medications & assessment. Report back/leg pain of a chronic nature. 3+ pitting edema present. Client somewhat confused, in room most of the day, this nurse encouraged client to participate in groups. She self propels on unit in wheelchair, occasionally walks behind.
[2021-02-05 15:58] VITALS: BP 118/78
[2021-02-05] MEDS: cloZAPine 25 MG TABLET PO SCH (21:01)
[2021-02-05] MEDS: ATORVASTATIN CALCIUM 20 MG TABLET PO SCH (21:02)
--- NOTE | 2021-02-05 21:54 | PDOC ---
Exam Note: Benedict Note: Please also refer to the separate dictated note~for this date of service dictated separately.~Patient seen individually. Discussed the patient with Nursing staff reviewed the chart.~Reviewed interim history and current functioning. Reviewed vital signs,~Labs/ Radiology~and current medications noted below. Continue current treatment with the changes noted in the dictated addendum note Assessment: Vital Signs/I&O: Vital Signs Date Time Temp Pulse Resp B/P (MAP) Pulse Ox O2 Delivery O2 Flow Rate FiO2 02/05/21 21:01 92 118/78 02/05/21 15:58 96.7 18 96 02/02/21 05:50 Room Air I & O 02/04/21 02/04/21 02/05/21 15:00 23:00 07:00 Intake Total 840 ml 480 ml 240 ml Balance 840 ml 480 ml 240 ml Labs: Laboratory Tests Test 02/05/21 05:57 02/05/21 07:18 02/05/21 11:25 02/05/21 16:24 Sodium Level 134 mmol/L (136-145) L Potassium Level 4.1 mmol/L (3.5-5.1) Chloride Level 99 mmol/L (98-107) Carbon Dioxide Level 32 mmol/L (21-32) Anion Gap 3 (6-14) L Blood Urea Nitrogen 12 mg/dL (7-20) Creatinine 1.2 mg/dL (0.6-1.0) H Estimated GFR (Cockcroft-Gault) 44.9 BUN/Creatinine Ratio 10 (6-20) Glucose Level 159 mg/dL (70-99) H Calcium Level 8.5 mg/dL (8.5-10.1) Total Bilirubin 0.4 mg/dL (0.2-1.0) Aspartate Amino Transferase (AST) 26 U/L (15-37) Alanine Aminotransferase (ALT) 19 U/L (14-59) Alkaline Phosphatase 130 U/L (46-116) H Total Protein 5.9 g/dL (6.4-8.2) L Albumin 2.4 g/dL (3.4-5.0) L Albumin/Globulin Ratio 0.7 (1.0-1.7) L Glucose (Fingerstick) 159 mg/dL (70-99) H 171 mg/dL (70-99) H 176 mg/dL (70-99) H Test 02/05/21 19:43 Glucose (Fingerstick) 301 mg/dL (70-99) H Current Medications: Meds: Laboratory Tests Test 02/05/21 05:57 02/05/21 07:18 02/05/21 11:25 02/05/21 16:24 Sodium Level 134 mmol/L Potassium Level 4.1 mmol/L Chloride Level 99 mmol/L Carbon Dioxide Level 32 mmol/L Anion Gap 3 Blood Urea Nitrogen 12 mg/dL Creatinine 1.2 mg/dL Estimated GFR (Cockcroft-Gault) 44.9 BUN/Creatinine Ratio 10 Glucose Level 159 mg/dL Calcium Level 8.5 mg/dL Total Bilirubin 0.4 mg/dL Aspartate Amino Transf (AST/SGOT) 26 U/L Alanine Aminotransferase (ALT/SGPT) 19 U/L Alkaline Phosphatase 130 U/L Total Protein 5.9 g/dL Albumin 2.4 g/dL Albumin/Globulin Ratio 0.7 Glucose (Fingerstick) 159 mg/dL 171 mg/dL 176 mg/dL Test 02/05/21 19:43 Glucose (Fingerstick) 301 mg/dL Current Medications Medications (Trade) Dose Ordered Sig/Latesha Route PRN Reason Start Time Stop Time Status Last Admin Dose Admin Acetaminophen (Tylenol) 650 mg PRN Q6HRS PRN PO MILD PAIN / TEMP > 100.3'F 01/22/21 14:00 Cancel Multi-Ingredient Ointment (Analgesic [place]) 1 keri PRN QID PRN TP MUSCLE PAIN 01/22/21 14:00 Al Hydroxide/Mg Hydroxide (Mylanta Plus Xs) 15 ml PRN AFTMEALHC PRN PO DYSPEPSIA 01/22/21 14:00 Magnesium Hydroxide (Milk Of Magnesia) 2,400 mg PRN QHS PRN PO CONSTIPATION 01/22/21 14:00 Valproic Acid (Depakene) 500 mg QID PO 01/22/21 17:00 02/05/21 21:02 Acetaminophen (Tylenol) 500 mg QID PO 01/22/21 21:00 01/23/21 13:04 DC 01/23/21 08:29 Amlodipine Besylate (Norvasc) 5 mg DAILY PO 01/23/21 09:00 02/05/21 09:21 Atorvastatin Calcium (Lipitor) 20 mg QHS PO 01/22/21 21:00 02/05/21 21:02 Vitamin D (Vitamin D3) 1,000 unit DAILY PO 01/23/21 09:00 02/05/21 09:21 Hydrocortisone Acetate (Anucort-Hc) 25 mg PRN Q8HRS PRN RC hemorrhoids 01/22/21 20:00 Levothyroxine Sodium (Synthroid) 25 mcg DAILY06 PO 01/23/21 06:00 02/05/21 06:06 Lidocaine (Lidoderm) 1 patch DAILY TP 01/23/21 09:00 02/05/21 09:23 Mesalamine (Lialda) 1.2 gm DAILY PO 01/23/21 09:00 02/05/21 09:21 Metoprolol Tartrate (Lopressor) 25 mg BID PO 01/22/21 21:00 02/05/21 21:01 Quetiapine Fumarate (SEROquel) 50 mg TID PO 01/22/21 21:00 02/05/21 21:01 Risperidone (RisperDAL) 2 mg TID PO 01/22/21 21:00 02/05/21 21:01 Rivastigmine (Exelon) 1 patch DAILY TD 01/23/21 09:00 02/01/21 16:25 DC 02/01/21 08:42 Venlafaxine HCl (Effexor Xr) 37.5 mg DAILY PO 01/23/21 09:00 01/23/21 13:11 DC 01/23/21 08:29 Ziprasidone (Geodon) 40 mg BID PO 01/22/21 21:00 01/28/21 17:15 DC 01/28/21 08:52 Ziprasidone (Geodon) 80 mg QHS PO 01/22/21 21:00 01/22/21 20:17 DC Cyanocobalamin (Vitamin B-12) 1,000 mcg DAILY PO 01/23/21 09:00 02/05/21 09:21 Insulin Human Lispro (HumaLOG) 40 units TIDWMEALS SQ 01/23/21 08:00 02/05/21 17:16 Insulin Glargine (Lantus Syringe) 30 unit DAILY SQ 01/23/21 09:00 01/29/21 14:19 DC 01/29/21 09:00 Lactobacillus Rhamnosus (Culturelle) 1 cap BID PO 01/23/21 09:00 02/05/21 21:01 Non-Formulary Medication (Liraglutide (Victoza 3-Jas)) 1.8 mg DAILY SQ 01/23/21 09:00 UNV Meclizine HCl (Antivert) 25 mg BID PO 01/22/21 21:00 02/05/21 21:02 Psyllium Hydrophilic Mucilloid (Metamucil) 1 pkt BID PO 01/22/21 21:00 02/02/21 13:31 DC 02/01/21 08:42 Demeclocycline HCl (Declomycin) 150 mg TID PO 01/22/21 21:00 01/22/21 20:45 DC Olanzapine (ZyPREXA ZYDIS) 5 mg PRN Q2HR PRN PO PSYCHOSIS 01/22/21 20:30 Demeclocycline HCl (Declomycin) 300 mg TID PO 01/22/21 21:00 02/05/21 14:26 Acetaminophen/ Codeine Phosphate (Tylenol #3) 1 tab PRN QID PRN PO MODERATE PAIN 4-6 01/23/21 11:45 01/23/21 12:23 Acetaminophen (Tylenol) 500 mg PRN Q6HRS PRN PO MILD PAIN / TEMP > 100.3'F 01/23/21 13:15 02/04/21 08:31 Clozapine (Clozaril) 25 mg HS PO 01/23/21 21:00 01/30/21 18:59 DC 01/29/21 20:37 Insulin Glargine (Lantus Syringe) 40 unit BID SQ 01/29/21 21:00 01/31/21 17:42 DC 01/31/21 09:50 Clozapine (Clozaril) 50 mg HS PO 01/30/21 21:00 02/05/21 21:01 Insulin Glargine (Lantus Syringe) 60 unit BID SQ 01/31/21 17:45 01/31/21 18:17 DC Metformin HCl (Glucophage Xr) 500 mg DAILYWBKFT PO 02/01/21 08:00 02/05/21 09:21 Insulin Glargine (Lantus Syringe) 60 unit BID SQ 01/31/21 21:00 02/05/21 21:00 I have reviewed the current psychotropics carefully including drug interactions. Risk benefit ratio favors no change other than as noted in my dictated progress note. Diagnosis: Problems: (1) Schizoaffective disorder, bipolar type (2) Impulse control disorder, unspecified (3) Anxiety disorder, unspecified (4) Bipolar disorder, current episode manic severe with psychotic features INOCENCIO PELAEZ MD Feb 05, 2021 21:54
--- NOTE | 2021-02-06 03:53 | NUR ---
Patient was alert and oriented x2, pleasant, calm and interacted respectfully with staff and peers. She was compliant with all her bedtime medications, consumed all her snacks with no signs of nausea and vomiting. She is able to make needs known and denies any pain. After about 2 hours of TV and some snacks, patient retired to her room where she stayed in bed with eyes closed, breathing calmly and normally, showing no signs of distress.
[2021-02-06 05:52] VITALS: BP 116/73
[2021-02-06] MEDS: LEVOTHYROXINE 25 MCG TABLET. PO SCH (06:00)
--- NOTE | 2021-02-06 06:57 | PDOC ---
Exam Note: Benedict Note: This note is a late entry for 02/05/2021 covers elements not covered in my initial note. Subjective: The patient was seen individually in the evening of 02/05/2021 with Jasmin CARRERA, discussed and reviewed the chart. The patient slept 4-1/4 hours previous night. We will repeat electrolytes. I met with her outside her room. Review of Systems: Gait unsteady with wheelchair. No CV, , pulmonary, eye, ENT system symptoms on review. Mental Status Exam: The patient is alert and oriented. She remains somewhat hyperverbal, anxious, but appropriate, pleasant, appreciative of the care. Abstraction fair. Computation impaired. Language function intact. Mood and affect still anxious, but labile. Laboratory Data: Reviewed. Impression: Schizoaffective disorder, bipolar type mixed with psychotic features. Anxiety disorder unspecified. Impulse control disorder unspecified. Plan: No change from initial note. Valproic acid level is therapeutic. Adjust further as clinically indicated. Assessment: Vital Signs/I&O: Vital Signs Date Time Temp Pulse Resp B/P (MAP) Pulse Ox O2 Delivery O2 Flow Rate FiO2 02/06/21 05:52 97.4 90 18 116/73 (87) 97 02/02/21 05:50 Room Air I & O 02/05/21 02/05/21 02/06/21 15:00 23:00 07:00 Intake Total 840 ml 360 ml 240 ml Balance 840 ml 360 ml 240 ml Labs: Laboratory Tests Test 02/05/21 07:18 02/05/21 11:25 02/05/21 16:24 02/05/21 19:43 Glucose (Fingerstick) 159 mg/dL (70-99) H 171 mg/dL (70-99) H 176 mg/dL (70-99) H 301 mg/dL (70-99) H Current Medications: Meds: Laboratory Tests Test 02/05/21 07:18 02/05/21 11:25 02/05/21 16:24 02/05/21 19:43 Glucose (Fingerstick) 159 mg/dL 171 mg/dL 176 mg/dL 301 mg/dL Current Medications Medications (Trade) Dose Ordered Sig/Latesha Route PRN Reason Start Time Stop Time Status Last Admin Dose Admin Acetaminophen (Tylenol) 650 mg PRN Q6HRS PRN PO MILD PAIN / TEMP > 100.3'F 01/22/21 14:00 Cancel Multi-Ingredient Ointment (Analgesic [place]) 1 keri PRN QID PRN TP MUSCLE PAIN 01/22/21 14:00 Al Hydroxide/Mg Hydroxide (Mylanta Plus Xs) 15 ml PRN AFTMEALHC PRN PO DYSPEPSIA 01/22/21 14:00 Magnesium Hydroxide (Milk Of Magnesia) 2,400 mg PRN QHS PRN PO CONSTIPATION 01/22/21 14:00 Valproic Acid (Depakene) 500 mg QID PO 01/22/21 17:00 02/05/21 21:02 Acetaminophen (Tylenol) 500 mg QID PO 01/22/21 21:00 01/23/21 13:04 DC 01/23/21 08:29 Amlodipine Besylate (Norvasc) 5 mg DAILY PO 01/23/21 09:00 02/05/21 09:21 Atorvastatin Calcium (Lipitor) 20 mg QHS PO 01/22/21 21:00 02/05/21 21:02 Vitamin D (Vitamin D3) 1,000 unit DAILY PO 01/23/21 09:00 02/05/21 09:21 Hydrocortisone Acetate (Anucort-Hc) 25 mg PRN Q8HRS PRN RC hemorrhoids 01/22/21 20:00 Levothyroxine Sodium (Synthroid) 25 mcg DAILY06 PO 01/23/21 06:00 02/06/21 06:00 Lidocaine (Lidoderm) 1 patch DAILY TP 01/23/21 09:00 02/05/21 09:23 Mesalamine (Lialda) 1.2 gm DAILY PO 01/23/21 09:00 02/05/21 09:21 Metoprolol Tartrate (Lopressor) 25 mg BID PO 01/22/21 21:00 02/05/21 21:01 Quetiapine Fumarate (SEROquel) 50 mg TID PO 01/22/21 21:00 02/05/21 21:01 Risperidone (RisperDAL) 2 mg TID PO 01/22/21 21:00 02/05/21 21:01 Rivastigmine (Exelon) 1 patch DAILY TD 01/23/21 09:00 02/01/21 16:25 DC 02/01/21 08:42 Venlafaxine HCl (Effexor Xr) 37.5 mg DAILY PO 01/23/21 09:00 01/23/21 13:11 DC 01/23/21 08:29 Ziprasidone (Geodon) 40 mg BID PO 01/22/21 21:00 01/28/21 17:15 DC 01/28/21 08:52 Ziprasidone (Geodon) 80 mg QHS PO 01/22/21 21:00 01/22/21 20:17 DC Cyanocobalamin (Vitamin B-12) 1,000 mcg DAILY PO 01/23/21 09:00 02/05/21 09:21 Insulin Human Lispro (HumaLOG) 40 units TIDWMEALS SQ 01/23/21 08:00 02/05/21 17:16 Insulin Glargine (Lantus Syringe) 30 unit DAILY SQ 01/23/21 09:00 01/29/21 14:19 DC 01/29/21 09:00 Lactobacillus Rhamnosus (Culturelle) 1 cap BID PO 01/23/21 09:00 02/05/21 21:01 Non-Formulary Medication (Liraglutide (Victoza 3-Jas)) 1.8 mg DAILY SQ 01/23/21 09:00 UNV Meclizine HCl (Antivert) 25 mg BID PO 01/22/21 21:00 02/05/21 21:02 Psyllium Hydrophilic Mucilloid (Metamucil) 1 pkt BID PO 01/22/21 21:00 02/02/21 13:31 DC 02/01/21 08:42 Demeclocycline HCl (Declomycin) 150 mg TID PO 01/22/21 21:00 01/22/21 20:45 DC Olanzapine (ZyPREXA ZYDIS) 5 mg PRN Q2HR PRN PO PSYCHOSIS 01/22/21 20:30 Demeclocycline HCl (Declomycin) 300 mg TID PO 01/22/21 21:00 02/05/21 14:26 Acetaminophen/ Codeine Phosphate (Tylenol #3) 1 tab PRN QID PRN PO MODERATE PAIN 4-6 01/23/21 11:45 01/23/21 12:23 Acetaminophen (Tylenol) 500 mg PRN Q6HRS PRN PO MILD PAIN / TEMP > 100.3'F 01/23/21 13:15 02/04/21 08:31 Clozapine (Clozaril) 25 mg HS PO 01/23/21 21:00 01/30/21 18:59 DC 01/29/21 20:37 Insulin Glargine (Lantus Syringe) 40 unit BID SQ 01/29/21 21:00 01/31/21 17:42 DC 01/31/21 09:50 Clozapine (Clozaril) 50 mg HS PO 01/30/21 21:00 02/05/21 21:01 Insulin Glargine (Lantus Syringe) 60 unit BID SQ 01/31/21 17:45 01/31/21 18:17 DC Metformin HCl (Glucophage Xr) 500 mg DAILYWBKFT PO 02/01/21 08:00 02/05/21 09:21 Insulin Glargine (Lantus Syringe) 60 unit BID SQ 01/31/21 21:00 02/05/21 21:00 I have reviewed the current psychotropics carefully including drug interactions. Risk benefit ratio favors no change other than as noted in my dictated progress note. Diagnosis: Problems: (1) Schizoaffective disorder, bipolar type (2) Impulse control disorder, unspecified (3) Anxiety disorder, unspecified (4) Bipolar disorder, current episode manic severe with psychotic features INOCENCIO PELAEZ MD Feb 06, 2021 06:57
[2021-02-06] MEDS: INSULIN LISPRO 300 UNITS/3 ML VIAL. SQ SCH ×3 (08:00→17:23)
[2021-02-06] MEDS: metFORMIN XR 500 MG TAB.ER.24H PO SCH (08:00)
[2021-02-06] MEDS: METOPROLOL TART IMMED RELEASE 25 MG TABLET. PO SCH ×2 (09:00→21:16)
[2021-02-06] MEDS: QUEtiapine 50 MG TABLET. PO SCH ×3 (09:00→21:16)
[2021-02-06] MEDS: LACTOBACILLUS RHAMNOSUS GG 1 CAPSULE. PO SCH ×2 (09:00→21:16)
[2021-02-06] MEDS: risperiDONE 2 MG TABLET. PO SCH ×3 (09:00→21:15)
[2021-02-06] MEDS: VALPROIC ACID 250 MG CAPSULE. PO SCH ×4 (09:00→21:16)
[2021-02-06] MEDS: amLODIPine BESYLATE 5 MG TABLET PO SCH (09:00)
[2021-02-06] MEDS: NON FORMULARY ITEM (Liraglutide (Victoza 3-Pak) 1.8 MG) SQ SCH (09:00)
[2021-02-06] MEDS: DEMECLOCYCLINE HCL 150 MG TABLET. PO SCH ×3 (09:00→21:16)
[2021-02-06] MEDS: MECLIZINE 12.5 MG TABLET. PO SCH ×2 (09:00→21:16)
[2021-02-06] MEDS: LIDOCAINE (700MG/PATCH) PATCH. TP SCH (09:00)
[2021-02-06] MEDS: INSULIN GLARGINE SYRINGE. SQ SCH ×2 (09:00→21:00)
[2021-02-06] MEDS: CHOLECALCIFEROL (VITAMIN D3) 1,000 UNIT TABLET PO SCH (09:00)
[2021-02-06] MEDS: MESALAMINE 1.2 GM TABLET.DR PO SCH (09:00)
[2021-02-06] MEDS: CYANOCOBALAMIN (VITAMIN B-12) 1,000 MCG TABLET. PO SCH (09:00)
--- NOTE | 2021-02-06 11:48 | TX PLAN ---
Interdisciplinary Tx Plan Admission Information Jan 22, 2021 at 13:21 Legal Status (on Admission): Voluntary DPOA/Guardian Name: Myron Murdock Contact Other Contact Name: Blanca Other Contact Verified Code Status: Full Code Allergies: Coded Allergies: Penicillins (Verified Allergy, Unknown, 01/22/21) lithium (Verified Allergy, Unknown, 01/22/21) olanzapine (Verified Allergy, Unknown, 01/22/21) Diagnoses Primary Diagnosis: (1) Schizoaffective disorder, bipolar type Reasons for Admission: Delusions, Agitated, Angry, Suspicious/paranoid, Other Problem in Patient's Words: When SW approached pt for assessment, 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 She was very manic and reporting that she was struggling with symptoms of pneumonia. Per son/guardian, Myron, pt has been struggling with delusional thinking for a long time. She was recently at [facility] for about a month in November of this year. She was discharged because she was not presenting with threatening behaviors, but Myron believed she was still delusional at time of discharge. Myron states that she continued to be delusional after that hospitalization after she returned to her facility. Additional Admission Comments: Per intake record, pt is delusional thinking she has kidney failure, heart failure, and pneumonia. She was demanding to go to the hospital. She presents with rogelio, labile mood, yelling, crying, angry, agitated, refusing medications and blood sugar checks, and threatening to use pocket knife on staff. She believes she owns the halfway. Problems Active Problems: Delusional, paranoid, anger, agitation Inactive Problems: None noted at this time Pt Strengths/Limitations Ability for [place]: Poor Cognitive Functioning/Ability: Fair Communication Skills/Ability: Good Financial Resources: Fair Insight/Judgement: Poor Intellectual Ability: Fair Physical Health: Poor Social Skills: Fair Stability in Family: Good Stability in School/Work: Fair Verbal Skills: Good Discharge Criteria Discharge Criteria: Adequate arrangements @DC, Adequate self-care, Verbal commit med comply, Improved behavior, Improved mood/thought Other Discharge Comments: None noted at this time. Preliminary Discharge Plan Preliminary DC Plan: Current Living Arrange. Special Precautions Special Precautions: Agitation/Assault Fall Risk: Moderate Initial D/C Plan Pt plans to return to [facility] on [address]. Identified Discharge Needs: None noted at this time. Currently Utilized Resources Currently Utilized Resources/P: PCP-Dr. Estevez [facility] on [address] Son/Guardian-Myron Murdock Referrals Community Resources: None noted at this time. Identified Problems/Hx/Goals Objectives/Short-Term Goals Short Term Goals: Control abnormal behavior, Dec. Aggression, Dec. Hallucination/Delus, Dec. Outbursts, Medication Stabilization, Monitor Med Effects, Prevent Deterioration, Promote Coping Skill Short Term Goals in Patient's: To help stabilize mood, find effective coping stratigies to reduce delusional beliefs, Find a medication regimen that will help control symptoms of Schizoeffective DO. Interventions/Frequency Staff Interventions/Frequency&: Psychiatry to assess pt three times per week for medication management. Nursing to assess behaviors, monitor medications, and complete 15 minute checks daily. Social work to see pt at least two times weekly to aid in return to placement. Activities to encourage pt to participate in group activities daily. 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 Education: Pt completed high school in [place] and gained her associates RN degree. Community Follow-up PCP Community Provider/Family Inpu: Pt son/guardian, Myron, aware of pt hospitalization and is available for further information as needed. Treatment Plan Explained Patient/Design Consultant had this treatment plan explained to him/her as indicated by the signature below and has been given the opportunity to ask questions and make suggestions: Date: Patient/Design Consultant Signature: Status Update Update Gabriela continues to average eating 90% of her meals and is sleeping 6.4 hours. Pt is demonstrating less grandiosity about being a physician, an real estate attorney, or a adames. She has been medication compliant. Pt has complained of some back and hip pain that will continue to be monitored. Pt's feet look a bit better and not as swollen. However, she needs to continue to keep them elevated as much as possible. Sodium level/electrolyte level will be repeated in a couple of days to ensure they are still good. Pt stays mostly in her room and does not participate much in groups, however, she will occasionally pt go to dayroom to watch television. Pt will return to [facility] on [address] once stable. PABLO DUMONT Feb 06, 2021 11:48
--- NOTE | 2021-02-06 12:32 | NUR ---
WEEKLY ACTIVITY THERAPY NOTE Date of Admission: 01/22/21 Date of AT Assessment: 01/24 Precipitating behaviors that initiated intake and admission:delusional- thinks she has kidney failure/heart failure/pneumonia, demanding to go to the hospital, manic, labile mood, yelling, crying, angry, agitated, refusing meds & blood sugar checks, threatening to use pocket knife on staff, believes she owns the senior care Goal aimed: increase stress management and relaxation skills Initial Goal: Pt will participate in at least five individual or group Activity Therapy sessions per week Weekly progress towards goal: did not achieve, 0/5 Group participation level: none Weekly highlights: no group participation Behaviors observed: withdrawn to room Plan: change goal to: Pt will participate in at least three individual or group Activity Therapy sessions before discharge. Beneficial adaptations:
--- NOTE | 2021-02-06 15:30 | NUR ---
Weekly Note: Gabriela continues to average eating 90% of her meals and is sleeping 6.4 hours. Pt is demonstrating less grandiosity about being a physician, an banking attorney, or a adames. She has been medication compliant. Pt has complained of some back and hip pain that will continue to be monitored. Pt's feet look a bit better and not as swollen. However, she needs to continue to keep them elevated as much as possible. Sodium level/electrolyte level will be repeated in a couple of days to ensure they are still good. Pt stays mostly in her room and does not participate much in groups, however, she will occasionally pt go to day room to watch television. Pt will return to [facility] on once stable. HUMBERTO, also, spoke with pt today to go over treatment team conversation and discharge timeline. Pt agreeable, but would really like to be able to d/c before February 16 as her son's will be coming to town. HUMBERTO then spoke with Blanca from pt facility to provide update. Blanca appreciative of call. HUMBERTO left for pt son/DPOA, Myron, with update and call back number.
[2021-02-06 16:09] VITALS: BP 117/76
--- NOTE | 2021-02-06 18:30 | NUR ---
Patient has been withdrawn, delusional, and attention seeking throughout this shift. She states that her pneumonia is getting worse; patient has a new wheeze, will report to MD during rounds. Patient continues to use wheelchair. Will continue to monitor and report to oncoming shift.
[2021-02-06] MEDS: ATORVASTATIN CALCIUM 20 MG TABLET PO SCH (21:16)
[2021-02-06] MEDS: cloZAPine 25 MG TABLET PO SCH (21:16)
--- NOTE | 2021-02-06 22:04 | PDOC ---
Exam Note: Benedict Note: Please also refer to the separate dictated note~for this date of service dictated separately.~Patient seen individually. Discussed the patient with Nursing staff reviewed the chart.~Reviewed interim history and current functioning. Reviewed vital signs,~Labs/ Radiology~and current medications noted below. Continue current treatment with the changes noted in the dictated addendum note Assessment: Vital Signs/I&O: Vital Signs Date Time Temp Pulse Resp B/P (MAP) Pulse Ox O2 Delivery O2 Flow Rate FiO2 02/06/21 21:16 94 117/76 02/06/21 16:09 97.2 19 98 Room Air I & O 02/05/21 02/05/21 02/06/21 15:00 23:00 07:00 Intake Total 840 ml 360 ml 240 ml Balance 840 ml 360 ml 240 ml Labs: Laboratory Tests Test 02/06/21 07:37 02/06/21 11:58 02/06/21 17:14 02/06/21 19:22 Glucose (Fingerstick) 135 mg/dL (70-99) H 305 mg/dL (70-99) H 189 mg/dL (70-99) H 217 mg/dL (70-99) H Current Medications: Meds: Laboratory Tests Test 02/06/21 07:37 02/06/21 11:58 02/06/21 17:14 02/06/21 19:22 Glucose (Fingerstick) 135 mg/dL 305 mg/dL 189 mg/dL 217 mg/dL Current Medications Medications (Trade) Dose Ordered Sig/Latesha Route PRN Reason Start Time Stop Time Status Last Admin Dose Admin Acetaminophen (Tylenol) 650 mg PRN Q6HRS PRN PO MILD PAIN / TEMP > 100.3'F 01/22/21 14:00 Cancel Multi-Ingredient Ointment (Analgesic [place]) 1 keri PRN QID PRN TP MUSCLE PAIN 01/22/21 14:00 Al Hydroxide/Mg Hydroxide (Mylanta Plus Xs) 15 ml PRN AFTMEALHC PRN PO DYSPEPSIA 01/22/21 14:00 Magnesium Hydroxide (Milk Of Magnesia) 2,400 mg PRN QHS PRN PO CONSTIPATION 01/22/21 14:00 Valproic Acid (Depakene) 500 mg QID PO 01/22/21 17:00 02/06/21 21:16 Acetaminophen (Tylenol) 500 mg QID PO 01/22/21 21:00 01/23/21 13:04 DC 01/23/21 08:29 Amlodipine Besylate (Norvasc) 5 mg DAILY PO 01/23/21 09:00 02/06/21 09:00 Atorvastatin Calcium (Lipitor) 20 mg QHS PO 01/22/21 21:00 02/06/21 21:16 Vitamin D (Vitamin D3) 1,000 unit DAILY PO 01/23/21 09:00 02/06/21 09:00 Hydrocortisone Acetate (Anucort-Hc) 25 mg PRN Q8HRS PRN RC hemorrhoids 01/22/21 20:00 Levothyroxine Sodium (Synthroid) 25 mcg DAILY06 PO 01/23/21 06:00 02/06/21 06:00 Lidocaine (Lidoderm) 1 patch DAILY TP 01/23/21 09:00 02/06/21 09:00 Mesalamine (Lialda) 1.2 gm DAILY PO 01/23/21 09:00 02/06/21 09:00 Metoprolol Tartrate (Lopressor) 25 mg BID PO 01/22/21 21:00 02/06/21 21:16 Quetiapine Fumarate (SEROquel) 50 mg TID PO 01/22/21 21:00 02/06/21 21:16 Risperidone (RisperDAL) 2 mg TID PO 01/22/21 21:00 02/06/21 21:15 Rivastigmine (Exelon) 1 patch DAILY TD 01/23/21 09:00 02/01/21 16:25 DC 02/01/21 08:42 Venlafaxine HCl (Effexor Xr) 37.5 mg DAILY PO 01/23/21 09:00 01/23/21 13:11 DC 01/23/21 08:29 Ziprasidone (Geodon) 40 mg BID PO 01/22/21 21:00 01/28/21 17:15 DC 01/28/21 08:52 Ziprasidone (Geodon) 80 mg QHS PO 01/22/21 21:00 01/22/21 20:17 DC Cyanocobalamin (Vitamin B-12) 1,000 mcg DAILY PO 01/23/21 09:00 02/06/21 09:00 Insulin Human Lispro (HumaLOG) 40 units TIDWMEALS SQ 01/23/21 08:00 02/06/21 17:23 Insulin Glargine (Lantus Syringe) 30 unit DAILY SQ 01/23/21 09:00 01/29/21 14:19 DC 01/29/21 09:00 Lactobacillus Rhamnosus (Culturelle) 1 cap BID PO 01/23/21 09:00 02/06/21 21:16 Non-Formulary Medication (Liraglutide (Victoza 3-Jas)) 1.8 mg DAILY SQ 01/23/21 09:00 UNV Meclizine HCl (Antivert) 25 mg BID PO 01/22/21 21:00 02/06/21 21:16 Psyllium Hydrophilic Mucilloid (Metamucil) 1 pkt BID PO 01/22/21 21:00 02/02/21 13:31 DC 02/01/21 08:42 Demeclocycline HCl (Declomycin) 150 mg TID PO 01/22/21 21:00 01/22/21 20:45 DC Olanzapine (ZyPREXA ZYDIS) 5 mg PRN Q2HR PRN PO PSYCHOSIS 01/22/21 20:30 Demeclocycline HCl (Declomycin) 300 mg TID PO 01/22/21 21:00 02/06/21 21:16 Acetaminophen/ Codeine Phosphate (Tylenol #3) 1 tab PRN QID PRN PO MODERATE PAIN 4-6 01/23/21 11:45 01/23/21 12:23 Acetaminophen (Tylenol) 500 mg PRN Q6HRS PRN PO MILD PAIN / TEMP > 100.3'F 01/23/21 13:15 02/04/21 08:31 Clozapine (Clozaril) 25 mg HS PO 01/23/21 21:00 01/30/21 18:59 DC 01/29/21 20:37 Insulin Glargine (Lantus Syringe) 40 unit BID SQ 01/29/21 21:00 01/31/21 17:42 DC 01/31/21 09:50 Clozapine (Clozaril) 50 mg HS PO 01/30/21 21:00 02/06/21 21:16 Insulin Glargine (Lantus Syringe) 60 unit BID SQ 01/31/21 17:45 01/31/21 18:17 DC Metformin HCl (Glucophage Xr) 500 mg DAILYWBKFT PO 02/01/21 08:00 02/06/21 08:00 Insulin Glargine (Lantus Syringe) 60 unit BID SQ 01/31/21 21:00 02/06/21 21:00 I have reviewed the current psychotropics carefully including drug interactions. Risk benefit ratio favors no change other than as noted in my dictated progress note. Diagnosis: Problems: (1) Schizoaffective disorder, bipolar type (2) Impulse control disorder, unspecified (3) Anxiety disorder, unspecified (4) Bipolar disorder, current episode manic severe with psychotic features INOCENCIO PELAEZ MD Feb 06, 2021 22:04
--- NOTE | 2021-02-06 23:20 | NUR ---
Pt located in her room this evening. Pt states that she has been too tired today to get out of bed. Compliant with whole medications. Wheezes noted on RUL, RLL. Pt has productive cough. Green/yellow sputum per pt. Will pass on to oncoming shift.
[2021-02-07 05:45] VITALS: BP 125/66
[2021-02-07] MEDS: LEVOTHYROXINE 25 MCG TABLET. PO SCH (06:00)
[2021-02-07] MEDS: NON FORMULARY ITEM (Liraglutide (Victoza 3-Pak) 1.8 MG) SQ SCH (09:00)
[2021-02-07] MEDS: LACTOBACILLUS RHAMNOSUS GG 1 CAPSULE. PO SCH ×2 (10:24→20:47)
[2021-02-07] MEDS: metFORMIN XR 500 MG TAB.ER.24H PO SCH (10:24)
[2021-02-07] MEDS: MECLIZINE 12.5 MG TABLET. PO SCH ×2 (10:24→20:47)
[2021-02-07] MEDS: VALPROIC ACID 250 MG CAPSULE. PO SCH ×4 (10:25→20:47)
[2021-02-07] MEDS: QUEtiapine 50 MG TABLET. PO SCH ×3 (10:25→20:48)
[2021-02-07] MEDS: CYANOCOBALAMIN (VITAMIN B-12) 1,000 MCG TABLET. PO SCH (10:25)
[2021-02-07] MEDS: METOPROLOL TART IMMED RELEASE 25 MG TABLET. PO SCH ×2 (10:26→20:48)
[2021-02-07] MEDS: DEMECLOCYCLINE HCL 150 MG TABLET. PO SCH ×3 (10:26→20:47)
[2021-02-07] MEDS: MESALAMINE 1.2 GM TABLET.DR PO SCH (10:26)
[2021-02-07] MEDS: CHOLECALCIFEROL (VITAMIN D3) 1,000 UNIT TABLET PO SCH (10:27)
[2021-02-07] MEDS: amLODIPine BESYLATE 5 MG TABLET PO SCH (10:27)
[2021-02-07] MEDS: risperiDONE 2 MG TABLET. PO SCH ×3 (10:27→20:48)
[2021-02-07] MEDS: LIDOCAINE (700MG/PATCH) PATCH. TP SCH (10:28)
[2021-02-07] MEDS: INSULIN LISPRO 300 UNITS/3 ML VIAL. SQ SCH ×3 (10:29→17:36)
[2021-02-07] MEDS: INSULIN GLARGINE SYRINGE. SQ SCH ×2 (10:30→20:48)
[2021-02-07 16:23] VITALS: BP 113/54
--- NOTE | 2021-02-07 18:12 | NUR ---
Patient has been withdrawn, delusional, and attention seeking throughout this shift. She has spent more time in the day room being interactive with peers and staff. Patient continues to use wheelchair at times. Will continue to monitor and report to oncoming shift.
[2021-02-07] MEDS: cloZAPine 25 MG TABLET PO SCH (20:47)
[2021-02-07] MEDS: ATORVASTATIN CALCIUM 20 MG TABLET PO SCH (20:48)
--- NOTE | 2021-02-07 22:00 | PDOC ---
Exam Note: Benedict Note: Please also refer to the separate dictated note~for this date of service dictated separately.~Patient seen individually. Discussed the patient with Nursing staff reviewed the chart.~Reviewed interim history and current functioning. Reviewed vital signs,~Labs/ Radiology~and current medications noted below. Continue current treatment with the changes noted in the dictated addendum note Assessment: Vital Signs/I&O: Vital Signs Date Time Temp Pulse Resp B/P (MAP) Pulse Ox O2 Delivery O2 Flow Rate FiO2 02/07/21 20:48 103 113/54 02/07/21 16:23 98.1 20 95 Room Air I & O 02/06/21 02/06/21 02/07/21 14:59 22:59 06:59 Intake Total 720 ml 480 ml Balance 720 ml 480 ml Labs: Laboratory Tests Test 02/07/21 08:10 02/07/21 12:10 02/07/21 17:20 02/07/21 19:09 Glucose (Fingerstick) 100 mg/dL (70-99) H 205 mg/dL (70-99) H 244 mg/dL (70-99) H 291 mg/dL (70-99) H Current Medications: Meds: Laboratory Tests Test 02/07/21 08:10 02/07/21 12:10 02/07/21 17:20 02/07/21 19:09 Glucose (Fingerstick) 100 mg/dL 205 mg/dL 244 mg/dL 291 mg/dL Current Medications Medications (Trade) Dose Ordered Sig/Latesha Route PRN Reason Start Time Stop Time Status Last Admin Dose Admin Acetaminophen (Tylenol) 650 mg PRN Q6HRS PRN PO MILD PAIN / TEMP > 100.3'F 01/22/21 14:00 Cancel Multi-Ingredient Ointment (Analgesic [place]) 1 keri PRN QID PRN TP MUSCLE PAIN 01/22/21 14:00 Al Hydroxide/Mg Hydroxide (Mylanta Plus Xs) 15 ml PRN AFTMEALHC PRN PO DYSPEPSIA 01/22/21 14:00 Magnesium Hydroxide (Milk Of Magnesia) 2,400 mg PRN QHS PRN PO CONSTIPATION 01/22/21 14:00 Valproic Acid (Depakene) 500 mg QID PO 01/22/21 17:00 02/07/21 20:47 Acetaminophen (Tylenol) 500 mg QID PO 01/22/21 21:00 01/23/21 13:04 DC 01/23/21 08:29 Amlodipine Besylate (Norvasc) 5 mg DAILY PO 01/23/21 09:00 02/07/21 10:27 Atorvastatin Calcium (Lipitor) 20 mg QHS PO 01/22/21 21:00 02/07/21 20:48 Vitamin D (Vitamin D3) 1,000 unit DAILY PO 01/23/21 09:00 02/07/21 10:27 Hydrocortisone Acetate (Anucort-Hc) 25 mg PRN Q8HRS PRN RC hemorrhoids 01/22/21 20:00 Levothyroxine Sodium (Synthroid) 25 mcg DAILY06 PO 01/23/21 06:00 02/07/21 06:00 Lidocaine (Lidoderm) 1 patch DAILY TP 01/23/21 09:00 02/07/21 10:28 Mesalamine (Lialda) 1.2 gm DAILY PO 01/23/21 09:00 02/07/21 10:26 Metoprolol Tartrate (Lopressor) 25 mg BID PO 01/22/21 21:00 02/07/21 20:48 Quetiapine Fumarate (SEROquel) 50 mg TID PO 01/22/21 21:00 02/07/21 20:48 Risperidone (RisperDAL) 2 mg TID PO 01/22/21 21:00 02/07/21 20:48 Rivastigmine (Exelon) 1 patch DAILY TD 01/23/21 09:00 02/01/21 16:25 DC 02/01/21 08:42 Venlafaxine HCl (Effexor Xr) 37.5 mg DAILY PO 01/23/21 09:00 01/23/21 13:11 DC 01/23/21 08:29 Ziprasidone (Geodon) 40 mg BID PO 01/22/21 21:00 01/28/21 17:15 DC 01/28/21 08:52 Ziprasidone (Geodon) 80 mg QHS PO 01/22/21 21:00 01/22/21 20:17 DC Cyanocobalamin (Vitamin B-12) 1,000 mcg DAILY PO 01/23/21 09:00 02/07/21 10:25 Insulin Human Lispro (HumaLOG) 40 units TIDWMEALS SQ 01/23/21 08:00 02/07/21 17:36 Insulin Glargine (Lantus Syringe) 30 unit DAILY SQ 01/23/21 09:00 01/29/21 14:19 DC 01/29/21 09:00 Lactobacillus Rhamnosus (Culturelle) 1 cap BID PO 01/23/21 09:00 02/07/21 20:47 Non-Formulary Medication (Liraglutide (Victoza 3-Jas)) 1.8 mg DAILY SQ 01/23/21 09:00 UNV Meclizine HCl (Antivert) 25 mg BID PO 01/22/21 21:00 02/07/21 20:47 Psyllium Hydrophilic Mucilloid (Metamucil) 1 pkt BID PO 01/22/21 21:00 02/02/21 13:31 DC 02/01/21 08:42 Demeclocycline HCl (Declomycin) 150 mg TID PO 01/22/21 21:00 01/22/21 20:45 DC Olanzapine (ZyPREXA ZYDIS) 5 mg PRN Q2HR PRN PO PSYCHOSIS 01/22/21 20:30 Demeclocycline HCl (Declomycin) 300 mg TID PO 01/22/21 21:00 02/07/21 20:47 Acetaminophen/ Codeine Phosphate (Tylenol #3) 1 tab PRN QID PRN PO MODERATE PAIN 4-6 01/23/21 11:45 01/23/21 12:23 Acetaminophen (Tylenol) 500 mg PRN Q6HRS PRN PO MILD PAIN / TEMP > 100.3'F 01/23/21 13:15 02/04/21 08:31 Clozapine (Clozaril) 25 mg HS PO 01/23/21 21:00 01/30/21 18:59 DC 01/29/21 20:37 Insulin Glargine (Lantus Syringe) 40 unit BID SQ 01/29/21 21:00 01/31/21 17:42 DC 01/31/21 09:50 Clozapine (Clozaril) 50 mg HS PO 01/30/21 21:00 02/07/21 20:47 Insulin Glargine (Lantus Syringe) 60 unit BID SQ 01/31/21 17:45 01/31/21 18:17 DC Metformin HCl (Glucophage Xr) 500 mg DAILYWBKFT PO 02/01/21 08:00 02/07/21 10:24 Insulin Glargine (Lantus Syringe) 60 unit BID SQ 01/31/21 21:00 02/07/21 20:48 I have reviewed the current psychotropics carefully including drug interactions. Risk benefit ratio favors no change other than as noted in my dictated progress note. Diagnosis: Problems: (1) Schizoaffective disorder, bipolar type (2) Impulse control disorder, unspecified (3) Anxiety disorder, unspecified (4) Bipolar disorder, current episode manic severe with psychotic features INOCENCIO PELAEZ MD Feb 07, 2021 22:00
--- NOTE | 2021-02-07 22:46 | NUR ---
Patient is located in the day room on assumption of care, sitting at a table with peers. She is pleasant, interactive, appropriate. Compliant with assessments and medications whole. Patient has voiced no delusions so far this shift. She denies any pain or discomfort. Patient appears to be sleeping comfortably at present time. Will continue to monitor.
[2021-02-08] MEDS: LEVOTHYROXINE 25 MCG TABLET. PO SCH (05:28)
[2021-02-08 06:01] VITALS: BP 122/74
[2021-02-08 07:12] LABS: BASO % 0 % (0-3); EOS # 0.1 x10^3/uL (0.0-0.7); EOS % 1 % (0-3); HEMATOCRIT 32.1 % (36.0-47.0); HEMOGLOBIN 10.7 g/dL (12.0-15.5); LYMPH # 2.1 x10^3/uL (1.0-4.8); LYMPH % 28 % (24-48); MEAN CORPUSCULAR HEMOGLOBIN 29 pg (25-35); MEAN CORPUSCULAR HGB CONC 33 g/dL (31-37); MEAN CORPUSCULAR VOLUME 88 fL (79-100); MONO # 0.7 x10^3/uL (0.0-1.1); MONO % 10 % (0-9); NEUT # 4.4 x10^3uL (1.8-7.7); NEUT % 61 % (31-73); PLATELET COUNT 154 x10^3/uL (140-400); RED BLOOD COUNT 3.63 x10^6/uL (3.50-5.40); RED CELL DISTRIBUTION WIDTH 14.9 % (11.5-14.5); WHITE BLOOD COUNT 7.2 x10^3/uL (4.0-11.0)
--- NOTE | 2021-02-08 07:18 | PDOC ---
Exam Note: Benedict Note: This note is a late entry for 02/06/2021 covers elements not covered in my initial note. Subjective: The patient was reviewed in the morning of 02/06/2021 for a treatment team meeting with Lilibeth Holman, Sherri Becker (social services counselor), Farrah, activity therapy and Zack CARRERA discussed and reviewed the chart. The patient slept 6-1/2 hours previous night. Appetite is 90%. Patient has been less grandiose. Sodium is 134. We will repeat electrolytes in 2 days. I met with her in her room. Review of Systems: Some impairment of ambulation. No CV, , pulmonary, eye, ENT system symptoms on review. Mental Status Exam: The patient is reasonably oriented. Speech coherent, less pressured. Abstraction fair. Computation impaired. Language function intact. Attention span short. She is quite pleasant, verbal, interactive, smiling and appropriate. Laboratory Data: Reviewed. Impression: Schizoaffective disorder, bipolar type mixed with psychotic features. Anxiety disorder unspecified. Impulse control disorder unspecified. Plan: No change from initial note. Assessment: Vital Signs/I&O: Vital Signs Date Time Temp Pulse Resp B/P (MAP) Pulse Ox O2 Delivery O2 Flow Rate FiO2 02/08/21 06:01 97.6 89 14 122/74 (90) 92 Room Air I & O 02/07/21 02/07/21 02/08/21 15:00 23:00 07:00 Intake Total 860 ml Balance 860 ml Labs: Laboratory Tests Test 02/07/21 08:10 02/07/21 12:10 02/07/21 17:20 02/07/21 19:09 Glucose (Fingerstick) 100 mg/dL (70-99) H 205 mg/dL (70-99) H 244 mg/dL (70-99) H 291 mg/dL (70-99) H Test 02/08/21 06:51 White Blood Count 7.2 x10^3/uL (4.0-11.0) Red Blood Count 3.63 x10^6/uL (3.50-5.40) Hemoglobin 10.7 g/dL (12.0-15.5) L Hematocrit 32.1 % (36.0-47.0) L Mean Corpuscular Volume 88 fL (79-100) Mean Corpuscular Hemoglobin 29 pg (25-35) Mean Corpuscular Hemoglobin Concent 33 g/dL (31-37) Red Cell Distribution Width 14.9 % (11.5-14.5) H Platelet Count 154 x10^3/uL (140-400) Neutrophils (%) (Auto) 61 % (31-73) Lymphocytes (%) (Auto) 28 % (24-48) Monocytes (%) (Auto) 10 % (0-9) H Eosinophils (%) (Auto) 1 % (0-3) Basophils (%) (Auto) 0 % (0-3) Neutrophils # (Auto) 4.4 x10^3uL (1.8-7.7) Lymphocytes # (Auto) 2.1 x10^3/uL (1.0-4.8) Monocytes # (Auto) 0.7 x10^3/uL (0.0-1.1) Eosinophils # (Auto) 0.1 x10^3/uL (0.0-0.7) Basophils # (Auto) 0.0 x10^3/uL (0.0-0.2) Current Medications: Meds: Laboratory Tests Test 02/07/21 08:10 02/07/21 12:10 02/07/21 17:20 02/07/21 19:09 Glucose (Fingerstick) 100 mg/dL 205 mg/dL 244 mg/dL 291 mg/dL Test 02/08/21 06:51 02/08/21 07:14 White Blood Count 7.2 x10^3/uL Red Blood Count 3.63 x10^6/uL Hemoglobin 10.7 g/dL Hematocrit 32.1 % Mean Corpuscular Volume 88 fL Mean Corpuscular Hemoglobin 29 pg Mean Corpuscular Hemoglobin Concent 33 g/dL Red Cell Distribution Width 14.9 % Platelet Count 154 x10^3/uL Neutrophils (%) (Auto) 61 % Lymphocytes (%) (Auto) 28 % Monocytes (%) (Auto) 10 % Eosinophils (%) (Auto) 1 % Basophils (%) (Auto) 0 % Neutrophils # (Auto) 4.4 x10^3uL Lymphocytes # (Auto) 2.1 x10^3/uL Monocytes # (Auto) 0.7 x10^3/uL Eosinophils # (Auto) 0.1 x10^3/uL Basophils # (Auto) 0.0 x10^3/uL Glucose (Fingerstick) 191 mg/dL Current Medications Medications (Trade) Dose Ordered Sig/Latesha Route PRN Reason Start Time Stop Time Status Last Admin Dose Admin Acetaminophen (Tylenol) 650 mg PRN Q6HRS PRN PO MILD PAIN / TEMP > 100.3'F 01/22/21 14:00 Cancel Multi-Ingredient Ointment (Analgesic [place]) 1 keri PRN QID PRN TP MUSCLE PAIN 01/22/21 14:00 Al Hydroxide/Mg Hydroxide (Mylanta Plus Xs) 15 ml PRN AFTMEALHC PRN PO DYSPEPSIA 01/22/21 14:00 Magnesium Hydroxide (Milk Of Magnesia) 2,400 mg PRN QHS PRN PO CONSTIPATION 01/22/21 14:00 Valproic Acid (Depakene) 500 mg QID PO 01/22/21 17:00 02/07/21 20:47 Acetaminophen (Tylenol) 500 mg QID PO 01/22/21 21:00 01/23/21 13:04 DC 01/23/21 08:29 Amlodipine Besylate (Norvasc) 5 mg DAILY PO 01/23/21 09:00 02/07/21 10:27 Atorvastatin Calcium (Lipitor) 20 mg QHS PO 01/22/21 21:00 02/07/21 20:48 Vitamin D (Vitamin D3) 1,000 unit DAILY PO 01/23/21 09:00 02/07/21 10:27 Hydrocortisone Acetate (Anucort-Hc) 25 mg PRN Q8HRS PRN RC hemorrhoids 01/22/21 20:00 Levothyroxine Sodium (Synthroid) 25 mcg DAILY06 PO 01/23/21 06:00 02/08/21 05:28 Lidocaine (Lidoderm) 1 patch DAILY TP 01/23/21 09:00 02/07/21 10:28 Mesalamine (Lialda) 1.2 gm DAILY PO 01/23/21 09:00 02/07/21 10:26 Metoprolol Tartrate (Lopressor) 25 mg BID PO 01/22/21 21:00 02/07/21 20:48 Quetiapine Fumarate (SEROquel) 50 mg TID PO 01/22/21 21:00 02/07/21 20:48 Risperidone (RisperDAL) 2 mg TID PO 01/22/21 21:00 02/07/21 20:48 Rivastigmine (Exelon) 1 patch DAILY TD 01/23/21 09:00 02/01/21 16:25 DC 02/01/21 08:42 Venlafaxine HCl (Effexor Xr) 37.5 mg DAILY PO 01/23/21 09:00 01/23/21 13:11 DC 01/23/21 08:29 Ziprasidone (Geodon) 40 mg BID PO 01/22/21 21:00 01/28/21 17:15 DC 01/28/21 08:52 Ziprasidone (Geodon) 80 mg QHS PO 01/22/21 21:00 01/22/21 20:17 DC Cyanocobalamin (Vitamin B-12) 1,000 mcg DAILY PO 01/23/21 09:00 02/07/21 10:25 Insulin Human Lispro (HumaLOG) 40 units TIDWMEALS SQ 01/23/21 08:00 02/07/21 17:36 Insulin Glargine (Lantus Syringe) 30 unit DAILY SQ 01/23/21 09:00 01/29/21 14:19 DC 01/29/21 09:00 Lactobacillus Rhamnosus (Culturelle) 1 cap BID PO 01/23/21 09:00 02/07/21 20:47 Non-Formulary Medication (Liraglutide (Victoza 3-Jas)) 1.8 mg DAILY SQ 01/23/21 09:00 UNV Meclizine HCl (Antivert) 25 mg BID PO 01/22/21 21:00 02/07/21 20:47 Psyllium Hydrophilic Mucilloid (Metamucil) 1 pkt BID PO 01/22/21 21:00 02/02/21 13:31 DC 02/01/21 08:42 Demeclocycline HCl (Declomycin) 150 mg TID PO 01/22/21 21:00 01/22/21 20:45 DC Olanzapine (ZyPREXA ZYDIS) 5 mg PRN Q2HR PRN PO PSYCHOSIS 01/22/21 20:30 Demeclocycline HCl (Declomycin) 300 mg TID PO 01/22/21 21:00 02/07/21 20:47 Acetaminophen/ Codeine Phosphate (Tylenol #3) 1 tab PRN QID PRN PO MODERATE PAIN 4-6 01/23/21 11:45 01/23/21 12:23 Acetaminophen (Tylenol) 500 mg PRN Q6HRS PRN PO MILD PAIN / TEMP > 100.3'F 01/23/21 13:15 02/04/21 08:31 Clozapine (Clozaril) 25 mg HS PO 01/23/21 21:00 01/30/21 18:59 DC 01/29/21 20:37 Insulin Glargine (Lantus Syringe) 40 unit BID SQ 01/29/21 21:00 01/31/21 17:42 DC 01/31/21 09:50 Clozapine (Clozaril) 50 mg HS PO 01/30/21 21:00 02/07/21 20:47 Insulin Glargine (Lantus Syringe) 60 unit BID SQ 01/31/21 17:45 01/31/21 18:17 DC Metformin HCl (Glucophage Xr) 500 mg DAILYWBKFT PO 02/01/21 08:00 02/07/21 10:24 Insulin Glargine (Lantus Syringe) 60 unit BID SQ 01/31/21 21:00 02/07/21 20:48 I have reviewed the current psychotropics carefully including drug interactions. Risk benefit ratio favors no change other than as noted in my dictated progress note. Diagnosis: Problems: (1) Schizoaffective disorder, bipolar type (2) Impulse control disorder, unspecified (3) Anxiety disorder, unspecified (4) Bipolar disorder, current episode manic severe with psychotic features INOCENCIO PELAEZ MD Feb 08, 2021 07:18
[2021-02-08 07:23] LABS: ALBUMIN 2.6 g/dL (3.4-5.0); ALBUMIN/GLOBULIN RATIO 0.7 (1.0-1.7); CALCIUM 8.4 mg/dL (8.5-10.1); CREATININE 1.1 mg/dL (0.6-1.0); GFR 49.7; POTASSIUM 3.7 mmol/L (3.5-5.1); TOTAL BILIRUBIN 0.4 mg/dL (0.2-1.0); TOTAL PROTEIN 6.3 g/dL (6.4-8.2)
--- NOTE | 2021-02-08 07:34 | PDOC ---
Exam Note: Benedict Note: This note is a late entry for 02/07/2021 covers elements not covered in my initial note. Subjective: The patient was seen individually in the evening of 02/07/2021 with Zack CARRERA, discussed and reviewed the chart. The patient slept 7-3/4 hours previous night. She remains somewhat somatic but much less grandiose. Review of Systems: Ambulation impaired in wheelchair and bilateral lower extremity swelling. No CV, , pulmonary, eye, ENT system symptoms on review. Mental Status Exam: The patient is reasonably oriented. She was seated in the cafeteria with her legs propped up, quite appropriately so. Speech coherent, less pressured. Abstraction fair. Computation impaired. Language function intact. Attention span short. Laboratory Data: Reviewed. Impression: Schizoaffective disorder, bipolar type mixed with psychotic features. Anxiety disorder unspecified. Impulse control disorder unspecified. Plan: No change from initial note. Assessment: Vital Signs/I&O: Vital Signs Date Time Temp Pulse Resp B/P (MAP) Pulse Ox O2 Delivery O2 Flow Rate FiO2 02/08/21 06:01 97.6 89 14 122/74 (90) 92 Room Air I & O 02/07/21 02/07/21 02/08/21 15:00 23:00 07:00 Intake Total 860 ml Balance 860 ml Labs: Laboratory Tests Test 02/07/21 08:10 02/07/21 12:10 02/07/21 17:20 02/07/21 19:09 Glucose (Fingerstick) 100 mg/dL (70-99) H 205 mg/dL (70-99) H 244 mg/dL (70-99) H 291 mg/dL (70-99) H Test 02/08/21 06:51 02/08/21 07:14 White Blood Count 7.2 x10^3/uL (4.0-11.0) Red Blood Count 3.63 x10^6/uL (3.50-5.40) Hemoglobin 10.7 g/dL (12.0-15.5) L Hematocrit 32.1 % (36.0-47.0) L Mean Corpuscular Volume 88 fL (79-100) Mean Corpuscular Hemoglobin 29 pg (25-35) Mean Corpuscular Hemoglobin Concent 33 g/dL (31-37) Red Cell Distribution Width 14.9 % (11.5-14.5) H Platelet Count 154 x10^3/uL (140-400) Neutrophils (%) (Auto) 61 % (31-73) Lymphocytes (%) (Auto) 28 % (24-48) Monocytes (%) (Auto) 10 % (0-9) H Eosinophils (%) (Auto) 1 % (0-3) Basophils (%) (Auto) 0 % (0-3) Neutrophils # (Auto) 4.4 x10^3uL (1.8-7.7) Lymphocytes # (Auto) 2.1 x10^3/uL (1.0-4.8) Monocytes # (Auto) 0.7 x10^3/uL (0.0-1.1) Eosinophils # (Auto) 0.1 x10^3/uL (0.0-0.7) Basophils # (Auto) 0.0 x10^3/uL (0.0-0.2) Sodium Level 135 mmol/L (136-145) L Potassium Level 3.7 mmol/L (3.5-5.1) Chloride Level 99 mmol/L (98-107) Carbon Dioxide Level 27 mmol/L (21-32) Anion Gap 9 (6-14) Blood Urea Nitrogen 12 mg/dL (7-20) Creatinine 1.1 mg/dL (0.6-1.0) H Estimated GFR (Cockcroft-Gault) 49.7 BUN/Creatinine Ratio 11 (6-20) Glucose Level 204 mg/dL (70-99) H Calcium Level 8.4 mg/dL (8.5-10.1) L Total Bilirubin 0.4 mg/dL (0.2-1.0) Aspartate Amino Transferase (AST) 23 U/L (15-37) Alanine Aminotransferase (ALT) 18 U/L (14-59) Alkaline Phosphatase 130 U/L (46-116) H Total Protein 6.3 g/dL (6.4-8.2) L Albumin 2.6 g/dL (3.4-5.0) L Albumin/Globulin Ratio 0.7 (1.0-1.7) L Glucose (Fingerstick) 191 mg/dL (70-99) H Current Medications: Meds: Laboratory Tests Test 02/07/21 08:10 02/07/21 12:10 02/07/21 17:20 02/07/21 19:09 Glucose (Fingerstick) 100 mg/dL 205 mg/dL 244 mg/dL 291 mg/dL Test 02/08/21 06:51 02/08/21 07:14 White Blood Count 7.2 x10^3/uL Red Blood Count 3.63 x10^6/uL Hemoglobin 10.7 g/dL Hematocrit 32.1 % Mean Corpuscular Volume 88 fL Mean Corpuscular Hemoglobin 29 pg Mean Corpuscular Hemoglobin Concent 33 g/dL Red Cell Distribution Width 14.9 % Platelet Count 154 x10^3/uL Neutrophils (%) (Auto) 61 % Lymphocytes (%) (Auto) 28 % Monocytes (%) (Auto) 10 % Eosinophils (%) (Auto) 1 % Basophils (%) (Auto) 0 % Neutrophils # (Auto) 4.4 x10^3uL Lymphocytes # (Auto) 2.1 x10^3/uL Monocytes # (Auto) 0.7 x10^3/uL Eosinophils # (Auto) 0.1 x10^3/uL Basophils # (Auto) 0.0 x10^3/uL Sodium Level 135 mmol/L Potassium Level 3.7 mmol/L Chloride Level 99 mmol/L Carbon Dioxide Level 27 mmol/L Anion Gap 9 Blood Urea Nitrogen 12 mg/dL Creatinine 1.1 mg/dL Estimated GFR (Cockcroft-Gault) 49.7 BUN/Creatinine Ratio 11 Glucose Level 204 mg/dL Calcium Level 8.4 mg/dL Total Bilirubin 0.4 mg/dL Aspartate Amino Transf (AST/SGOT) 23 U/L Alanine Aminotransferase (ALT/SGPT) 18 U/L Alkaline Phosphatase 130 U/L Total Protein 6.3 g/dL Albumin 2.6 g/dL Albumin/Globulin Ratio 0.7 Glucose (Fingerstick) 191 mg/dL Current Medications Medications (Trade) Dose Ordered Sig/Latesha Route PRN Reason Start Time Stop Time Status Last Admin Dose Admin Acetaminophen (Tylenol) 650 mg PRN Q6HRS PRN PO MILD PAIN / TEMP > 100.3'F 01/22/21 14:00 Cancel Multi-Ingredient Ointment (Analgesic [place]) 1 keri PRN QID PRN TP MUSCLE PAIN 01/22/21 14:00 Al Hydroxide/Mg Hydroxide (Mylanta Plus Xs) 15 ml PRN AFTMEALHC PRN PO DYSPEPSIA 01/22/21 14:00 Magnesium Hydroxide (Milk Of Magnesia) 2,400 mg PRN QHS PRN PO CONSTIPATION 01/22/21 14:00 Valproic Acid (Depakene) 500 mg QID PO 01/22/21 17:00 02/07/21 20:47 Acetaminophen (Tylenol) 500 mg QID PO 01/22/21 21:00 01/23/21 13:04 DC 01/23/21 08:29 Amlodipine Besylate (Norvasc) 5 mg DAILY PO 01/23/21 09:00 02/07/21 10:27 Atorvastatin Calcium (Lipitor) 20 mg QHS PO 01/22/21 21:00 02/07/21 20:48 Vitamin D (Vitamin D3) 1,000 unit DAILY PO 01/23/21 09:00 02/07/21 10:27 Hydrocortisone Acetate (Anucort-Hc) 25 mg PRN Q8HRS PRN RC hemorrhoids 01/22/21 20:00 Levothyroxine Sodium (Synthroid) 25 mcg DAILY06 PO 01/23/21 06:00 02/08/21 05:28 Lidocaine (Lidoderm) 1 patch DAILY TP 01/23/21 09:00 02/07/21 10:28 Mesalamine (Lialda) 1.2 gm DAILY PO 01/23/21 09:00 02/07/21 10:26 Metoprolol Tartrate (Lopressor) 25 mg BID PO 01/22/21 21:00 02/07/21 20:48 Quetiapine Fumarate (SEROquel) 50 mg TID PO 01/22/21 21:00 02/07/21 20:48 Risperidone (RisperDAL) 2 mg TID PO 01/22/21 21:00 02/07/21 20:48 Rivastigmine (Exelon) 1 patch DAILY TD 01/23/21 09:00 02/01/21 16:25 DC 02/01/21 08:42 Venlafaxine HCl (Effexor Xr) 37.5 mg DAILY PO 01/23/21 09:00 01/23/21 13:11 DC 01/23/21 08:29 Ziprasidone (Geodon) 40 mg BID PO 01/22/21 21:00 01/28/21 17:15 DC 01/28/21 08:52 Ziprasidone (Geodon) 80 mg QHS PO 01/22/21 21:00 01/22/21 20:17 DC Cyanocobalamin (Vitamin B-12) 1,000 mcg DAILY PO 01/23/21 09:00 02/07/21 10:25 Insulin Human Lispro (HumaLOG) 40 units TIDWMEALS SQ 01/23/21 08:00 02/07/21 17:36 Insulin Glargine (Lantus Syringe) 30 unit DAILY SQ 01/23/21 09:00 01/29/21 14:19 DC 01/29/21 09:00 Lactobacillus Rhamnosus (Culturelle) 1 cap BID PO 01/23/21 09:00 02/07/21 20:47 Non-Formulary Medication (Liraglutide (Victoza 3-Jas)) 1.8 mg DAILY SQ 01/23/21 09:00 UNV Meclizine HCl (Antivert) 25 mg BID PO 01/22/21 21:00 02/07/21 20:47 Psyllium Hydrophilic Mucilloid (Metamucil) 1 pkt BID PO 01/22/21 21:00 02/02/21 13:31 DC 02/01/21 08:42 Demeclocycline HCl (Declomycin) 150 mg TID PO 01/22/21 21:00 01/22/21 20:45 DC Olanzapine (ZyPREXA ZYDIS) 5 mg PRN Q2HR PRN PO PSYCHOSIS 01/22/21 20:30 Demeclocycline HCl (Declomycin) 300 mg TID PO 01/22/21 21:00 02/07/21 20:47 Acetaminophen/ Codeine Phosphate (Tylenol #3) 1 tab PRN QID PRN PO MODERATE PAIN 4-6 01/23/21 11:45 01/23/21 12:23 Acetaminophen (Tylenol) 500 mg PRN Q6HRS PRN PO MILD PAIN / TEMP > 100.3'F 01/23/21 13:15 02/04/21 08:31 Clozapine (Clozaril) 25 mg HS PO 01/23/21 21:00 01/30/21 18:59 DC 01/29/21 20:37 Insulin Glargine (Lantus Syringe) 40 unit BID SQ 01/29/21 21:00 01/31/21 17:42 DC 01/31/21 09:50 Clozapine (Clozaril) 50 mg HS PO 01/30/21 21:00 02/07/21 20:47 Insulin Glargine (Lantus Syringe) 60 unit BID SQ 01/31/21 17:45 01/31/21 18:17 DC Metformin HCl (Glucophage Xr) 500 mg DAILYWBKFT PO 02/01/21 08:00 02/07/21 10:24 Insulin Glargine (Lantus Syringe) 60 unit BID SQ 01/31/21 21:00 02/07/21 20:48 I have reviewed the current psychotropics carefully including drug interactions. Risk benefit ratio favors no change other than as noted in my dictated progress note. Diagnosis: Problems: (1) Schizoaffective disorder, bipolar type (2) Impulse control disorder, unspecified (3) Anxiety disorder, unspecified (4) Bipolar disorder, current episode manic severe with psychotic features INOCENCIO PELAEZ MD Feb 08, 2021 07:34
[2021-02-08] MEDS: CHOLECALCIFEROL (VITAMIN D3) 1,000 UNIT TABLET PO SCH (08:52)
[2021-02-08] MEDS: QUEtiapine 50 MG TABLET. PO SCH ×3 (08:52→21:09)
[2021-02-08] MEDS: METOPROLOL TART IMMED RELEASE 25 MG TABLET. PO SCH ×2 (08:52→21:09)
[2021-02-08] MEDS: MESALAMINE 1.2 GM TABLET.DR PO SCH (08:52)
[2021-02-08] MEDS: amLODIPine BESYLATE 5 MG TABLET PO SCH (08:52)
[2021-02-08] MEDS: DEMECLOCYCLINE HCL 150 MG TABLET. PO SCH ×3 (08:52→21:08)
[2021-02-08] MEDS: risperiDONE 2 MG TABLET. PO SCH ×3 (08:52→21:09)
[2021-02-08] MEDS: CYANOCOBALAMIN (VITAMIN B-12) 1,000 MCG TABLET. PO SCH (08:52)
[2021-02-08] MEDS: LACTOBACILLUS RHAMNOSUS GG 1 CAPSULE. PO SCH ×2 (08:53→21:08)
[2021-02-08] MEDS: metFORMIN XR 500 MG TAB.ER.24H PO SCH (08:53)
[2021-02-08] MEDS: VALPROIC ACID 250 MG CAPSULE. PO SCH ×4 (08:53→21:08)
[2021-02-08] MEDS: MECLIZINE 12.5 MG TABLET. PO SCH ×2 (08:53→21:09)
[2021-02-08] MEDS: INSULIN LISPRO 300 UNITS/3 ML VIAL. SQ SCH ×3 (08:54→17:38)
[2021-02-08] MEDS: INSULIN GLARGINE SYRINGE. SQ SCH ×2 (08:54→21:00)
[2021-02-08] MEDS: NON FORMULARY ITEM (Liraglutide (Victoza 3-Pak) 1.8 MG) SQ SCH (08:55)
[2021-02-08] MEDS: LIDOCAINE (700MG/PATCH) PATCH. TP SCH (08:55)
[2021-02-08 16:18] VITALS: BP 124/70
--- NOTE | 2021-02-08 18:30 | NUR ---
Patient has been withdrawn, delusional, and attention seeking throughout this shift. She spent part of the afternoon being interactive with peers and staff. Patient continues to use wheelchair at times and walks at other times. Will continue to monitor and report to oncoming shift.
[2021-02-08] MEDS: cloZAPine 25 MG TABLET PO SCH (21:08)
[2021-02-08] MEDS: ATORVASTATIN CALCIUM 20 MG TABLET PO SCH (21:09)
--- NOTE | 2021-02-08 23:20 | PDOC ---
Exam Note: Benedict Note: Please also refer to the separate dictated note~for this date of service dictated separately.~Patient seen individually. Discussed the patient with Nursing staff reviewed the chart.~Reviewed interim history and current functioning. Reviewed vital signs,~Labs/ Radiology~and current medications noted below. Continue current treatment with the changes noted in the dictated addendum note Assessment: Vital Signs/I&O: Vital Signs Date Time Temp Pulse Resp B/P (MAP) Pulse Ox O2 Delivery O2 Flow Rate FiO2 02/08/21 21:09 89 124/70 02/08/21 16:18 97.5 16 99 02/08/21 06:01 Room Air I & O 02/07/21 02/07/21 02/08/21 15:00 23:00 07:00 Intake Total 860 ml Balance 860 ml Labs: Laboratory Tests Test 02/08/21 06:51 02/08/21 07:14 02/08/21 11:17 02/08/21 16:30 White Blood Count 7.2 x10^3/uL (4.0-11.0) Red Blood Count 3.63 x10^6/uL (3.50-5.40) Hemoglobin 10.7 g/dL (12.0-15.5) L Hematocrit 32.1 % (36.0-47.0) L Mean Corpuscular Volume 88 fL (79-100) Mean Corpuscular Hemoglobin 29 pg (25-35) Mean Corpuscular Hemoglobin Concent 33 g/dL (31-37) Red Cell Distribution Width 14.9 % (11.5-14.5) H Platelet Count 154 x10^3/uL (140-400) Neutrophils (%) (Auto) 61 % (31-73) Lymphocytes (%) (Auto) 28 % (24-48) Monocytes (%) (Auto) 10 % (0-9) H Eosinophils (%) (Auto) 1 % (0-3) Basophils (%) (Auto) 0 % (0-3) Neutrophils # (Auto) 4.4 x10^3uL (1.8-7.7) Lymphocytes # (Auto) 2.1 x10^3/uL (1.0-4.8) Monocytes # (Auto) 0.7 x10^3/uL (0.0-1.1) Eosinophils # (Auto) 0.1 x10^3/uL (0.0-0.7) Basophils # (Auto) 0.0 x10^3/uL (0.0-0.2) Sodium Level 135 mmol/L (136-145) L Potassium Level 3.7 mmol/L (3.5-5.1) Chloride Level 99 mmol/L (98-107) Carbon Dioxide Level 27 mmol/L (21-32) Anion Gap 9 (6-14) Blood Urea Nitrogen 12 mg/dL (7-20) Creatinine 1.1 mg/dL (0.6-1.0) H Estimated GFR (Cockcroft-Gault) 49.7 BUN/Creatinine Ratio 11 (6-20) Glucose Level 204 mg/dL (70-99) H Calcium Level 8.4 mg/dL (8.5-10.1) L Total Bilirubin 0.4 mg/dL (0.2-1.0) Aspartate Amino Transferase (AST) 23 U/L (15-37) Alanine Aminotransferase (ALT) 18 U/L (14-59) Alkaline Phosphatase 130 U/L (46-116) H Total Protein 6.3 g/dL (6.4-8.2) L Albumin 2.6 g/dL (3.4-5.0) L Albumin/Globulin Ratio 0.7 (1.0-1.7) L Glucose (Fingerstick) 191 mg/dL (70-99) H 288 mg/dL (70-99) H 270 mg/dL (70-99) H Test 02/08/21 19:10 Glucose (Fingerstick) 300 mg/dL (70-99) H Current Medications: Meds: Laboratory Tests Test 02/08/21 06:51 02/08/21 07:14 02/08/21 11:17 02/08/21 16:30 White Blood Count 7.2 x10^3/uL Red Blood Count 3.63 x10^6/uL Hemoglobin 10.7 g/dL Hematocrit 32.1 % Mean Corpuscular Volume 88 fL Mean Corpuscular Hemoglobin 29 pg Mean Corpuscular Hemoglobin Concent 33 g/dL Red Cell Distribution Width 14.9 % Platelet Count 154 x10^3/uL Neutrophils (%) (Auto) 61 % Lymphocytes (%) (Auto) 28 % Monocytes (%) (Auto) 10 % Eosinophils (%) (Auto) 1 % Basophils (%) (Auto) 0 % Neutrophils # (Auto) 4.4 x10^3uL Lymphocytes # (Auto) 2.1 x10^3/uL Monocytes # (Auto) 0.7 x10^3/uL Eosinophils # (Auto) 0.1 x10^3/uL Basophils # (Auto) 0.0 x10^3/uL Sodium Level 135 mmol/L Potassium Level 3.7 mmol/L Chloride Level 99 mmol/L Carbon Dioxide Level 27 mmol/L Anion Gap 9 Blood Urea Nitrogen 12 mg/dL Creatinine 1.1 mg/dL Estimated GFR (Cockcroft-Gault) 49.7 BUN/Creatinine Ratio 11 Glucose Level 204 mg/dL Calcium Level 8.4 mg/dL Total Bilirubin 0.4 mg/dL Aspartate Amino Transf (AST/SGOT) 23 U/L Alanine Aminotransferase (ALT/SGPT) 18 U/L Alkaline Phosphatase 130 U/L Total Protein 6.3 g/dL Albumin 2.6 g/dL Albumin/Globulin Ratio 0.7 Glucose (Fingerstick) 191 mg/dL 288 mg/dL 270 mg/dL Test 02/08/21 19:10 Glucose (Fingerstick) 300 mg/dL Current Medications Medications (Trade) Dose Ordered Sig/Latesha Route PRN Reason Start Time Stop Time Status Last Admin Dose Admin Acetaminophen (Tylenol) 650 mg PRN Q6HRS PRN PO MILD PAIN / TEMP > 100.3'F 01/22/21 14:00 Cancel Multi-Ingredient Ointment (Analgesic [place]) 1 keri PRN QID PRN TP MUSCLE PAIN 01/22/21 14:00 Al Hydroxide/Mg Hydroxide (Mylanta Plus Xs) 15 ml PRN AFTMEALHC PRN PO DYSPEPSIA 01/22/21 14:00 Magnesium Hydroxide (Milk Of Magnesia) 2,400 mg PRN QHS PRN PO CONSTIPATION 01/22/21 14:00 Valproic Acid (Depakene) 500 mg QID PO 01/22/21 17:00 02/08/21 21:08 Acetaminophen (Tylenol) 500 mg QID PO 01/22/21 21:00 01/23/21 13:04 DC 01/23/21 08:29 Amlodipine Besylate (Norvasc) 5 mg DAILY PO 01/23/21 09:00 02/08/21 08:52 Atorvastatin Calcium (Lipitor) 20 mg QHS PO 01/22/21 21:00 02/08/21 21:09 Vitamin D (Vitamin D3) 1,000 unit DAILY PO 01/23/21 09:00 02/08/21 08:52 Hydrocortisone Acetate (Anucort-Hc) 25 mg PRN Q8HRS PRN RC hemorrhoids 01/22/21 20:00 Levothyroxine Sodium (Synthroid) 25 mcg DAILY06 PO 01/23/21 06:00 02/08/21 05:28 Lidocaine (Lidoderm) 1 patch DAILY TP 01/23/21 09:00 02/08/21 08:55 Mesalamine (Lialda) 1.2 gm DAILY PO 01/23/21 09:00 02/08/21 08:52 Metoprolol Tartrate (Lopressor) 25 mg BID PO 01/22/21 21:00 02/08/21 21:09 Quetiapine Fumarate (SEROquel) 50 mg TID PO 01/22/21 21:00 02/08/21 21:09 Risperidone (RisperDAL) 2 mg TID PO 01/22/21 21:00 02/08/21 21:09 Rivastigmine (Exelon) 1 patch DAILY TD 01/23/21 09:00 02/01/21 16:25 DC 02/01/21 08:42 Venlafaxine HCl (Effexor Xr) 37.5 mg DAILY PO 01/23/21 09:00 01/23/21 13:11 DC 01/23/21 08:29 Ziprasidone (Geodon) 40 mg BID PO 01/22/21 21:00 01/28/21 17:15 DC 01/28/21 08:52 Ziprasidone (Geodon) 80 mg QHS PO 01/22/21 21:00 01/22/21 20:17 DC Cyanocobalamin (Vitamin B-12) 1,000 mcg DAILY PO 01/23/21 09:00 02/08/21 08:52 Insulin Human Lispro (HumaLOG) 40 units TIDWMEALS SQ 01/23/21 08:00 02/08/21 17:38 Insulin Glargine (Lantus Syringe) 30 unit DAILY SQ 01/23/21 09:00 01/29/21 14:19 DC 01/29/21 09:00 Lactobacillus Rhamnosus (Culturelle) 1 cap BID PO 01/23/21 09:00 02/08/21 21:08 Non-Formulary Medication (Liraglutide (Victoza 3-Jas)) 1.8 mg DAILY SQ 01/23/21 09:00 UNV Meclizine HCl (Antivert) 25 mg BID PO 01/22/21 21:00 02/08/21 21:09 Psyllium Hydrophilic Mucilloid (Metamucil) 1 pkt BID PO 01/22/21 21:00 02/02/21 13:31 DC 02/01/21 08:42 Demeclocycline HCl (Declomycin) 150 mg TID PO 01/22/21 21:00 01/22/21 20:45 DC Olanzapine (ZyPREXA ZYDIS) 5 mg PRN Q2HR PRN PO PSYCHOSIS 01/22/21 20:30 Demeclocycline HCl (Declomycin) 300 mg TID PO 01/22/21 21:00 02/08/21 21:08 Acetaminophen/ Codeine Phosphate (Tylenol #3) 1 tab PRN QID PRN PO MODERATE PAIN 4-6 01/23/21 11:45 01/23/21 12:23 Acetaminophen (Tylenol) 500 mg PRN Q6HRS PRN PO MILD PAIN / TEMP > 100.3'F 01/23/21 13:15 02/04/21 08:31 Clozapine (Clozaril) 25 mg HS PO 01/23/21 21:00 01/30/21 18:59 DC 01/29/21 20:37 Insulin Glargine (Lantus Syringe) 40 unit BID SQ 01/29/21 21:00 01/31/21 17:42 DC 01/31/21 09:50 Clozapine (Clozaril) 50 mg HS PO 01/30/21 21:00 02/08/21 21:08 Insulin Glargine (Lantus Syringe) 60 unit BID SQ 01/31/21 17:45 01/31/21 18:17 DC Metformin HCl (Glucophage Xr) 500 mg DAILYWBKFT PO 02/01/21 08:00 02/08/21 08:53 Insulin Glargine (Lantus Syringe) 60 unit BID SQ 01/31/21 21:00 02/08/21 21:00 I have reviewed the current psychotropics carefully including drug interactions. Risk benefit ratio favors no change other than as noted in my dictated progress note. Diagnosis: Problems: (1) Schizoaffective disorder, bipolar type (2) Impulse control disorder, unspecified (3) Anxiety disorder, unspecified (4) Bipolar disorder, current episode manic severe with psychotic features INOCENCIO PELAEZ MD Feb 08, 2021 23:20
--- NOTE | 2021-02-08 23:59 | NUR ---
Patient is located in the her room on assumption of care, awake in bed. She is pleasant, interactive, appropriate. Compliant with assessments and medications whole. Patient has voiced no delusions so far this shift. She denies any pain or discomfort. Patient appears to be sleeping comfortably at present time. Will continue to monitor.
[2021-02-09] MEDS: LEVOTHYROXINE 25 MCG TABLET. PO SCH (05:33)
[2021-02-09 06:40] VITALS: BP 113/74
--- NOTE | 2021-02-09 08:18 | RAD ---
EXAM: Chest, single view. HISTORY: Congestion. COMPARISON: None. FINDINGS: A frontal view of the chest is obtained. There are suspected trace to small pleural effusio ns with basilar atelectasis. There is no consolidation. There is no pneumothorax. The heart is normal in size. IMPRESSION: Suspected trace to small pleural effusions with bilateral basilar atelectasis. Electronically signed by: Abi Su MD (02/09/2021 8:16 AM) [id number]
[2021-02-09] MEDS: amLODIPine BESYLATE 5 MG TABLET PO SCH (09:00)
[2021-02-09] MEDS: NON FORMULARY ITEM (Liraglutide (Victoza 3-Pak) 1.8 MG) SQ SCH (09:00)
[2021-02-09] MEDS: INSULIN GLARGINE SYRINGE. SQ SCH ×2 (09:00→20:05)
[2021-02-09] MEDS: metFORMIN XR 500 MG TAB.ER.24H PO SCH (09:02)
[2021-02-09] MEDS: CYANOCOBALAMIN (VITAMIN B-12) 1,000 MCG TABLET. PO SCH (09:03)
[2021-02-09] MEDS: QUEtiapine 50 MG TABLET. PO SCH ×3 (09:03→20:05)
[2021-02-09] MEDS: CHOLECALCIFEROL (VITAMIN D3) 1,000 UNIT TABLET PO SCH (09:03)
[2021-02-09] MEDS: METOPROLOL TART IMMED RELEASE 25 MG TABLET. PO SCH ×2 (09:03→20:07)
[2021-02-09] MEDS: risperiDONE 2 MG TABLET. PO SCH ×3 (09:03→20:06)
[2021-02-09] MEDS: DEMECLOCYCLINE HCL 150 MG TABLET. PO SCH ×3 (09:03→20:03)
[2021-02-09] MEDS: MESALAMINE 1.2 GM TABLET.DR PO SCH (09:03)
[2021-02-09] MEDS: MECLIZINE 12.5 MG TABLET. PO SCH ×2 (09:03→20:02)
[2021-02-09] MEDS: VALPROIC ACID 250 MG CAPSULE. PO SCH ×4 (09:03→20:04)
[2021-02-09] MEDS: LACTOBACILLUS RHAMNOSUS GG 1 CAPSULE. PO SCH ×2 (09:03→20:04)
[2021-02-09] MEDS: INSULIN LISPRO 300 UNITS/3 ML VIAL. SQ SCH ×3 (09:06→17:23)
[2021-02-09] MEDS: LIDOCAINE (700MG/PATCH) PATCH. TP SCH (09:10)
--- NOTE | 2021-02-09 13:44 | NUR ---
Nursing note: Client was in dinning room for morning medications & assessment, took medication whole. She is pleasant & compliant with medications & assessment. Report back/leg pain of a chronic nature. Client somewhat confused, in room most of the day, this nurse encouraged client to participate in groups. She reported she is here because she has pneumonia. She self propels on unit in wheelchair, occasionally walks behind. She is currently in her room. Will continue to monitor.
[2021-02-09 15:49] VITALS: BP 104/69
[2021-02-09] MEDS: cloZAPine 25 MG TABLET PO SCH (20:03)
[2021-02-09] MEDS: ATORVASTATIN CALCIUM 20 MG TABLET PO SCH (20:06)
[2021-02-10] MEDS: LEVOTHYROXINE 25 MCG TABLET. PO SCH (05:20)
[2021-02-10 06:00] VITALS: BP 120/53
[2021-02-10 06:32] LABS: BASO % 1 % (0-3); EOS # 0.2 x10^3/uL (0.0-0.7); EOS % 3 % (0-3); HEMATOCRIT 29.7 % (36.0-47.0); LYMPH # 2.1 x10^3/uL (1.0-4.8); LYMPH % 32 % (24-48); MEAN CORPUSCULAR HEMOGLOBIN 29 pg (25-35); MEAN CORPUSCULAR HGB CONC 34 g/dL (31-37); MEAN CORPUSCULAR VOLUME 87 fL (79-100); MONO # 0.9 x10^3/uL (0.0-1.1); MONO % 13 % (0-9); NEUT # 3.4 x10^3uL (1.8-7.7); NEUT % 52 % (31-73); PLATELET COUNT 129 x10^3/uL (140-400); RED BLOOD COUNT 3.42 x10^6/uL (3.50-5.40); RED CELL DISTRIBUTION WIDTH 14.8 % (11.5-14.5); WHITE BLOOD COUNT 6.6 x10^3/uL (4.0-11.0)
[2021-02-10 06:55] LABS: ALBUMIN 2.4 g/dL (3.4-5.0); ALBUMIN/GLOBULIN RATIO 0.7 (1.0-1.7); CALCIUM 8.7 mg/dL (8.5-10.1); GFR 55.5; POTASSIUM 3.9 mmol/L (3.5-5.1); TOTAL BILIRUBIN 0.4 mg/dL (0.2-1.0); TOTAL PROTEIN 5.8 g/dL (6.4-8.2)
[2021-02-10] MEDS: INSULIN GLARGINE SYRINGE. SQ SCH ×2 (08:29→20:43)
[2021-02-10] MEDS: INSULIN LISPRO 300 UNITS/3 ML VIAL. SQ SCH ×3 (08:29→17:34)
[2021-02-10] MEDS: LACTOBACILLUS RHAMNOSUS GG 1 CAPSULE. PO SCH ×2 (08:32→19:56)
[2021-02-10] MEDS: METOPROLOL TART IMMED RELEASE 25 MG TABLET. PO SCH ×2 (08:32→19:56)
[2021-02-10] MEDS: amLODIPine BESYLATE 5 MG TABLET PO SCH (08:32)
[2021-02-10] MEDS: MECLIZINE 12.5 MG TABLET. PO SCH ×2 (08:32→19:56)
[2021-02-10] MEDS: MESALAMINE 1.2 GM TABLET.DR PO SCH (08:32)
[2021-02-10] MEDS: DEMECLOCYCLINE HCL 150 MG TABLET. PO SCH ×3 (08:32→19:55)
[2021-02-10] MEDS: metFORMIN XR 500 MG TAB.ER.24H PO SCH (08:33)
[2021-02-10] MEDS: CYANOCOBALAMIN (VITAMIN B-12) 1,000 MCG TABLET. PO SCH (08:33)
[2021-02-10] MEDS: NON FORMULARY ITEM (Liraglutide (Victoza 3-Pak) 1.8 MG) SQ SCH (08:33)
[2021-02-10] MEDS: QUEtiapine 50 MG TABLET. PO SCH ×3 (08:33→19:55)
[2021-02-10] MEDS: risperiDONE 2 MG TABLET. PO SCH ×3 (08:33→19:56)
[2021-02-10] MEDS: CHOLECALCIFEROL (VITAMIN D3) 1,000 UNIT TABLET PO SCH (08:33)
[2021-02-10] MEDS: VALPROIC ACID 250 MG CAPSULE. PO SCH ×4 (08:33→19:56)
[2021-02-10] MEDS: LIDOCAINE (700MG/PATCH) PATCH. TP SCH (08:36)
--- NOTE | 2021-02-10 09:22 | PDOC ---
Exam Note: Benedict Note: This note is a late entry for 02/08/2021 covers elements not covered in my initial note. Subjective: The patient was seen on telehealth rounds in the evening of 02/08/2021 with the nursing staff taking the telehealth camera to each patient, which was on a secure portal, discussed and reviewed the chart with Zack CARRERA. The patient slept 8-3/4 hours previous night. She remains somewhat lethargic, complains of trouble breathing. We will defer to Dr. Trinidad/Dr. Lee. She is a little more out of the room during the day and ambulates a very little better than before. She is less grandiose and hyperverbal. Review of Systems: Ambulation impaired in wheelchair. Pedal edema. No CV, , pulmonary, eye, ENT system symptoms on review. Mental Status Exam: The patient is reasonably oriented. Speech coherent, less pressured. Abstraction fair. Computation impaired. Language function intact. Attention span short. Mood and affect appears more stable. Laboratory Data: Reviewed. Impression: Schizoaffective disorder, bipolar type mixed with psychotic features. Anxiety disorder unspecified. Impulse control disorder unspecified. Plan: No change from initial note. Valproic acid level is therapeutic. She is tolerating the Clozaril. We will continue to increase this with weekly blood counts and gradually reduce the Risperdal and Seroquel. Assessment: Vital Signs/I&O: Vital Signs Date Time Temp Pulse Resp B/P (MAP) Pulse Ox O2 Delivery O2 Flow Rate FiO2 02/10/21 08:32 84 120/53 02/10/21 06:00 97.0 18 95 02/09/21 15:49 Room Air I & O 02/09/21 02/09/21 02/10/21 15:00 23:00 07:00 Intake Total 960 ml 600 ml Balance 960 ml 600 ml Labs: Laboratory Tests Test 02/09/21 11:27 02/09/21 16:40 02/09/21 19:02 02/10/21 05:54 Glucose (Fingerstick) 270 mg/dL (70-99) H 239 mg/dL (70-99) H 316 mg/dL (70-99) H White Blood Count 6.6 x10^3/uL (4.0-11.0) Red Blood Count 3.42 x10^6/uL (3.50-5.40) L Hemoglobin 10.0 g/dL (12.0-15.5) L Hematocrit 29.7 % (36.0-47.0) L Mean Corpuscular Volume 87 fL (79-100) Mean Corpuscular Hemoglobin 29 pg (25-35) Mean Corpuscular Hemoglobin Concent 34 g/dL (31-37) Red Cell Distribution Width 14.8 % (11.5-14.5) H Platelet Count 129 x10^3/uL (140-400) L Neutrophils (%) (Auto) 52 % (31-73) Lymphocytes (%) (Auto) 32 % (24-48) Monocytes (%) (Auto) 13 % (0-9) H Eosinophils (%) (Auto) 3 % (0-3) Basophils (%) (Auto) 1 % (0-3) Neutrophils # (Auto) 3.4 x10^3uL (1.8-7.7) Lymphocytes # (Auto) 2.1 x10^3/uL (1.0-4.8) Monocytes # (Auto) 0.9 x10^3/uL (0.0-1.1) Eosinophils # (Auto) 0.2 x10^3/uL (0.0-0.7) Basophils # (Auto) 0.0 x10^3/uL (0.0-0.2) Sodium Level 137 mmol/L (136-145) Potassium Level 3.9 mmol/L (3.5-5.1) Chloride Level 101 mmol/L (98-107) Carbon Dioxide Level 29 mmol/L (21-32) Anion Gap 7 (6-14) Blood Urea Nitrogen 14 mg/dL (7-20) Creatinine 1.0 mg/dL (0.6-1.0) Estimated GFR (Cockcroft-Gault) 55.5 BUN/Creatinine Ratio 14 (6-20) Glucose Level 127 mg/dL (70-99) H Calcium Level 8.7 mg/dL (8.5-10.1) Total Bilirubin 0.4 mg/dL (0.2-1.0) Aspartate Amino Transferase (AST) 18 U/L (15-37) Alanine Aminotransferase (ALT) 14 U/L (14-59) Alkaline Phosphatase 111 U/L (46-116) Total Protein 5.8 g/dL (6.4-8.2) L Albumin 2.4 g/dL (3.4-5.0) L Albumin/Globulin Ratio 0.7 (1.0-1.7) L Test 02/10/21 07:26 Glucose (Fingerstick) 118 mg/dL (70-99) H Current Medications: Meds: Laboratory Tests Test 02/09/21 11:27 02/09/21 16:40 02/09/21 19:02 02/10/21 05:54 Glucose (Fingerstick) 270 mg/dL 239 mg/dL 316 mg/dL White Blood Count 6.6 x10^3/uL Red Blood Count 3.42 x10^6/uL Hemoglobin 10.0 g/dL Hematocrit 29.7 % Mean Corpuscular Volume 87 fL Mean Corpuscular Hemoglobin 29 pg Mean Corpuscular Hemoglobin Concent 34 g/dL Red Cell Distribution Width 14.8 % Platelet Count 129 x10^3/uL Neutrophils (%) (Auto) 52 % Lymphocytes (%) (Auto) 32 % Monocytes (%) (Auto) 13 % Eosinophils (%) (Auto) 3 % Basophils (%) (Auto) 1 % Neutrophils # (Auto) 3.4 x10^3uL Lymphocytes # (Auto) 2.1 x10^3/uL Monocytes # (Auto) 0.9 x10^3/uL Eosinophils # (Auto) 0.2 x10^3/uL Basophils # (Auto) 0.0 x10^3/uL Sodium Level 137 mmol/L Potassium Level 3.9 mmol/L Chloride Level 101 mmol/L Carbon Dioxide Level 29 mmol/L Anion Gap 7 Blood Urea Nitrogen 14 mg/dL Creatinine 1.0 mg/dL Estimated GFR (Cockcroft-Gault) 55.5 BUN/Creatinine Ratio 14 Glucose Level 127 mg/dL Calcium Level 8.7 mg/dL Total Bilirubin 0.4 mg/dL Aspartate Amino Transf (AST/SGOT) 18 U/L Alanine Aminotransferase (ALT/SGPT) 14 U/L Alkaline Phosphatase 111 U/L Total Protein 5.8 g/dL Albumin 2.4 g/dL Albumin/Globulin Ratio 0.7 Test 02/10/21 07:26 Glucose (Fingerstick) 118 mg/dL Current Medications Medications (Trade) Dose Ordered Sig/Latesha Route PRN Reason Start Time Stop Time Status Last Admin Dose Admin Acetaminophen (Tylenol) 650 mg PRN Q6HRS PRN PO MILD PAIN / TEMP > 100.3'F 01/22/21 14:00 Cancel Multi-Ingredient Ointment (Analgesic [place]) 1 keri PRN QID PRN TP MUSCLE PAIN 01/22/21 14:00 Al Hydroxide/Mg Hydroxide (Mylanta Plus Xs) 15 ml PRN AFTMEALHC PRN PO DYSPEPSIA 01/22/21 14:00 Magnesium Hydroxide (Milk Of Magnesia) 2,400 mg PRN QHS PRN PO CONSTIPATION 01/22/21 14:00 Valproic Acid (Depakene) 500 mg QID PO 01/22/21 17:00 02/10/21 08:33 Acetaminophen (Tylenol) 500 mg QID PO 01/22/21 21:00 01/23/21 13:04 DC 01/23/21 08:29 Amlodipine Besylate (Norvasc) 5 mg DAILY PO 01/23/21 09:00 02/10/21 08:32 Atorvastatin Calcium (Lipitor) 20 mg QHS PO 01/22/21 21:00 02/09/21 20:06 Vitamin D (Vitamin D3) 1,000 unit DAILY PO 01/23/21 09:00 02/10/21 08:33 Hydrocortisone Acetate (Anucort-Hc) 25 mg PRN Q8HRS PRN RC hemorrhoids 01/22/21 20:00 Levothyroxine Sodium (Synthroid) 25 mcg DAILY06 PO 01/23/21 06:00 02/10/21 05:20 Lidocaine (Lidoderm) 1 patch DAILY TP 01/23/21 09:00 02/10/21 08:36 Mesalamine (Lialda) 1.2 gm DAILY PO 01/23/21 09:00 02/10/21 08:32 Metoprolol Tartrate (Lopressor) 25 mg BID PO 01/22/21 21:00 02/10/21 08:32 Quetiapine Fumarate (SEROquel) 50 mg TID PO 01/22/21 21:00 02/10/21 08:33 Risperidone (RisperDAL) 2 mg TID PO 01/22/21 21:00 02/10/21 08:33 Rivastigmine (Exelon) 1 patch DAILY TD 01/23/21 09:00 02/01/21 16:25 DC 02/01/21 08:42 Venlafaxine HCl (Effexor Xr) 37.5 mg DAILY PO 01/23/21 09:00 01/23/21 13:11 DC 01/23/21 08:29 Ziprasidone (Geodon) 40 mg BID PO 01/22/21 21:00 01/28/21 17:15 DC 01/28/21 08:52 Ziprasidone (Geodon) 80 mg QHS PO 01/22/21 21:00 01/22/21 20:17 DC Cyanocobalamin (Vitamin B-12) 1,000 mcg DAILY PO 01/23/21 09:00 02/10/21 08:33 Insulin Human Lispro (HumaLOG) 40 units TIDWMEALS SQ 01/23/21 08:00 02/10/21 08:29 Insulin Glargine (Lantus Syringe) 30 unit DAILY SQ 01/23/21 09:00 01/29/21 14:19 DC 01/29/21 09:00 Lactobacillus Rhamnosus (Culturelle) 1 cap BID PO 01/23/21 09:00 02/10/21 08:32 Non-Formulary Medication (Liraglutide (Victoza 3-Jas)) 1.8 mg DAILY SQ 01/23/21 09:00 UNV Meclizine HCl (Antivert) 25 mg BID PO 01/22/21 21:00 02/10/21 08:32 Psyllium Hydrophilic Mucilloid (Metamucil) 1 pkt BID PO 01/22/21 21:00 02/02/21 13:31 DC 02/01/21 08:42 Demeclocycline HCl (Declomycin) 150 mg TID PO 01/22/21 21:00 01/22/21 20:45 DC Olanzapine (ZyPREXA ZYDIS) 5 mg PRN Q2HR PRN PO PSYCHOSIS 01/22/21 20:30 Demeclocycline HCl (Declomycin) 300 mg TID PO 01/22/21 21:00 02/10/21 08:32 Acetaminophen/ Codeine Phosphate (Tylenol #3) 1 tab PRN QID PRN PO MODERATE PAIN 4-6 01/23/21 11:45 01/23/21 12:23 Acetaminophen (Tylenol) 500 mg PRN Q6HRS PRN PO MILD PAIN / TEMP > 100.3'F 01/23/21 13:15 02/04/21 08:31 Clozapine (Clozaril) 25 mg HS PO 01/23/21 21:00 01/30/21 18:59 DC 01/29/21 20:37 Insulin Glargine (Lantus Syringe) 40 unit BID SQ 01/29/21 21:00 01/31/21 17:42 DC 01/31/21 09:50 Clozapine (Clozaril) 50 mg HS PO 01/30/21 21:00 02/09/21 20:03 Insulin Glargine (Lantus Syringe) 60 unit BID SQ 01/31/21 17:45 01/31/21 18:17 DC Metformin HCl (Glucophage Xr) 500 mg DAILYWBKFT PO 02/01/21 08:00 02/10/21 08:33 Insulin Glargine (Lantus Syringe) 60 unit BID SQ 01/31/21 21:00 02/10/21 08:29 I have reviewed the current psychotropics carefully including drug interactions. Risk benefit ratio favors no change other than as noted in my dictated progress note. Diagnosis: Problems: (1) Schizoaffective disorder, bipolar type (2) Impulse control disorder, unspecified (3) Anxiety disorder, unspecified (4) Bipolar disorder, current episode manic severe with psychotic features INOCENCIO PELAEZ MD Feb 10, 2021 09:22
[2021-02-10 15:43] VITALS: BP 125/68
[2021-02-10] MEDS: ATORVASTATIN CALCIUM 20 MG TABLET PO SCH (19:55)
[2021-02-10] MEDS: cloZAPine 25 MG TABLET PO SCH (19:56)
--- NOTE | 2021-02-10 22:10 | PDOC ---
Exam Note: Benedict Note: Please also refer to the separate dictated note~for this date of service dictated separately.~Patient seen individually. Discussed the patient with Nursing staff reviewed the chart.~Reviewed interim history and current functioning. Reviewed vital signs,~Labs/ Radiology~and current medications noted below. Continue current treatment with the changes noted in the dictated addendum note Assessment: Vital Signs/I&O: Vital Signs Date Time Temp Pulse Resp B/P (MAP) Pulse Ox O2 Delivery O2 Flow Rate FiO2 02/10/21 19:56 71 125/68 02/10/21 15:43 97.9 16 98 02/09/21 15:49 Room Air I & O 02/09/21 02/09/21 02/10/21 15:00 23:00 07:00 Intake Total 960 ml 600 ml Balance 960 ml 600 ml Labs: Laboratory Tests Test 02/10/21 05:54 02/10/21 07:26 02/10/21 12:00 02/10/21 16:50 White Blood Count 6.6 x10^3/uL (4.0-11.0) Red Blood Count 3.42 x10^6/uL (3.50-5.40) L Hemoglobin 10.0 g/dL (12.0-15.5) L Hematocrit 29.7 % (36.0-47.0) L Mean Corpuscular Volume 87 fL (79-100) Mean Corpuscular Hemoglobin 29 pg (25-35) Mean Corpuscular Hemoglobin Concent 34 g/dL (31-37) Red Cell Distribution Width 14.8 % (11.5-14.5) H Platelet Count 129 x10^3/uL (140-400) L Neutrophils (%) (Auto) 52 % (31-73) Lymphocytes (%) (Auto) 32 % (24-48) Monocytes (%) (Auto) 13 % (0-9) H Eosinophils (%) (Auto) 3 % (0-3) Basophils (%) (Auto) 1 % (0-3) Neutrophils # (Auto) 3.4 x10^3uL (1.8-7.7) Lymphocytes # (Auto) 2.1 x10^3/uL (1.0-4.8) Monocytes # (Auto) 0.9 x10^3/uL (0.0-1.1) Eosinophils # (Auto) 0.2 x10^3/uL (0.0-0.7) Basophils # (Auto) 0.0 x10^3/uL (0.0-0.2) Sodium Level 137 mmol/L (136-145) Potassium Level 3.9 mmol/L (3.5-5.1) Chloride Level 101 mmol/L (98-107) Carbon Dioxide Level 29 mmol/L (21-32) Anion Gap 7 (6-14) Blood Urea Nitrogen 14 mg/dL (7-20) Creatinine 1.0 mg/dL (0.6-1.0) Estimated GFR (Cockcroft-Gault) 55.5 BUN/Creatinine Ratio 14 (6-20) Glucose Level 127 mg/dL (70-99) H Calcium Level 8.7 mg/dL (8.5-10.1) Total Bilirubin 0.4 mg/dL (0.2-1.0) Aspartate Amino Transferase (AST) 18 U/L (15-37) Alanine Aminotransferase (ALT) 14 U/L (14-59) Alkaline Phosphatase 111 U/L (46-116) Total Protein 5.8 g/dL (6.4-8.2) L Albumin 2.4 g/dL (3.4-5.0) L Albumin/Globulin Ratio 0.7 (1.0-1.7) L Glucose (Fingerstick) 118 mg/dL (70-99) H 162 mg/dL (70-99) H 171 mg/dL (70-99) H Test 02/10/21 19:07 Glucose (Fingerstick) 253 mg/dL (70-99) H Current Medications: Meds: Laboratory Tests Test 02/10/21 05:54 02/10/21 07:26 02/10/21 12:00 02/10/21 16:50 White Blood Count 6.6 x10^3/uL Red Blood Count 3.42 x10^6/uL Hemoglobin 10.0 g/dL Hematocrit 29.7 % Mean Corpuscular Volume 87 fL Mean Corpuscular Hemoglobin 29 pg Mean Corpuscular Hemoglobin Concent 34 g/dL Red Cell Distribution Width 14.8 % Platelet Count 129 x10^3/uL Neutrophils (%) (Auto) 52 % Lymphocytes (%) (Auto) 32 % Monocytes (%) (Auto) 13 % Eosinophils (%) (Auto) 3 % Basophils (%) (Auto) 1 % Neutrophils # (Auto) 3.4 x10^3uL Lymphocytes # (Auto) 2.1 x10^3/uL Monocytes # (Auto) 0.9 x10^3/uL Eosinophils # (Auto) 0.2 x10^3/uL Basophils # (Auto) 0.0 x10^3/uL Sodium Level 137 mmol/L Potassium Level 3.9 mmol/L Chloride Level 101 mmol/L Carbon Dioxide Level 29 mmol/L Anion Gap 7 Blood Urea Nitrogen 14 mg/dL Creatinine 1.0 mg/dL Estimated GFR (Cockcroft-Gault) 55.5 BUN/Creatinine Ratio 14 Glucose Level 127 mg/dL Calcium Level 8.7 mg/dL Total Bilirubin 0.4 mg/dL Aspartate Amino Transf (AST/SGOT) 18 U/L Alanine Aminotransferase (ALT/SGPT) 14 U/L Alkaline Phosphatase 111 U/L Total Protein 5.8 g/dL Albumin 2.4 g/dL Albumin/Globulin Ratio 0.7 Glucose (Fingerstick) 118 mg/dL 162 mg/dL 171 mg/dL Test 02/10/21 19:07 Glucose (Fingerstick) 253 mg/dL Current Medications Medications (Trade) Dose Ordered Sig/Latesha Route PRN Reason Start Time Stop Time Status Last Admin Dose Admin Acetaminophen (Tylenol) 650 mg PRN Q6HRS PRN PO MILD PAIN / TEMP > 100.3'F 01/22/21 14:00 Cancel Multi-Ingredient Ointment (Analgesic [place]) 1 keri PRN QID PRN TP MUSCLE PAIN 01/22/21 14:00 Al Hydroxide/Mg Hydroxide (Mylanta Plus Xs) 15 ml PRN AFTMEALHC PRN PO DYSPEPSIA 01/22/21 14:00 Magnesium Hydroxide (Milk Of Magnesia) 2,400 mg PRN QHS PRN PO CONSTIPATION 01/22/21 14:00 Valproic Acid (Depakene) 500 mg QID PO 01/22/21 17:00 02/10/21 19:56 Acetaminophen (Tylenol) 500 mg QID PO 01/22/21 21:00 01/23/21 13:04 DC 01/23/21 08:29 Amlodipine Besylate (Norvasc) 5 mg DAILY PO 01/23/21 09:00 02/10/21 08:32 Atorvastatin Calcium (Lipitor) 20 mg QHS PO 01/22/21 21:00 02/10/21 19:55 Vitamin D (Vitamin D3) 1,000 unit DAILY PO 01/23/21 09:00 02/10/21 08:33 Hydrocortisone Acetate (Anucort-Hc) 25 mg PRN Q8HRS PRN RC hemorrhoids 01/22/21 20:00 Levothyroxine Sodium (Synthroid) 25 mcg DAILY06 PO 01/23/21 06:00 02/10/21 05:20 Lidocaine (Lidoderm) 1 patch DAILY TP 01/23/21 09:00 02/10/21 08:36 Mesalamine (Lialda) 1.2 gm DAILY PO 01/23/21 09:00 02/10/21 08:32 Metoprolol Tartrate (Lopressor) 25 mg BID PO 01/22/21 21:00 02/10/21 19:56 Quetiapine Fumarate (SEROquel) 50 mg TID PO 01/22/21 21:00 02/10/21 19:55 Risperidone (RisperDAL) 2 mg TID PO 01/22/21 21:00 02/10/21 19:56 Rivastigmine (Exelon) 1 patch DAILY TD 01/23/21 09:00 02/01/21 16:25 DC 02/01/21 08:42 Venlafaxine HCl (Effexor Xr) 37.5 mg DAILY PO 01/23/21 09:00 01/23/21 13:11 DC 01/23/21 08:29 Ziprasidone (Geodon) 40 mg BID PO 01/22/21 21:00 01/28/21 17:15 DC 01/28/21 08:52 Ziprasidone (Geodon) 80 mg QHS PO 01/22/21 21:00 01/22/21 20:17 DC Cyanocobalamin (Vitamin B-12) 1,000 mcg DAILY PO 01/23/21 09:00 02/10/21 08:33 Insulin Human Lispro (HumaLOG) 40 units TIDWMEALS SQ 01/23/21 08:00 02/10/21 17:34 Insulin Glargine (Lantus Syringe) 30 unit DAILY SQ 01/23/21 09:00 01/29/21 14:19 DC 01/29/21 09:00 Lactobacillus Rhamnosus (Culturelle) 1 cap BID PO 01/23/21 09:00 02/10/21 19:56 Non-Formulary Medication (Liraglutide (Victoza 3-Jas)) 1.8 mg DAILY SQ 01/23/21 09:00 UNV Meclizine HCl (Antivert) 25 mg BID PO 01/22/21 21:00 02/10/21 19:56 Psyllium Hydrophilic Mucilloid (Metamucil) 1 pkt BID PO 01/22/21 21:00 02/02/21 13:31 DC 02/01/21 08:42 Demeclocycline HCl (Declomycin) 150 mg TID PO 01/22/21 21:00 01/22/21 20:45 DC Olanzapine (ZyPREXA ZYDIS) 5 mg PRN Q2HR PRN PO PSYCHOSIS 01/22/21 20:30 Demeclocycline HCl (Declomycin) 300 mg TID PO 01/22/21 21:00 02/10/21 19:55 Acetaminophen/ Codeine Phosphate (Tylenol #3) 1 tab PRN QID PRN PO MODERATE PAIN 4-6 01/23/21 11:45 01/23/21 12:23 Acetaminophen (Tylenol) 500 mg PRN Q6HRS PRN PO MILD PAIN / TEMP > 100.3'F 01/23/21 13:15 02/04/21 08:31 Clozapine (Clozaril) 25 mg HS PO 01/23/21 21:00 01/30/21 18:59 DC 01/29/21 20:37 Insulin Glargine (Lantus Syringe) 40 unit BID SQ 01/29/21 21:00 01/31/21 17:42 DC 01/31/21 09:50 Clozapine (Clozaril) 50 mg HS PO 01/30/21 21:00 02/10/21 19:56 Insulin Glargine (Lantus Syringe) 60 unit BID SQ 01/31/21 17:45 01/31/21 18:17 DC Metformin HCl (Glucophage Xr) 500 mg DAILYWBKFT PO 02/01/21 08:00 02/10/21 08:33 Insulin Glargine (Lantus Syringe) 60 unit BID SQ 01/31/21 21:00 02/10/21 20:43 I have reviewed the current psychotropics carefully including drug interactions. Risk benefit ratio favors no change other than as noted in my dictated progress note. Diagnosis: Problems: (1) Schizoaffective disorder, bipolar type (2) Impulse control disorder, unspecified (3) Anxiety disorder, unspecified (4) Bipolar disorder, current episode manic severe with psychotic features INOCENCIO PELAEZ MD Feb 10, 2021 22:10
--- NOTE | 2021-02-10 22:48 | NUR ---
Pt sitting quietly in the day room when approached. Pt calm, pleasant, and interactive. Pt also delusional- believes that there is heroin, meth, and anti-depressants in the tap water, and that is why she only drinks from her water bottle. Pt cooperative with assessment and compliant with medications administered whole.
[2021-02-11] MEDS: LEVOTHYROXINE 25 MCG TABLET. PO SCH (05:10)
[2021-02-11 05:52] VITALS: BP 105/60
[2021-02-11] MEDS: CHOLECALCIFEROL (VITAMIN D3) 1,000 UNIT TABLET PO SCH (08:41)
[2021-02-11] MEDS: VALPROIC ACID 250 MG CAPSULE. PO SCH ×4 (08:42→21:16)
[2021-02-11] MEDS: MECLIZINE 12.5 MG TABLET. PO SCH ×2 (08:42→21:15)
[2021-02-11] MEDS: DEMECLOCYCLINE HCL 150 MG TABLET. PO SCH ×3 (08:42→21:16)
[2021-02-11] MEDS: risperiDONE 2 MG TABLET. PO SCH ×3 (08:42→21:15)
[2021-02-11] MEDS: MESALAMINE 1.2 GM TABLET.DR PO SCH (08:42)
[2021-02-11] MEDS: metFORMIN XR 500 MG TAB.ER.24H PO SCH (08:42)
[2021-02-11] MEDS: LACTOBACILLUS RHAMNOSUS GG 1 CAPSULE. PO SCH ×2 (08:42→21:15)
[2021-02-11] MEDS: CYANOCOBALAMIN (VITAMIN B-12) 1,000 MCG TABLET. PO SCH (08:42)
[2021-02-11] MEDS: amLODIPine BESYLATE 5 MG TABLET PO SCH (08:42)
[2021-02-11] MEDS: QUEtiapine 50 MG TABLET. PO SCH ×3 (08:43→21:16)
[2021-02-11] MEDS: METOPROLOL TART IMMED RELEASE 25 MG TABLET. PO SCH ×2 (08:43→21:17)
[2021-02-11] MEDS: INSULIN LISPRO 300 UNITS/3 ML VIAL. SQ SCH ×3 (08:46→17:30)
[2021-02-11] MEDS: INSULIN GLARGINE SYRINGE. SQ SCH ×2 (08:48→21:00)
[2021-02-11] MEDS: LIDOCAINE (700MG/PATCH) PATCH. TP SCH ×2 (08:51→13:15)
[2021-02-11] MEDS: NON FORMULARY ITEM (Liraglutide (Victoza 3-Pak) 1.8 MG) SQ SCH (08:56)
--- NOTE | 2021-02-11 09:42 | PDOC ---
Exam Note: Benedict Note: This note is a late entry for 02/09/2021 covers elements not covered in my initial note. Subjective: The patient was seen on telehealth rounds in the afternoon of 02/09/2021 with the nursing staff taking the telehealth camera to each patient, which was on a secure portal, discussed and reviewed the chart with Jasmin CARRERA. The patient slept 6-1/2 hours previous night. She had chest x-ray because of wheezes and crackles. Reportedly some pleural effusion, bilateral basal atelectasis. We will defer to Dr. Lee. Otherwise, she is pleasant, verbal, interactive, much less grandiose, quite appropriate as I met with her in her room on telehealth rounds. Review of Systems: Ambulation some impairment. No CV, , eye system symptoms on review. Mental Status Exam: The patient is alert and oriented, fairly cooperative. Speech coherent. Thought processes goal directed. Intellect average. Insight good. Judgment intact. Abstraction fair. Computation impaired. Language function intact. Attention span short. No suicidal or homicidal ideation. Laboratory Data: Reviewed. Impression: Schizoaffective disorder, bipolar type mixed with psychotic features. Anxiety disorder unspecified. Impulse control disorder unspecified. Plan: No change from initial note. Defer medical management to Dr. Lee/Dr. Trinidad. Assessment: Vital Signs/I&O: Vital Signs Date Time Temp Pulse Resp B/P (MAP) Pulse Ox O2 Delivery O2 Flow Rate FiO2 02/11/21 08:43 84 105/60 02/11/21 05:52 97.0 18 96 02/09/21 15:49 Room Air I & O 02/10/21 02/10/21 02/11/21 15:00 23:00 07:00 Intake Total 1140 ml 600 ml Balance 1140 ml 600 ml Labs: Laboratory Tests Test 02/10/21 12:00 02/10/21 16:50 02/10/21 19:07 02/11/21 07:40 Glucose (Fingerstick) 162 mg/dL (70-99) H 171 mg/dL (70-99) H 253 mg/dL (70-99) H 123 mg/dL (70-99) H Current Medications: Meds: Laboratory Tests Test 02/10/21 12:00 02/10/21 16:50 02/10/21 19:07 02/11/21 07:40 Glucose (Fingerstick) 162 mg/dL 171 mg/dL 253 mg/dL 123 mg/dL Current Medications Medications (Trade) Dose Ordered Sig/Latesha Route PRN Reason Start Time Stop Time Status Last Admin Dose Admin Acetaminophen (Tylenol) 650 mg PRN Q6HRS PRN PO MILD PAIN / TEMP > 100.3'F 01/22/21 14:00 Cancel Multi-Ingredient Ointment (Analgesic [place]) 1 keri PRN QID PRN TP MUSCLE PAIN 01/22/21 14:00 Al Hydroxide/Mg Hydroxide (Mylanta Plus Xs) 15 ml PRN AFTMEALHC PRN PO DYSPEPSIA 01/22/21 14:00 Magnesium Hydroxide (Milk Of Magnesia) 2,400 mg PRN QHS PRN PO CONSTIPATION 01/22/21 14:00 Valproic Acid (Depakene) 500 mg QID PO 01/22/21 17:00 02/11/21 08:42 Acetaminophen (Tylenol) 500 mg QID PO 01/22/21 21:00 01/23/21 13:04 DC 01/23/21 08:29 Amlodipine Besylate (Norvasc) 5 mg DAILY PO 01/23/21 09:00 02/11/21 08:42 Atorvastatin Calcium (Lipitor) 20 mg QHS PO 01/22/21 21:00 02/10/21 19:55 Vitamin D (Vitamin D3) 1,000 unit DAILY PO 01/23/21 09:00 02/11/21 08:41 Hydrocortisone Acetate (Anucort-Hc) 25 mg PRN Q8HRS PRN RC hemorrhoids 01/22/21 20:00 Levothyroxine Sodium (Synthroid) 25 mcg DAILY06 PO 01/23/21 06:00 02/11/21 05:10 Lidocaine (Lidoderm) 1 patch DAILY TP 01/23/21 09:00 02/11/21 08:51 Mesalamine (Lialda) 1.2 gm DAILY PO 01/23/21 09:00 02/11/21 08:42 Metoprolol Tartrate (Lopressor) 25 mg BID PO 01/22/21 21:00 02/11/21 08:43 Quetiapine Fumarate (SEROquel) 50 mg TID PO 01/22/21 21:00 02/11/21 08:43 Risperidone (RisperDAL) 2 mg TID PO 01/22/21 21:00 02/11/21 08:42 Rivastigmine (Exelon) 1 patch DAILY TD 01/23/21 09:00 02/01/21 16:25 DC 02/01/21 08:42 Venlafaxine HCl (Effexor Xr) 37.5 mg DAILY PO 01/23/21 09:00 01/23/21 13:11 DC 01/23/21 08:29 Ziprasidone (Geodon) 40 mg BID PO 01/22/21 21:00 01/28/21 17:15 DC 01/28/21 08:52 Ziprasidone (Geodon) 80 mg QHS PO 01/22/21 21:00 01/22/21 20:17 DC Cyanocobalamin (Vitamin B-12) 1,000 mcg DAILY PO 01/23/21 09:00 02/11/21 08:42 Insulin Human Lispro (HumaLOG) 40 units TIDWMEALS SQ 01/23/21 08:00 02/11/21 08:46 Insulin Glargine (Lantus Syringe) 30 unit DAILY SQ 01/23/21 09:00 01/29/21 14:19 DC 01/29/21 09:00 Lactobacillus Rhamnosus (Culturelle) 1 cap BID PO 01/23/21 09:00 02/11/21 08:42 Non-Formulary Medication (Liraglutide (Victoza 3-Jas)) 1.8 mg DAILY SQ 01/23/21 09:00 UNV Meclizine HCl (Antivert) 25 mg BID PO 01/22/21 21:00 02/11/21 08:42 Psyllium Hydrophilic Mucilloid (Metamucil) 1 pkt BID PO 01/22/21 21:00 02/02/21 13:31 DC 02/01/21 08:42 Demeclocycline HCl (Declomycin) 150 mg TID PO 01/22/21 21:00 01/22/21 20:45 DC Olanzapine (ZyPREXA ZYDIS) 5 mg PRN Q2HR PRN PO PSYCHOSIS 01/22/21 20:30 Demeclocycline HCl (Declomycin) 300 mg TID PO 01/22/21 21:00 02/11/21 08:42 Acetaminophen/ Codeine Phosphate (Tylenol #3) 1 tab PRN QID PRN PO MODERATE PAIN 4-6 01/23/21 11:45 01/23/21 12:23 Acetaminophen (Tylenol) 500 mg PRN Q6HRS PRN PO MILD PAIN / TEMP > 100.3'F 01/23/21 13:15 02/04/21 08:31 Clozapine (Clozaril) 25 mg HS PO 01/23/21 21:00 01/30/21 18:59 DC 01/29/21 20:37 Insulin Glargine (Lantus Syringe) 40 unit BID SQ 01/29/21 21:00 01/31/21 17:42 DC 01/31/21 09:50 Clozapine (Clozaril) 50 mg HS PO 01/30/21 21:00 02/10/21 19:56 Insulin Glargine (Lantus Syringe) 60 unit BID SQ 01/31/21 17:45 01/31/21 18:17 DC Metformin HCl (Glucophage Xr) 500 mg DAILYWBKFT PO 02/01/21 08:00 02/11/21 08:42 Insulin Glargine (Lantus Syringe) 60 unit BID SQ 01/31/21 21:00 02/11/21 08:48 I have reviewed the current psychotropics carefully including drug interactions. Risk benefit ratio favors no change other than as noted in my dictated progress note. Diagnosis: Problems: (1) Schizoaffective disorder, bipolar type (2) Impulse control disorder, unspecified (3) Anxiety disorder, unspecified (4) Bipolar disorder, current episode manic severe with psychotic features INOCENCIO PELAEZ MD Feb 11, 2021 09:42
--- NOTE | 2021-02-11 10:12 | PDOC ---
Exam Note: Benedict Note: This note is a late entry for 02/10/2021 covers elements not covered in my initial note. Subjective: The patient was seen on telehealth rounds in the afternoon of 02/10/2021 with the nursing staff taking the telehealth camera to each patient, which was on a secure portal, discussed and reviewed the chart with Jasmin CARRERA. The patient slept 8-1/4 hours previous night. She has been more awake and alert. She does spend quite a bit of time in her room. Review of Systems: Ambulation some impairment. No CV, , eye system symptoms on review. Mental Status Exam: The patient is alert and oriented. She is very verbal, pleasant, interactive, asking about discharge plans. We will check with social service staff. Speech coherent. Thought processes goal directed. Intellect average. Insight good. Judgment intact. Abstraction fair. Computation impaired. Language function intact. Attention span short. No suicidal or homicidal ideation. Laboratory Data: Reviewed. Impression: Schizoaffective disorder, bipolar type mixed with psychotic features. Anxiety disorder unspecified. Impulse control disorder unspecified. Plan: No change from initial note. Assessment: Vital Signs/I&O: Vital Signs Date Time Temp Pulse Resp B/P (MAP) Pulse Ox O2 Delivery O2 Flow Rate FiO2 02/11/21 08:43 84 105/60 02/11/21 05:52 97.0 18 96 02/09/21 15:49 Room Air I & O 02/10/21 02/10/21 02/11/21 15:00 23:00 07:00 Intake Total 1140 ml 600 ml Balance 1140 ml 600 ml Labs: Laboratory Tests Test 02/10/21 12:00 02/10/21 16:50 02/10/21 19:07 02/11/21 07:40 Glucose (Fingerstick) 162 mg/dL (70-99) H 171 mg/dL (70-99) H 253 mg/dL (70-99) H 123 mg/dL (70-99) H Current Medications: Meds: Laboratory Tests Test 02/10/21 12:00 02/10/21 16:50 02/10/21 19:07 02/11/21 07:40 Glucose (Fingerstick) 162 mg/dL 171 mg/dL 253 mg/dL 123 mg/dL Current Medications Medications (Trade) Dose Ordered Sig/Latesha Route PRN Reason Start Time Stop Time Status Last Admin Dose Admin Acetaminophen (Tylenol) 650 mg PRN Q6HRS PRN PO MILD PAIN / TEMP > 100.3'F 01/22/21 14:00 Cancel Multi-Ingredient Ointment (Analgesic [place]) 1 keri PRN QID PRN TP MUSCLE PAIN 01/22/21 14:00 Al Hydroxide/Mg Hydroxide (Mylanta Plus Xs) 15 ml PRN AFTMEALHC PRN PO DYSPEPSIA 01/22/21 14:00 Magnesium Hydroxide (Milk Of Magnesia) 2,400 mg PRN QHS PRN PO CONSTIPATION 01/22/21 14:00 Valproic Acid (Depakene) 500 mg QID PO 01/22/21 17:00 02/11/21 08:42 Acetaminophen (Tylenol) 500 mg QID PO 01/22/21 21:00 01/23/21 13:04 DC 01/23/21 08:29 Amlodipine Besylate (Norvasc) 5 mg DAILY PO 01/23/21 09:00 02/11/21 08:42 Atorvastatin Calcium (Lipitor) 20 mg QHS PO 01/22/21 21:00 02/10/21 19:55 Vitamin D (Vitamin D3) 1,000 unit DAILY PO 01/23/21 09:00 02/11/21 08:41 Hydrocortisone Acetate (Anucort-Hc) 25 mg PRN Q8HRS PRN RC hemorrhoids 01/22/21 20:00 Levothyroxine Sodium (Synthroid) 25 mcg DAILY06 PO 01/23/21 06:00 02/11/21 05:10 Lidocaine (Lidoderm) 1 patch DAILY TP 01/23/21 09:00 02/11/21 08:51 Mesalamine (Lialda) 1.2 gm DAILY PO 01/23/21 09:00 02/11/21 08:42 Metoprolol Tartrate (Lopressor) 25 mg BID PO 01/22/21 21:00 02/11/21 08:43 Quetiapine Fumarate (SEROquel) 50 mg TID PO 01/22/21 21:00 02/11/21 08:43 Risperidone (RisperDAL) 2 mg TID PO 01/22/21 21:00 02/11/21 08:42 Rivastigmine (Exelon) 1 patch DAILY TD 01/23/21 09:00 02/01/21 16:25 DC 02/01/21 08:42 Venlafaxine HCl (Effexor Xr) 37.5 mg DAILY PO 01/23/21 09:00 01/23/21 13:11 DC 01/23/21 08:29 Ziprasidone (Geodon) 40 mg BID PO 01/22/21 21:00 01/28/21 17:15 DC 01/28/21 08:52 Ziprasidone (Geodon) 80 mg QHS PO 01/22/21 21:00 01/22/21 20:17 DC Cyanocobalamin (Vitamin B-12) 1,000 mcg DAILY PO 01/23/21 09:00 02/11/21 08:42 Insulin Human Lispro (HumaLOG) 40 units TIDWMEALS SQ 01/23/21 08:00 02/11/21 08:46 Insulin Glargine (Lantus Syringe) 30 unit DAILY SQ 01/23/21 09:00 01/29/21 14:19 DC 01/29/21 09:00 Lactobacillus Rhamnosus (Culturelle) 1 cap BID PO 01/23/21 09:00 02/11/21 08:42 Non-Formulary Medication (Liraglutide (Victoza 3-Jas)) 1.8 mg DAILY SQ 01/23/21 09:00 UNV Meclizine HCl (Antivert) 25 mg BID PO 01/22/21 21:00 02/11/21 08:42 Psyllium Hydrophilic Mucilloid (Metamucil) 1 pkt BID PO 01/22/21 21:00 02/02/21 13:31 DC 02/01/21 08:42 Demeclocycline HCl (Declomycin) 150 mg TID PO 01/22/21 21:00 01/22/21 20:45 DC Olanzapine (ZyPREXA ZYDIS) 5 mg PRN Q2HR PRN PO PSYCHOSIS 01/22/21 20:30 Demeclocycline HCl (Declomycin) 300 mg TID PO 01/22/21 21:00 02/11/21 08:42 Acetaminophen/ Codeine Phosphate (Tylenol #3) 1 tab PRN QID PRN PO MODERATE PAIN 4-6 01/23/21 11:45 01/23/21 12:23 Acetaminophen (Tylenol) 500 mg PRN Q6HRS PRN PO MILD PAIN / TEMP > 100.3'F 01/23/21 13:15 02/04/21 08:31 Clozapine (Clozaril) 25 mg HS PO 01/23/21 21:00 01/30/21 18:59 DC 01/29/21 20:37 Insulin Glargine (Lantus Syringe) 40 unit BID SQ 01/29/21 21:00 01/31/21 17:42 DC 01/31/21 09:50 Clozapine (Clozaril) 50 mg HS PO 01/30/21 21:00 02/10/21 19:56 Insulin Glargine (Lantus Syringe) 60 unit BID SQ 01/31/21 17:45 01/31/21 18:17 DC Metformin HCl (Glucophage Xr) 500 mg DAILYWBKFT PO 02/01/21 08:00 02/11/21 08:42 Insulin Glargine (Lantus Syringe) 60 unit BID SQ 01/31/21 21:00 02/11/21 08:48 I have reviewed the current psychotropics carefully including drug interactions. Risk benefit ratio favors no change other than as noted in my dictated progress note. Diagnosis: Problems: (1) Schizoaffective disorder, bipolar type (2) Impulse control disorder, unspecified (3) Anxiety disorder, unspecified (4) Bipolar disorder, current episode manic severe with psychotic features INOCENCIO PELAEZ MD Feb 11, 2021 10:12
--- NOTE | 2021-02-11 14:37 | NUR ---
Nursing Note: Pt was calm, cooperative, and pleasant this morning. She was medication compliant. She did state that she needed to continue resting per her doctors orders because of her cough. She rested in bed after breakfast and lunch. She spent some time in the day room visiting with other patients, but was quiet for the most part.
[2021-02-11 16:05] VITALS: BP 109/64
--- NOTE | 2021-02-11 16:13 | NUR ---
HUMBERTO attempted to contact Blanca at facility, [facility] on , to give update on discuss discharge plan. HUMBERTO left vm for Blanca to return call.
[2021-02-11] MEDS: cloZAPine 25 MG TABLET PO SCH (21:15)
[2021-02-11] MEDS: ATORVASTATIN CALCIUM 20 MG TABLET PO SCH (21:17)
--- NOTE | 2021-02-11 22:09 | PDOC ---
Exam Note: Benedict Note: Please also refer to the separate dictated note~for this date of service dictated separately.~Patient seen individually. Discussed the patient with Nursing staff reviewed the chart.~Reviewed interim history and current functioning. Reviewed vital signs,~Labs/ Radiology~and current medications noted below. Continue current treatment with the changes noted in the dictated addendum note Assessment: Vital Signs/I&O: Vital Signs Date Time Temp Pulse Resp B/P (MAP) Pulse Ox O2 Delivery O2 Flow Rate FiO2 02/11/21 21:17 86 119/74 02/11/21 16:05 96.9 16 95 02/09/21 15:49 Room Air I & O 02/10/21 02/10/21 02/11/21 15:00 23:00 07:00 Intake Total 1140 ml 600 ml Balance 1140 ml 600 ml Labs: Laboratory Tests Test 02/11/21 07:40 02/11/21 11:24 02/11/21 16:34 02/11/21 19:15 Glucose (Fingerstick) 123 mg/dL (70-99) H 278 mg/dL (70-99) H 272 mg/dL (70-99) H 319 mg/dL (70-99) H Current Medications: Meds: Laboratory Tests Test 02/11/21 07:40 02/11/21 11:24 02/11/21 16:34 02/11/21 19:15 Glucose (Fingerstick) 123 mg/dL 278 mg/dL 272 mg/dL 319 mg/dL Current Medications Medications (Trade) Dose Ordered Sig/Latesha Route PRN Reason Start Time Stop Time Status Last Admin Dose Admin Acetaminophen (Tylenol) 650 mg PRN Q6HRS PRN PO MILD PAIN / TEMP > 100.3'F 01/22/21 14:00 Cancel Multi-Ingredient Ointment (Analgesic [place]) 1 keri PRN QID PRN TP MUSCLE PAIN 01/22/21 14:00 Al Hydroxide/Mg Hydroxide (Mylanta Plus Xs) 15 ml PRN AFTMEALHC PRN PO DYSPEPSIA 01/22/21 14:00 Magnesium Hydroxide (Milk Of Magnesia) 2,400 mg PRN QHS PRN PO CONSTIPATION 01/22/21 14:00 Valproic Acid (Depakene) 500 mg QID PO 01/22/21 17:00 02/11/21 21:16 Acetaminophen (Tylenol) 500 mg QID PO 01/22/21 21:00 01/23/21 13:04 DC 01/23/21 08:29 Amlodipine Besylate (Norvasc) 5 mg DAILY PO 01/23/21 09:00 02/11/21 08:42 Atorvastatin Calcium (Lipitor) 20 mg QHS PO 01/22/21 21:00 02/11/21 21:17 Vitamin D (Vitamin D3) 1,000 unit DAILY PO 01/23/21 09:00 02/11/21 08:41 Hydrocortisone Acetate (Anucort-Hc) 25 mg PRN Q8HRS PRN RC hemorrhoids 01/22/21 20:00 Levothyroxine Sodium (Synthroid) 25 mcg DAILY06 PO 01/23/21 06:00 02/11/21 05:10 Lidocaine (Lidoderm) 1 patch DAILY TP 01/23/21 09:00 02/11/21 13:15 Mesalamine (Lialda) 1.2 gm DAILY PO 01/23/21 09:00 02/11/21 08:42 Metoprolol Tartrate (Lopressor) 25 mg BID PO 01/22/21 21:00 02/11/21 21:17 Quetiapine Fumarate (SEROquel) 50 mg TID PO 01/22/21 21:00 02/11/21 21:16 Risperidone (RisperDAL) 2 mg TID PO 01/22/21 21:00 02/11/21 21:15 Rivastigmine (Exelon) 1 patch DAILY TD 01/23/21 09:00 02/01/21 16:25 DC 02/01/21 08:42 Venlafaxine HCl (Effexor Xr) 37.5 mg DAILY PO 01/23/21 09:00 01/23/21 13:11 DC 01/23/21 08:29 Ziprasidone (Geodon) 40 mg BID PO 01/22/21 21:00 01/28/21 17:15 DC 01/28/21 08:52 Ziprasidone (Geodon) 80 mg QHS PO 01/22/21 21:00 01/22/21 20:17 DC Cyanocobalamin (Vitamin B-12) 1,000 mcg DAILY PO 01/23/21 09:00 02/11/21 08:42 Insulin Human Lispro (HumaLOG) 40 units TIDWMEALS SQ 01/23/21 08:00 02/11/21 17:30 Insulin Glargine (Lantus Syringe) 30 unit DAILY SQ 01/23/21 09:00 01/29/21 14:19 DC 01/29/21 09:00 Lactobacillus Rhamnosus (Culturelle) 1 cap BID PO 01/23/21 09:00 02/11/21 21:15 Non-Formulary Medication (Liraglutide (Victoza 3-Jas)) 1.8 mg DAILY SQ 01/23/21 09:00 UNV Meclizine HCl (Antivert) 25 mg BID PO 01/22/21 21:00 02/11/21 21:15 Psyllium Hydrophilic Mucilloid (Metamucil) 1 pkt BID PO 01/22/21 21:00 02/02/21 13:31 DC 02/01/21 08:42 Demeclocycline HCl (Declomycin) 150 mg TID PO 01/22/21 21:00 01/22/21 20:45 DC Olanzapine (ZyPREXA ZYDIS) 5 mg PRN Q2HR PRN PO PSYCHOSIS 01/22/21 20:30 Demeclocycline HCl (Declomycin) 300 mg TID PO 01/22/21 21:00 02/11/21 21:16 Acetaminophen/ Codeine Phosphate (Tylenol #3) 1 tab PRN QID PRN PO MODERATE PAIN 4-6 01/23/21 11:45 01/23/21 12:23 Acetaminophen (Tylenol) 500 mg PRN Q6HRS PRN PO MILD PAIN / TEMP > 100.3'F 01/23/21 13:15 02/04/21 08:31 Clozapine (Clozaril) 25 mg HS PO 01/23/21 21:00 01/30/21 18:59 DC 01/29/21 20:37 Insulin Glargine (Lantus Syringe) 40 unit BID SQ 01/29/21 21:00 01/31/21 17:42 DC 01/31/21 09:50 Clozapine (Clozaril) 50 mg HS PO 01/30/21 21:00 02/11/21 21:15 Insulin Glargine (Lantus Syringe) 60 unit BID SQ 01/31/21 17:45 01/31/21 18:17 DC Metformin HCl (Glucophage Xr) 500 mg DAILYWBKFT PO 02/01/21 08:00 02/11/21 08:42 Insulin Glargine (Lantus Syringe) 60 unit BID SQ 01/31/21 21:00 02/11/21 21:00 I have reviewed the current psychotropics carefully including drug interactions. Risk benefit ratio favors no change other than as noted in my dictated progress note. Diagnosis: Problems: (1) Schizoaffective disorder, bipolar type (2) Impulse control disorder, unspecified (3) Anxiety disorder, unspecified (4) Bipolar disorder, current episode manic severe with psychotic features INOCENCIO PELAEZ MD Feb 11, 2021 22:09
--- NOTE | 2021-02-12 03:51 | NUR ---
Patient spent most of the shift in her room and only came out for a brief moment to ask for and receive her night time Insulin. When asked by nurse during Med pass why she stayed in her room and in bed, patient indicated she felt tired and needed some rest. Patient informed nurse snacks were brought to her in the room and she ate them all, an in formation which the nurse confirmed with the aide. Patient denies any nausea, vomiting and/ or pain. She was compliant with all her night time medications, was pleasant and patient in her interactions with staff and peers, and was coherent for the most part, with a bit of delusion about an above the ground pool she was getting for her son and a procedure she has to undergo for double stent placement in her vessels. Patient returned to her room where she remained in bed, resting with eyes closed, breathing normally and showing no distress.
[2021-02-12 05:51] VITALS: BP 128/73
[2021-02-12] MEDS: LEVOTHYROXINE 25 MCG TABLET. PO SCH (06:00)
[2021-02-12] MEDS: NON FORMULARY ITEM (Liraglutide (Victoza 3-Pak) 1.8 MG) SQ SCH (09:00)
[2021-02-12] MEDS: risperiDONE 2 MG TABLET. PO SCH ×3 (09:12→21:28)
[2021-02-12] MEDS: VALPROIC ACID 250 MG CAPSULE. PO SCH ×4 (09:12→21:28)
[2021-02-12] MEDS: LACTOBACILLUS RHAMNOSUS GG 1 CAPSULE. PO SCH ×2 (09:12→21:26)
[2021-02-12] MEDS: CHOLECALCIFEROL (VITAMIN D3) 1,000 UNIT TABLET PO SCH (09:12)
[2021-02-12] MEDS: MECLIZINE 12.5 MG TABLET. PO SCH ×2 (09:12→21:27)
[2021-02-12] MEDS: CYANOCOBALAMIN (VITAMIN B-12) 1,000 MCG TABLET. PO SCH (09:12)
[2021-02-12] MEDS: metFORMIN XR 500 MG TAB.ER.24H PO SCH (09:12)
[2021-02-12] MEDS: DEMECLOCYCLINE HCL 150 MG TABLET. PO SCH ×3 (09:12→21:27)
[2021-02-12] MEDS: QUEtiapine 50 MG TABLET. PO SCH ×3 (09:13→21:28)
[2021-02-12] MEDS: amLODIPine BESYLATE 5 MG TABLET PO SCH (09:13)
[2021-02-12] MEDS: MESALAMINE 1.2 GM TABLET.DR PO SCH (09:13)
[2021-02-12] MEDS: METOPROLOL TART IMMED RELEASE 25 MG TABLET. PO SCH ×2 (09:13→21:27)
[2021-02-12] MEDS: INSULIN LISPRO 300 UNITS/3 ML VIAL. SQ SCH ×3 (09:15→17:12)
[2021-02-12] MEDS: INSULIN GLARGINE SYRINGE. SQ SCH ×2 (09:29→21:00)
--- NOTE | 2021-02-12 12:53 | NUR ---
HUMBERTO sent updates via fax to Blanca at facility, [facility] on [address]. Transmittal successful.
--- NOTE | 2021-02-12 16:04 | NUR ---
[facility] Social Work Discharge Planning Form Patient Name DEDRA SLADE Admit Date: 01/22/21 DISCHARGE PLAN Discharge Destination: [facility] Assessment: No Level II Assessment: No Transportation: Facility will p/u at 1100 on 02/14/21. Special Instructions/Notes: Please fax signed med list and visit summary. DISCHARGE TO FACILITY Facility: [facility] [address] Address: [address] [place] [address] Contact Name: Blanca senior product development manager on duty PCP: Dr. Parveen Estevez Psychiatrist: None Addendum: 02/12/21 at 1641 by PABLO PAUL Discharge is rescheduled for Wednesday02/18/21 d/t covid concerns at pt facility. She will be p/u by facility on 02/18/21 at 1000.
[2021-02-12 16:19] VITALS: BP 131/78
--- NOTE | 2021-02-12 18:30 | NUR ---
Patient has been withdrawn, delusional, and attention seeking throughout this shift. She has been more social with peers and spent part of the afternoon in the day room. Patient believes she has had pneumonia for several weeks. Patient continues to use wheelchair most of the time and walking at other times. Will continue to monitor and report to oncoming shift.
[2021-02-12] MEDS: ATORVASTATIN CALCIUM 20 MG TABLET PO SCH (21:26)
[2021-02-12] MEDS: cloZAPine 25 MG TABLET PO SCH (21:27)
--- NOTE | 2021-02-12 22:46 | PDOC ---
Exam Note: Benedict Note: Please also refer to the separate dictated note~for this date of service dictated separately.~Patient seen individually. Discussed the patient with Nursing staff reviewed the chart.~Reviewed interim history and current functioning. Reviewed vital signs,~Labs/ Radiology~and current medications noted below. Continue current treatment with the changes noted in the dictated addendum note Assessment: Vital Signs/I&O: Vital Signs Date Time Temp Pulse Resp B/P (MAP) Pulse Ox O2 Delivery O2 Flow Rate FiO2 02/12/21 21:27 91 131/78 02/12/21 16:19 97.2 18 98 Room Air I & O 02/11/21 02/11/21 02/12/21 15:00 23:00 07:00 Intake Total 600 ml 600 ml Balance 600 ml 600 ml Labs: Laboratory Tests Test 02/12/21 07:37 02/12/21 11:48 02/12/21 16:30 02/12/21 19:38 Glucose (Fingerstick) 87 mg/dL (70-99) 189 mg/dL (70-99) H 281 mg/dL (70-99) H 266 mg/dL (70-99) H Current Medications: Meds: Laboratory Tests Test 02/12/21 07:37 02/12/21 11:48 02/12/21 16:30 02/12/21 19:38 Glucose (Fingerstick) 87 mg/dL 189 mg/dL 281 mg/dL 266 mg/dL Current Medications Medications (Trade) Dose Ordered Sig/Latesha Route PRN Reason Start Time Stop Time Status Last Admin Dose Admin Acetaminophen (Tylenol) 650 mg PRN Q6HRS PRN PO MILD PAIN / TEMP > 100.3'F 01/22/21 14:00 Cancel Multi-Ingredient Ointment (Analgesic [place]) 1 keri PRN QID PRN TP MUSCLE PAIN 01/22/21 14:00 Al Hydroxide/Mg Hydroxide (Mylanta Plus Xs) 15 ml PRN AFTMEALHC PRN PO DYSPEPSIA 01/22/21 14:00 Magnesium Hydroxide (Milk Of Magnesia) 2,400 mg PRN QHS PRN PO CONSTIPATION 01/22/21 14:00 Valproic Acid (Depakene) 500 mg QID PO 01/22/21 17:00 02/12/21 21:28 Acetaminophen (Tylenol) 500 mg QID PO 01/22/21 21:00 01/23/21 13:04 DC 01/23/21 08:29 Amlodipine Besylate (Norvasc) 5 mg DAILY PO 01/23/21 09:00 02/12/21 09:13 Atorvastatin Calcium (Lipitor) 20 mg QHS PO 01/22/21 21:00 02/12/21 21:26 Vitamin D (Vitamin D3) 1,000 unit DAILY PO 01/23/21 09:00 02/12/21 09:12 Hydrocortisone Acetate (Anucort-Hc) 25 mg PRN Q8HRS PRN RC hemorrhoids 01/22/21 20:00 Levothyroxine Sodium (Synthroid) 25 mcg DAILY06 PO 01/23/21 06:00 02/12/21 06:00 Lidocaine (Lidoderm) 1 patch DAILY TP 01/23/21 09:00 02/11/21 13:15 Mesalamine (Lialda) 1.2 gm DAILY PO 01/23/21 09:00 02/12/21 09:13 Metoprolol Tartrate (Lopressor) 25 mg BID PO 01/22/21 21:00 02/12/21 21:27 Quetiapine Fumarate (SEROquel) 50 mg TID PO 01/22/21 21:00 02/12/21 21:28 Risperidone (RisperDAL) 2 mg TID PO 01/22/21 21:00 02/12/21 21:28 Rivastigmine (Exelon) 1 patch DAILY TD 01/23/21 09:00 02/01/21 16:25 DC 02/01/21 08:42 Venlafaxine HCl (Effexor Xr) 37.5 mg DAILY PO 01/23/21 09:00 01/23/21 13:11 DC 01/23/21 08:29 Ziprasidone (Geodon) 40 mg BID PO 01/22/21 21:00 01/28/21 17:15 DC 01/28/21 08:52 Ziprasidone (Geodon) 80 mg QHS PO 01/22/21 21:00 01/22/21 20:17 DC Cyanocobalamin (Vitamin B-12) 1,000 mcg DAILY PO 01/23/21 09:00 02/12/21 09:12 Insulin Human Lispro (HumaLOG) 40 units TIDWMEALS SQ 01/23/21 08:00 02/12/21 17:12 Insulin Glargine (Lantus Syringe) 30 unit DAILY SQ 01/23/21 09:00 01/29/21 14:19 DC 01/29/21 09:00 Lactobacillus Rhamnosus (Culturelle) 1 cap BID PO 01/23/21 09:00 02/12/21 21:26 Non-Formulary Medication (Liraglutide (Victoza 3-Jas)) 1.8 mg DAILY SQ 01/23/21 09:00 UNV Meclizine HCl (Antivert) 25 mg BID PO 01/22/21 21:00 02/12/21 21:27 Psyllium Hydrophilic Mucilloid (Metamucil) 1 pkt BID PO 01/22/21 21:00 02/02/21 13:31 DC 02/01/21 08:42 Demeclocycline HCl (Declomycin) 150 mg TID PO 01/22/21 21:00 01/22/21 20:45 DC Olanzapine (ZyPREXA ZYDIS) 5 mg PRN Q2HR PRN PO PSYCHOSIS 01/22/21 20:30 Demeclocycline HCl (Declomycin) 300 mg TID PO 01/22/21 21:00 02/12/21 21:27 Acetaminophen/ Codeine Phosphate (Tylenol #3) 1 tab PRN QID PRN PO MODERATE PAIN 4-6 01/23/21 11:45 01/23/21 12:23 Acetaminophen (Tylenol) 500 mg PRN Q6HRS PRN PO MILD PAIN / TEMP > 100.3'F 01/23/21 13:15 02/04/21 08:31 Clozapine (Clozaril) 25 mg HS PO 01/23/21 21:00 01/30/21 18:59 DC 01/29/21 20:37 Insulin Glargine (Lantus Syringe) 40 unit BID SQ 01/29/21 21:00 01/31/21 17:42 DC 01/31/21 09:50 Clozapine (Clozaril) 50 mg HS PO 01/30/21 21:00 02/12/21 21:27 Insulin Glargine (Lantus Syringe) 60 unit BID SQ 01/31/21 17:45 01/31/21 18:17 DC Metformin HCl (Glucophage Xr) 500 mg DAILYWBKFT PO 02/01/21 08:00 02/12/21 09:12 Insulin Glargine (Lantus Syringe) 60 unit BID SQ 01/31/21 21:00 02/12/21 09:35 DC 02/12/21 09:29 Insulin Glargine (Lantus Syringe) 60 unit BID SQ 02/12/21 21:00 02/12/21 21:00 Current Medications Medications (Trade) Dose Ordered Sig/Latesha Route PRN Reason Start Time Stop Time Status Last Admin Dose Admin Insulin Glargine (Lantus Syringe) 60 unit BID SQ 02/12/21 21:00 02/12/21 21:00 I have reviewed the current psychotropics carefully including drug interactions. Risk benefit ratio favors no change other than as noted in my dictated progress note. Diagnosis: Problems: (1) Schizoaffective disorder, bipolar type (2) Impulse control disorder, unspecified (3) Anxiety disorder, unspecified (4) Bipolar disorder, current episode manic severe with psychotic features INOCENCIO PELAEZ MD Feb 12, 2021 22:46
--- NOTE | 2021-02-13 05:00 | NUR ---
Patient was mostly in her room in bed. She was confused and delusional with grandiose ideas and awareness to self. She was compliant with all her medications and did not converse much with the nurse since she was more sleepy than awake. Patient denies pain and has shown no signs of nausea and vomiting. Gabriela has been in her room, resting in bed, with eyes closed, breathing normally, showing no signs of distress.
[2021-02-13 06:10] VITALS: BP 122/75
[2021-02-13] MEDS: LEVOTHYROXINE 25 MCG TABLET. PO SCH (06:24)
[2021-02-13] MEDS: metFORMIN XR 500 MG TAB.ER.24H PO SCH (08:00)
[2021-02-13] MEDS: LIDOCAINE (700MG/PATCH) PATCH. TP SCH (08:40)
[2021-02-13] MEDS: INSULIN LISPRO 300 UNITS/3 ML VIAL. SQ SCH ×3 (08:42→17:41)
[2021-02-13] MEDS: MESALAMINE 1.2 GM TABLET.DR PO SCH (08:42)
[2021-02-13] MEDS: VALPROIC ACID 250 MG CAPSULE. PO SCH ×4 (08:42→21:04)
[2021-02-13] MEDS: risperiDONE 2 MG TABLET. PO SCH ×3 (08:42→21:05)
[2021-02-13] MEDS: MECLIZINE 12.5 MG TABLET. PO SCH ×2 (08:43→21:05)
[2021-02-13] MEDS: CHOLECALCIFEROL (VITAMIN D3) 1,000 UNIT TABLET PO SCH (08:43)
[2021-02-13] MEDS: METOPROLOL TART IMMED RELEASE 25 MG TABLET. PO SCH ×2 (08:43→21:05)
[2021-02-13] MEDS: LACTOBACILLUS RHAMNOSUS GG 1 CAPSULE. PO SCH ×2 (08:44→21:04)
[2021-02-13] MEDS: QUEtiapine 50 MG TABLET. PO SCH ×3 (08:44→21:05)
[2021-02-13] MEDS: DEMECLOCYCLINE HCL 150 MG TABLET. PO SCH ×3 (08:44→21:05)
[2021-02-13] MEDS: amLODIPine BESYLATE 5 MG TABLET PO SCH (08:44)
[2021-02-13] MEDS: INSULIN GLARGINE SYRINGE. SQ SCH ×2 (08:51→21:00)
[2021-02-13] MEDS: CYANOCOBALAMIN (VITAMIN B-12) 1,000 MCG TABLET. PO SCH (09:00)
[2021-02-13] MEDS: NON FORMULARY ITEM (Liraglutide (Victoza 3-Pak) 1.8 MG) SQ SCH (09:00)
--- NOTE | 2021-02-13 09:20 | PDOC ---
Exam Note: Benedict Note: This note is a late entry for 02/11/2021 covers elements not covered in my initial note. Subjective: The patient was seen on telehealth rounds in the afternoon of 02/11/2021 with the nursing staff taking the telehealth camera to each patient, which was on a secure portal, discussed and reviewed the chart with Kirby CARRERA. The patient slept 6 hours previous night. She has been somewhat delusional previous evening talking about there being drugs methamphetamine and cocaine in the water, refused to drink except from a bottle. I addressed this with her. She seemed to deflect this conversation, fixated on wanting to be discharged. Generally she is doing better, pleasant but little concerning about the paranoia noted last evening. Absolute neutrophil count on 02/10 is 3432. Review of Systems: Ambulation some impairment. No CV, , eye system symptoms on review. Mental Status Exam: The patient is alert and oriented. She remains somewhat paranoid but this is per nursing report. On direct questioning, she denied any overt psychotic symptoms, minimized her perception of the water being poisoned as I questioned her. Intellect average. Insight good. Judgment intact. Abstraction fair. Computation impaired. Language function intact. Attention span fair. She is quite animated, verbal, interactive. No suicidal or homicidal ideation. Laboratory Data: Reviewed. Impression: Schizoaffective disorder, bipolar type mixed with psychotic fea tures. Anxiety disorder unspecified. Impulse control disorder unspecified. Plan: No change from initial note. Since absolute neutrophil count is unremarkable, increase Clozaril to 75 mg p.o. h.s. Maintain Risperdal, Seroquel, Depakote along with Zyprexa p.r.n. We may consider reduction in Seroquel at some point or it may have to be done outpatient. Assessment: Vital Signs/I&O: Vital Signs Date Time Temp Pulse Resp B/P (MAP) Pulse Ox O2 Delivery O2 Flow Rate FiO2 02/13/21 08:44 86 122/75 02/13/21 06:10 96.9 14 94 Room Air I & O 02/12/21 02/12/21 02/13/21 15:00 23:00 07:00 Intake Total 1020 ml 600 ml Balance 1020 ml 600 ml Labs: Laboratory Tests Test 02/12/21 11:48 02/12/21 16:30 6/30/21 19:38 02/13/21 08:16 Glucose (Fingerstick) 189 mg/dL (70-99) H 281 mg/dL (70-99) H 266 mg/dL (70-99) H 125 mg/dL (70-99) H Current Medications: Meds: Laboratory Tests Test 02/12/21 11:48 02/12/21 16:30 02/12/21 19:38 02/13/21 08:16 Glucose (Fingerstick) 189 mg/dL 281 mg/dL 266 mg/dL 125 mg/dL Current Medications Medications (Trade) Dose Ordered Sig/Latesha Route PRN Reason Start Time Stop Time Status Last Admin Dose Admin Acetaminophen (Tylenol) 650 mg PRN Q6HRS PRN PO MILD PAIN / TEMP > 100.3'F 01/22/21 14:00 Cancel Multi-Ingredient Ointment (Analgesic [place]) 1 keri PRN QID PRN TP MUSCLE PAIN 01/22/21 14:00 Al Hydroxide/Mg Hydroxide (Mylanta Plus Xs) 15 ml PRN AFTMEALHC PRN PO DYSPEPSIA 01/22/21 14:00 Magnesium Hydroxide (Milk Of Magnesia) 2,400 mg PRN QHS PRN PO CONSTIPATION 01/22/21 14:00 Valproic Acid (Depakene) 500 mg QID PO 01/22/21 17:00 02/13/21 08:42 Acetaminophen (Tylenol) 500 mg QID PO 01/22/21 21:00 01/23/21 13:04 DC 01/23/21 08:29 Amlodipine Besylate (Norvasc) 5 mg DAILY PO 01/23/21 09:00 02/13/21 08:44 Atorvastatin Calcium (Lipitor) 20 mg QHS PO 01/22/21 21:00 02/12/21 21:26 Vitamin D (Vitamin D3) 1,000 unit DAILY PO 01/23/21 09:00 02/13/21 08:43 Hydrocortisone Acetate (Anucort-Hc) 25 mg PRN Q8HRS PRN RC hemorrhoids 01/22/21 20:00 Levothyroxine Sodium (Synthroid) 25 mcg DAILY06 PO 01/23/21 06:00 02/13/21 06:24 Lidocaine (Lidoderm) 1 patch DAILY TP 01/23/21 09:00 02/13/21 08:40 Mesalamine (Lialda) 1.2 gm DAILY PO 01/23/21 09:00 02/13/21 08:42 Metoprolol Tartrate (Lopressor) 25 mg BID PO 01/22/21 21:00 02/13/21 08:43 Quetiapine Fumarate (SEROquel) 50 mg TID PO 01/22/21 21:00 02/13/21 08:44 Risperidone (RisperDAL) 2 mg TID PO 01/22/21 21:00 02/13/21 08:42 Rivastigmine (Exelon) 1 patch DAILY TD 01/23/21 09:00 02/01/21 16:25 DC 02/01/21 08:42 Venlafaxine HCl (Effexor Xr) 37.5 mg DAILY PO 01/23/21 09:00 01/23/21 13:11 DC 01/23/21 08:29 Ziprasidone (Geodon) 40 mg BID PO 01/22/21 21:00 01/28/21 17:15 DC 01/28/21 08:52 Ziprasidone (Geodon) 80 mg QHS PO 01/22/21 21:00 01/22/21 20:17 DC Cyanocobalamin (Vitamin B-12) 1,000 mcg DAILY PO 01/23/21 09:00 02/13/21 09:00 Insulin Human Lispro (HumaLOG) 40 units TIDWMEALS SQ 01/23/21 08:00 02/13/21 08:42 Insulin Glargine (Lantus Syringe) 30 unit DAILY SQ 01/23/21 09:00 01/29/21 14:19 DC 01/29/21 09:00 Lactobacillus Rhamnosus (Culturelle) 1 cap BID PO 01/23/21 09:00 02/13/21 08:44 Non-Formulary Medication (Liraglutide (Victoza 3-Jas)) 1.8 mg DAILY SQ 01/23/21 09:00 UNV Meclizine HCl (Antivert) 25 mg BID PO 01/22/21 21:00 02/13/21 08:43 Psyllium Hydrophilic Mucilloid (Metamucil) 1 pkt BID PO 01/22/21 21:00 02/02/21 13:31 DC 02/01/21 08:42 Demeclocycline HCl (Declomycin) 150 mg TID PO 01/22/21 21:00 01/22/21 20:45 DC Olanzapine (ZyPREXA ZYDIS) 5 mg PRN Q2HR PRN PO PSYCHOSIS 01/22/21 20:30 Demeclocycline HCl (Declomycin) 300 mg TID PO 01/22/21 21:00 02/13/21 08:44 Acetaminophen/ Codeine Phosphate (Tylenol #3) 1 tab PRN QID PRN PO MODERATE PAIN 4-6 01/23/21 11:45 01/23/21 12:23 Acetaminophen (Tylenol) 500 mg PRN Q6HRS PRN PO MILD PAIN / TEMP > 100.3'F 01/23/21 13:15 02/04/21 08:31 Clozapine (Clozaril) 25 mg HS PO 01/23/21 21:00 01/30/21 18:59 DC 01/29/21 20:37 Insulin Glargine (Lantus Syringe) 40 unit BID SQ 01/29/21 21:00 01/31/21 17:42 DC 01/31/21 09:50 Clozapine (Clozaril) 50 mg HS PO 01/30/21 21:00 02/12/21 21:27 Insulin Glargine (Lantus Syringe) 60 unit BID SQ 01/31/21 17:45 01/31/21 18:17 DC Metformin HCl (Glucophage Xr) 500 mg DAILYWBKFT PO 02/01/21 08:00 02/13/21 08:00 Insulin Glargine (Lantus Syringe) 60 unit BID SQ 01/31/21 21:00 02/12/21 09:35 DC 02/12/21 09:29 Insulin Glargine (Lantus Syringe) 60 unit BID SQ 02/12/21 21:00 02/13/21 08:51 Current Medications Medications (Trade) Dose Ordered Sig/Latesha Route PRN Reason Start Time Stop Time Status Last Admin Dose Admin Insulin Glargine (Lantus Syringe) 60 unit BID SQ 02/12/21 21:00 02/13/21 08:51 I have reviewed the current psychotropics carefully including drug interactions. Risk benefit ratio favors no change other than as noted in my dictated progress note. Diagnosis: Problems: (1) Schizoaffective disorder, bipolar type (2) Impulse control disorder, unspecified (3) Anxiety disorder, unspecified (4) Bipolar disorder, current episode manic severe with psychotic features INOCENCIO PELAEZ MD Feb 13, 2021 09:20
--- NOTE | 2021-02-13 12:06 | NUR ---
WEEKLY ACTIVITY THERAPY NOTE Date of Admission: 01/22/21 Date of AT Assessment: 01/24 Precipitating behaviors that initiated intake and admission:delusional- thinks she has kidney failure/heart failure/pneumonia, demanding to go to the hospital, manic, labile mood, yelling, crying, angry, agitated, refusing meds & blood sugar checks, threatening to use pocket knife on staff, believes she owns the [facility] Goal aimed: increase stress management and relaxation skills Initial Goal: Pt will participate in at least five individual or group Activity Therapy sessions per week Goal changed 02/06: Pt will participate in at least three individual or group Activity Therapy sessions before discharge. 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
--- NOTE | 2021-02-13 15:52 | TX PLAN ---
Interdisciplinary Tx Plan Admission Information Jan 22, 2021 at 13:21 Legal Status (on Admission): Voluntary DPOA/Guardian Name: Myron Murdock Contact Other Contact Name: Blanca Other Contact Verified Code Status: Full Code Allergies: Coded Allergies: Penicillins (Verified Allergy, Unknown, 01/22/21) lithium (Verified Allergy, Unknown, 01/22/21) olanzapine (Verified Allergy, Unknown, 01/22/21) Diagnoses Primary Diagnosis: (1) Schizoaffective disorder, bipolar type Reasons for Admission: Delusions, Agitated, Angry, Suspicious/paranoid, Other Problem in Patient's Words: When SW approached pt for assessment, 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 She was very manic and reporting that she was struggling with symptoms of pneumonia. Per son/guardian, Myron, pt has been struggling with delusional thinking for a long time. She was recently at [facility] for about a month in November of this year. She was discharged because she was not presenting with threatening behaviors, but Myron believed she was still delusional at time of discharge. Myron states that she continued to be delusional after that hospitalization after she returned to her facility. Additional Admission Comments: Per intake record, pt is delusional thinking she has kidney failure, heart failure, and pneumonia. She was demanding to go to the hospital. She presents with rogelio, labile mood, yelling, crying, angry, agitated, refusing medications and blood sugar checks, and threatening to use pocket knife on staff. She believes she owns the [facility]. Problems Active Problems: Delusional, paranoid, anger, agitation Inactive Problems: None noted at this time Pt Strengths/Limitations Ability for [place]: Poor Cognitive Functioning/Ability: Fair Communication Skills/Ability: Good Financial Resources: Fair Insight/Judgement: Poor Intellectual Ability: Fair Physical Health: Poor Social Skills: Fair Stability in Family: Good Stability in School/Work: Fair Verbal Skills: Good Discharge Criteria Discharge Criteria: Adequate arrangements @DC, Adequate self-care, Verbal commit med comply, Improved behavior, Improved mood/thought Other Discharge Comments: None noted at this time. Preliminary Discharge Plan Preliminary DC Plan: Current Living Arrange. Special Precautions Special Precautions: Agitation/Assault Fall Risk: Moderate Initial D/C Plan Pt plans to return to [facility] on [address]. Identified Discharge Needs: None noted at this time. Currently Utilized Resources Currently Utilized Resources/P: PCP-Dr. [facility]ste[facility] on [address] Son/Guardian-Myron Murdock Referrals Community Resources: None noted at this time. Identified Problems/Hx/Goals Objectives/Short-Term Goals Short Term Goals: Control abnormal behavior, Dec. Aggression, Dec. Hallucination/Delus, Dec. Outbursts, Medication Stabilization, Monitor Med Effects, Prevent Deterioration, Promote Coping Skill Short Term Goals in Patient's: To help stabilize mood, find effective coping stratigies to reduce delusional beliefs, Find a medication regimen that will help control symptoms of Schizoeffective DO. Interventions/Frequency Staff Interventions/Frequency&: Psychiatry to assess pt three times per week for medication management. Nursing to assess behaviors, monitor medications, and complete 15 minute checks daily. Social work to see pt at least two times weekly to aid in return to placement. Activities to encourage pt to participate in group activities daily. 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 Education: Pt completed high school in [place] and gained her associates RN degree. Community Follow-up PCP Community Provider/Family Inpu: Pt son/guardian, Myron, aware of pt hospitalization and is available for further information as needed. Treatment Plan Explained Patient/Ham Pumper had this treatment plan explained to him/her as indicated by the signature below and has been given the opportunity to ask questions and make suggestions: Date: Patient/Ham Pumper Signature: Status Update Update Pt is sleeping an average of 7 hours and eating most of her meals at 95%. She continues to demonstrate delusional thinking when asked. However, pt is much less manic than at admission. Her Clozaril continues to be adjusted. She has attended a couple of groups and is encouraged to move around more than she does d/t the pleural effusion. She also is encouraged to do some deep breathing to help. Pt is planned for discharge early next week back to her facility, [facility] on [address]. PABLO DUMONT Feb 13, 2021 15:52
[2021-02-13 16:37] VITALS: BP 133/77
--- NOTE | 2021-02-13 18:30 | NUR ---
Patient has been withdrawn, delusional, and attention seeking throughout this shift. She was preoccupied with discharging before the weekend. Will continue to monitor and report to oncoming shift.
[2021-02-13] MEDS: ATORVASTATIN CALCIUM 20 MG TABLET PO SCH (21:04)
[2021-02-13] MEDS: cloZAPine 25 MG TABLET PO SCH (22:08)
--- NOTE | 2021-02-13 22:09 | PDOC ---
Exam Note: Benedict Note: Please also refer to the separate dictated note~for this date of service dictated separately.~Patient seen individually. Discussed the patient with Nursing staff reviewed the chart.~Reviewed interim history and current functioning. Reviewed vital signs,~Labs/ Radiology~and current medications noted below. Continue current treatment with the changes noted in the dictated addendum note Assessment: Vital Signs/I&O: Vital Signs Date Time Temp Pulse Resp B/P (MAP) Pulse Ox O2 Delivery O2 Flow Rate FiO2 02/13/21 21:05 88 133/77 02/13/21 16:37 97.8 20 95 Room Air I & O 02/12/21 02/12/21 02/13/21 15:00 23:00 07:00 Intake Total 1020 ml 600 ml Balance 1020 ml 600 ml Labs: Laboratory Tests Test 02/13/21 08:16 02/13/21 11:58 02/13/21 16:52 02/13/21 19:25 Glucose (Fingerstick) 125 mg/dL (70-99) H 232 mg/dL (70-99) H 180 mg/dL (70-99) H 276 mg/dL (70-99) H Current Medications: Meds: Laboratory Tests Test 02/13/21 08:16 02/13/21 11:58 02/13/21 16:52 02/13/21 19:25 Glucose (Fingerstick) 125 mg/dL 232 mg/dL 180 mg/dL 276 mg/dL Current Medications Medications (Trade) Dose Ordered Sig/Latesha Route PRN Reason Start Time Stop Time Status Last Admin Dose Admin Acetaminophen (Tylenol) 650 mg PRN Q6HRS PRN PO MILD PAIN / TEMP > 100.3'F 01/22/21 14:00 Cancel Multi-Ingredient Ointment (Analgesic [place]) 1 keri PRN QID PRN TP MUSCLE PAIN 01/22/21 14:00 Al Hydroxide/Mg Hydroxide (Mylanta Plus Xs) 15 ml PRN AFTMEALHC PRN PO DYSPEPSIA 01/22/21 14:00 Magnesium Hydroxide (Milk Of Magnesia) 2,400 mg PRN QHS PRN PO CONSTIPATION 01/22/21 14:00 Valproic Acid (Depakene) 500 mg QID PO 01/22/21 17:00 02/13/21 21:04 Acetaminophen (Tylenol) 500 mg QID PO 01/22/21 21:00 01/23/21 13:04 DC 01/23/21 08:29 Amlodipine Besylate (Norvasc) 5 mg DAILY PO 01/23/21 09:00 02/13/21 08:44 Atorvastatin Calcium (Lipitor) 20 mg QHS PO 01/22/21 21:00 02/13/21 21:04 Vitamin D (Vitamin D3) 1,000 unit DAILY PO 01/23/21 09:00 02/13/21 08:43 Hydrocortisone Acetate (Anucort-Hc) 25 mg PRN Q8HRS PRN RC hemorrhoids 01/22/21 20:00 Levothyroxine Sodium (Synthroid) 25 mcg DAILY06 PO 01/23/21 06:00 02/13/21 06:24 Lidocaine (Lidoderm) 1 patch DAILY TP 01/23/21 09:00 02/13/21 08:40 Mesalamine (Lialda) 1.2 gm DAILY PO 01/23/21 09:00 02/13/21 08:42 Metoprolol Tartrate (Lopressor) 25 mg BID PO 01/22/21 21:00 02/13/21 21:05 Quetiapine Fumarate (SEROquel) 50 mg TID PO 01/22/21 21:00 02/13/21 21:05 Risperidone (RisperDAL) 2 mg TID PO 01/22/21 21:00 02/13/21 21:05 Rivastigmine (Exelon) 1 patch DAILY TD 01/23/21 09:00 02/01/21 16:25 DC 02/01/21 08:42 Venlafaxine HCl (Effexor Xr) 37.5 mg DAILY PO 01/23/21 09:00 01/23/21 13:11 DC 01/23/21 08:29 Ziprasidone (Geodon) 40 mg BID PO 01/22/21 21:00 01/28/21 17:15 DC 01/28/21 08:52 Ziprasidone (Geodon) 80 mg QHS PO 01/22/21 21:00 01/22/21 20:17 DC Cyanocobalamin (Vitamin B-12) 1,000 mcg DAILY PO 01/23/21 09:00 02/13/21 09:00 Insulin Human Lispro (HumaLOG) 40 units TIDWMEALS SQ 01/23/21 08:00 02/13/21 17:41 Insulin Glargine (Lantus Syringe) 30 unit DAILY SQ 01/23/21 09:00 01/29/21 14:19 DC 01/29/21 09:00 Lactobacillus Rhamnosus (Culturelle) 1 cap BID PO 01/23/21 09:00 02/13/21 21:04 Non-Formulary Medication (Liraglutide (Victoza 3-Jas)) 1.8 mg DAILY SQ 01/23/21 09:00 UNV Meclizine HCl (Antivert) 25 mg BID PO 01/22/21 21:00 02/13/21 21:05 Psyllium Hydrophilic Mucilloid (Metamucil) 1 pkt BID PO 01/22/21 21:00 02/02/21 13:31 DC 02/01/21 08:42 Demeclocycline HCl (Declomycin) 150 mg TID PO 01/22/21 21:00 01/22/21 20:45 DC Olanzapine (ZyPREXA ZYDIS) 5 mg PRN Q2HR PRN PO PSYCHOSIS 01/22/21 20:30 Demeclocycline HCl (Declomycin) 300 mg TID PO 01/22/21 21:00 02/13/21 21:05 Acetaminophen/ Codeine Phosphate (Tylenol #3) 1 tab PRN QID PRN PO MODERATE PAIN 4-6 01/23/21 11:45 01/23/21 12:23 Acetaminophen (Tylenol) 500 mg PRN Q6HRS PRN PO MILD PAIN / TEMP > 100.3'F 01/23/21 13:15 02/04/21 08:31 Clozapine (Clozaril) 25 mg HS PO 01/23/21 21:00 01/30/21 18:59 DC 01/29/21 20:37 Insulin Glargine (Lantus Syringe) 40 unit BID SQ 01/29/21 21:00 01/31/21 17:42 DC 01/31/21 09:50 Clozapine (Clozaril) 50 mg HS PO 01/30/21 21:00 02/13/21 10:08 DC 02/12/21 21:27 Insulin Glargine (Lantus Syringe) 60 unit BID SQ 01/31/21 17:45 01/31/21 18:17 DC Metformin HCl (Glucophage Xr) 500 mg DAILYWBKFT PO 02/01/21 08:00 02/13/21 08:00 Insulin Glargine (Lantus Syringe) 60 unit BID SQ 01/31/21 21:00 02/12/21 09:35 DC 02/12/21 09:29 Insulin Glargine (Lantus Syringe) 60 unit BID SQ 02/12/21 21:00 02/13/21 08:51 Clozapine (Clozaril) 75 mg HS PO 02/13/21 21:00 I have reviewed the current psychotropics carefully including drug interactions. Risk benefit ratio favors no change other than as noted in my dictated progress note. Diagnosis: Problems: (1) Schizoaffective disorder, bipolar type (2) Impulse control disorder, unspecified (3) Anxiety disorder, unspecified (4) Bipolar disorder, current episode manic severe with psychotic features INOCENCIO PELAEZ MD Feb 13, 2021 22:09
--- NOTE | 2021-02-14 05:20 | NUR ---
Patient was pleasant in her interaction with staff and peers. She spent time in the day madsen watching some TV and was incoherent and delusional in thought process, talking about medical procedures and meetings with her children and grandchildren earlier during the day that did not happen. Patient did not show any anger or aggression and denied any nausea, vomiting and/or pain. She retired to her room where she remained in bed resting with eyes closed, breathing normally with no signs of distress.
[2021-02-14 05:55] VITALS: BP 119/78
[2021-02-14] MEDS: LEVOTHYROXINE 25 MCG TABLET. PO SCH (06:02)
[2021-02-14] MEDS: VALPROIC ACID 250 MG CAPSULE. PO SCH ×4 (08:34→21:21)
[2021-02-14] MEDS: QUEtiapine 50 MG TABLET. PO SCH ×3 (08:34→21:20)
[2021-02-14] MEDS: metFORMIN XR 500 MG TAB.ER.24H PO SCH (08:34)
[2021-02-14] MEDS: amLODIPine BESYLATE 5 MG TABLET PO SCH (08:34)
[2021-02-14] MEDS: MECLIZINE 12.5 MG TABLET. PO SCH ×2 (08:35→21:21)
[2021-02-14] MEDS: CHOLECALCIFEROL (VITAMIN D3) 1,000 UNIT TABLET PO SCH (08:35)
[2021-02-14] MEDS: METOPROLOL TART IMMED RELEASE 25 MG TABLET. PO SCH ×2 (08:35→21:21)
[2021-02-14] MEDS: risperiDONE 2 MG TABLET. PO SCH ×3 (08:35→21:21)
[2021-02-14] MEDS: CYANOCOBALAMIN (VITAMIN B-12) 1,000 MCG TABLET. PO SCH (08:35)
[2021-02-14] MEDS: MESALAMINE 1.2 GM TABLET.DR PO SCH (08:35)
[2021-02-14] MEDS: LACTOBACILLUS RHAMNOSUS GG 1 CAPSULE. PO SCH ×2 (08:35→21:20)
[2021-02-14] MEDS: INSULIN LISPRO 300 UNITS/3 ML VIAL. SQ SCH ×3 (08:40→17:00)
[2021-02-14] MEDS: NON FORMULARY ITEM (Liraglutide (Victoza 3-Pak) 1.8 MG) SQ SCH (09:00)
[2021-02-14] MEDS: LIDOCAINE (700MG/PATCH) PATCH. TP SCH (09:00)
[2021-02-14] MEDS: INSULIN GLARGINE SYRINGE. SQ SCH ×2 (09:00→21:00)
[2021-02-14] MEDS: DEMECLOCYCLINE HCL 150 MG TABLET. PO SCH ×3 (09:58→21:19)
[2021-02-14 16:14] VITALS: BP 112/66
[2021-02-14] MEDS: ATORVASTATIN CALCIUM 20 MG TABLET PO SCH (21:20)
[2021-02-14] MEDS: cloZAPine 25 MG TABLET PO SCH (21:20)
--- NOTE | 2021-02-14 22:14 | PDOC ---
Exam Note: Benedict Note: This note is a late entry for 02/12/2021 covers elements not covered in my initial note. Subjective: The patient was seen on telehealth rounds in the afternoon of 02/12/2021 as an option during the COVID-19 pandemic period with Zack CARRERA, discussed and reviewed the chart. The patient slept 6-1/2 hours previous night. She has been coming out more till 02/12 and then she has been withdrawn on 02/12, believes she has pneumonia, somewhat delusional according to nursing staff about this, wanting to be discharged. I met with her individually and addressed this. Review of Systems: Ambulation some impairment. No CV, , eye system symptoms on review. Mental Status Exam: The patient is alert and oriented. She is overall pleasant, verbal, interactive but somewhat fixated on discharge plans and I addressed this with her. Speech coherent. Abstraction fair. Computation impaired. Language function intact. Attention span fair. No suicidal or homicidal ideation. Laboratory Data: Reviewed. Impression: Schizoaffective disorder, bipolar type mixed with psychotic f eatures. Anxiety disorder unspecified. Impulse control disorder unspecified. Plan: No change from initial note. Assessment: Vital Signs/I&O: Vital Signs Date Time Temp Pulse Resp B/P (MAP) Pulse Ox O2 Delivery O2 Flow Rate FiO2 02/14/21 21:21 88 112/66 02/14/21 16:14 97.4 18 97 02/14/21 05:55 Room Air I & O 02/13/21 02/13/21 02/14/21 15:00 23:00 07:00 Intake Total 480 ml 480 ml 480 ml Balance 480 ml 480 ml 480 ml Labs: Laboratory Tests Test 02/14/21 08:13 02/14/21 12:14 02/14/21 17:13 02/14/21 19:36 Glucose (Fingerstick) 140 mg/dL (70-99) H 170 mg/dL (70-99) H 153 mg/dL (70-99) H 219 mg/dL (70-99) H Current Medications: Meds: Laboratory Tests Test 02/14/21 08:13 02/14/21 12:14 02/14/21 17:13 02/14/21 19:36 Glucose (Fingerstick) 140 mg/dL 170 mg/dL 153 mg/dL 219 mg/dL Current Medications Medications (Trade) Dose Ordered Sig/Latesha Route PRN Reason Start Time Stop Time Status Last Admin Dose Admin Acetaminophen (Tylenol) 650 mg PRN Q6HRS PRN PO MILD PAIN / TEMP > 100.3'F 01/22/21 14:00 Cancel Multi-Ingredient Ointment (Analgesic [place]) 1 keri PRN QID PRN TP MUSCLE PAIN 01/22/21 14:00 Al Hydroxide/Mg Hydroxide (Mylanta Plus Xs) 15 ml PRN AFTMEALHC PRN PO DYSPEPSIA 01/22/21 14:00 Magnesium Hydroxide (Milk Of Magnesia) 2,400 mg PRN QHS PRN PO CONSTIPATION 01/22/21 14:00 Valproic Acid (Depakene) 500 mg QID PO 01/22/21 17:00 02/14/21 21:21 Acetaminophen (Tylenol) 500 mg QID PO 01/22/21 21:00 01/23/21 13:04 DC 01/23/21 08:29 Amlodipine Besylate (Norvasc) 5 mg DAILY PO 01/23/21 09:00 02/14/21 08:34 Atorvastatin Calcium (Lipitor) 20 mg QHS PO 01/22/21 21:00 02/14/21 21:20 Vitamin D (Vitamin D3) 1,000 unit DAILY PO 01/23/21 09:00 02/14/21 08:35 Hydrocortisone Acetate (Anucort-Hc) 25 mg PRN Q8HRS PRN RC hemorrhoids 01/22/21 20:00 Levothyroxine Sodium (Synthroid) 25 mcg DAILY06 PO 01/23/21 06:00 02/14/21 06:02 Lidocaine (Lidoderm) 1 patch DAILY TP 01/23/21 09:00 02/14/21 09:00 Mesalamine (Lialda) 1.2 gm DAILY PO 01/23/21 09:00 02/14/21 08:35 Metoprolol Tartrate (Lopressor) 25 mg BID PO 01/22/21 21:00 02/14/21 21:21 Quetiapine Fumarate (SEROquel) 50 mg TID PO 01/22/21 21:00 02/14/21 21:20 Risperidone (RisperDAL) 2 mg TID PO 01/22/21 21:00 02/14/21 21:21 Rivastigmine (Exelon) 1 patch DAILY TD 01/23/21 09:00 02/01/21 16:25 DC 02/01/21 08:42 Venlafaxine HCl (Effexor Xr) 37.5 mg DAILY PO 01/23/21 09:00 01/23/21 13:11 DC 01/23/21 08:29 Ziprasidone (Geodon) 40 mg BID PO 01/22/21 21:00 01/28/21 17:15 DC 01/28/21 08:52 Ziprasidone (Geodon) 80 mg QHS PO 01/22/21 21:00 01/22/21 20:17 DC Cyanocobalamin (Vitamin B-12) 1,000 mcg DAILY PO 01/23/21 09:00 02/14/21 08:35 Insulin Human Lispro (HumaLOG) 40 units TIDWMEALS SQ 01/23/21 08:00 02/14/21 17:00 Insulin Glargine (Lantus Syringe) 30 unit DAILY SQ 01/23/21 09:00 01/29/21 14:19 DC 01/29/21 09:00 Lactobacillus Rhamnosus (Culturelle) 1 cap BID PO 01/23/21 09:00 02/14/21 21:20 Non-Formulary Medication (Liraglutide (Victoza 3-Jas)) 1.8 mg DAILY SQ 01/23/21 09:00 UNV Meclizine HCl (Antivert) 25 mg BID PO 01/22/21 21:00 02/14/21 21:21 Psyllium Hydrophilic Mucilloid (Metamucil) 1 pkt BID PO 01/22/21 21:00 02/02/21 13:31 DC 02/01/21 08:42 Demeclocycline HCl (Declomycin) 150 mg TID PO 01/22/21 21:00 01/22/21 20:45 DC Olanzapine (ZyPREXA ZYDIS) 5 mg PRN Q2HR PRN PO PSYCHOSIS 01/22/21 20:30 Demeclocycline HCl (Declomycin) 300 mg TID PO 01/22/21 21:00 02/14/21 21:19 Acetaminophen/ Codeine Phosphate (Tylenol #3) 1 tab PRN QID PRN PO MODERATE PAIN 4-6 01/23/21 11:45 01/23/21 12:23 Acetaminophen (Tylenol) 500 mg PRN Q6HRS PRN PO MILD PAIN / TEMP > 100.3'F 01/23/21 13:15 02/04/21 08:31 Clozapine (Clozaril) 25 mg HS PO 01/23/21 21:00 01/30/21 18:59 DC 01/29/21 20:37 Insulin Glargine (Lantus Syringe) 40 unit BID SQ 01/29/21 21:00 01/31/21 17:42 DC 01/31/21 09:50 Clozapine (Clozaril) 50 mg HS PO 01/30/21 21:00 02/13/21 10:08 DC 02/12/21 21:27 Insulin Glargine (Lantus Syringe) 60 unit BID SQ 01/31/21 17:45 01/31/21 18:17 DC Metformin HCl (Glucophage Xr) 500 mg DAILYWBKFT PO 02/01/21 08:00 02/14/21 08:34 Insulin Glargine (Lantus Syringe) 60 unit BID SQ 01/31/21 21:00 02/12/21 09:35 DC 02/12/21 09:29 Insulin Glargine (Lantus Syringe) 60 unit BID SQ 02/12/21 21:00 02/14/21 21:00 Clozapine (Clozaril) 75 mg HS PO 02/13/21 21:00 02/14/21 21:20 I have reviewed the current psychotropics carefully including drug interactions. Risk benefit ratio favors no change other than as noted in my dictated progress note. Diagnosis: Problems: (1) Schizoaffective disorder, bipolar type (2) Impulse control disorder, unspecified (3) Anxiety disorder, unspecified (4) Bipolar disorder, current episode manic severe with psychotic features INOCENCIO PELAEZ MD Feb 14, 2021 22:14
--- NOTE | 2021-02-14 22:37 | PDOC ---
Exam Note: Benedict Note: This note is a late entry for 02/13/2021 covers elements not covered in my initial note. Subjective: The patient was reviewed on telehealth rounds in the morning of 02/13/2021 as an option during the COVID-19 pandemic period for a treatment team meeting with Lilibeth Holman, Sherri Becker (social service assistant), Farrah, activity therapy and Hayden RN, discussed and reviewed the chart. We discussed the patients diagnoses, progress, current psychotropics, reviewed drug interactions, risk-benefit ratio of current psychotropics. The patient slept 6 hours previous night. She is somewhat delusional regarding having pneumonia, otherwise much improved, more social. I have been informed her prison that they are unable to accept her till next Wednesday since they have had COVID exposure at the facility and I addressed this with the patient. She seems somewhat disappointed. Review of Systems: Ambulation impaired. No CV, , eye system symptoms on review. Mental Status Exam: The patient is alert and oriented. Speech coherent. Abstraction fair. Computation impaired. Language function intact. Attention span fair. No suicidal or homicidal ideation. Laboratory Data: Reviewed. Impression: Schizoaffective disorder, bipolar type mixed with psychotic features. Anxiety disorder unspecified. Impulse control disorder unspecified. Plan: No change from initial note. We will repeat labs. Absolute neutrophil count is next Wednesday. Adjust Clozaril thereafter prior to a possible discharge next Wednesday. Assessment: Vital Signs/I&O: Vital Signs Date Time Temp Pulse Resp B/P (MAP) Pulse Ox O2 Delivery O2 Flow Rate FiO2 02/14/21 21:21 88 112/66 02/14/21 16:14 97.4 18 97 02/14/21 05:55 Room Air I & O 02/13/21 02/13/21 02/14/21 15:00 23:00 07:00 Intake Total 480 ml 480 ml 480 ml Balance 480 ml 480 ml 480 ml Labs: Laboratory Tests Test 02/14/21 08:13 02/14/21 12:14 02/14/21 17:13 02/14/21 19:36 Glucose (Fingerstick) 140 mg/dL (70-99) H 170 mg/dL (70-99) H 153 mg/dL (70-99) H 219 mg/dL (70-99) H Current Medications: Meds: Laboratory Tests Test 02/14/21 08:13 02/14/21 12:14 02/14/21 17:13 02/14/21 19:36 Glucose (Fingerstick) 140 mg/dL 170 mg/dL 153 mg/dL 219 mg/dL Current Medications Medications (Trade) Dose Ordered Sig/Latesha Route PRN Reason Start Time Stop Time Status Last Admin Dose Admin Acetaminophen (Tylenol) 650 mg PRN Q6HRS PRN PO MILD PAIN / TEMP > 100.3'F 01/22/21 14:00 Cancel Multi-Ingredient Ointment (Analgesic [place]) 1 keri PRN QID PRN TP MUSCLE PAIN 01/22/21 14:00 Al Hydroxide/Mg Hydroxide (Mylanta Plus Xs) 15 ml PRN AFTMEALHC PRN PO DYSPEPSIA 01/22/21 14:00 Magnesium Hydroxide (Milk Of Magnesia) 2,400 mg PRN QHS PRN PO CONSTIPATION 01/22/21 14:00 Valproic Acid (Depakene) 500 mg QID PO 01/22/21 17:00 02/14/21 21:21 Acetaminophen (Tylenol) 500 mg QID PO 01/22/21 21:00 01/23/21 13:04 DC 01/23/21 08:29 Amlodipine Besylate (Norvasc) 5 mg DAILY PO 01/23/21 09:00 02/14/21 08:34 Atorvastatin Calcium (Lipitor) 20 mg QHS PO 01/22/21 21:00 02/14/21 21:20 Vitamin D (Vitamin D3) 1,000 unit DAILY PO 01/23/21 09:00 02/14/21 08:35 Hydrocortisone Acetate (Anucort-Hc) 25 mg PRN Q8HRS PRN RC hemorrhoids 01/22/21 20:00 Levothyroxine Sodium (Synthroid) 25 mcg DAILY06 PO 01/23/21 06:00 02/14/21 06:02 Lidocaine (Lidoderm) 1 patch DAILY TP 01/23/21 09:00 02/14/21 09:00 Mesalamine (Lialda) 1.2 gm DAILY PO 01/23/21 09:00 02/14/21 08:35 Metoprolol Tartrate (Lopressor) 25 mg BID PO 01/22/21 21:00 02/14/21 21:21 Quetiapine Fumarate (SEROquel) 50 mg TID PO 01/22/21 21:00 02/14/21 21:20 Risperidone (RisperDAL) 2 mg TID PO 01/22/21 21:00 02/14/21 21:21 Rivastigmine (Exelon) 1 patch DAILY TD 01/23/21 09:00 02/01/21 16:25 DC 02/01/21 08:42 Venlafaxine HCl (Effexor Xr) 37.5 mg DAILY PO 01/23/21 09:00 01/23/21 13:11 DC 01/23/21 08:29 Ziprasidone (Geodon) 40 mg BID PO 01/22/21 21:00 01/28/21 17:15 DC 01/28/21 08:52 Ziprasidone (Geodon) 80 mg QHS PO 01/22/21 21:00 01/22/21 20:17 DC Cyanocobalamin (Vitamin B-12) 1,000 mcg DAILY PO 01/23/21 09:00 02/14/21 08:35 Insulin Human Lispro (HumaLOG) 40 units TIDWMEALS SQ 01/23/21 08:00 02/14/21 17:00 Insulin Glargine (Lantus Syringe) 30 unit DAILY SQ 01/23/21 09:00 01/29/21 14:19 DC 01/29/21 09:00 Lactobacillus Rhamnosus (Culturelle) 1 cap BID PO 01/23/21 09:00 02/14/21 21:20 Non-Formulary Medication (Liraglutide (Victoza 3-Jas)) 1.8 mg DAILY SQ 01/23/21 09:00 UNV Meclizine HCl (Antivert) 25 mg BID PO 01/22/21 21:00 02/14/21 21:21 Psyllium Hydrophilic Mucilloid (Metamucil) 1 pkt BID PO 01/22/21 21:00 02/02/21 13:31 DC 02/01/21 08:42 Demeclocycline HCl (Declomycin) 150 mg TID PO 01/22/21 21:00 01/22/21 20:45 DC Olanzapine (ZyPREXA ZYDIS) 5 mg PRN Q2HR PRN PO PSYCHOSIS 01/22/21 20:30 Demeclocycline HCl (Declomycin) 300 mg TID PO 01/22/21 21:00 02/14/21 21:19 Acetaminophen/ Codeine Phosphate (Tylenol #3) 1 tab PRN QID PRN PO MODERATE PAIN 4-6 01/23/21 11:45 01/23/21 12:23 Acetaminophen (Tylenol) 500 mg PRN Q6HRS PRN PO MILD PAIN / TEMP > 100.3'F 01/23/21 13:15 02/04/21 08:31 Clozapine (Clozaril) 25 mg HS PO 01/23/21 21:00 01/30/21 18:59 DC 01/29/21 20:37 Insulin Glargine (Lantus Syringe) 40 unit BID SQ 01/29/21 21:00 01/31/21 17:42 DC 01/31/21 09:50 Clozapine (Clozaril) 50 mg HS PO 01/30/21 21:00 02/13/21 10:08 DC 02/12/21 21:27 Insulin Glargine (Lantus Syringe) 60 unit BID SQ 01/31/21 17:45 01/31/21 18:17 DC Metformin HCl (Glucophage Xr) 500 mg DAILYWBKFT PO 02/01/21 08:00 02/14/21 08:34 Insulin Glargine (Lantus Syringe) 60 unit BID SQ 01/31/21 21:00 02/12/21 09:35 DC 02/12/21 09:29 Insulin Glargine (Lantus Syringe) 60 unit BID SQ 02/12/21 21:00 02/14/21 21:00 Clozapine (Clozaril) 75 mg HS PO 02/13/21 21:00 02/14/21 21:20 I have reviewed the current psychotropics carefully including drug interactions. Risk benefit ratio favors no change other than as noted in my dictated progress note. Diagnosis: Problems: (1) Schizoaffective disorder, bipolar type (2) Impulse control disorder, unspecified (3) Anxiety disorder, unspecified (4) Bipolar disorder, current episode manic severe with psychotic features INOCENCIO PELAEZ MD Feb 14, 2021 22:37
--- NOTE | 2021-02-14 22:54 | PDOC ---
Exam Note: Benedict Note: Please also refer to the separate dictated note~for this date of service dictated separately.~Patient seen individually. Discussed the patient with Nursing staff reviewed the chart.~Reviewed interim history and current functioning. Reviewed vital signs,~Labs/ Radiology~and current medications noted below. Continue current treatment with the changes noted in the dictated addendum note Assessment: Vital Signs/I&O: Vital Signs Date Time Temp Pulse Resp B/P (MAP) Pulse Ox O2 Delivery O2 Flow Rate FiO2 02/14/21 21:21 88 112/66 02/14/21 16:14 97.4 18 97 02/14/21 05:55 Room Air I & O 02/13/21 02/13/21 02/14/21 14:59 22:59 06:59 Intake Total 480 ml 480 ml 480 ml Balance 480 ml 480 ml 480 ml Labs: Laboratory Tests Test 02/14/21 08:13 02/14/21 12:14 02/14/21 17:13 02/14/21 19:36 Glucose (Fingerstick) 140 mg/dL (70-99) H 170 mg/dL (70-99) H 153 mg/dL (70-99) H 219 mg/dL (70-99) H Current Medications: I have reviewed the current psychotropics carefully including drug interactions. Risk benefit ratio favors no change other than as noted in my dictated progress note. Diagnosis: Problems: (1) Schizoaffective disorder, bipolar type (2) Impulse control disorder, unspecified (3) Anxiety disorder, unspecified (4) Bipolar disorder, current episode manic severe with psychotic features INOCENCIO PELAEZ MD Feb 14, 2021 22:54
[2021-02-15] MEDS: LEVOTHYROXINE 25 MCG TABLET. PO SCH (05:30)
[2021-02-15 06:15] VITALS: BP 100/62
[2021-02-15] MEDS: NON FORMULARY ITEM (Liraglutide (Victoza 3-Pak) 1.8 MG) SQ SCH (09:00)
[2021-02-15] MEDS: INSULIN GLARGINE SYRINGE. SQ SCH ×2 (09:00→20:51)
[2021-02-15] MEDS: LIDOCAINE (700MG/PATCH) PATCH. TP SCH (09:38)
[2021-02-15] MEDS: INSULIN LISPRO 300 UNITS/3 ML VIAL. SQ SCH ×3 (09:42→17:31)
[2021-02-15] MEDS: metFORMIN XR 500 MG TAB.ER.24H PO SCH (09:45)
[2021-02-15] MEDS: LACTOBACILLUS RHAMNOSUS GG 1 CAPSULE. PO SCH ×2 (09:46→20:47)
[2021-02-15] MEDS: risperiDONE 2 MG TABLET. PO SCH ×3 (09:46→20:47)
[2021-02-15] MEDS: MECLIZINE 12.5 MG TABLET. PO SCH ×2 (09:46→20:48)
[2021-02-15] MEDS: VALPROIC ACID 250 MG CAPSULE. PO SCH ×4 (09:46→20:46)
[2021-02-15] MEDS: CHOLECALCIFEROL (VITAMIN D3) 1,000 UNIT TABLET PO SCH (09:46)
[2021-02-15] MEDS: MESALAMINE 1.2 GM TABLET.DR PO SCH (09:46)
[2021-02-15] MEDS: DEMECLOCYCLINE HCL 150 MG TABLET. PO SCH ×3 (09:46→20:48)
[2021-02-15] MEDS: CYANOCOBALAMIN (VITAMIN B-12) 1,000 MCG TABLET. PO SCH (09:46)
[2021-02-15] MEDS: METOPROLOL TART IMMED RELEASE 25 MG TABLET. PO SCH ×2 (09:46→20:47)
[2021-02-15] MEDS: QUEtiapine 50 MG TABLET. PO SCH ×3 (09:47→20:48)
[2021-02-15] MEDS: amLODIPine BESYLATE 5 MG TABLET PO SCH (09:47)
[2021-02-15 15:46] VITALS: BP 113/66
--- NOTE | 2021-02-15 17:10 | NUR ---
Nursing note: Client was in bed room for morning medications & assessment, took medication whole. She is pleasant & compliant with medications & assessment. Report back/leg pain of a chronic nature. Client somewhat confused, in room most of the day, this nurse encouraged client to participate in groups. She reported she is here because she has pneumonia. She self propels on unit in wheelchair, occasionally walks behind. She is currently in her room. Will continue to monitor.
[2021-02-15] MEDS: cloZAPine 25 MG TABLET PO SCH (20:46)
[2021-02-15] MEDS: ATORVASTATIN CALCIUM 20 MG TABLET PO SCH (20:48)
--- NOTE | 2021-02-15 22:33 | PDOC ---
Exam Note: Benedict Note: Please also refer to the separate dictated note~for this date of service dictated separately.~Patient seen individually. Discussed the patient with Nursing staff reviewed the chart.~Reviewed interim history and current functioning. Reviewed vital signs,~Labs/ Radiology~and current medications noted below. Continue current treatment with the changes noted in the dictated addendum note Assessment: Vital Signs/I&O: Vital Signs Date Time Temp Pulse Resp B/P (MAP) Pulse Ox O2 Delivery O2 Flow Rate FiO2 02/15/21 20:47 81 113/66 02/15/21 15:46 96.7 20 97 02/15/21 06:15 Room Air I & O 02/14/21 02/14/21 02/15/21 15:00 23:00 07:00 Intake Total 600 ml 480 ml Balance 600 ml 480 ml Labs: Laboratory Tests Test 02/15/21 07:25 02/15/21 11:25 02/15/21 16:36 02/15/21 19:19 Glucose (Fingerstick) 107 mg/dL (70-99) H 171 mg/dL (70-99) H 233 mg/dL (70-99) H 241 mg/dL (70-99) H Current Medications: I have reviewed the current psychotropics carefully including drug interactions. Risk benefit ratio favors no change other than as noted in my dictated progress note. Diagnosis: Problems: (1) Schizoaffective disorder, bipolar type (2) Impulse control disorder, unspecified (3) Anxiety disorder, unspecified (4) Bipolar disorder, current episode manic severe with psychotic features INOCENCIO PELAEZ MD Feb 15, 2021 22:33
--- NOTE | 2021-02-15 22:41 | NUR ---
Patient is located in the her room on assumption of care, sitting in her wheelchair. She is pleasant, interactive, appropriate. Compliant with assessments and medications whole. Cooperative with shower and HS care. Patient has voiced no delusions so far this shift. She denies any pain or discomfort. Patient appears to be sleeping comfortably at present time. Will continue to monitor.
[2021-02-16] MEDS: LEVOTHYROXINE 25 MCG TABLET. PO SCH (05:37)
[2021-02-16 05:49] VITALS: BP 116/71
[2021-02-16] MEDS: LACTOBACILLUS RHAMNOSUS GG 1 CAPSULE. PO SCH ×2 (08:23→20:11)
[2021-02-16] MEDS: CYANOCOBALAMIN (VITAMIN B-12) 1,000 MCG TABLET. PO SCH (08:24)
[2021-02-16] MEDS: METOPROLOL TART IMMED RELEASE 25 MG TABLET. PO SCH ×2 (08:24→20:13)
[2021-02-16] MEDS: QUEtiapine 50 MG TABLET. PO SCH ×2 (08:24→14:29)
[2021-02-16] MEDS: MECLIZINE 12.5 MG TABLET. PO SCH ×2 (08:24→20:12)
[2021-02-16] MEDS: risperiDONE 2 MG TABLET. PO SCH ×3 (08:24→20:13)
[2021-02-16] MEDS: amLODIPine BESYLATE 5 MG TABLET PO SCH (08:24)
[2021-02-16] MEDS: VALPROIC ACID 250 MG CAPSULE. PO SCH ×4 (08:25→20:13)
[2021-02-16] MEDS: CHOLECALCIFEROL (VITAMIN D3) 1,000 UNIT TABLET PO SCH (08:25)
[2021-02-16] MEDS: metFORMIN XR 500 MG TAB.ER.24H PO SCH (08:25)
[2021-02-16] MEDS: MESALAMINE 1.2 GM TABLET.DR PO SCH (08:25)
[2021-02-16] MEDS: DEMECLOCYCLINE HCL 150 MG TABLET. PO SCH ×3 (08:25→20:11)
[2021-02-16] MEDS: NON FORMULARY ITEM (Liraglutide (Victoza 3-Pak) 1.8 MG) SQ SCH (09:00)
[2021-02-16] MEDS: INSULIN GLARGINE SYRINGE. SQ SCH ×2 (09:00→20:09)
[2021-02-16] MEDS: LIDOCAINE (700MG/PATCH) PATCH. TP SCH (09:19)
[2021-02-16] MEDS: INSULIN LISPRO 300 UNITS/3 ML VIAL. SQ SCH ×3 (09:20→17:27)
--- NOTE | 2021-02-16 09:31 | PDOC ---
Exam Note: Benedict Note: This note is a late entry for 02/14/2021 covers elements not covered in my initial note. Subjective: The patient was seen on telehealth rounds in the afternoon of 02/14/2021 as an option during the COVID-19 pandemic period with Lucie CARRERA, discussed and reviewed the chart. The patient slept 7-3/4 hours previous night. She is compliant with medications, somewhat sleepy but cooperative, less paranoid. Review of Systems: Ambulation impaired. No CV, , eye system symptoms on review. Mental Status Exam: The patient is alert and oriented. She was pleasant, co operative when I met with her, somewhat focussed on discharge plans and we addressed this. Speech coherent. Abstraction fair. Computation impaired. Language function intact. Attention span fair. No suicidal or homicidal ideation. Laboratory Data: Reviewed. Impression: Schizoaffective disorder, bipolar type mixed with psychotic features. Anxiety disorder unspecified. Impulse control disorder unspecified. Plan: No change from initial note. Assessment: Vital Signs/I&O: Vital Signs Date Time Temp Pulse Resp B/P (MAP) Pulse Ox O2 Delivery O2 Flow Rate FiO2 02/16/21 08:24 82 116/71 02/16/21 05:49 98.4 22 94 02/15/21 06:15 Room Air I & O 02/15/21 02/15/21 02/16/21 14:59 22:59 06:59 Intake Total 480 ml 600 ml Balance 480 ml 600 ml Labs: Laboratory Tests Test 02/15/21 11:25 02/15/21 16:36 02/15/21 19:19 02/16/21 07:59 Glucose (Fingerstick) 171 mg/dL (70-99) H 233 mg/dL (70-99) H 241 mg/dL (70-99) H 104 mg/dL (70-99) H Current Medications: Meds: Laboratory Tests Test 02/15/21 11:25 02/15/21 16:36 02/15/21 19:19 02/16/21 07:59 Glucose (Fingerstick) 171 mg/dL 233 mg/dL 241 mg/dL 104 mg/dL Current Medications Medications (Trade) Dose Ordered Sig/Latesha Route PRN Reason Start Time Stop Time Status Last Admin Dose Admin Acetaminophen (Tylenol) 650 mg PRN Q6HRS PRN PO MILD PAIN / TEMP > 100.3'F 01/22/21 14:00 Cancel Multi-Ingredient Ointment (Analgesic [place]) 1 keri PRN QID PRN TP MUSCLE PAIN 01/22/21 14:00 Al Hydroxide/Mg Hydroxide (Mylanta Plus Xs) 15 ml PRN AFTMEALHC PRN PO DYSPEPSIA 01/22/21 14:00 Magnesium Hydroxide (Milk Of Magnesia) 2,400 mg PRN QHS PRN PO CONSTIPATION 01/22/21 14:00 Valproic Acid (Depakene) 500 mg QID PO 01/22/21 17:00 02/16/21 08:25 Acetaminophen (Tylenol) 500 mg QID PO 01/22/21 21:00 01/23/21 13:04 DC 01/23/21 08:29 Amlodipine Besylate (Norvasc) 5 mg DAILY PO 01/23/21 09:00 02/16/21 08:24 Atorvastatin Calcium (Lipitor) 20 mg QHS PO 01/22/21 21:00 02/15/21 20:48 Vitamin D (Vitamin D3) 1,000 unit DAILY PO 01/23/21 09:00 02/16/21 08:25 Hydrocortisone Acetate (Anucort-Hc) 25 mg PRN Q8HRS PRN RC hemorrhoids 01/22/21 20:00 Levothyroxine Sodium (Synthroid) 25 mcg DAILY06 PO 01/23/21 06:00 02/16/21 05:37 Lidocaine (Lidoderm) 1 patch DAILY TP 01/23/21 09:00 02/16/21 09:19 Mesalamine (Lialda) 1.2 gm DAILY PO 01/23/21 09:00 02/16/21 08:25 Metoprolol Tartrate (Lopressor) 25 mg BID PO 01/22/21 21:00 02/16/21 08:24 Quetiapine Fumarate (SEROquel) 50 mg TID PO 01/22/21 21:00 02/16/21 08:24 Risperidone (RisperDAL) 2 mg TID PO 01/22/21 21:00 02/16/21 08:24 Rivastigmine (Exelon) 1 patch DAILY TD 01/23/21 09:00 02/01/21 16:25 DC 02/01/21 08:42 Venlafaxine HCl (Effexor Xr) 37.5 mg DAILY PO 01/23/21 09:00 01/23/21 13:11 DC 01/23/21 08:29 Ziprasidone (Geodon) 40 mg BID PO 01/22/21 21:00 01/28/21 17:15 DC 01/28/21 08:52 Ziprasidone (Geodon) 80 mg QHS PO 01/22/21 21:00 01/22/21 20:17 DC Cyanocobalamin (Vitamin B-12) 1,000 mcg DAILY PO 01/23/21 09:00 02/16/21 08:24 Insulin Human Lispro (HumaLOG) 40 units TIDWMEALS SQ 01/23/21 08:00 02/16/21 09:20 Insulin Glargine (Lantus Syringe) 30 unit DAILY SQ 01/23/21 09:00 01/29/21 14:19 DC 01/29/21 09:00 Lactobacillus Rhamnosus (Culturelle) 1 cap BID PO 01/23/21 09:00 02/16/21 08:23 Non-Formulary Medication (Liraglutide (Victoza 3-Jas)) 1.8 mg DAILY SQ 01/23/21 09:00 UNV Meclizine HCl (Antivert) 25 mg BID PO 01/22/21 21:00 02/16/21 08:24 Psyllium Hydrophilic Mucilloid (Metamucil) 1 pkt BID PO 01/22/21 21:00 02/02/21 13:31 DC 02/01/21 08:42 Demeclocycline HCl (Declomycin) 150 mg TID PO 01/22/21 21:00 01/22/21 20:45 DC Olanzapine (ZyPREXA ZYDIS) 5 mg PRN Q2HR PRN PO PSYCHOSIS 01/22/21 20:30 Demeclocycline HCl (Declomycin) 300 mg TID PO 01/22/21 21:00 02/16/21 08:25 Acetaminophen/ Codeine Phosphate (Tylenol #3) 1 tab PRN QID PRN PO MODERATE PAIN 4-6 01/23/21 11:45 01/23/21 12:23 Acetaminophen (Tylenol) 500 mg PRN Q6HRS PRN PO MILD PAIN / TEMP > 100.3'F 01/23/21 13:15 02/04/21 08:31 Clozapine (Clozaril) 25 mg HS PO 01/23/21 21:00 01/30/21 18:59 DC 01/29/21 20:37 Insulin Glargine (Lantus Syringe) 40 unit BID SQ 01/29/21 21:00 01/31/21 17:42 DC 01/31/21 09:50 Clozapine (Clozaril) 50 mg HS PO 01/30/21 21:00 02/13/21 10:08 DC 02/12/21 21:27 Insulin Glargine (Lantus Syringe) 60 unit BID SQ 01/31/21 17:45 01/31/21 18:17 DC Metformin HCl (Glucophage Xr) 500 mg DAILYWBKFT PO 02/01/21 08:00 02/16/21 08:25 Insulin Glargine (Lantus Syringe) 60 unit BID SQ 01/31/21 21:00 02/12/21 09:35 DC 02/12/21 09:29 Insulin Glargine (Lantus Syringe) 60 unit BID SQ 02/12/21 21:00 02/16/21 09:00 Clozapine (Clozaril) 75 mg HS PO 02/13/21 21:00 02/15/21 20:46 I have reviewed the current psychotropics carefully including drug interactions. Risk benefit ratio favors no change other than as noted in my dictated progress note. Diagnosis: Problems: (1) Schizoaffective disorder, bipolar type (2) Impulse control disorder, unspecified (3) Anxiety disorder, unspecified (4) Bipolar disorder, current episode manic severe with psychotic features INOCENCIO PELAEZ MD Feb 16, 2021 09:31
--- NOTE | 2021-02-16 09:52 | PDOC ---
Exam Note: Benedict Note: This note is a late entry for 02/15/2021 covers elements not covered in my initial note. Subjective: The patient was seen on telehealth rounds in the afternoon of 02/15/2021 as an option during the COVID-19 pandemic period with Jasmin CARRERA, discussed and reviewed the chart. The patient slept 7 hours previous night. She has been somewhat more sedated. We have adjusting her Clozaril and given the sedation, we might reduce the Seroquel and see how she does. Review of Systems: Ambulation impaired. No CV, , eye system symptoms on review. Mental Status Exam: The patient is alert and oriented. During the telehealth visit the patient was somewhat sedated but readily recognized me and referred to me by name accurately. She did eat reasonably at lunch time. Speech coherent. Abstraction fair. Computation impaired. Language function intact. Attention span fair. No suicidal or homicidal ideation. Laboratory Data: Reviewed. Impression: Schizoaffective disorder, bipolar type mixed with psychotic features. Anxiety disorder unspecified. Impulse control disorder unspecified. Plan: No change from initial note. The patient is on Seroquel 50 mg t.i.d. and given that she is on Clozaril, we will go ahead and stop this. Maintain Risperdal 2 mg t.i.d., Depakote current dosage, Zyprexa p.r.n. Follow labs, CBC, absolute neutrophil count on the Clozaril. Assessment: Vital Signs/I&O: Vital Signs Date Time Temp Pulse Resp B/P (MAP) Pulse Ox O2 Delivery O2 Flow Rate FiO2 02/16/21 08:24 82 116/71 02/16/21 05:49 98.4 22 94 02/15/21 06:15 Room Air I & O 02/15/21 02/15/21 02/16/21 15:00 23:00 07:00 Intake Total 480 ml 600 ml Balance 480 ml 600 ml Labs: Laboratory Tests Test 02/15/21 11:25 02/15/21 16:36 02/15/21 19:19 02/16/21 07:59 Glucose (Fingerstick) 171 mg/dL (70-99) H 233 mg/dL (70-99) H 241 mg/dL (70-99) H 104 mg/dL (70-99) H Current Medications: Meds: Laboratory Tests Test 02/15/21 11:25 02/15/21 16:36 02/15/21 19:19 02/16/21 07:59 Glucose (Fingerstick) 171 mg/dL 233 mg/dL 241 mg/dL 104 mg/dL Current Medications Medications (Trade) Dose Ordered Sig/Latesha Route PRN Reason Start Time Stop Time Status Last Admin Dose Admin Acetaminophen (Tylenol) 650 mg PRN Q6HRS PRN PO MILD PAIN / TEMP > 100.3'F 01/22/21 14:00 Cancel Multi-Ingredient Ointment (Analgesic [place]) 1 keri PRN QID PRN TP MUSCLE PAIN 01/22/21 14:00 Al Hydroxide/Mg Hydroxide (Mylanta Plus Xs) 15 ml PRN AFTMEALHC PRN PO DYSPEPSIA 01/22/21 14:00 Magnesium Hydroxide (Milk Of Magnesia) 2,400 mg PRN QHS PRN PO CONSTIPATION 01/22/21 14:00 Valproic Acid (Depakene) 500 mg QID PO 01/22/21 17:00 02/16/21 08:25 Acetaminophen (Tylenol) 500 mg QID PO 01/22/21 21:00 01/23/21 13:04 DC 01/23/21 08:29 Amlodipine Besylate (Norvasc) 5 mg DAILY PO 01/23/21 09:00 02/16/21 08:24 Atorvastatin Calcium (Lipitor) 20 mg QHS PO 01/22/21 21:00 02/15/21 20:48 Vitamin D (Vitamin D3) 1,000 unit DAILY PO 01/23/21 09:00 02/16/21 08:25 Hydrocortisone Acetate (Anucort-Hc) 25 mg PRN Q8HRS PRN RC hemorrhoids 01/22/21 20:00 Levothyroxine Sodium (Synthroid) 25 mcg DAILY06 PO 01/23/21 06:00 02/16/21 05:37 Lidocaine (Lidoderm) 1 patch DAILY TP 01/23/21 09:00 02/16/21 09:19 Mesalamine (Lialda) 1.2 gm DAILY PO 01/23/21 09:00 02/16/21 08:25 Metoprolol Tartrate (Lopressor) 25 mg BID PO 01/22/21 21:00 02/16/21 08:24 Quetiapine Fumarate (SEROquel) 50 mg TID PO 01/22/21 21:00 02/16/21 08:24 Risperidone (RisperDAL) 2 mg TID PO 01/22/21 21:00 02/16/21 08:24 Rivastigmine (Exelon) 1 patch DAILY TD 01/23/21 09:00 02/01/21 16:25 DC 02/01/21 08:42 Venlafaxine HCl (Effexor Xr) 37.5 mg DAILY PO 01/23/21 09:00 01/23/21 13:11 DC 01/23/21 08:29 Ziprasidone (Geodon) 40 mg BID PO 01/22/21 21:00 01/28/21 17:15 DC 01/28/21 08:52 Ziprasidone (Geodon) 80 mg QHS PO 01/22/21 21:00 01/22/21 20:17 DC Cyanocobalamin (Vitamin B-12) 1,000 mcg DAILY PO 01/23/21 09:00 02/16/21 08:24 Insulin Human Lispro (HumaLOG) 40 units TIDWMEALS SQ 01/23/21 08:00 02/16/21 09:20 Insulin Glargine (Lantus Syringe) 30 unit DAILY SQ 01/23/21 09:00 01/29/21 14:19 DC 01/29/21 09:00 Lactobacillus Rhamnosus (Culturelle) 1 cap BID PO 01/23/21 09:00 02/16/21 08:23 Non-Formulary Medication (Liraglutide (Victoza 3-Jas)) 1.8 mg DAILY SQ 01/23/21 09:00 UNV Meclizine HCl (Antivert) 25 mg BID PO 01/22/21 21:00 02/16/21 08:24 Psyllium Hydrophilic Mucilloid (Metamucil) 1 pkt BID PO 01/22/21 21:00 02/02/21 13:31 DC 02/01/21 08:42 Demeclocycline HCl (Declomycin) 150 mg TID PO 01/22/21 21:00 01/22/21 20:45 DC Olanzapine (ZyPREXA ZYDIS) 5 mg PRN Q2HR PRN PO PSYCHOSIS 01/22/21 20:30 Demeclocycline HCl (Declomycin) 300 mg TID PO 01/22/21 21:00 02/16/21 08:25 Acetaminophen/ Codeine Phosphate (Tylenol #3) 1 tab PRN QID PRN PO MODERATE PAIN 4-6 01/23/21 11:45 01/23/21 12:23 Acetaminophen (Tylenol) 500 mg PRN Q6HRS PRN PO MILD PAIN / TEMP > 100.3'F 01/23/21 13:15 02/04/21 08:31 Clozapine (Clozaril) 25 mg HS PO 01/23/21 21:00 01/30/21 18:59 DC 01/29/21 20:37 Insulin Glargine (Lantus Syringe) 40 unit BID SQ 01/29/21 21:00 01/31/21 17:42 DC 01/31/21 09:50 Clozapine (Clozaril) 50 mg HS PO 01/30/21 21:00 02/13/21 10:08 DC 02/12/21 21:27 Insulin Glargine (Lantus Syringe) 60 unit BID SQ 01/31/21 17:45 01/31/21 18:17 DC Metformin HCl (Glucophage Xr) 500 mg DAILYWBKFT PO 02/01/21 08:00 02/16/21 08:25 Insulin Glargine (Lantus Syringe) 60 unit BID SQ 01/31/21 21:00 02/12/21 09:35 DC 02/12/21 09:29 Insulin Glargine (Lantus Syringe) 60 unit BID SQ 02/12/21 21:00 02/16/21 09:00 Clozapine (Clozaril) 75 mg HS PO 02/13/21 21:00 02/15/21 20:46 I have reviewed the current psychotropics carefully including drug interactions. Risk benefit ratio favors no change other than as noted in my dictated progress note. Diagnosis: Problems: (1) Schizoaffective disorder, bipolar type (2) Impulse control disorder, unspecified (3) Anxiety disorder, unspecified (4) Bipolar disorder, current episode manic severe with psychotic features INOCENCIO PELAEZ MD Feb 16, 2021 09:52
--- NOTE | 2021-02-16 15:58 | NUR ---
Nursing note: Patient was in dinning room for morning medications & assessment, took medication whole. She is pleasant & compliant with medications & assessment. Report back/leg pain of a chronic nature. Client somewhat confused, in room most of the day in between meals, this nurse encouraged patient to participate in groups. She reported she is here because she has pneumonia. She self propels on unit in wheelchair, occasionally walks behind. She is currently in the day room. Will continue to monitor.
[2021-02-16 16:37] VITALS: BP 109/72
[2021-02-16] MEDS: ATORVASTATIN CALCIUM 20 MG TABLET PO SCH (20:12)
[2021-02-16] MEDS: cloZAPine 25 MG TABLET PO SCH (20:14)
--- NOTE | 2021-02-16 22:01 | PDOC ---
Exam Note: Benedict Note: Please also refer to the separate dictated note~for this date of service dictated separately.~Patient seen individually. Discussed the patient with Nursing staff reviewed the chart.~Reviewed interim history and current functioning. Reviewed vital signs,~Labs/ Radiology~and current medications noted below. Continue current treatment with the changes noted in the dictated addendum note Assessment: Vital Signs/I&O: Vital Signs Date Time Temp Pulse Resp B/P (MAP) Pulse Ox O2 Delivery O2 Flow Rate FiO2 02/16/21 20:13 88 109/72 02/16/21 16:37 97.6 16 94 02/15/21 06:15 Room Air I & O 02/15/21 02/15/21 02/16/21 15:00 23:00 07:00 Intake Total 480 ml 600 ml Balance 480 ml 600 ml Labs: Laboratory Tests Test 02/16/21 07:59 02/16/21 19:10 Glucose (Fingerstick) 104 mg/dL (70-99) H 259 mg/dL (70-99) H Current Medications: Meds: Laboratory Tests Test 02/16/21 07:59 02/16/21 19:10 Glucose (Fingerstick) 104 mg/dL 259 mg/dL Current Medications Medications (Trade) Dose Ordered Sig/Latesha Route PRN Reason Start Time Stop Time Status Last Admin Dose Admin Acetaminophen (Tylenol) 650 mg PRN Q6HRS PRN PO MILD PAIN / TEMP > 100.3'F 01/22/21 14:00 Cancel Multi-Ingredient Ointment (Analgesic [place]) 1 keri PRN QID PRN TP MUSCLE PAIN 01/22/21 14:00 Al Hydroxide/Mg Hydroxide (Mylanta Plus Xs) 15 ml PRN AFTMEALHC PRN PO DYSPEPSIA 01/22/21 14:00 Magnesium Hydroxide (Milk Of Magnesia) 2,400 mg PRN QHS PRN PO CONSTIPATION 01/22/21 14:00 Valproic Acid (Depakene) 500 mg QID PO 01/22/21 17:00 02/16/21 20:13 Acetaminophen (Tylenol) 500 mg QID PO 01/22/21 21:00 01/23/21 13:04 DC 01/23/21 08:29 Amlodipine Besylate (Norvasc) 5 mg DAILY PO 01/23/21 09:00 02/16/21 08:24 Atorvastatin Calcium (Lipitor) 20 mg QHS PO 01/22/21 21:00 02/16/21 20:12 Vitamin D (Vitamin D3) 1,000 unit DAILY PO 01/23/21 09:00 02/16/21 08:25 Hydrocortisone Acetate (Anucort-Hc) 25 mg PRN Q8HRS PRN RC hemorrhoids 01/22/21 20:00 Levothyroxine Sodium (Synthroid) 25 mcg DAILY06 PO 01/23/21 06:00 02/16/21 05:37 Lidocaine (Lidoderm) 1 patch DAILY TP 01/23/21 09:00 02/16/21 09:19 Mesalamine (Lialda) 1.2 gm DAILY PO 01/23/21 09:00 02/16/21 08:25 Metoprolol Tartrate (Lopressor) 25 mg BID PO 01/22/21 21:00 02/16/21 20:13 Quetiapine Fumarate (SEROquel) 50 mg TID PO 01/22/21 21:00 02/16/21 16:46 DC 02/16/21 14:29 Risperidone (RisperDAL) 2 mg TID PO 01/22/21 21:00 02/16/21 20:13 Rivastigmine (Exelon) 1 patch DAILY TD 01/23/21 09:00 02/01/21 16:25 DC 02/01/21 08:42 Venlafaxine HCl (Effexor Xr) 37.5 mg DAILY PO 01/23/21 09:00 01/23/21 13:11 DC 01/23/21 08:29 Ziprasidone (Geodon) 40 mg BID PO 01/22/21 21:00 01/28/21 17:15 DC 01/28/21 08:52 Ziprasidone (Geodon) 80 mg QHS PO 01/22/21 21:00 01/22/21 20:17 DC Cyanocobalamin (Vitamin B-12) 1,000 mcg DAILY PO 01/23/21 09:00 02/16/21 08:24 Insulin Human Lispro (HumaLOG) 40 units TIDWMEALS SQ 01/23/21 08:00 02/16/21 17:27 Insulin Glargine (Lantus Syringe) 30 unit DAILY SQ 01/23/21 09:00 01/29/21 14:19 DC 01/29/21 09:00 Lactobacillus Rhamnosus (Culturelle) 1 cap BID PO 01/23/21 09:00 02/16/21 20:11 Non-Formulary Medication (Liraglutide (Victoza 3-Jas)) 1.8 mg DAILY SQ 01/23/21 09:00 UNV Meclizine HCl (Antivert) 25 mg BID PO 01/22/21 21:00 02/16/21 20:12 Psyllium Hydrophilic Mucilloid (Metamucil) 1 pkt BID PO 01/22/21 21:00 02/02/21 13:31 DC 02/01/21 08:42 Demeclocycline HCl (Declomycin) 150 mg TID PO 01/22/21 21:00 01/22/21 20:45 DC Olanzapine (ZyPREXA ZYDIS) 5 mg PRN Q2HR PRN PO PSYCHOSIS 01/22/21 20:30 Demeclocycline HCl (Declomycin) 300 mg TID PO 01/22/21 21:00 02/16/21 20:11 Acetaminophen/ Codeine Phosphate (Tylenol #3) 1 tab PRN QID PRN PO MODERATE PAIN 4-6 01/23/21 11:45 01/23/21 12:23 Acetaminophen (Tylenol) 500 mg PRN Q6HRS PRN PO MILD PAIN / TEMP > 100.3'F 01/23/21 13:15 02/04/21 08:31 Clozapine (Clozaril) 25 mg HS PO 01/23/21 21:00 01/30/21 18:59 DC 01/29/21 20:37 Insulin Glargine (Lantus Syringe) 40 unit BID SQ 01/29/21 21:00 01/31/21 17:42 DC 01/31/21 09:50 Clozapine (Clozaril) 50 mg HS PO 01/30/21 21:00 02/13/21 10:08 DC 02/12/21 21:27 Insulin Glargine (Lantus Syringe) 60 unit BID SQ 01/31/21 17:45 01/31/21 18:17 DC Metformin HCl (Glucophage Xr) 500 mg DAILYWBKFT PO 02/01/21 08:00 02/16/21 08:25 Insulin Glargine (Lantus Syringe) 60 unit BID SQ 01/31/21 21:00 02/12/21 09:35 DC 02/12/21 09:29 Insulin Glargine (Lantus Syringe) 60 unit BID SQ 02/12/21 21:00 02/16/21 20:09 Clozapine (Clozaril) 75 mg HS PO 02/13/21 21:00 02/16/21 20:14 I have reviewed the current psychotropics carefully including drug interactions. Risk benefit ratio favors no change other than as noted in my dictated progress note. Diagnosis: Problems: (1) Schizoaffective disorder, bipolar type (2) Impulse control disorder, unspecified (3) Anxiety disorder, unspecified (4) Bipolar disorder, current episode manic severe with psychotic features INOCENCIO PELAEZ MD Feb 16, 2021 22:01
--- NOTE | 2021-02-16 22:26 | NUR ---
Patient is located in the day room on assumption of care, sitting in her wheelchair. She is pleasant, interactive, appropriate. Compliant with assessments and medications whole. Patient has voiced no delusions so far this shift. She denies any pain or discomfort. Patient appears to be sleeping comfortably at present time. Will continue to monitor.
[2021-02-16] MEDS ORDERED: MAGN24003 PO (23:23)
[2021-02-16] MEDS ORDERED: ACET12.55 PO (23:23)
[2021-02-16] MEDS ORDERED: MAG-115 PO (23:25)
[2021-02-16] MEDS ORDERED: METH57CR17 TP (23:26)
[2021-02-16] MEDS ORDERED: OLAN5TAB99 PO (23:28)
[2021-02-16] MEDS ORDERED: VALP250C2 PO (23:30)
[2021-02-16] MEDS ORDERED: CLOZ25TA PO (23:31)
[2021-02-16] MEDS ORDERED: METF500T3 PO (23:32)
[2021-02-17 05:29] VITALS: BP 127/87
[2021-02-17] MEDS: LEVOTHYROXINE 25 MCG TABLET. PO SCH (05:30)
[2021-02-17 07:00] LABS: BASO % 0 % (0-3); EOS # 0.1 x10^3/uL (0.0-0.7); EOS % 2 % (0-3); HEMATOCRIT 32.3 % (36.0-47.0); HEMOGLOBIN 10.7 g/dL (12.0-15.5); LYMPH # 1.8 x10^3/uL (1.0-4.8); LYMPH % 28 % (24-48); MEAN CORPUSCULAR HEMOGLOBIN 29 pg (25-35); MEAN CORPUSCULAR HGB CONC 33 g/dL (31-37); MEAN CORPUSCULAR VOLUME 89 fL (79-100); MONO # 0.8 x10^3/uL (0.0-1.1); MONO % 12 % (0-9); NEUT # 3.8 x10^3uL (1.8-7.7); NEUT % 58 % (31-73); PLATELET COUNT 114 x10^3/uL (140-400); RED BLOOD COUNT 3.64 x10^6/uL (3.50-5.40); RED CELL DISTRIBUTION WIDTH 15.3 % (11.5-14.5); WHITE BLOOD COUNT 6.6 x10^3/uL (4.0-11.0)
[2021-02-17 08:45] LABS: ALBUMIN 2.8 g/dL (3.4-5.0); ALBUMIN/GLOBULIN RATIO 0.8 (1.0-1.7); CALCIUM 8.7 mg/dL (8.5-10.1); CREATININE 1.1 mg/dL (0.6-1.0); GFR 49.7; POTASSIUM 4.4 mmol/L (3.5-5.1); TOTAL BILIRUBIN 0.4 mg/dL (0.2-1.0); TOTAL PROTEIN 6.5 g/dL (6.4-8.2)
--- NOTE | 2021-02-17 08:58 | PDOC ---
Exam Note: Benedict Note: This note is a late entry for 02/16/2021 covers elements not covered in my initial note. Subjective: The patient was seen individually in the evening of 02/16/2021 with Jasmin CARRERA, discussed and reviewed the chart. The patient slept 7 hours previous night. She was little sedated today. I met with the patient in her room. We are stopping the Seroquel as we are adjusting the Clozaril and hopefully sedation will improve. She has bilateral lower extremity redness. We will defer to Dr. Trinidad. She was otherwise pleasant, readily knew my name. Discussed discharge plans. Review of Systems: Ambulation impaired. No CV, , eye system symptoms on review. Mental Status Exam: The patient is alert and oriented. She is not as hyperverbal and grandiose as before. Speech coherent. Abstraction fair. Computation impaired. Language function intact. Attention span fair. No suicidal or homicidal ideation. Laboratory Data: Reviewed. Impression: Schizoaffective disorder, bipolar type mixed with psychotic features. Anxiety disorder unspecified. Impulse control disorder unspecified. Plan: No change from initial note. Assessment: Vital Signs/I&O: Vital Signs Date Time Temp Pulse Resp B/P (MAP) Pulse Ox O2 Delivery O2 Flow Rate FiO2 02/17/21 05:29 96.9 95 16 127/87 (100) 93 02/15/21 06:15 Room Air I & O 02/16/21 02/16/21 02/17/21 15:00 23:00 07:00 Intake Total 960 ml 680 ml Balance 960 ml 680 ml Labs: Laboratory Tests Test 02/16/21 19:10 02/17/21 06:31 02/17/21 07:45 Glucose (Fingerstick) 259 mg/dL (70-99) H 121 mg/dL (70-99) H White Blood Count 6.6 x10^3/uL (4.0-11.0) Red Blood Count 3.64 x10^6/uL (3.50-5.40) Hemoglobin 10.7 g/dL (12.0-15.5) L Hematocrit 32.3 % (36.0-47.0) L Mean Corpuscular Volume 89 fL (79-100) Mean Corpuscular Hemoglobin 29 pg (25-35) Mean Corpuscular Hemoglobin Concent 33 g/dL (31-37) Red Cell Distribution Width 15.3 % (11.5-14.5) H Platelet Count 114 x10^3/uL (140-400) L Neutrophils (%) (Auto) 58 % (31-73) Lymphocytes (%) (Auto) 28 % (24-48) Monocytes (%) (Auto) 12 % (0-9) H Eosinophils (%) (Auto) 2 % (0-3) Basophils (%) (Auto) 0 % (0-3) Neutrophils # (Auto) 3.8 x10^3uL (1.8-7.7) Lymphocytes # (Auto) 1.8 x10^3/uL (1.0-4.8) Monocytes # (Auto) 0.8 x10^3/uL (0.0-1.1) Eosinophils # (Auto) 0.1 x10^3/uL (0.0-0.7) Basophils # (Auto) 0.0 x10^3/uL (0.0-0.2) Platelet Estimate Pending Current Medications: Meds: Laboratory Tests Test 02/16/21 19:10 02/17/21 06:31 02/17/21 07:45 Glucose (Fingerstick) 259 mg/dL 121 mg/dL White Blood Count 6.6 x10^3/uL Red Blood Count 3.64 x10^6/uL Hemoglobin 10.7 g/dL Hematocrit 32.3 % Mean Corpuscular Volume 89 fL Mean Corpuscular Hemoglobin 29 pg Mean Corpuscular Hemoglobin Concent 33 g/dL Red Cell Distribution Width 15.3 % Platelet Count 114 x10^3/uL Neutrophils (%) (Auto) 58 % Lymphocytes (%) (Auto) 28 % Monocytes (%) (Auto) 12 % Eosinophils (%) (Auto) 2 % Basophils (%) (Auto) 0 % Neutrophils # (Auto) 3.8 x10^3uL Lymphocytes # (Auto) 1.8 x10^3/uL Monocytes # (Auto) 0.8 x10^3/uL Eosinophils # (Auto) 0.1 x10^3/uL Basophils # (Auto) 0.0 x10^3/uL Platelet Estimate Pending Current Medications Medications (Trade) Dose Ordered Sig/Latesha Route PRN Reason Start Time Stop Time Status Last Admin Dose Admin Acetaminophen (Tylenol) 650 mg PRN Q6HRS PRN PO MILD PAIN / TEMP > 100.3'F 01/22/21 14:00 Cancel Multi-Ingredient Ointment (Analgesic [employer]) 1 keri PRN QID PRN TP MUSCLE PAIN 01/22/21 14:00 Al Hydroxide/Mg Hydroxide (Mylanta Plus Xs) 15 ml PRN AFTMEALHC PRN PO DYSPEPSIA 01/22/21 14:00 Magnesium Hydroxide (Milk Of Magnesia) 2,400 mg PRN QHS PRN PO CONSTIPATION 01/22/21 14:00 Valproic Acid (Depakene) 500 mg QID PO 01/22/21 17:00 02/16/21 20:13 Acetaminophen (Tylenol) 500 mg QID PO 01/22/21 21:00 01/23/21 13:04 DC 01/23/21 08:29 Amlodipine Besylate (Norvasc) 5 mg DAILY PO 01/23/21 09:00 02/16/21 08:24 Atorvastatin Calcium (Lipitor) 20 mg QHS PO 01/22/21 21:00 02/16/21 20:12 Vitamin D (Vitamin D3) 1,000 unit DAILY PO 01/23/21 09:00 02/16/21 08:25 Hydrocortisone Acetate (Anucort-Hc) 25 mg PRN Q8HRS PRN RC hemorrhoids 01/22/21 20:00 Levothyroxine Sodium (Synthroid) 25 mcg DAILY06 PO 01/23/21 06:00 02/17/21 05:30 Lidocaine (Lidoderm) 1 patch DAILY TP 01/23/21 09:00 02/16/21 09:19 Mesalamine (Lialda) 1.2 gm DAILY PO 01/23/21 09:00 02/16/21 08:25 Metoprolol Tartrate (Lopressor) 25 mg BID PO 01/22/21 21:00 02/16/21 20:13 Quetiapine Fumarate (SEROquel) 50 mg TID PO 01/22/21 21:00 02/16/21 16:46 DC 02/16/21 14:29 Risperidone (RisperDAL) 2 mg TID PO 01/22/21 21:00 02/16/21 20:13 Rivastigmine (Exelon) 1 patch DAILY TD 01/23/21 09:00 02/01/21 16:25 DC 02/01/21 08:42 Venlafaxine HCl (Effexor Xr) 37.5 mg DAILY PO 01/23/21 09:00 01/23/21 13:11 DC 01/23/21 08:29 Ziprasidone (Geodon) 40 mg BID PO 01/22/21 21:00 01/28/21 17:15 DC 01/28/21 08:52 Ziprasidone (Geodon) 80 mg QHS PO 01/22/21 21:00 01/22/21 20:17 DC Cyanocobalamin (Vitamin B-12) 1,000 mcg DAILY PO 01/23/21 09:00 02/16/21 08:24 Insulin Human Lispro (HumaLOG) 40 units TIDWMEALS SQ 01/23/21 08:00 02/16/21 17:27 Insulin Glargine (Lantus Syringe) 30 unit DAILY SQ 01/23/21 09:00 01/29/21 14:19 DC 01/29/21 09:00 Lactobacillus Rhamnosus (Culturelle) 1 cap BID PO 01/23/21 09:00 02/16/21 20:11 Non-Formulary Medication (Liraglutide (Victoza 3-Jas)) 1.8 mg DAILY SQ 01/23/21 09:00 UNV Meclizine HCl (Antivert) 25 mg BID PO 01/22/21 21:00 02/16/21 20:12 Psyllium Hydrophilic Mucilloid (Metamucil) 1 pkt BID PO 01/22/21 21:00 02/02/21 13:31 DC 02/01/21 08:42 Demeclocycline HCl (Declomycin) 150 mg TID PO 01/22/21 21:00 01/22/21 20:45 DC Olanzapine (ZyPREXA ZYDIS) 5 mg PRN Q2HR PRN PO PSYCHOSIS 01/22/21 20:30 Demeclocycline HCl (Declomycin) 300 mg TID PO 01/22/21 21:00 02/16/21 20:11 Acetaminophen/ Codeine Phosphate (Tylenol #3) 1 tab PRN QID PRN PO MODERATE PAIN 4-6 01/23/21 11:45 01/23/21 12:23 Acetaminophen (Tylenol) 500 mg PRN Q6HRS PRN PO MILD PAIN / TEMP > 100.3'F 01/23/21 13:15 02/04/21 08:31 Clozapine (Clozaril) 25 mg HS PO 01/23/21 21:00 01/30/21 18:59 DC 01/29/21 20:37 Insulin Glargine (Lantus Syringe) 40 unit BID SQ 01/29/21 21:00 01/31/21 17:42 DC 01/31/21 09:50 Clozapine (Clozaril) 50 mg HS PO 01/30/21 21:00 02/13/21 10:08 DC 02/12/21 21:27 Insulin Glargine (Lantus Syringe) 60 unit BID SQ 01/31/21 17:45 01/31/21 18:17 DC Metformin HCl (Glucophage Xr) 500 mg DAILYWBKFT PO 02/01/21 08:00 02/16/21 08:25 Insulin Glargine (Lantus Syringe) 60 unit BID SQ 01/31/21 21:00 02/12/21 09:35 DC 02/12/21 09:29 Insulin Glargine (Lantus Syringe) 60 unit BID SQ 02/12/21 21:00 02/16/21 20:09 Clozapine (Clozaril) 75 mg HS PO 02/13/21 21:00 02/16/21 20:14 I have reviewed the current psychotropics carefully including drug interactions. Risk benefit ratio favors no change other than as noted in my dictated progress note. Diagnosis: Problems: (1) Schizoaffective disorder, bipolar type (2) Impulse control disorder, unspecified (3) Anxiety disorder, unspecified (4) Bipolar disorder, current episode manic severe with psychotic features INOCENCIO PELAEZ MD Feb 17, 2021 08:58
[2021-02-17 09:00] LABS: % BANDS 4 % (0-9); % EOS 2 % (0-5); % LYMPHS 27 % (24-48); % METAS 1 % (0-0); % MONOS 12 % (0-10); % MYELOS 5 % (0-0); NUCLEATED RBC 1; PLT ESTIMATE DECREASED (ADEQUATE)
[2021-02-17] MEDS: INSULIN GLARGINE SYRINGE. SQ SCH ×2 (09:00→20:55)
[2021-02-17] MEDS: NON FORMULARY ITEM (Liraglutide (Victoza 3-Pak) 1.8 MG) SQ SCH (09:00)
[2021-02-17] MEDS: metFORMIN XR 500 MG TAB.ER.24H PO SCH (09:02)
[2021-02-17] MEDS: LIDOCAINE (700MG/PATCH) PATCH. TP SCH (09:02)
[2021-02-17] MEDS: LACTOBACILLUS RHAMNOSUS GG 1 CAPSULE. PO SCH ×2 (09:02→20:53)
[2021-02-17] MEDS: VALPROIC ACID 250 MG CAPSULE. PO SCH ×4 (09:02→20:52)
[2021-02-17] MEDS: DEMECLOCYCLINE HCL 150 MG TABLET. PO SCH ×3 (09:02→20:53)
[2021-02-17] MEDS: METOPROLOL TART IMMED RELEASE 25 MG TABLET. PO SCH ×2 (09:03→20:53)
[2021-02-17] MEDS: MESALAMINE 1.2 GM TABLET.DR PO SCH (09:03)
[2021-02-17] MEDS: amLODIPine BESYLATE 5 MG TABLET PO SCH (09:03)
[2021-02-17] MEDS: risperiDONE 2 MG TABLET. PO SCH ×2 (09:03→14:59)
[2021-02-17] MEDS: MECLIZINE 12.5 MG TABLET. PO SCH ×2 (09:03→20:53)
[2021-02-17] MEDS: CHOLECALCIFEROL (VITAMIN D3) 1,000 UNIT TABLET PO SCH (09:03)
[2021-02-17] MEDS: CYANOCOBALAMIN (VITAMIN B-12) 1,000 MCG TABLET. PO SCH (09:03)
[2021-02-17] MEDS: INSULIN LISPRO 300 UNITS/3 ML VIAL. SQ SCH ×3 (09:12→17:30)
[2021-02-17 16:14] VITALS: BP 127/77
--- NOTE | 2021-02-17 16:16 | NUR ---
Nursing note: Patient was in dinning room for morning medications & assessment, took medication whole. She is pleasant & compliant with medications & assessment. Report back/leg pain of a chronic nature. Client somewhat confused, up in w/c all morning, laid down for nap after lunch. She reports she is here because she has pneumonia. She self propels on unit in wheelchair, occasionally walks behind. She is currently in the day room. Will continue to monitor.
[2021-02-17] MEDS: ATORVASTATIN CALCIUM 20 MG TABLET PO SCH (20:53)
[2021-02-17] MEDS ORDERED: cloZAPine 100 MG TABLET PO SCH (21:00)
[2021-02-17] MEDS ORDERED: risperiDONE 2 MG TABLET. PO SCH (21:00)
--- NOTE | 2021-02-17 22:00 | PDOC ---
Exam Note: Benedict Note: Please also refer to the separate dictated note~for this date of service dictated separately.~Patient seen individually. Discussed the patient with Nursing staff reviewed the chart.~Reviewed interim history and current functioning. Reviewed vital signs,~Labs/ Radiology~and current medications noted below. Continue current treatment with the changes noted in the dictated addendum note Assessment: Vital Signs/I&O: Vital Signs Date Time Temp Pulse Resp B/P (MAP) Pulse Ox O2 Delivery O2 Flow Rate FiO2 02/17/21 20:53 89 127/77 02/17/21 16:14 97.8 18 96 02/15/21 06:15 Room Air I & O 02/16/21 02/16/21 02/17/21 15:00 23:00 07:00 Intake Total 960 ml 680 ml Balance 960 ml 680 ml Labs: Laboratory Tests Test 02/17/21 06:31 02/17/21 07:45 02/17/21 11:21 02/17/21 16:25 White Blood Count 6.6 x10^3/uL (4.0-11.0) Red Blood Count 3.64 x10^6/uL (3.50-5.40) Hemoglobin 10.7 g/dL (12.0-15.5) L Hematocrit 32.3 % (36.0-47.0) L Mean Corpuscular Volume 89 fL (79-100) Mean Corpuscular Hemoglobin 29 pg (25-35) Mean Corpuscular Hemoglobin Concent 33 g/dL (31-37) Red Cell Distribution Width 15.3 % (11.5-14.5) H Platelet Count 114 x10^3/uL (140-400) L Neutrophils (%) (Auto) 58 % (31-73) Lymphocytes (%) (Auto) 28 % (24-48) Monocytes (%) (Auto) 12 % (0-9) H Eosinophils (%) (Auto) 2 % (0-3) Basophils (%) (Auto) 0 % (0-3) Neutrophils # (Auto) 3.8 x10^3uL (1.8-7.7) Lymphocytes # (Auto) 1.8 x10^3/uL (1.0-4.8) Monocytes # (Auto) 0.8 x10^3/uL (0.0-1.1) Eosinophils # (Auto) 0.1 x10^3/uL (0.0-0.7) Basophils # (Auto) 0.0 x10^3/uL (0.0-0.2) Segmented Neutrophils % 49 % (35-66) Band Neutrophils % 4 % (0-9) Lymphocytes % 27 % (24-48) Monocytes % 12 % (0-10) H Eosinophils % 2 % (0-5) Metamyelocytes % 1 % (0-0) H Myelocytes % 5 % (0-0) H Nucleated Red Blood Cells 1 Platelet Estimate Decreased (ADEQUATE) Sodium Level 138 mmol/L (136-145) Potassium Level 4.4 mmol/L (3.5-5.1) Chloride Level 100 mmol/L (98-107) Carbon Dioxide Level 29 mmol/L (21-32) Anion Gap 9 (6-14) Blood Urea Nitrogen 13 mg/dL (7-20) Creatinine 1.1 mg/dL (0.6-1.0) H Estimated GFR (Cockcroft-Gault) 49.7 BUN/Creatinine Ratio 12 (6-20) Glucose Level 121 mg/dL (70-99) H Calcium Level 8.7 mg/dL (8.5-10.1) Total Bilirubin 0.4 mg/dL (0.2-1.0) Aspartate Amino Transferase (AST) 24 U/L (15-37) Alanine Aminotransferase (ALT) 15 U/L (14-59) Alkaline Phosphatase 131 U/L (46-116) H Total Protein 6.5 g/dL (6.4-8.2) Albumin 2.8 g/dL (3.4-5.0) L Albumin/Globulin Ratio 0.8 (1.0-1.7) L Glucose (Fingerstick) 121 mg/dL (70-99) H 248 mg/dL (70-99) H 162 mg/dL (70-99) H Test 02/17/21 19:17 Glucose (Fingerstick) 249 mg/dL (70-99) H Current Medications: Meds: Laboratory Tests Test 02/17/21 06:31 02/17/21 07:45 02/17/21 11:21 02/17/21 16:25 White Blood Count 6.6 x10^3/uL Red Blood Count 3.64 x10^6/uL Hemoglobin 10.7 g/dL Hematocrit 32.3 % Mean Corpuscular Volume 89 fL Mean Corpuscular Hemoglobin 29 pg Mean Corpuscular Hemoglobin Concent 33 g/dL Red Cell Distribution Width 15.3 % Platelet Count 114 x10^3/uL Neutrophils (%) (Auto) 58 % Lymphocytes (%) (Auto) 28 % Monocytes (%) (Auto) 12 % Eosinophils (%) (Auto) 2 % Basophils (%) (Auto) 0 % Neutrophils # (Auto) 3.8 x10^3uL Lymphocytes # (Auto) 1.8 x10^3/uL Monocytes # (Auto) 0.8 x10^3/uL Eosinophils # (Auto) 0.1 x10^3/uL Basophils # (Auto) 0.0 x10^3/uL Segmented Neutrophils % 49 % Band Neutrophils % 4 % Lymphocytes % 27 % Monocytes % 12 % Eosinophils % 2 % Metamyelocytes % 1 % Myelocytes % 5 % Nucleated Red Blood Cells 1 Platelet Estimate Decreased Sodium Level 138 mmol/L Potassium Level 4.4 mmol/L Chloride Level 100 mmol/L Carbon Dioxide Level 29 mmol/L Anion Gap 9 Blood Urea Nitrogen 13 mg/dL Creatinine 1.1 mg/dL Estimated GFR (Cockcroft-Gault) 49.7 BUN/Creatinine Ratio 12 Glucose Level 121 mg/dL Calcium Level 8.7 mg/dL Total Bilirubin 0.4 mg/dL Aspartate Amino Transf (AST/SGOT) 24 U/L Alanine Aminotransferase (ALT/SGPT) 15 U/L Alkaline Phosphatase 131 U/L Total Protein 6.5 g/dL Albumin 2.8 g/dL Albumin/Globulin Ratio 0.8 Glucose (Fingerstick) 121 mg/dL 248 mg/dL 162 mg/dL Test 02/17/21 19:17 Glucose (Fingerstick) 249 mg/dL Current Medications Medications (Trade) Dose Ordered Sig/Latesha Route PRN Reason Start Time Stop Time Status Last Admin Dose Admin Acetaminophen (Tylenol) 650 mg PRN Q6HRS PRN PO MILD PAIN / TEMP > 100.3'F 01/22/21 14:00 Cancel Multi-Ingredient Ointment (Analgesic [place]) 1 keri PRN QID PRN TP MUSCLE PAIN 01/22/21 14:00 Al Hydroxide/Mg Hydroxide (Mylanta Plus Xs) 15 ml PRN AFTMEALHC PRN PO DYSPEPSIA 01/22/21 14:00 Magnesium Hydroxide (Milk Of Magnesia) 2,400 mg PRN QHS PRN PO CONSTIPATION 01/22/21 14:00 Valproic Acid (Depakene) 500 mg QID PO 01/22/21 17:00 02/17/21 20:52 Acetaminophen (Tylenol) 500 mg QID PO 01/22/21 21:00 01/23/21 13:04 DC 01/23/21 08:29 Amlodipine Besylate (Norvasc) 5 mg DAILY PO 01/23/21 09:00 02/17/21 09:03 Atorvastatin Calcium (Lipitor) 20 mg QHS PO 01/22/21 21:00 02/17/21 20:53 Vitamin D (Vitamin D3) 1,000 unit DAILY PO 01/23/21 09:00 02/17/21 09:03 Hydrocortisone Acetate (Anucort-Hc) 25 mg PRN Q8HRS PRN RC hemorrhoids 01/22/21 20:00 Levothyroxine Sodium (Synthroid) 25 mcg DAILY06 PO 01/23/21 06:00 02/17/21 05:30 Lidocaine (Lidoderm) 1 patch DAILY TP 01/23/21 09:00 02/17/21 09:02 Mesalamine (Lialda) 1.2 gm DAILY PO 01/23/21 09:00 02/17/21 09:03 Metoprolol Tartrate (Lopressor) 25 mg BID PO 01/22/21 21:00 02/17/21 20:53 Quetiapine Fumarate (SEROquel) 50 mg TID PO 01/22/21 21:00 02/16/21 16:46 DC 02/16/21 14:29 Risperidone (RisperDAL) 2 mg TID PO 01/22/21 21:00 02/17/21 16:16 DC 02/17/21 14:59 Rivastigmine (Exelon) 1 patch DAILY TD 01/23/21 09:00 02/01/21 16:25 DC 02/01/21 08:42 Venlafaxine HCl (Effexor Xr) 37.5 mg DAILY PO 01/23/21 09:00 01/23/21 13:11 DC 01/23/21 08:29 Ziprasidone (Geodon) 40 mg BID PO 01/22/21 21:00 01/28/21 17:15 DC 01/28/21 08:52 Ziprasidone (Geodon) 80 mg QHS PO 01/22/21 21:00 01/22/21 20:17 DC Cyanocobalamin (Vitamin B-12) 1,000 mcg DAILY PO 01/23/21 09:00 02/17/21 09:03 Insulin Human Lispro (HumaLOG) 40 units TIDWMEALS SQ 01/23/21 08:00 02/17/21 17:30 Insulin Glargine (Lantus Syringe) 30 unit DAILY SQ 01/23/21 09:00 01/29/21 14:19 DC 01/29/21 09:00 Lactobacillus Rhamnosus (Culturelle) 1 cap BID PO 01/23/21 09:00 02/17/21 20:53 Non-Formulary Medication (Liraglutide (Victoza 3-Jas)) 1.8 mg DAILY SQ 01/23/21 09:00 UNV Meclizine HCl (Antivert) 25 mg BID PO 01/22/21 21:00 02/17/21 20:53 Psyllium Hydrophilic Mucilloid (Metamucil) 1 pkt BID PO 01/22/21 21:00 02/02/21 13:31 DC 02/01/21 08:42 Demeclocycline HCl (Declomycin) 150 mg TID PO 01/22/21 21:00 01/22/21 20:45 DC Olanzapine (ZyPREXA ZYDIS) 5 mg PRN Q2HR PRN PO PSYCHOSIS 01/22/21 20:30 Demeclocycline HCl (Declomycin) 300 mg TID PO 01/22/21 21:00 02/17/21 20:53 Acetaminophen/ Codeine Phosphate (Tylenol #3) 1 tab PRN QID PRN PO MODERATE PAIN 4-6 01/23/21 11:45 01/23/21 12:23 Acetaminophen (Tylenol) 500 mg PRN Q6HRS PRN PO MILD PAIN / TEMP > 100.3'F 01/23/21 13:15 02/04/21 08:31 Clozapine (Clozaril) 25 mg HS PO 01/23/21 21:00 01/30/21 18:59 DC 01/29/21 20:37 Insulin Glargine (Lantus Syringe) 40 unit BID SQ 01/29/21 21:00 01/31/21 17:42 DC 01/31/21 09:50 Clozapine (Clozaril) 50 mg HS PO 01/30/21 21:00 02/13/21 10:08 DC 02/12/21 21:27 Insulin Glargine (Lantus Syringe) 60 unit BID SQ 01/31/21 17:45 01/31/21 18:17 DC Metformin HCl (Glucophage Xr) 500 mg DAILYWBKFT PO 02/01/21 08:00 02/17/21 09:02 Insulin Glargine (Lantus Syringe) 60 unit BID SQ 01/31/21 21:00 02/12/21 09:35 DC 02/12/21 09:29 Insulin Glargine (Lantus Syringe) 60 unit BID SQ 02/12/21 21:00 02/17/21 20:55 Clozapine (Clozaril) 75 mg HS PO 02/13/21 21:00 02/17/21 16:16 DC 02/16/21 20:14 Clozapine (Clozaril) 100 mg HS PO 02/17/21 21:00 02/17/21 20:59 Risperidone (RisperDAL) 2 mg 1400,2100 PO 02/17/21 21:00 02/17/21 20:53 Current Medications Medications (Trade) Dose Ordered Sig/Latesha Route PRN Reason Start Time Stop Time Status Last Admin Dose Admin Clozapine (Clozaril) 100 mg HS PO 02/17/21 21:00 02/17/21 20:59 Risperidone (RisperDAL) 2 mg 1400,2100 PO 02/17/21 21:00 02/17/21 20:53 I have reviewed the current psychotropics carefully including drug interactions. Risk benefit ratio favors no change other than as noted in my dictated progress note. Diagnosis: Problems: (1) Schizoaffective disorder, bipolar type (2) Impulse control disorder, unspecified (3) Anxiety disorder, unspecified (4) Bipolar disorder, current episode manic severe with psychotic features INOCENCIO PELAEZ MD Feb 17, 2021 22:00
--- NOTE | 2021-02-17 23:37 | NUR ---
Nursing Note Pt pleasant and cooperative. Takes po meds well no complaints. Seems to be much improved since admission. States she is feeling much better recently.
[2021-02-18] MEDS: LEVOTHYROXINE 25 MCG TABLET. PO SCH (06:00)
[2021-02-18 06:23] VITALS: BP 125/71
--- NOTE | 2021-02-18 06:30 | PDOC ---
Exam Note: Benedict Note: This note is a late entry for 02/17/2021 covers elements not covered in my initial note. Subjective: The patient was seen individually in the evening of 02/17/2021 with Jasmin CARRERA, discussed and reviewed the chart. The patient slept 6-1/4 hours previous night. Her Seroquel has been stopped and sedation is much improved today. Absolute neutrophil count is 3828. Review of Systems: She complains of cough and feels she has pneumonia. No CV, , eye system symptoms on review. Mental Status Exam: The patient is alert and oriented. Speech coherent. Abstraction fair. Computation impaired. Language function intact. Attention span fair. No suicidal or homicidal ideation. Laboratory Data: Reviewed. Impression: Schizoaffective disorder, bipolar type mixed with psychotic features. Anxiety disorder unspecified. Impulse control disorder unspecified. Plan: Increase Clozaril from 75 mg h.s. to 100 mg h.s., Risperdal 2 mg t.i.d. 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 Continue rest unchanged. Assessment: Vital Signs/I&O: Vital Signs Date Time Temp Pulse Resp B/P (MAP) Pulse Ox O2 Delivery O2 Flow Rate FiO2 02/18/21 06:23 98.1 81 22 125/71 (89) 97 02/15/21 06:15 Room Air I & O 02/17/21 02/17/21 02/18/21 15:00 23:00 07:00 Intake Total 960 ml 480 ml Balance 960 ml 480 ml Labs: Laboratory Tests Test 02/17/21 06:31 02/17/21 07:45 02/17/21 11:21 02/17/21 16:25 White Blood Count 6.6 x10^3/uL (4.0-11.0) Red Blood Count 3.64 x10^6/uL (3.50-5.40) Hemoglobin 10.7 g/dL (12.0-15.5) L Hematocrit 32.3 % (36.0-47.0) L Mean Corpuscular Volume 89 fL (79-100) Mean Corpuscular Hemoglobin 29 pg (25-35) Mean Corpuscular Hemoglobin Concent 33 g/dL (31-37) Red Cell Distribution Width 15.3 % (11.5-14.5) H Platelet Count 114 x10^3/uL (140-400) L Neutrophils (%) (Auto) 58 % (31-73) Lymphocytes (%) (Auto) 28 % (24-48) Monocytes (%) (Auto) 12 % (0-9) H Eosinophils (%) (Auto) 2 % (0-3) Basophils (%) (Auto) 0 % (0-3) Neutrophils # (Auto) 3.8 x10^3uL (1.8-7.7) Lymphocytes # (Auto) 1.8 x10^3/uL (1.0-4.8) Monocytes # (Auto) 0.8 x10^3/uL (0.0-1.1) Eosinophils # (Auto) 0.1 x10^3/uL (0.0-0.7) Basophils # (Auto) 0.0 x10^3/uL (0.0-0.2) Segmented Neutrophils % 49 % (35-66) Band Neutrophils % 4 % (0-9) Lymphocytes % 27 % (24-48) Monocytes % 12 % (0-10) H Eosinophils % 2 % (0-5) Metamyelocytes % 1 % (0-0) H Myelocytes % 5 % (0-0) H Nucleated Red Blood Cells 1 Platelet Estimate Decreased (ADEQUATE) Sodium Level 138 mmol/L (136-145) Potassium Level 4.4 mmol/L (3.5-5.1) Chloride Level 100 mmol/L (98-107) Carbon Dioxide Level 29 mmol/L (21-32) Anion Gap 9 (6-14) Blood Urea Nitrogen 13 mg/dL (7-20) Creatinine 1.1 mg/dL (0.6-1.0) H Estimated GFR (Cockcroft-Gault) 49.7 BUN/Creatinine Ratio 12 (6-20) Glucose Level 121 mg/dL (70-99) H Calcium Level 8.7 mg/dL (8.5-10.1) Total Bilirubin 0.4 mg/dL (0.2-1.0) Aspartate Amino Transferase (AST) 24 U/L (15-37) Alanine Aminotransferase (ALT) 15 U/L (14-59) Alkaline Phosphatase 131 U/L (46-116) H Total Protein 6.5 g/dL (6.4-8.2) Albumin 2.8 g/dL (3.4-5.0) L Albumin/Globulin Ratio 0.8 (1.0-1.7) L Glucose (Fingerstick) 121 mg/dL (70-99) H 248 mg/dL (70-99) H 162 mg/dL (70-99) H Test 02/17/21 19:17 Glucose (Fingerstick) 249 mg/dL (70-99) H Current Medications: Meds: Laboratory Tests Test 02/17/21 06:31 02/17/21 07:45 02/17/21 11:21 02/17/21 16:25 White Blood Count 6.6 x10^3/uL Red Blood Count 3.64 x10^6/uL Hemoglobin 10.7 g/dL Hematocrit 32.3 % Mean Corpuscular Volume 89 fL Mean Corpuscular Hemoglobin 29 pg Mean Corpuscular Hemoglobin Concent 33 g/dL Red Cell Distribution Width 15.3 % Platelet Count 114 x10^3/uL Neutrophils (%) (Auto) 58 % Lymphocytes (%) (Auto) 28 % Monocytes (%) (Auto) 12 % Eosinophils (%) (Auto) 2 % Basophils (%) (Auto) 0 % Neutrophils # (Auto) 3.8 x10^3uL Lymphocytes # (Auto) 1.8 x10^3/uL Monocytes # (Auto) 0.8 x10^3/uL Eosinophils # (Auto) 0.1 x10^3/uL Basophils # (Auto) 0.0 x10^3/uL Segmented Neutrophils % 49 % Band Neutrophils % 4 % Lymphocytes % 27 % Monocytes % 12 % Eosinophils % 2 % Metamyelocytes % 1 % Myelocytes % 5 % Nucleated Red Blood Cells 1 Platelet Estimate Decreased Sodium Level 138 mmol/L Potassium Level 4.4 mmol/L Chloride Level 100 mmol/L Carbon Dioxide Level 29 mmol/L Anion Gap 9 Blood Urea Nitrogen 13 mg/dL Creatinine 1.1 mg/dL Estimated GFR (Cockcroft-Gault) 49.7 BUN/Creatinine Ratio 12 Glucose Level 121 mg/dL Calcium Level 8.7 mg/dL Total Bilirubin 0.4 mg/dL Aspartate Amino Transf (AST/SGOT) 24 U/L Alanine Aminotransferase (ALT/SGPT) 15 U/L Alkaline Phosphatase 131 U/L Total Protein 6.5 g/dL Albumin 2.8 g/dL Albumin/Globulin Ratio 0.8 Glucose (Fingerstick) 121 mg/dL 248 mg/dL 162 mg/dL Test 02/17/21 19:17 Glucose (Fingerstick) 249 mg/dL Current Medications Medications (Trade) Dose Ordered Sig/Latesha Route PRN Reason Start Time Stop Time Status Last Admin Dose Admin Acetaminophen (Tylenol) 650 mg PRN Q6HRS PRN PO MILD PAIN / TEMP > 100.3'F 01/22/21 14:00 Cancel Multi-Ingredient Ointment (Analgesic [place]) 1 keri PRN QID PRN TP MUSCLE PAIN 01/22/21 14:00 Al Hydroxide/Mg Hydroxide (Mylanta Plus Xs) 15 ml PRN AFTMEALHC PRN PO DYSPEPSIA 01/22/21 14:00 Magnesium Hydroxide (Milk Of Magnesia) 2,400 mg PRN QHS PRN PO CONSTIPATION 01/22/21 14:00 Valproic Acid (Depakene) 500 mg QID PO 01/22/21 17:00 02/17/21 20:52 Acetaminophen (Tylenol) 500 mg QID PO 01/22/21 21:00 01/23/21 13:04 DC 01/23/21 08:29 Amlodipine Besylate (Norvasc) 5 mg DAILY PO 01/23/21 09:00 02/17/21 09:03 Atorvastatin Calcium (Lipitor) 20 mg QHS PO 01/22/21 21:00 02/17/21 20:53 Vitamin D (Vitamin D3) 1,000 unit DAILY PO 01/23/21 09:00 02/17/21 09:03 Hydrocortisone Acetate (Anucort-Hc) 25 mg PRN Q8HRS PRN RC hemorrhoids 01/22/21 20:00 Levothyroxine Sodium (Synthroid) 25 mcg DAILY06 PO 01/23/21 06:00 02/18/21 06:00 Lidocaine (Lidoderm) 1 patch DAILY TP 01/23/21 09:00 02/17/21 09:02 Mesalamine (Lialda) 1.2 gm DAILY PO 01/23/21 09:00 02/17/21 09:03 Metoprolol Tartrate (Lopressor) 25 mg BID PO 01/22/21 21:00 02/17/21 20:53 Quetiapine Fumarate (SEROquel) 50 mg TID PO 01/22/21 21:00 02/16/21 16:46 DC 02/16/21 14:29 Risperidone (RisperDAL) 2 mg TID PO 01/22/21 21:00 02/17/21 16:16 DC 02/17/21 14:59 Rivastigmine (Exelon) 1 patch DAILY TD 01/23/21 09:00 02/01/21 16:25 DC 02/01/21 08:42 Venlafaxine HCl (Effexor Xr) 37.5 mg DAILY PO 01/23/21 09:00 01/23/21 13:11 DC 01/23/21 08:29 Ziprasidone (Geodon) 40 mg BID PO 01/22/21 21:00 01/28/21 17:15 DC 01/28/21 08:52 Ziprasidone (Geodon) 80 mg QHS PO 01/22/21 21:00 01/22/21 20:17 DC Cyanocobalamin (Vitamin B-12) 1,000 mcg DAILY PO 01/23/21 09:00 02/17/21 09:03 Insulin Human Lispro (HumaLOG) 40 units TIDWMEALS SQ 01/23/21 08:00 02/17/21 17:30 Insulin Glargine (Lantus Syringe) 30 unit DAILY SQ 01/23/21 09:00 01/29/21 14:19 DC 01/29/21 09:00 Lactobacillus Rhamnosus (Culturelle) 1 cap BID PO 01/23/21 09:00 02/17/21 20:53 Non-Formulary Medication (Liraglutide (Victoza 3-Jas)) 1.8 mg DAILY SQ 01/23/21 09:00 UNV Meclizine HCl (Antivert) 25 mg BID PO 01/22/21 21:00 02/17/21 20:53 Psyllium Hydrophilic Mucilloid (Metamucil) 1 pkt BID PO 01/22/21 21:00 02/02/21 13:31 DC 02/01/21 08:42 Demeclocycline HCl (Declomycin) 150 mg TID PO 01/22/21 21:00 01/22/21 20:45 DC Olanzapine (ZyPREXA ZYDIS) 5 mg PRN Q2HR PRN PO PSYCHOSIS 01/22/21 20:30 Demeclocycline HCl (Declomycin) 300 mg TID PO 01/22/21 21:00 02/17/21 20:53 Acetaminophen/ Codeine Phosphate (Tylenol #3) 1 tab PRN QID PRN PO MODERATE PAIN 4-6 01/23/21 11:45 01/23/21 12:23 Acetaminophen (Tylenol) 500 mg PRN Q6HRS PRN PO MILD PAIN / TEMP > 100.3'F 01/23/21 13:15 02/04/21 08:31 Clozapine (Clozaril) 25 mg HS PO 01/23/21 21:00 01/30/21 18:59 DC 01/29/21 20:37 Insulin Glargine (Lantus Syringe) 40 unit BID SQ 01/29/21 21:00 01/31/21 17:42 DC 01/31/21 09:50 Clozapine (Clozaril) 50 mg HS PO 01/30/21 21:00 02/13/21 10:08 DC 02/12/21 21:27 Insulin Glargine (Lantus Syringe) 60 unit BID SQ 01/31/21 17:45 01/31/21 18:17 DC Metformin HCl (Glucophage Xr) 500 mg DAILYWBKFT PO 02/01/21 08:00 02/17/21 09:02 Insulin Glargine (Lantus Syringe) 60 unit BID SQ 01/31/21 21:00 02/12/21 09:35 DC 02/12/21 09:29 Insulin Glargine (Lantus Syringe) 60 unit BID SQ 02/12/21 21:00 02/17/21 20:55 Clozapine (Clozaril) 75 mg HS PO 02/13/21 21:00 02/17/21 16:16 DC 02/16/21 20:14 Clozapine (Clozaril) 100 mg HS PO 02/17/21 21:00 02/17/21 20:59 Risperidone (RisperDAL) 2 mg 1400,2100 PO 02/17/21 21:00 02/17/21 20:53 Current Medications Medications (Trade) Dose Ordered Sig/Latesha Route PRN Reason Start Time Stop Time Status Last Admin Dose Admin Clozapine (Clozaril) 100 mg HS PO 02/17/21 21:00 02/17/21 20:59 Risperidone (RisperDAL) 2 mg 1400,2100 PO 02/17/21 21:00 02/17/21 20:53 I have reviewed the current psychotropics carefully including drug interactions. Risk benefit ratio favors no change other than as noted in my dictated progress note. Diagnosis: Problems: (1) Schizoaffective disorder, bipolar type (2) Impulse control disorder, unspecified (3) Anxiety disorder, unspecified (4) Bipolar disorder, current episode manic severe with psychotic features INOCENCIO PELAEZ MD Feb 18, 2021 06:30
[2021-02-18] MEDS: DEMECLOCYCLINE HCL 150 MG TABLET. PO SCH (08:29)
[2021-02-18] MEDS: VALPROIC ACID 250 MG CAPSULE. PO SCH (08:29)
[2021-02-18 08:30] VITALS: BP 125/71
[2021-02-18] MEDS: CYANOCOBALAMIN (VITAMIN B-12) 1,000 MCG TABLET. PO SCH (08:30)
[2021-02-18] MEDS: LACTOBACILLUS RHAMNOSUS GG 1 CAPSULE. PO SCH (08:30)
[2021-02-18] MEDS: metFORMIN XR 500 MG TAB.ER.24H PO SCH (08:30)
[2021-02-18] MEDS: amLODIPine BESYLATE 5 MG TABLET PO SCH (08:30)
[2021-02-18] MEDS: MECLIZINE 12.5 MG TABLET. PO SCH (08:30)
[2021-02-18] MEDS: METOPROLOL TART IMMED RELEASE 25 MG TABLET. PO SCH (08:30)
[2021-02-18] MEDS: MESALAMINE 1.2 GM TABLET.DR PO SCH (08:30)
[2021-02-18] MEDS: CHOLECALCIFEROL (VITAMIN D3) 1,000 UNIT TABLET PO SCH (08:30)
[2021-02-18] MEDS: INSULIN LISPRO 300 UNITS/3 ML VIAL. SQ SCH (08:33)
[2021-02-18] MEDS: INSULIN GLARGINE SYRINGE. SQ SCH (08:34)
[2021-02-18] MEDS: LIDOCAINE (700MG/PATCH) PATCH. TP SCH (08:35)
[2021-02-18] MEDS: NON FORMULARY ITEM (Liraglutide (Victoza 3-Pak) 1.8 MG) SQ SCH (08:35)
--- NOTE | 2021-02-18 10:54 | NUR ---
Transition Record was faxed to follow-up provider with the following elements: Reason for admission, procedures, tests, principal diagnosis, pending studies, patient instructions, 08/03 contact information for unit, phone number to obtain pending test results, plan for follow-up care, physician follow-up, advanced directive information, and medication list with dose, duration and instructions. This information was included in the following documents: History and physical, lab results, study results, progress notes, social work planning form, DC instruction form, patient visit summary, and medication reconciliation form. Date & time record faxed: 02/18/21@0511 Record faxed to: Alfonso [phone] Record discussed with/ report given to: November KEN [phone] @[phone]
[2021-02-18 12:44] LABS: % SEGS 49 % (35-66)
--- NOTE | 2021-02-18 21:54 | PDOC ---
Exam Note: Benedict Note: Please also refer to the separate dictated note~for this date of service dictated separately.~Patient seen individually. Discussed the patient with Nursing staff reviewed the chart.~Reviewed interim history and current functioning. Reviewed vital signs,~Labs/ Radiology~and current medications noted below. Continue current treatment with the changes noted in the dictated addendum note Assessment: Vital Signs/I&O: Vital Signs Date Time Temp Pulse Resp B/P (MAP) Pulse Ox O2 Delivery O2 Flow Rate FiO2 02/18/21 08:30 81 125/71 02/18/21 06:23 98.1 22 97 02/15/21 06:15 Room Air I & O 02/17/21 02/17/21 02/18/21 15:00 23:00 07:00 Intake Total 960 ml 480 ml Balance 960 ml 480 ml Labs: Laboratory Tests Test 02/18/21 07:38 Glucose (Fingerstick) 108 mg/dL (70-99) H Current Medications: Meds: Laboratory Tests Test 02/18/21 07:38 Glucose (Fingerstick) 108 mg/dL Current Medications Medications (Trade) Dose Ordered Sig/Latesha Route PRN Reason Start Time Stop Time Status Last Admin Dose Admin Acetaminophen (Tylenol) 650 mg PRN Q6HRS PRN PO MILD PAIN / TEMP > 100.3'F 01/22/21 14:00 Cancel Multi-Ingredient Ointment (Analgesic [place]) 1 keri PRN QID PRN TP MUSCLE PAIN 01/22/21 14:00 02/18/21 11:00 DC Al Hydroxide/Mg Hydroxide (Mylanta Plus Xs) 15 ml PRN AFTMEALHC PRN PO DYSPEPSIA 01/22/21 14:00 02/18/21 11:00 DC Magnesium Hydroxide (Milk Of Magnesia) 2,400 mg PRN QHS PRN PO CONSTIPATION 01/22/21 14:00 02/18/21 11:00 DC Valproic Acid (Depakene) 500 mg QID PO 01/22/21 17:00 02/18/21 11:00 DC 02/18/21 08:29 Acetaminophen (Tylenol) 500 mg QID PO 01/22/21 21:00 01/23/21 13:04 DC 01/23/21 08:29 Amlodipine Besylate (Norvasc) 5 mg DAILY PO 01/23/21 09:00 02/18/21 11:00 DC 02/18/21 08:30 Atorvastatin Calcium (Lipitor) 20 mg QHS PO 01/22/21 21:00 02/18/21 11:00 DC 02/17/21 20:53 Vitamin D (Vitamin D3) 1,000 unit DAILY PO 01/23/21 09:00 02/18/21 11:00 DC 02/18/21 08:30 Hydrocortisone Acetate (Anucort-Hc) 25 mg PRN Q8HRS PRN RC hemorrhoids 01/22/21 20:00 02/18/21 11:00 DC Levothyroxine Sodium (Synthroid) 25 mcg DAILY06 PO 01/23/21 06:00 02/18/21 11:00 DC 02/18/21 06:00 Lidocaine (Lidoderm) 1 patch DAILY TP 01/23/21 09:00 02/18/21 11:00 DC 02/18/21 08:35 Mesalamine (Lialda) 1.2 gm DAILY PO 01/23/21 09:00 02/18/21 11:00 DC 02/18/21 08:30 Metoprolol Tartrate (Lopressor) 25 mg BID PO 01/22/21 21:00 02/18/21 11:00 DC 02/18/21 08:30 Quetiapine Fumarate (SEROquel) 50 mg TID PO 01/22/21 21:00 02/16/21 16:46 DC 02/16/21 14:29 Risperidone (RisperDAL) 2 mg TID PO 01/22/21 21:00 02/17/21 16:16 DC 02/17/21 14:59 Rivastigmine (Exelon) 1 patch DAILY TD 01/23/21 09:00 02/01/21 16:25 DC 02/01/21 08:42 Venlafaxine HCl (Effexor Xr) 37.5 mg DAILY PO 01/23/21 09:00 01/23/21 13:11 DC 01/23/21 08:29 Ziprasidone (Geodon) 40 mg BID PO 01/22/21 21:00 01/28/21 17:15 DC 01/28/21 08:52 Ziprasidone (Geodon) 80 mg QHS PO 01/22/21 21:00 01/22/21 20:17 DC Cyanocobalamin (Vitamin B-12) 1,000 mcg DAILY PO 01/23/21 09:00 02/18/21 11:00 DC 02/18/21 08:30 Insulin Human Lispro (HumaLOG) 40 units TIDWMEALS SQ 01/23/21 08:00 02/18/21 11:00 DC 02/18/21 08:33 Insulin Glargine (Lantus Syringe) 30 unit DAILY SQ 01/23/21 09:00 01/29/21 14:19 DC 01/29/21 09:00 Lactobacillus Rhamnosus (Culturelle) 1 cap BID PO 01/23/21 09:00 02/18/21 11:00 DC 02/18/21 08:30 Non-Formulary Medication (Liraglutide (Victoza 3-Jas)) 1.8 mg DAILY SQ 01/23/21 09:00 02/18/21 11:00 DC Meclizine HCl (Antivert) 25 mg BID PO 01/22/21 21:00 02/18/21 11:00 DC 02/18/21 08:30 Psyllium Hydrophilic Mucilloid (Metamucil) 1 pkt BID PO 01/22/21 21:00 02/02/21 13:31 DC 02/01/21 08:42 Demeclocycline HCl (Declomycin) 150 mg TID PO 01/22/21 21:00 01/22/21 20:45 DC Olanzapine (ZyPREXA ZYDIS) 5 mg PRN Q2HR PRN PO PSYCHOSIS 01/22/21 20:30 02/18/21 11:00 DC Demeclocycline HCl (Declomycin) 300 mg TID PO 01/22/21 21:00 02/18/21 11:00 DC 02/18/21 08:29 Acetaminophen/ Codeine Phosphate (Tylenol #3) 1 tab PRN QID PRN PO MODERATE PAIN 4-6 01/23/21 11:45 02/18/21 11:00 DC 01/23/21 12:23 Acetaminophen (Tylenol) 500 mg PRN Q6HRS PRN PO MILD PAIN / TEMP > 100.3'F 01/23/21 13:15 02/18/21 11:00 DC 02/04/21 08:31 Clozapine (Clozaril) 25 mg HS PO 01/23/21 21:00 01/30/21 18:59 DC 01/29/21 20:37 Insulin Glargine (Lantus Syringe) 40 unit BID SQ 01/29/21 21:00 01/31/21 17:42 DC 01/31/21 09:50 Clozapine (Clozaril) 50 mg HS PO 01/30/21 21:00 02/13/21 10:08 DC 02/12/21 21:27 Insulin Glargine (Lantus Syringe) 60 unit BID SQ 01/31/21 17:45 01/31/21 18:17 DC Metformin HCl (Glucophage Xr) 500 mg DAILYWBKFT PO 02/01/21 08:00 02/18/21 11:00 DC 02/18/21 08:30 Insulin Glargine (Lantus Syringe) 60 unit BID SQ 01/31/21 21:00 02/12/21 09:35 DC 02/12/21 09:29 Insulin Glargine (Lantus Syringe) 60 unit BID SQ 02/12/21 21:00 02/18/21 11:00 DC 02/18/21 08:34 Clozapine (Clozaril) 75 mg HS PO 02/13/21 21:00 02/17/21 16:16 DC 02/16/21 20:14 Clozapine (Clozaril) 100 mg HS PO 02/17/21 21:00 02/18/21 11:00 DC 02/17/21 20:59 Risperidone (RisperDAL) 2 mg 1400,2100 PO 02/17/21 21:00 02/18/21 11:00 DC 02/17/21 20:53 I have reviewed the current psychotropics carefully including drug interactions. Risk benefit ratio favors no change other than as noted in my dictated progress note. Diagnosis: Problems: (1) Schizoaffective disorder, bipolar type (2) Impulse control disorder, unspecified (3) Anxiety disorder, unspecified (4) Bipolar disorder, current episode manic severe with psychotic features INOCENCIO PELEAZ MD Feb 18, 2021 21:54
--- NOTE | 2021-02-18 23:45 | DS ---
DATE OF DISCHARGE: 02/18/2021 This note covers the elements not covered in my initial note of 02/18/2021. REASON FOR ADMISSION: Please refer to the admission history for details. Briefly, the patient is a 65-year-old female, referred to us from [facility] on [address] [place] [address] by her primary care physician on account of an acute exacerbation of schizoaffective disorder, bipolar type, with psychotic features. The patient was noted to be manic, delusional, thinking that she is in heart and kidney failure and has pneumonia and needed to be hospitalized. She was extremely grandiose, believed she owns the facility with labile mood, agitation, refusing medications and blood work. She was threatening staff with a knife. 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 The patient's behaviors were deemed unmanageable at the facility. She had failed outpatient psychiatric interventions resulting in this referral. SIGNIFICANT FINDINGS AND CLINICAL COURSE: Following admission, the patient was seen daily individually by myself from a psychiatric standpoint, medical followup by Dr. Trinidad/Dr. Lee. The patient was extremely grandiose, manic, psychotic at admission. Adjustments were made in her psychotropics and she seemed to respond to a combination of Clozaril which was gradually increased to 100 mg at bedtime and Risperdal which was reduced from 2 mg t.i.d. to 2 mg b.i.d. and further dose reduction should be done at the senior living depending on her progress. The patient had failed treatment on a single atypical antipsychotic thus necessitating using the two, Risperdal and Clozaril in combination, but again the Risperdal should be gradually tapered over the next several weeks. She is also on Depakene 500 mg 4 times a day, level was therapeutic at 66. The absolute neutrophil counts remained stable on the Clozaril. CONDITION AT DISCHARGE: Improved. REVIEW OF SYSTEMS: Prior to discharge, no CV, , pulmonary, eye system symptoms on review. Gait unsteady. MENTAL STATUS EXAM: Reasonably oriented. Speech coherent, less pressured. Abstraction fair. Computation impaired. Language function intact. Mood and affect less grandiose. Labs reviewed. No suicidal or homicidal ideation at discharge. FINAL DIAGNOSES: Schizoaffective disorder, bipolar type, mixed with psychotic features, in partial remission; anxiety disorder, unspecified; impulse control disorder, unspecified. Rest unchanged from admission. DISCHARGE MEDICATIONS: Please refer to the MRAD. Outpatient psychiatric and medical followup at the senior living and the patient needs weekly CBC and absolute neutrophil counts to be monitored while she is on Clozaril. Again, the Risperdal should be gradually tapered over the next 3-6 months depending on her progress. Time for discharge day management greater than 30 minutes. RENAE/MELANIE DR: Jasmyne TID: [id number]
== END 2021-02-18 10:20 | DRG 885 ==
LOC: GEROPSY 13:21
PROVIDERS: ADMIT Psychiatry & Neurology Psychiatry; ATTEND Psychiatry & Neurology Psychiatry
DX: F25.0 Schizoaffective disorder, bipolar type (principal); E43 Unspecified severe protein-calorie malnutrition; N18.30 Chronic kidney disease, stage 3 unspecified; J18.9 Pneumonia, unspecified organism; I13.0 Hypertensive heart and chronic kidney disease with heart failure and stage 1 through stage 4 chronic kidney disease, or unspecified chronic kidney disease; J98.11 Atelectasis; F63.9 Impulse disorder, unspecified; E03.9 Hypothyroidism, unspecified; E11.22 Type 2 diabetes mellitus with diabetic chronic kidney disease; F43.10 Post-traumatic stress disorder, unspecified; E78.5 Hyperlipidemia, unspecified; F41.1 Generalized anxiety disorder; I50.9 Heart failure, unspecified; M19.90 Unspecified osteoarthritis, unspecified site; Z20.822 Contact with and (suspected) exposure to COVID-19; Z68.32 Body mass index [BMI] 32.0-32.9, adult; Z88.0 Allergy status to penicillin; Z88.8 Allergy status to other drugs, medicaments and biological substances; Z99.3 Dependence on wheelchair; Z81.8 Family history of other mental and behavioral disorders
CPT/HCPCS: 36415; 70450; 71045; 80053; 80061; 80164; 81001; 82306; 82607; 82947; 83036; 83540; 83550; 83735; 84436; 84443; 84480; 85007; 85025; 85027; 85379; 85651; 86140; 86592; 87086; 93005; 93970; J1815; U0003; 97535